=== PATIENT | female | born 1960 | race Caucasian/White ===

== ENCOUNTER 2020-01-19 08:01 | Emergency (ER) | payer OTHER, SELFPAY ==
[2012-01-11 21:14] VITALS: BP 146/89
--- OUTSIDE RECORDS SUMMARY | 2020-01-19 08:03 | XMS REPORT | Continuity of Care Document ---
:1960 Author Organization [facility] t Address [address] [place] [address] Care Team Providers Name Role Phone Doctor Unassigned, Name Attending Clinician Unavailable Jorge Attending Clinician Margaret Hood Attending Clinician Sudhir MERIDA Attending Clinician Sudhir MERIDA Admitting Clinician Problems This patient has no known problems. Allergies, Adverse Reactions, Alerts This patient has no known allergies or adverse reactions. Medications This patient has no known medications. Procedures This patient has no known procedures. Encounters Start End Encounter Admission Attending Care Care Encounter Source Date/Time Date/Time Type Type Clinicians Facility Department ID 2019-01-24 2019-01-24 Orders Doctor HAIRSTON [id number] 00:00:00 00:00:00 Only UnassKANWAL duckworth [id number] [facility] [id number] 2019-01-03 2019-01-03 Transition Daxa Patel [id number] 00:00:00 00:00:00 of Care Merle Ball [id number] [place] [id number] 2018-12-30 2019-01-02 [facility] Kana Bustamante [id number] 12:35:43 18:20:00 Encounter Leti Peguero [id number] [facility] [id number] Results This patient has no known results.
[2020-01-19 09:00] LABS: Absolute Lymphocytes (CBC) 0.6 K/uL (0.7-4.9); Basophils % 0.1 % (0-1.3); Lymphocytes % 4.3 % (15.3-44.8); MPV 9.3 fL (7.6-11.3); RBC Red Blood Cell Count 3.47 M/uL (3.86-4.86)
[2020-01-19 09:20] LABS: Albumin 3.6 g/dL (3.4-5.0); Bilirubin Direct 0.1 mg/dL (0-0.2); Bilirubin Total 0.3 mg/dL (0.2-1.0); Potassium 4.5 mmol/L (3.5-5.1)
[2020-01-19 10:23] LABS: Urine White Blood Cell Casts OK
[2020-01-19 10:24] LABS: Blood Morphology Comment NOT SEEN (NOT SEEN); Platelet Estimate ADEQ
[2020-01-19] MEDS ORDERED: CEFTRIAXONE/SWI 1gm 1 GM/10 ML SYR ONE (12:16)
[2020-01-19] MEDS ORDERED: NA CHLORIDE 0.9% 100 ML IV ONE (12:16)
--- NOTE | 2020-01-19 12:43 | RAD REPORT ---
EXAM DESCRIPTION: CT - Head Brain Wo Cont - 01/19/2020 12:29 pm CLINICAL HISTORY: Alteration of awareness/confusion COMPARISON: 2012 TECHNIQUE: Computed axial tomography of the head was obtained. IV contrast was not requested. All CT scans are performed using dose optimization technique as appropriate and may include automated exposure control or mA/KV adjustment according to patient size. FINDINGS: An intracranial bleed is not seen . The ventricles are normal in caliber. No extra-axial fluid collection is noted. 10 millimeter low-density area within the right internal capsule appears more prominent than on the p rior exam but was probably present. Mild to moderate low-density areas within periventricular, deep and subcortical white matter likely r epresent ischemic changes secondary to small vessel disease. Fluid within the right maxillary sinus may indicate acute sinusitis IMPRESSION: 10 millimeter low-density area within the right internal capsule probably is chronic. If patient continues to have symptoms to suggest acute intracranial pathology then MRI would be recom mended.
--- NOTE | 2020-01-19 13:26 | RAD REPORT ---
EXAM DESCRIPTION: Yobani Single View01/19/2020 11:14 am CLINICAL HISTORY: Fever COMPARISON: 2012 FINDINGS: Mild bilateral pulmonary opacities. . The heart is borderline enlarged IMPRESSION: Mild bilateral pulmonary opacities may represent pneumonia or pulmonary edema
[2020-01-19 13:31] LABS: Urine Blood 2+ (NEG); Urine Glucose NEGATIVE (NEG); Urine Protein 1+ (NEG); Urine Specific Gravity 1.025 (1.005-1.030); Urine pH 5.5 (5.0-7.0)
[2020-01-19 13:54] LABS: Barbiturates NEGATIVE (NEGATIVE); Benzodiazepines POSITIVE (NEGATIVE); Cocaine NEGATIVE (NEGATIVE); METHAMPHETAM NEGATIVE (NEGATIVE); Methadone NEGATIVE (NEGATIVE); Opiates POSITIVE (NEGATIVE); Phencyclidine NEGATIVE (NEGATIVE); THC Cannibis NEGATIVE (NEGATIVE)
[2020-01-19] MEDS ORDERED: AZITHROMYCIN IV 500 MG in NA CHLORIDE 0.9% 250 ML IVPB ONE (14:00)
[2020-01-19 14:09] LABS: Urine Amorphous Sediment 3+ /HPF (NONE SEEN); Urine Bacteria <20 /HPF (<20); Urine Culture Reflex Order NOT NEEDED; Urine RBC <5 /HPF (NONE SEEN)
--- NOTE | 2020-01-19 14:35 | ER ---
Nurse's Notes [facility] Name: Le Heath Age: 59 yrs Sex: Female : 1960 Arrival Date: 01/19/2020 Time: 08:03 Bed 4 Private MD: Diagnosis: Pneumonia, unspecified organism;Vomiting Presentation: 01/18 08:04 Chief complaint: EMS states: GEN WEAKNESS AND NAUSEA/VOMITING. Coronavirus screen: bp chills, fever, headache, nausea, vomiting. Client presents with at least one sign or symptom that may indicate coronavirus-19. Provider contacted for isolation considerations. Ebola Screen: No symptoms or risks identified at this time. Initial Sepsis Screen: Does the patient meet any 2 criteria? Temp <36.0*C (96.8*F)) or > 38.3*C (100.9*F). HR > 90 bpm. Yes Does the patient have a suspected source of infection? No. Patient's initial sepsis screen is negative. Risk Assessment: Do you want to hurt yourself or someone else? Patient reports no desire to harm self or others. Onset of symptoms is unknown. Care prior to arrival: IV initiated. 18 GA, in the left antecubital area, Glucose check: 164. 08:04 Method Of Arrival: EMS: [facility] bp 08:04 Acuity: MIKE 2 bp Triage Assessment: 08:13 General: Appears distressed, uncomfortable, ill, Behavior is cooperative, appropriate bp for age, anxious. Pain: Complains of pain in back. EENT: No deficits noted. Neuro: No deficits noted. Cardiovascular: Rhythm is sinus tachycardia. Respiratory: No deficits noted. GI: Reports nausea, vomiting. Musculoskeletal: No deficits noted. Historical: - Allergies: 08:13 No Known Allergies; bp - Home Meds: 08:13 Propranolol Oral [Active]; Tylenol #4 Oral [Active]; bp - PMHx: 08:13 Hypertension; bp - Immunization history:: Adult Immunizations up to date. - Social history:: Smoking status: Patient denies any tobacco usage or history of. Screenin:21 Abuse screen: Denies threats or abuse. Denies injuries from another. Nutritional bp screening: No deficits noted. Tuberculosis screening: No symptoms or risk factors identified. Fall Risk None identified. Assessment: 08:17 General: SEE TRIAGE NOTE. bp 09:21 Reassessment: PT REPEATEDLY ATTEMPTING TO EXIT BED BUT TOO WEAK TO STAND, REQUIRING bp STAFF ASSISTANCE TO REPOSITION. PT D/C OWN PIV AND FLIPPED B/S COMMODE. PT STRONGLY ENCOURAGED TO USE CALL LIGHT FOR ASSISTANCE IN THE FUTURE. 11:28 Reassessment: [phone]. bp 12:38 Reassessment: PT RETURNED FROM CT. bp 14:43 Reassessment: PT NOW AO3, INCREASED LEVEL OF CONSCIOUSNESS. D/C ON HOLD PENDING bp DELIVERY OF MED REQUESTED FROM PHARMACY. GI: Abdomen is non-distended. 15:30 Reassessment: PT RESTING QUIETLY, VS STABLE ON MONITOR. bp 16:30 Reassessment: ABX INFUSING, VS STABLE. PT SLEEPING. bp 17:28 Reassessment: ABX CONCLUDED. PT INSTRUCTED TO CONTACT FAMILY FOR TRANSPORT. bp 17:50 Reassessment: PT D/C HOME VIA W/C WITH FAMILY, DX WITH COVID PNEUMONIA. bp Vital Signs: 08:04 BP 126 / 63; Pulse 151; Resp 20; Temp 103.1; Pulse Ox 93% ; bp 09:21 BP 118 / 72; Pulse 133; Resp 17; Pulse Ox 95% ; bp 10:28 BP 105 / 63; Pulse 123; Resp 23; Pulse Ox 99% ; bp 11:02 BP 92 / 60; Pulse 102; Resp 14; Temp 99.7; Pulse Ox 100% ; bp 12:37 BP 121 / 75; Pulse 103; Resp 18; Pulse Ox 98% ; bp 13:30 BP 134 / 53; Pulse 94; Resp 11; Pulse Ox 98% ; bp 14:30 BP 99 / 50; Pulse 91; Resp 15; Pulse Ox 97% ; bp 15:30 BP 128 / 53; Pulse 94; Resp 11; Pulse Ox 99% ; bp 16:30 BP 116 / 72; Pulse 93; Resp 16; Pulse Ox 99% ; bp 17:30 BP 109 / 50; Pulse 97; Resp 17; Temp 98.9; Pulse Ox 99% ; bp ED Course: 08:03 Patient arrived in ED. bp 08:04 Kev Howard NP is PHCP. pm1 08:04 Devyn Douglas MD is Attending Physician. pm1 08:08 Triage completed. bp 08:13 Arm band placed on right wrist. bp 08:20 Maintain EMS IV. Dressing intact. Good blood return noted. Site clean \T\ dry. Gauge \T\ bp site: 18 GAUGE R AC. 08:21 Patient has correct armband on for positive identification. Bed in low position. Call bp light in reach. Side rails up X2. 08:22 Kris Almonte, EDGAR is Primary Nurse. bp 08:30 EKG done, by ED staff, reviewed by Kev Howard NP. jb1 09:21 IV discontinued, intact, bleeding controlled, No redness/swelling at site. Pressure jb1 dressing applied. 09:21 Inserted saline lock: 22 gauge in left antecubital area, using aseptic technique. jb1 11:14 Chest Single View XRAY In Process Unspecified. EDMS 12:29 CT Head Brain wo Cont In Process Unspecified. EDMS 12:29 CT completed. Patient tolerated procedure well. Patient moved back from CT. bq 13:20 Straight cath inserted, using sterile technique, 16 Fr. Specimen obtained. Returned aa5 Sent urine micro and urine drug screen to lab. . Patient tolerated well. 15:58 intact, bleeding controlled, No redness/swelling at site. Pressure dressing applied, 22 aa5 G to L AC dc'd, unable to flush IV. 15:59 Inserted saline lock: 22 gauge in left hand, using aseptic technique. aa5 17:51 No provider procedures requiring assistance completed. IV discontinued, intact, bp bleeding controlled, No redness/swelling at site. Pressure dressing applied. Administered Medications: 09:00 Drug: NS 0.9% 1000 ml Route: IV; Rate: 1000 ml; Site: left antecubital; bp 10:30 Drug: NS 0.9% 1000 ml Route: IV; Rate: 1000 ml; Site: left antecubital; bp 16:02 Follow up: IV Status: Completed infusion; IV Intake: 1000ml bp 12:30 Drug: Rocephin 1 grams Route: IV; Rate: calculated rate; Site: left antecubital; bp 16:01 Follow up: IV Status: Completed infusion; IV Intake: 50ml bp 16:00 Drug: AZITHromycin 500 mg {Note: recd from pharmacy.} Route: IVPB; Infused Over: 1 hrs; bp Site: left hand; 17:52 Follow up: IV Status: Completed infusion; IV Intake: 250ml bp Intake: 16:01 IV: 50ml; Total: 50ml. bp 16:02 IV: 1000ml; Total: 1050ml. bp 17:52 IV: 250ml; Total: 1300ml. bp Outcome: 14:34 Discharge ordered by . pm1 17:51 Discharged to home via wheelchair, with family. bp 17:51 Condition: stable 17:51 Discharge instructions given to patient, Instructed on discharge instructions, follow up and referral plans. medication usage, Demonstrated understanding of instructions, follow-up care, medications, Prescriptions given X 2. 17:52 Patient left the ED. bp Signatures: Dispatcher [employer] EDMS Kirt Nelson jbSaloni Kate Audri, RN RN aa5 Kev Howard, MICHAELA [employer]ES[employer] SPECIALIST pm1 Kris Almonte RN RN bp
--- NOTE | 2020-01-19 14:35 | EDPHYS ---
Physician Documentation [facility] Name: Le Heath Age: 59 yrs Sex: Female : 1960 Arrival Date: 01/19/2020 Time: 08:03 Bed 4 Private MD: ED Physician Devyn Douglas HPI: 01/18 11:21 This 59 yrs old Female presents to ER via EMS with complaints of General pm1 Weakness, Fever, Nausea/Vomiting. 11:21 The patient presents to the emergency department with weakness of the entire body, pm1 generalized weakness. 11:21 Onset: The symptoms/episode began/occurred yesterday. Associated signs and symptoms: pm1 Pertinent positives: fever, nausea/vomit x 1 this AM at 0300, Pertinent negatives: chest pain, shortness of breath, abdominal pain, diarrhea, urinary symptoms, cough, sore throat, ear pain. Severity of symptoms: in the emergency department the symptoms have improved no longer nauseated or having any vomiting. The patient has not recently seen a physician. Patient presenting to the ER with complaints of generalized weakness, fever, and 1 episode of vomiting. Historical: - Allergies: 08:13 No Known Allergies; bp - Home Meds: 08:13 Propranolol Oral [Active]; Tylenol #4 Oral [Active]; bp - PMHx: 08:13 Hypertension; bp - Immunization history:: Adult Immunizations up to date. - Social history:: Smoking status: Patient denies any tobacco usage or history of. ROS: 11:21 Eyes: Negative for injury, pain, redness, and discharge, ENT: Negative for injury, pm1 pain, and discharge, Neck: Negative for injury, pain, and swelling, Cardiovascular: Negative for chest pain, palpitations, and edema, Respiratory: Negative for shortness of breath, cough, wheezing, and pleuritic chest pain, Back: Negative for injury and pain, : Negative for injury, bleeding, discharge, and swelling, MS/Extremity: Negative for injury and deformity, Skin: Negative for injury, rash, and discoloration. 11:21 Constitutional: Positive for fever. 11:21 Abdomen/GI: Positive for nausea and vomiting, x 1, Negative for abdominal pain, diarrhea, constipation. 11:21 Neuro: Positive for weakness, generalized, Negative for dizziness, headache, numbness, tingling. Exam: 11:21 Constitutional: This is a well developed, well nourished patient who is awake, alert, pm1 and in no acute distress. Head/Face: Normocephalic, atraumatic. Eyes: Pupils equal round and reactive to light, extra-ocular motions intact. Lids and lashes normal. Conjunctiva and sclera are non-icteric and not injected. Cornea within normal limits. Periorbital areas with no swelling, redness, or edema. ENT: Nares patent. No nasal discharge, no septal abnormalities noted. Tympanic membranes are normal and external auditory canals are clear. Oropharynx with no redness, swelling, or masses, exudates, or evidence of obstruction, uvula midline. Mucous membranes moist. Neck: Trachea midline, no thyromegaly or masses palpated, and no cervical lymphadenopathy. Supple, full range of motion without nuchal rigidity, or vertebral point tenderness. No Meningismus. Chest/axilla: Normal chest wall appearance and motion. Nontender with no deformity. No lesions are appreciated. 11:21 Respiratory: Lungs have equal breath sounds bilaterally, clear to auscultation and percussion. No rales, rhonchi or wheezes noted. No increased work of breathing, no retractions or nasal flaring. 11:21 Back: No spinal tenderness. No costovertebral tenderness. Full range of motion. Skin: Warm, dry with normal turgor. Normal color with no rashes, no lesions, and no evidence of cellulitis. MS/ Extremity: Pulses equal, no cyanosis. Neurovascular intact. Full, normal range of motion. 11:21 Cardiovascular: Rate: tachycardic, Rhythm: regular, Pulses: no pulse deficits are appreciated, Edema: is not appreciated. 11:21 Abdomen/GI: Exam negative for acute changes, Inspection: abdomen appears normal, Palpation: abdomen is soft and non-tender, in all quadrants. 11:21 Neuro: Exam negative for acute changes, Orientation: is normal, Mentation: is normal, Motor: is normal, Sensation: is normal, no obvious gross deficits. Vital Signs: 08:04 BP 126 / 63; Pulse 151; Resp 20; Temp 103.1; Pulse Ox 93% ; bp 09:21 BP 118 / 72; Pulse 133; Resp 17; Pulse Ox 95% ; bp 10:28 BP 105 / 63; Pulse 123; Resp 23; Pulse Ox 99% ; bp 11:02 BP 92 / 60; Pulse 102; Resp 14; Temp 99.7; Pulse Ox 100% ; bp 12:37 BP 121 / 75; Pulse 103; Resp 18; Pulse Ox 98% ; bp 13:30 BP 134 / 53; Pulse 94; Resp 11; Pulse Ox 98% ; bp 14:30 BP 99 / 50; Pulse 91; Resp 15; Pulse Ox 97% ; bp 15:30 BP 128 / 53; Pulse 94; Resp 11; Pulse Ox 99% ; bp 16:30 BP 116 / 72; Pulse 93; Resp 16; Pulse Ox 99% ; bp 17:30 BP 109 / 50; Pulse 97; Resp 17; Temp 98.9; Pulse Ox 99% ; bp MDM: 08:04 Patient medically screened. pm1 12:04 ED course: Talked to the daughter on the phone (on speaker with patient's permission). pm1 Daughter recommended drug and ETOH screening because she has had a substance abuse in the past. 13:24 ED course: Patient reports that she has been taking Valium for the past 1 month for her pm1 anxiety. Her family does not know and she does not want them to know. 13:33 Data reviewed: vital signs. Data interpreted: Pulse oximetry: on room air is 98 %. pm1 Interpretation: normal. 13:34 Refusal of service: The patient/guardian displays adequate decision making capability pm1 and despite a detailed discussion of alternatives, benefits, risks, and consequences refuses: Admission to the hospital for further work-up and treatment. 13:35 Counseling: I had a detailed discussion with the patient and/or guardian regarding: the pm1 historical points, exam findings, and any diagnostic results supporting the discharge/admit diagnosis, lab results, the need for further work-up and treatment in the hospital. 13:35 ED course: Explained to the patient that I would like to admit her to the hospital due pm1 to her initial vital signs and labs. Patient without any respiratory symptoms. Chest x-ray shows bilateral pulmonary opacities. Patient likely has Covid-19. 14:11 Refusal of service: The patient/guardian displays adequate decision making capability pm1 and despite a detailed discussion of alternatives, benefits, risks, and consequences refuses: Admission to the hospital for further work-up and treatment, Patient feels better and is able to walk around the room without assistance. Patient does not want me to discuss her lab findings with her family nor her admission refusal. She does not want her family to know that she is taking Valium for anxiety and Tylenol #4 for chronic low back pain. 01/18 08:13 Order name: Basic Metabolic Panel; Complete Time: 10:00 pm1 01/18 08:13 Order name: CBC with Diff; Complete Time: 10:28 pm1 01/18 08:13 Order name: Hepatic Function; Complete Time: 10:00 pm01/18 08:13 Order name: Lipase; Complete Time: 10:00 pm1 01/18 08:13 Order name: Flu; Complete Time: 10:46 pm1 01/18 08:13 Order name: Strep pm1 01/18 08:13 Order name: COVID-19 pm1 01/18 08:13 Order name: Procalcitonin; Complete Time: 10:06 pm01/18 08:13 Order name: Lactate; Complete Time: 10:00 pm1 01/18 08:34 Order name: Urine Microscopic Only; Complete Time: 14:11 pm1 01/18 10:24 Order name: CBC Smear Scan; Complete Time: 10:28 EDMS 01/18 10:44 Order name: Throat Culture EDMS 01/18 11:20 Order name: Blood Culture Adult (2) pm1 01/18 12:06 Order name: UDS; Complete Time: 14:02 pm1 01/18 08:13 Order name: IV Saline Lock; Complete Time: 09:20 pm01/18 08:13 Order name: Labs collected and sent; Complete Time: 09:20 pm01/18 08:22 Order name: EKG; Complete Time: 08:22 pm01/18 08:22 Order name: EKG - Nurse/Tech; Complete Time: 08:22 pm01/18 08:34 Order name: Urine Dipstick-Ancillary (obtain specimen); Complete Time: 13:22 pm01/18 11:02 Order name: Chest Single View XRAY; Complete Time: 13:29 pm1 01/18 12:06 Order name: ETOH Level; Complete Time: 13:27 pm1 01/18 12:07 Order name: CT Head Brain wo Cont; Complete Time: 12:48 pm01/18 13:22 Order name: Urine Dipstick--Ancillary (enter results); Complete Time: 13:33 mt 01/18 13:26 Order name: Straight Cath - Urine: VO received at 1230; Complete Time: 13:26 aa5 01/18 13:32 Order name: Lactate Sepsis 2 HR Follow-up; Complete Time: 13:33 EDMS Administered Medications: 09:00 Drug: NS 0.9% 1000 ml Route: IV; Rate: 1000 ml; Site: left antecubital; bp 10:30 Drug: NS 0.9% 1000 ml Route: IV; Rate: 1000 ml; Site: left antecubital; bp 16:02 Follow up: IV Status: Completed infusion; IV Intake: 1000ml bp 12:30 Drug: Rocephin 1 grams Route: IV; Rate: calculated rate; Site: left antecubital; bp 16:01 Follow up: IV Status: Completed infusion; IV Intake: 50ml bp 16:00 Drug: AZITHromycin 500 mg {Note: recd from pharmacy.} Route: IVPB; Infused Over: 1 hrs; bp Site: left hand; 17:52 Follow up: IV Status: Completed infusion; IV Intake: 250ml bp Disposition: 01/19 08:57 Co-signature as Attending Physician, Devyn Douglas MD I agree with the assessment and myles plan of care. Disposition: 01/19/20 14:34 Discharged to Home. Impression: Pneumonia, unspecified organism, Vomiting. - Condition is Stable. - Discharge Instructions: Nausea and Vomiting, Adult, Community-Acquired Pneumonia, Adult, COVID-19. - Prescriptions for Zithromax Z- Miki 250 mg Oral Tablet - take 1 tablet by ORAL route as directed for 5 days Day 1 - take two (2) tablets one time. Day 2, 3, 4 , 5 take one (1) tablet once daily.; 6 tablet. Zofran 4 mg Oral Tablet - take 1 tablet by ORAL route every 8 hours As needed; 20 tablet. - Medication Reconciliation Form, Thank You Letter, Antibiotic Education, Prescription Opioid Use form. - Follow up: Emergency Department; When: As needed; Reason: Worsening of condition. Follow up: Private Physician; When: 2 - 3 days; Reason: Recheck today's complaints, Continuance of care, Re-evaluation by your physician. - Problem is new. - Symptoms have improved. Signatures: Dispatcher [employer] [facility] Devyn Douglas MD MD cha Calderon, Audri, RN RN aa5 Kev Howard, REINFORCED CONCRETE INSPECTOR REINFORCED CONCRETE INSPECTOR pm1 Kris Almonte, RN RN bp Corrections: (The following items were deleted from the chart) 01/18 11:14 10:55 Chest Pa And Lat (2 Views)+RAD.RAD.[email or web address] ordered. [facility] 17:52 14:34 01/19/2020 14:34 Discharged to Home. Impression: Pneumonia, unspecified organism; bp Vomiting. Condition is Stable. Discharge Instructions: Nausea and Vomiting, Adult, Community-Acquired Pneumonia, Adult, COVID-19. Prescriptions for Zithromax Z-Miki 250 mg Oral Tablet - take 1 tablet by ORAL route as directed for 5 days Day 1 - take two (2) tablets one time. Day 2, 3, 4 , 5 take one (1) tablet once daily.; 6 tablet, Zofran 4 mg Oral Tablet - take 1 tablet by ORAL route every 8 hours As needed; 20 tablet. and Forms are Medication Reconciliation Form, Thank You Letter, Antibiotic Education, Prescription Opioid Use. Follow up: Emergency Department; When: As needed; Reason: Worsening of condition. Follow up: Private Physician; When: 2 - 3 days; Reason: Recheck today's complaints, Continuance of care, Re-evaluation by your physician. Problem is new. Symptoms have improved. pm1
== END 2020-01-19 17:52 | disposition home or self-care (01) ==
LOC: ER 08:01
DX: J18.9 Pneumonia, unspecified organism (principal); R11.10 Vomiting, unspecified; I10 Essential (primary) hypertension
CPT/HCPCS: 36415; 51702; 70450; 71045; 80048; 80076; 80307; 80320; 81003; 81015; 83605; 83690; 84145; 85025; 87040; 87070; 87081; 87804; 93005; 99285; J0456; J0696; J7050; U0002

== ENCOUNTER 2020-02-04 15:44 | Inpatient (IN) | payer SELFPAY ==
--- OUTSIDE RECORDS SUMMARY | 2020-02-04 15:46 | XMS REPORT | Continuity of Care Document ---
:1960 Author Organization [facility] t Address [address] [place] [address] Care Team Providers Name Role Phone Doctor [...] Facility Department ID 2019-01-24 2019-01-24 Orders Doctor YOVANNY [id number] 00:00:00 00:00:00 Only KANWAL Sequeira [id number] [place] [facility] [id number] 2019-01-03 2019-01-03 Transition Daxa aPtel [id number] 00:00:00 00:00:00 of Care Merle Ball [id number] [place] [id number] 2018-12-30 2019-01-02 Hospital Kana Bustamante [id number] 12:35:43 18:20:00 Encounter Leti Peguero [id number] [facility] [id number] Results This patient has no known results.
--- NOTE | 2020-02-04 16:40 | RAD REPORT ---
EXAM DESCRIPTION: CT - Head Brain Wo Cont - 02/04/2020 4:27 pm CLINICAL HISTORY: Alteration of awareness/confusion COMPARISON: December 2019 TECHNIQUE: Computed axial tomography of the head was obtained. IV contrast was not requested. All CT scans are performed using dose optimization technique as appropriate and may include automated exposure control or mA/KV adjustment according to patient size. FINDINGS: An intracranial bleed is not seen . The ventricles are normal in caliber. No extra-axial fluid collection is noted. Small low-density area within the right internal capsule is unchanged probably old lacunar infarction. Mild to moderate low-density areas within periventricular, deep and subcortical white matter likely r epresent ischemic changes secondary to small vessel disease. Fluid within the sinuses/ mastoids is not seen. IMPRESSION: No acute intracranial abnormality is seen. If patient's symptoms persist MRI of the bra in would be recommended.
[2020-02-04 17:11] LABS: Protime INR 1.13
[2020-02-04 17:26] LABS: ALT/SGPT 20 U/L (12-78); AST/SGOT 11 U/L (15-37); Albumin 2.2 g/dL (3.4-5.0); Alkaline Phosphatase 72 U/L (45-117); BUN Blood Urea Nitrogen 77 mg/dL (7-18); Bicarbonate 21 mmol/L (21-32); Bilirubin Direct < 0.1 mg/dL (0-0.2); Bilirubin Total 0.2 mg/dL (0.2-1.0); Glucose Level 105 mg/dL (74-106); Magnesium 2.5 mg/dL (1.8-2.4); NT PRO-BNP 3688 pg/mL (<125); Protein, Total 6.3 g/dL (6.4-8.2); Sodium Level 135 mmol/L (136-145); Troponin (Emerg Dept Use Only) < 0.02 ng/mL (0.0-0.045)
[2020-02-04 17:49] LABS: Absolute Lymphocytes (CBC) 1.6 K/uL (0.7-4.9); Basophils % 0.5 % (0-1.3); Hematocrit 14.1 % (36.0-45.0); Lymphocytes % 11.2 % (15.3-44.8); MPV 8.3 fL (7.6-11.3); RBC Red Blood Cell Count 1.58 M/uL (3.86-4.86)
--- NOTE | 2020-02-04 18:18 | ER ---
Nurse's Notes [facility] Name: Le Heath Age: 59 yrs Sex: Female : 1960 Arrival Date: 02/04/2020 Time: 15:54 Bed 3 Private MD: Diagnosis: Anemia in other chronic diseases classified elsewhere;Weakness;Acute kidney failure Presentation: 02/03 15:54 Chief complaint: EMS states: pt presents via EMS with reports of decreased LOC per jr10 , states that pt was having snoring respirations and difficult to arouse; EMS reports that pt was hypotensive upon their arrival; pt drowsy but alert upon arrival to facility. Coronavirus screen: Client denies travel out of the [place] in the last 14 days. At this time, the client does not indicate any symptoms associated with coronavirus-19. reports negative test at this facility 2 weeks ago. Ebola Screen: No symptoms or risks identified at this time. Initial Sepsis Screen: Does the patient meet any 2 criteria? No. Patient's initial sepsis screen is negative. Does the patient have a suspected source of infection? No. Patient's initial sepsis screen is negative. Risk Assessment: Do you want to hurt yourself or someone else? Patient reports no desire to harm self or others. Onset of symptoms was February 04, 2020. 15:54 Method Of Arrival: EMS 10 15:54 Acuity: MIKE 3 jr10 Historical: - Allergies: 19:08 No Known Allergies; rr5 - Home Meds: 15:58 Propranolol Oral [Active]; Tylenol #4 Oral [Active]; jr10 - PMHx: 15:58 Hypertension; jr10 - Immunization history:: Adult Immunizations up to date. - Social history:: Smoking status: Patient denies any tobacco usage or history of. Patient/guardian denies using alcohol, street drugs, The patient lives with family. - Family history:: not pertinent. Screenin:00 Abuse screen: Denies threats or abuse. Denies injuries from another. Nutritional jr10 screening: No deficits noted. Tuberculosis screening: No symptoms or risk factors identified. Fall Risk No fall in past 12 months (0 pts). No secondary diagnosis (0 pts). IV access (20 points). Ambulatory Aid- None/Bed Rest/Nurse Assist (0 pts). Gait- Weak (10 pts.). Mental Status- Oriented to own ability (0 pts). Assessment: 16:00 General: Appears in no apparent distress. Behavior is drowsy. Pain: Denies pain. Neuro: renetta Level of Consciousness is lethargic, Oriented to Appropriate for age Speech is normal, Facial symmetry appears normal, Pupils are PERRLA. Cardiovascular: Denies chest pain, Patient's skin is warm and dry. Pulses are all present. Edema is absent. Rhythm is sinus tachycardia. Respiratory: Reports reports that she was diagnosed with pneumonia 2 weeks ago, COVID negative Airway is patent Respiratory effort is even, unlabored, Respiratory pattern is regular, symmetrical, Denies shortness of breath. GI: No deficits noted. No signs and/or symptoms were reported involving the gastrointestinal system. Patient currently denies diarrhea, nausea, vomiting. : No deficits noted. No signs and/or symptoms were reported regarding the genitourinary system. EENT: No deficits noted. No signs and/or symptoms were reported regarding the EENT system. Derm: Skin is pale. Musculoskeletal: Reports weakness in generalized. 17:45 Reassessment: pt noted to be more awake at this time; after speaking with patient about renetta decreased blood counts, pt reports that she has had "dark stools" x2 weeks, reports hx of GI bleed with blood transfusion in the past, last blood transfusion was approx 1 year ago. 19:11 General: Appears in no apparent distress. comfortable, Behavior is calm, cooperative, rr5 agitated. Pain: Denies pain. Neuro: Level of Consciousness is awake, alert, obeys commands, Oriented to person, place, time, situation. Cardiovascular: Capillary refill < 3 seconds Patient's skin is warm and dry. Respiratory: Airway is patent Respiratory effort is even, unlabored, Respiratory pattern is regular, symmetrical. GI: Abdomen is non-distended, Reports dark stool. : No signs and/or symptoms were reported regarding the genitourinary system. EENT: No signs and/or symptoms were reported regarding the EENT system. Derm: Skin is pale. Musculoskeletal: Circulation, motion, and sensation intact. Capillary refill < 3 seconds. 19:49 Reassessment: Patient appears in no apparent distress at this time. Patient is alert, rr5 oriented x 3, equal unlabored respirations, skin warm/dry/pink. Vital Signs: 15:54 BP 113 / 59; Pulse 113; Resp 16; Pulse Ox 96% on R/A; Pain 0/10; jr10 17:06 BP 99 / 61; Pulse 107; Resp 16; Pulse Ox 96% on 3 lpm NC; jr10 18:11 BP 118 / 63; Pulse 106; Resp 16; Pulse Ox 97% ; sv 19:07 BP 140 / 70; Pulse 111; Resp 19; Temp 100.5; Pulse Ox 100% on 3 lpm NC; rr5 19:48 BP 114 / 76; Pulse 106; Resp 18; Pulse Ox 99% on 3 lpm NC; rr5 17:06 pts noted to be at 86% on RA at present, placed on supplemental O2 at this time jr10 [place] Coma Score: 19:07 Eye Response: spontaneous(4). Verbal Response: oriented(5). Motor Response: obeys rr5 commands(6). Total: 15. ED Course: 15:54 Patient arrived in ED. jr10 15:55 Cristhian Appiah MD is Attending Physician. ma2 15:57 Triage completed. jr10 15:57 Arm band placed on. jr10 15:57 Maintain EMS IV. Dressing intact. Good blood return noted. Site clean \\T\\ dry. Gauge \\T\\ jr 10 site: 20# to left AC. IV is patent, is intact, with good blood return, Flushed. 16:08 Kathi Finch RN is Primary Nurse. jr10 16:10 Patient has correct armband on for positive identification. Bed in low position. Call 5 light in reach. Side rails up X 1. Warm blanket given. front desk monitor on. Pulse ox on. NIBP on. 16:10 EKG done, by ED staff, reviewed by Cristhian Appiah MD. 5 16:27 CT Head Brain wo Cont In Process Unspecified. EDMS 18:17 Guilherme Tinoco DO is Hospitalizing Provider. ma2 18:38 No provider procedures requiring assistance completed. Inserted saline lock: 20 gauge jr10 in right antecubital area, using aseptic technique. IV is patent, is intact, with good blood return, Flushed. 19:13 Report given to EDGAR Bartholomew. jr10 19:48 Patient admitted, IV remains in place. intact, No redness/swelling at site. rr5 Administered Medications: 16:09 Drug: NS 0.9% 1000 ml Route: IV; Rate: 1 bolus; Site: left antecubital; jr10 17:07 Follow up: Response: No adverse reaction; IV Status: Completed infusion jr10 19:10 Drug: Tylenol 650 mg Route: PO; rr5 19:49 Follow up: Response: No adverse reaction rr5 Medication: 18:43 Blood products: blood consent signed and placed in chart. jr10 Outcome: 18:17 Decision to Hospitalize by Provider. ma2 19:48 Admitted to Med/surg accompanied by nurse, via wheelchair, room 204, with oxygen, with rr5 chart, Report called to SUMAN 19:48 Condition: stable 19:48 Instructed on the need for admit. 19:55 Patient left the ED. rr5 Signatures: Dispatcher [employer] EDCoco Lee, Maliha Harrell RN Cristhian Mayes MD MD ma2 Jason Nugent RN RN rr5 Kathi Finch RN RN jr10 Corrections: (The following items were deleted from the chart) 17:18 17:06 BP 99 / 61; Pulse 107bpm; Resp 16bpm; Pulse Ox 94% RA; jr10 jr10 17:34 16:00 Derm: No deficits noted. No signs and/or symptoms reported regarding the jr10 dermatologic system. jr10
--- NOTE | 2020-02-04 18:18 | EDPHYS ---
Physician Documentation [facility] Name: Le Heath Age: 59 yrs Sex: Female : 1960 Arrival Date: 02/04/2020 Time: 15:54 Bed 3 Private MD: ED Physician Cristhian Appiah HPI: 02/03 16:04 This 59 yrs old Female presents to ER via EMS with complaints of Decreased ma2 LOC. 16:04 The patient's problem is reported as altered mental status. Onset: The symptoms/episode ma2 began/occurred gradually, 1 day(s) ago. Associated signs and symptoms: Pertinent negatives: ataxia, chest pain, combativeness, diaphoresis, diarrhea. Severity of symptoms: At their worst the symptoms were moderate in the emergency department the symptoms are unchanged. The patient has not experienced similar symptoms in the past. Historical: - Allergies: 19:08 No Known Allergies; rr5 - Home Meds: 15:58 Propranolol Oral [Active]; Tylenol #4 Oral [Active]; jr10 - PMHx: 15:58 Hypertension; jr10 - Immunization history:: Adult Immunizations up to date. - Social history:: Smoking status: Patient denies any tobacco usage or history of. Patient/guardian denies using alcohol, street drugs, The patient lives with family. - Family history:: not pertinent. ROS: 16:04 Constitutional: Negative for fever, chills, and weight loss, Cardiovascular: Negative ma2 for chest pain, palpitations, and edema, Respiratory: Negative for shortness of breath, cough, wheezing, and pleuritic chest pain, Abdomen/GI: Negative for abdominal pain, nausea, diarrhea, and constipation. 16:04 All other systems are negative. Exam: 16:04 Radiologist reports: n ma2 16:04 Constitutional: This is a well developed, well nourished patient who is awake, alert, and in no acute distress. Head/Face: Normocephalic, atraumatic. Eyes: Pupils equal round and reactive to light, extra-ocular motions intact. Lids and lashes normal. Conjunctiva and sclera are non-icteric and not injected. Cornea within normal limits. Periorbital areas with no swelling, redness, or edema. ENT: Nares patent. No nasal discharge, no septal abnormalities noted. Tympanic membranes are normal and external auditory canals are clear. Oropharynx with no redness, swelling, or masses, exudates, or evidence of obstruction, uvula midline. Mucous membranes moist. Neck: Trachea midline, no thyromegaly or masses palpated, and no cervical lymphadenopathy. Supple, full range of motion without nuchal rigidity, or vertebral point tenderness. No Meningismus. Chest/axilla: Normal chest wall appearance and motion. Nontender with no deformity. No lesions are appreciated. Cardiovascular: Regular rate and rhythm with a normal S1 and S2. No gallops, murmurs, or rubs. Normal PMI, no JVD. No pulse deficits. Respiratory: Lungs have equal breath sounds bilaterally, clear to auscultation and percussion. No rales, rhonchi or wheezes noted. No increased work of breathing, no retractions or nasal flaring. Abdomen/GI: Soft, non-tender, with normal bowel sounds. No distension or tympany. No guarding or rebound. No evidence of tenderness throughout. Back: No spinal tenderness. No costovertebral tenderness. Full range of motion. Female : Normal external genitalia. Skin: Warm, dry with normal turgor. Normal color with no rashes, no lesions, and no evidence of cellulitis. MS/ Extremity: Pulses equal, no cyanosis. Neurovascular intact. Full, normal range of motion. Neuro: Awake and alert, GCS 15, oriented to person, place, time, and situation. Cranial nerves II-XII grossly intact. Motor strength 5/5 in all extremities. Sensory grossly intact. Cerebellar exam normal. Normal gait. Psych: Awake, alert, with orientation to person, place and time. Behavior, mood, and affect are within normal limits. Vital Signs: 15:54 BP 113 / 59; Pulse 113; Resp 16; Pulse Ox 96% on R/A; Pain 0/10; jr10 17:06 BP 99 / 61; Pulse 107; Resp 16; Pulse Ox 96% on 3 lpm NC; jr10 18:11 BP 118 / 63; Pulse 106; Resp 16; Pulse Ox 97% ; sv 19:07 BP 140 / 70; Pulse 111; Resp 19; Temp 100.5; Pulse Ox 100% on 3 lpm NC; rr5 19:48 BP 114 / 76; Pulse 106; Resp 18; Pulse Ox 99% on 3 lpm NC; rr5 17:06 pts noted to be at 86% on RA at present, placed on supplemental O2 at this time jr10 [place] Coma Score: 19:07 Eye Response: spontaneous(4). Verbal Response: oriented(5). Motor Response: obeys rr5 commands(6). Total: 15. MDM: 15:55 Patient medically screened. [facility] 16:04 Differential diagnosis: Dementia, Alzheimer disease, metabolic disorder, drug effects. [facility] ED course: patient took couple of her T4 pain rx, she is back to normal . 18:08 Data reviewed: vital signs, nurses notes. Counseling: I had a detailed discussion with [facility] the patient and/or guardian regarding: the historical points, exam findings, and any diagnostic results supporting the discharge/admit diagnosis, the presence of at least one elevated blood pressure reading (>120/80) during this emergency department visit. 18:14 ED course: has ARF and severe anemia HB is 4, I called dr. Hunt he recommends admitting in2 to hospitalist. discussed and accepted by HAM Ortega . 18:14 ED course: discussed with dr. Ann . [facility] 02/03 16:01 Order name: Basic Metabolic Panel; Complete Time: 17:50 [facility] 02/03 16:01 Order name: LFT's; Complete Time: 17:50 [facility] 02/03 16:01 Order name: Magnesium; Complete Time: 17:50 [facility] 02/03 16:01 Order name: NT PRO-BNP; Complete Time: 17:50 [facility] 02/03 16:01 Order name: PT-INR; Complete Time: 17:50 [facility] 02/03 16:01 Order name: Troponin (emerg Dept Use Only); Complete Time: 17:50 [facility] 02/03 16:03 Order name: CT Head Brain wo Cont; Complete Time: 17:12 [facility] 02/03 17:33 Order name: CBC with Diff; Complete Time: 18:06 jr10 02/03 18:05 Order name: Urine Dipstick--Ancillary (enter results) eb 02/03 18:14 Order name: Type And Screen [facility] 02/03 18:26 Order name: Packed RBC Leukored EDFL 02/03 16:01 Order name: Cardiac monitoring; Complete Time: 16:09 [facility] 02/03 16:01 Order name: EKG - Nurse/Tech; Complete Time: 16:09 [facility] 02/03 16:01 Order name: IV Saline Lock; Complete Time: 16:10 [facility] 02/03 16:01 Order name: Labs collected and sent; Complete Time: 17:07 [facility] 02/03 16:01 Order name: O2 Per Protocol; Complete Time: 16:09 [facility] 02/03 16:01 Order name: O2 Sat Monitoring; Complete Time: 16:09 [facility] 02/03 16:01 Order name: Urine Dipstick-Ancillary (obtain specimen); Complete Time: 18:16 [facility] 02/03 19:06 Order name: CONS Physician Consult EDFL Administered Medications: 16:09 Drug: NS 0.9% 1000 ml Route: IV; Rate: 1 bolus; Site: left antecubital; jr10 17:07 Follow up: Response: No adverse reaction; IV Status: Completed infusion jr10 19:10 Drug: Tylenol 650 mg Route: PO; rr5 19:49 Follow up: Response: No adverse reaction rr5 Disposition: 02/04/20 18:17 Hospitalization ordered by Guilherme Tinoco for Inpatient Admission. Preliminary diagnosis are Anemia in other chronic diseases classified elsewhere, Weakness, Acute kidney failure. - Bed requested for Telemetry/MedSurg (Inpatient). - Status is Inpatient Admission. rr5 - Condition is Stable. - Problem is new. - Symptoms are unchanged. Signatures: Dispatcher [employer] [facility] Lesa Ward, EDGAR RN cg Cristhian Appiah MD MD ma2 Jason Nugent RN RN rr5 Kathi Finch RN RN jr10 Corrections: (The following items were deleted from the chart) 18:43 16:01 CBC+H.LAB.BRZ ordered. [facility] 19:43 18:17 Hospitalization Ordered by Guilherme Tinoco DO for Inpatient Admission. Preliminary cg diagnosis is Anemia in other chronic diseases classified elsewhere; Weakness; Acute kidney failure. Bed requested for Telemetry/MedSurg (Inpatient). Status is Inpatient Admission. Condition is Stable. Problem is new. Symptoms are unchanged. [facility] 19:55 19:43 02/04/2020 18:17 Hospitalization Ordered by Guilherme Tinoco DO for Inpatient rr5 Admission. Preliminary diagnosis is Anemia in other chronic diseases classified elsewhere; Weakness; Acute kidney failure. Bed requested for Telemetry/MedSurg (Inpatient). Status is Inpatient Admission. Condition is Stable. Problem is new. Symptoms are unchanged. cg
--- NOTE | 2020-02-04 19:17 | P.HP ---
Certification for Inpatient With expected LOS: >2 Midnights Patient will require the following post-hospital care: None Practitioner: I am a practitioner with admitting privileges, knowledge of patient current condition, hospital course, and medical plan of care. Services: Services provided to patient in accordance with Admission requirements found in Title 42 Section 412.3 of the Code of Federal Regulations <Josh Carter - Last Filed: 02/04/20 19:11> Patient History Date of Service: 02/04/20 Primary Care Provider: Dr. Hunt Reason for admission: Severe anemia/possible GI bleed History of Present Illness: 59-year-old female with a past medical history of hypertension and peptic ulcer disease presents to the emergency room via EMS with complaints of decreased level of consciousness. Patient states that she is alert and oriented x3 and is aware of what's going on, but states that she feels very weak and fatigued. States that it started approximately 1 day ago and has progressively worsened. Patient also states that she had a an abdominal surgery in 2012 due to a perforated bowel secondary to a peptic ulcer. States that she only takes Tylenol for but has run out and has been taking ibuprofen instead not realizing that this could harm her. She is aware to not take NSAIDs. In the emergency room patient is alert and oriented x4. Her mentation is at baseline. She is in no distress. States that she just feels weak and unable to do much activity throughout the day. States that it got really bad yesterday and has progressively worsened. Patient states she only takes medication for hypertension - propranolol and peptic ulcer disease-omeprazole. Emergency room lab shows an elevated creatinine level of 3.3. Patient's baseline was 1.3 on 01/19/2020. Her hemoglobin is significantly decreased at 4.6 with a hematocrit of 14.1. Her baseline on 01/19/2020 was 10.5 and 32. Her white cell count is slightly elevated at 14.3 and her BNP is also slightly elevated at 3688. Dr. Ann was consulted. Hospitalist will admit and further evaluate. Home medications list reviewed: Yes - Past Medical/Surgical History Diabetic: No -: Peptic ulcer disease -: Hypertension -: Perforated intestine Psychosocial/ Personal History: Lives at home with - Family History Family History: Reviewed- Non-Contributory - Social History Alcohol use: Yes CD- Drugs: No Caffeine use: No Place of Residence: Home <Josh Carter - Last Filed: 02/04/20 19:11> Date of Service: 02/04/20 <Cristhian Faith - Last Filed: 02/05/20 11:24> Allergies No Known Allergies Allergy (Verified 02/04/20 23:23) Home Medications: Acetaminophen with Codeine [Tylenol with Codeine #4 Tablet] 1 each PO Q8HP PRN 02/04/20 Ferrous Fumarate [Hemocyte] 324 mg PO DAILY 02/04/20 Omeprazole [Prilosec] 40 mg PO DAILY 02/04/20 Propranolol [Inderal] 40 mg PO DAILY 02/04/20 Tizanidine HCl [Zanaflex] 4 mg PO TID PRN 02/04/20 Review of Systems General: Weakness, Malaise, As per HPI Eyes: Unremarkable ENT: Unremarkable Respiratory: Unremarkable Cardiovascular: Unremarkable Gastrointestinal: As per HPI Genitourinary: Unremarkable Musculoskeletal: Unremarkable Integumentary: Unremarkable Neurological: Unremarkable Lymphatics: Unremarkable <Josh Carter - Last Filed: 02/04/20 19:11> Physical Examination - Vital Signs Blood Pressure: 118/63 Pulse: 106 Respirations: 16 Pulse Ox (%): 97 (RA) - Physical Exam General: Alert, In no apparent distress, Oriented x3 HEENT: Atraumatic, Normocephalic, PERRLA Neck: Supple, No Thyromegaly, Other (Trachea midline) Respiratory: Clear to auscultation bilaterally, Normal air movement Cardiovascular: No edema, Normal pulses, Regular rate/rhythm, Normal S1 S2 Capillary refill: <2 Seconds Gastrointestinal: Normal bowel sounds, Soft and benign, No tenderness, No rebound, No guarding Musculoskeletal: No clubbing, No swelling, No contractures, No erythema Integumentary: No rashes, No breakdown, No significant lesion, No tenderness/swelling Neurological: Normal gait, Normal speech, Normal strength at 5/5 x4 extr, Normal tone - Studies Laboratory Data (last 24 hrs) 02/04/20 : WBC Cancelled, Hgb Cancelled, Hct Cancelled, Plt Count Cancelled 02/04/20 17:35: WBC 14.3 H, Hgb 4.6 L*, Hct 14.1 L*, Plt Count 630 H 02/04/20 16:40: PT 13.3 H, INR 1.13 02/04/20 16:40: Sodium 135 L, Potassium 4.0, BUN 77 H, Creatinine 3.30 H, Glucose 105, Magnesium 2.5 H, Total Bilirubin 0.2, AST 11 L, ALT 20, Alkaline Phosphatase 72 <Josh Carter - Last Filed: 02/04/20 19:11> - Studies Laboratory Data (last 24 hrs) 02/04/20 17:35: WBC 14.3 H, Hgb 4.6 L*, Hct 14.1 L*, Plt Count 630 H 02/04/20 16:40: PT 13.3 H, INR 1.13 02/04/20 16:40: Sodium 135 L, Potassium 4.0, BUN 77 H, Creatinine 3.30 H, Glucose 105, Magnesium 2.5 H, Total Bilirubin 0.2, AST 11 L, ALT 20, Alkaline Phosphatase 72 <Cristhian Faith - Last Filed: 02/05/20 11:24> Assessment and Plan - Plan Impression: History of peptic ulcer disease with recent use of ibuprofen and possible GI bleeding: Severe anemia: Acute kidney injury: Essential hypertension: Malaise and fatigue with elevated BNP: Plan: History of peptic ulcer disease with recent use of ibuprofen and possible GI bleeding: Patient admits to using ibuprofen because she ran out of [facility]. Had surgery for a perforated bowel secondary to a peptic ulcer in 2012. Is aware that she is not supposed to be taking NSAIDs. Also admits to drinking this past weekend. consulted. Will keep patient NPO after midnight. No anticoagulation. Monitor labs. Severe anemia: Hemoglobin of 4.6 with a hematocrit of 14.1 on arrival to ED. Baseline 01/19/2020 was 10.5 and 32. Patient receiving 3 units PRBCs. Monitor H&H. Acute kidney injury: Creatinine of 3.3 on arrival to ED. Baseline on 01/19/2020 was 1.3. Patient states she has not been drinking fluids. Will continue gentle IV hydration. Monitor creatinine. Essential hypertension: Blood pressure not requiring medication at this time. Will continue to monitor blood pressure and adjust medications accordingly. Malaise and fatigue with elevated BNP: Patient states she feels weak and lack of energy. Unknown if related to the severe anemia or not. Patient also noted to have an elevated BNP of 3688 on the arrival to ED. Will order echocardiogram. Patient denies any history of cardiac issues. Discharge Plan: Home Plan to discharge in: Greater than 2 days - Advance Directives Does patient have a Living Will: No Does patient have a Durable POA for Healthcare: No - Code Status/Comfort Care Code Status Assessed: Yes Time Spent Managing Pts Care (In Minutes): 55 <Johs Carter - Last Filed: 02/04/20 19:11> - Problems (Diagnosis) (1) Upper GI hemorrhage Current Visit: Yes Status: Acute (2) MEGGAN (acute kidney injury) Current Visit: Yes Status: Acute (3) Near syncope Current Visit: Yes Status: Acute (4) Weakness Current Visit: Yes Status: Acute (5) Melanotic stools Current Visit: Yes Status: Acute <Cristhian Faith - Last Filed: 02/05/20 11:24> Date of Service: 02/04/20 Chart reviewed; agree with findings as above Subjective Patient presents with melanotic stools; also with lightheadedness and short of breath. patient laso complaining of generalized weakness. Patient most likely has bleeding ulcer or hemorrhagic gastritis from ibuprofen use. Also suffered acute kidney injury. Continue to monitor closely Physical Examination - Vital Signs reviewed - Physical Exam General: Alert, In no apparent distress, Oriented x3 Respiratory: Clear to auscultation bilaterally, Normal air movement Cardiovascular: Regular rate/rhythm, Normal S1 S2, No murmurs Gastrointestinal: Normal bowel sounds, Soft and benign, Non-distended, No rebound, No guarding, Tenderness Musculoskeletal: No clubbing, No swelling, No tenderness Neurological: Sensation intact, Cranial nerves 3-12 intact Assessment & Plan - Problems (Diagnosis) (1) Upper GI hemorrhage Current Visit: Yes Status: Acute (2) MEGGAN (acute kidney injury) Current Visit: Yes Status: Acute (3) Near syncope Current Visit: Yes Status: Acute (4) Weakness Current Visit: Yes Status: Acute (5) Melanotic stools Current Visit: Yes Status: Acute 1. PPI drip 2. Monitor H&H 3. GI consultation 4. Monitor hemodynamics 5. Bedrest 6. Monitor renal function after IV hydration 7. Refrain from future NSAID use - Advance Directives Does patient have a Living Will: No Does patient have a Durable POA for Healthcare: No <Cristhian Faith - Last Filed: 02/05/20 11:24>
[2020-02-04] MEDS ORDERED: ACETAMINOPHEN 325 MG TABLET ONE (19:21)
[2020-02-04] MEDS ORDERED: NA CHLORIDE 0.9% 1,000 ML IV SCH (20:42)
[2020-02-04 21:19] LABS: Urine Blood 1+ (NEG); Urine Glucose NEGATIVE (NEG); Urine Protein 1+ (NEG); Urine pH 5.5 (5.0-7.0)
[2020-02-04] MEDS: NA CHLORIDE 0.9% 1,000 ML IV SCH (22:44)
[2020-02-04 23:41] VITALS: BMI 30.4
[2020-02-05] MEDS: NA CHLORIDE 0.9% 1,000 ML IV SCH ×4 (04:42→23:15)
[2020-02-05] MEDS ORDERED: NA CHLORIDE 0.9% 250 ML ONE (05:48)
[2020-02-05 06:17] LABS: Absolute Lymphocytes (CBC) 1.9 K/uL (0.7-4.9); Basophils % 0.9 % (0-1.3); Lymphocytes % 16.3 % (15.3-44.8); MPV 8.8 fL (7.6-11.3); RBC Red Blood Cell Count 1.34 M/uL (3.86-4.86)
[2020-02-05 06:25] LABS: Protime INR 1.06
[2020-02-05 06:37] LABS: Albumin 2.1 g/dL (3.4-5.0); Bilirubin Total 0.1 mg/dL (0.2-1.0); Magnesium 2.2 mg/dL (1.8-2.4); Potassium 4.4 mmol/L (3.5-5.1)
--- NOTE | 2020-02-05 11:18 | P.PN ---
Subjective Date of Service: 02/05/20 Still with melanotic stools; still light headed and short of breath with generalized weakness. Awaiting blood transfusion. patient is not on PPI drip; we will start at this time. Patient most likely has bleeding ulcer or hemorrhagic gastritis from ibuprofen use. Also suffered acute kidney injury. Continue to monitor closely Review of Systems 10-point ROS is otherwise unremarkable Physical Examination - Vital Signs Temperature: 98.8 F Blood Pressure: 92/54 Pulse: 92 Respirations: 16 Pulse Ox (%): 100 - Physical Exam General: Alert, In no apparent distress, Oriented x3 Respiratory: Clear to auscultation bilaterally, Normal air movement Cardiovascular: Regular rate/rhythm, Normal S1 S2, No murmurs Gastrointestinal: Normal bowel sounds, Soft and benign, Non-distended, No rebound, No guarding, Tenderness Musculoskeletal: No clubbing, No swelling, No tenderness Neurological: Sensation intact, Cranial nerves 3-12 intact - Studies Laboratory Data (last 24 hrs) 02/04/20 17:35: WBC 14.3 H, Hgb 4.6 L*, Hct 14.1 L*, Plt Count 630 H 02/04/20 16:40: PT 13.3 H, INR 1.13 02/04/20 16:40: Sodium 135 L, Potassium 4.0, BUN 77 H, Creatinine 3.30 H, Glucose 105, Magnesium 2.5 H, Total Bilirubin 0.2, AST 11 L, ALT 20, Alkaline Phosphatase 72 Medications List Reviewed: Yes Assessment & Plan - Problems (Diagnosis) (1) Upper GI hemorrhage Current Visit: Yes Status: Acute (2) MEGGAN (acute kidney injury) Current Visit: Yes Status: Acute (3) Near syncope Current Visit: Yes Status: Acute (4) Weakness Current Visit: Yes Status: Acute (5) Melanotic stools Current Visit: Yes Status: Acute - Plan Plan: 1. Continue with IV hydration 2. Continue with IV PPI drip 3. Continue with pain control 4. NPO 5. GI consultation 6. Serial H&H, and we will monitor LFTs and lipase along with electrolytes. 7. GI and DVT prophylaxis Discharge Plan: Home Plan to discharge in: Greater than 2 days - Advance Directives Does patient have a Living Will: No Does patient have a Durable POA for Healthcare: No - Code Status/Comfort Care Code Status Assessed: Yes Code Status: Full Code Critical Care: No Time Spent Managing PTS Care (In Minutes): 35
[2020-02-05] MEDS: PANTOPRAZOLE INJ 80 MG in NA CHLORIDE 0.9% 250 ML IV SCH ×2 (12:03→20:51)
[2020-02-05 19:45] LABS: Hematocrit 21.4 % (36.0-45.0)
--- NOTE | 2020-02-05 20:01 | EKG ---
Test Date: 2020-02-04 Test Time: 16:19:33 Gauge Maker: SOHAM MEASUREMENT RESULTS: Intervals: Rate: 103 AR: 152 QRSD: 126 QT: 342 QTc: 448 [place]: P: 63 AR: 152 QRS: 0 T: 36 INTERPRETIVE STATEMENTS: Sinus tachycardia Right bundle branch block Abnormal ECG Compared to ECG 01/19/2020 08:18:44 No significant changes Electronically Signed On 02-05-20 19:59:24 CDT by Ricky Welsh
[2020-02-06] MEDS: NA CHLORIDE 0.9% 1,000 ML IV SCH ×6 (01:40→21:13)
[2020-02-06] MEDS: PANTOPRAZOLE INJ 80 MG in NA CHLORIDE 0.9% 250 ML IV SCH ×4 (06:07→18:20)
[2020-02-06 06:34] LABS: Protime INR 1.04
[2020-02-06 06:45] LABS: Absolute Lymphocytes (CBC) 1.9 K/uL (0.7-4.9); Hematocrit 21.8 % (36.0-45.0); Lymphocytes % 19.7 % (15.3-44.8); RBC Red Blood Cell Count 2.45 M/uL (3.86-4.86)
[2020-02-06 07:04] LABS: BUN Blood Urea Nitrogen 24 mg/dL (7-18); Bicarbonate 18 mmol/L (21-32); Folic Acid, (Folate) > 20.0 ng/mL (3.1-17.5); Glucose Level 79 mg/dL (74-106); Magnesium 1.8 mg/dL (1.8-2.4); Phosphorus 1.5 mg/dL (2.5-4.9); Potassium 4.3 mmol/L (3.5-5.1); Sodium Level 144 mmol/L (136-145)
[2020-02-06 07:49] LABS: Anisocytosis 1+; Blood Morphology Comment NOTED (NOT SEEN); Platelet Estimate ADEQ
--- NOTE | 2020-02-06 08:03 | P.PN ---
Subjective Date of Service: 02/06/20 Patient is getting the EGD today. Will await for results Review of Systems 10-point ROS is otherwise unremarkable Physical Examination - Vital Signs Temperature: 98.8 F Blood Pressure: 92/54 Pulse: 92 Respirations: 16 Pulse Ox (%): 100 - Physical Exam General: Alert, In no apparent distress, Oriented x3 Respiratory: Clear to auscultation bilaterally, Normal air movement Cardiovascular: Regular rate/rhythm, Normal S1 S2, No murmurs Gastrointestinal: Normal bowel sounds, Soft and benign, Non-distended, No tenderness, No rebound, No guarding Musculoskeletal: No clubbing, No swelling, No tenderness Neurological: Normal strength at 5/5 x4 extr, Normal tone, Sensation intact, Cranial nerves 3-12 intact - Studies Medications List Reviewed: Yes Assessment & Plan - Problems (Diagnosis) (1) Upper GI hemorrhage Current Visit: Yes Status: Acute (2) MEGGAN (acute kidney injury) Current Visit: Yes Status: Acute (3) Near syncope Current Visit: Yes Status: Acute (4) Weakness Current Visit: Yes Status: Acute (5) Melanotic stools Current Visit: Yes Status: Acute - Plan Plan: 1. Continue with IV hydration 2. Continue with IV PPI drip 3. Continue with pain control 4. NPO 5. GI consultation appreciated 6. Monitor labs closely 7. Repeat CT abdomen/pelvis 8. GI and DVT prophylaxis Discharge Plan: Home Plan to discharge in: Greater than 2 days - Advance Directives Does patient have a Living Will: No Does patient have a Durable POA for Healthcare: No - Code Status/Comfort Care Code Status: Full Code Critical Care: No Time Spent Managing PTS Care (In Minutes): 35
[2020-02-06] MEDS ORDERED: MAGNESIUM SULFATE 1 gm IVPB 1 GM/100 ML BAG IV ONE (09:00)
--- NOTE | 2020-02-06 09:26 | ECHO ---
HEIGHT: 5 ft 0 in WEIGHT: 156 lb 0 oz DATE OF STUDY: 02/05/[address]: Josh Crater 2-DIMENSIONAL: YES M.MODE: YES DOPPLER: YES COLOR FLOW: YES TDS: NO PORTABLE: NO DEFINITY: NO BUBBLE STUDY: NO DIAGNOSIS: WEAKNESS CARDIAC HISTORY: CATHERIZATION: SURGERY: PROSTHETIC VALVE: PACEMAKER: MEASUREMENTS (cm) DIASTOLIC (NORMALS) SYSTOLIC (NORMALS) IVSd 0.8 (0.6-1.2) LA Diam 3.7 (1.9-4.0) LVEF 75% LVIDd 4.7 (3.5-5.7) LVIDs 2.6 (2.0-3.5) %FS 44% LVPWd 0.9 (0.6-1.2) Ao Diam 2.4 (2.0-3.7) 2 DIMENSIONAL ASSESSMENT: RIGHT ATRIUM: NORMAL LEFT ATRIUM: NORMAL RIGHT VENTRICLE: NORMAL LEFT VENTRICLE: NORMAL TRICUSPID VALVE: NORMAL MITRAL VALVE: NORMAL PULMONIC VALVE: NORMAL AORTIC VALVE: NORMAL PERICARDIAL EFFUSION: NONE AORTIC ROOT: NORMAL LEFT VENTRICULAR WALL MOTION: NORMAL DOPPLER/COLOR FLOW: MILD MITRAL AND TRICUSPID REGURGITATION. COMMENTS: MILD MITRAL AND TRICUSPID REGURGITATION. NORMAL LEFT VENTRICULAR SIZE AND FUNCTION. NO MITRAL VALVE PROLAPSE. NO WALL MOTION ABNORMALITY. TECHNOLOGIST: Carloz JONES
[2020-02-06 12:31] LABS: Absolute Lymphocytes (CBC) 1.9 K/uL (0.7-4.9); Basophils % 0.8 % (0-1.3); Hematocrit 23.2 % (36.0-45.0); Lymphocytes % 18.5 % (15.3-44.8); MPV 9.2 fL (7.6-11.3); RBC Red Blood Cell Count 2.62 M/uL (3.86-4.86)
[2020-02-06 14:12] LABS: Urine Appearance CLEAR; Urine Blood NEGATIVE (NEG); Urine Color YELLOW; Urine Glucose NEGATIVE (NEG); Urine Protein 1+ (NEG); Urine Specific Gravity 1.015 (1.005-1.030); Urine Urobilinogen 0.2 mg/dL (0.2-1.0)
[2020-02-06 14:20] LABS: Urine Bilirubin NEGATIVE (NEG); Urine Microscopic Reflex ORDER UMIC
[2020-02-06 14:22] LABS: Urine Bacteria <20 /HPF (<20); Urine Culture Reflex Order NOT NEEDED; Urine RBC <5 /HPF (NONE SEEN)
[2020-02-06] MEDS ORDERED: LIDOCAINE 1% MPF 5 ML VIAL ONE (16:43)
[2020-02-06] MEDS ORDERED: propofoL 200 MG/20 ML VIAL IV ONE (16:43)
[2020-02-06] MEDS ORDERED: EPINEPHRINE/PF 1 MG/ML AMP ONE (17:29)
--- NOTE | 2020-02-06 17:38 | ENDO RPT ---
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 TOPICAL ANESTHETIC: none CONSENT: The patient understands the risks and benefits of the procedure and understands that these risks include, but are not limited to: sedation, allergic reaction, infection, perforation and/or bleeding. Alternative means of evaluation and treatment include, among others: physical exam, x-rays, and/or surgical intervention. The patient elects to proceed with this endoscopic procedure. DESCRIPTION OF PROCEDURE: During intra-op preparation period all mechanical medical equipment was checked for proper function. Hand hygiene and appropriate measures for infection prevention was taken. Procedure, possible complications, and alternatives including but not limited to the possibility of bleeding, perforation, tear, infection, sepsis, need for surgery, need for blood transfusion, and anesthesia related complications were explained to the patient. After the risks, benefits and alternatives of the procedure were thoroughly explained, Informed consent was verified, confirmed and timeout was successfully executed by the treatment team. The patient was placed in the left lateral position. The patient was anesthetized with topical anesthesia. Through the anesthetized oropharyngeal area, the scope was passed without any difficulty. The EG-[id number] ([id number]) endoscope was introduced through the mouth and advanced to the second portion of the duodenum. Retroflexed views revealed no abnormalities. The gastroscope was then slowly withdrawn and removed. Moderate gastritis was found in the body and the antrum of the stomach. Multiple biopsies were obtained and sent to pathology. A large 7.5 X 4 cm ulcer was found in the body and the antrum of the stomach. Multiple biopsies were obtained and sent to pathology. ADVERSE EVENTS: There were no complications. IMPRESSIONS: 1. Moderate gastritis in the body and the antrum of the stomach 2. Large 7.5 X 4.0 cm ulcer with crater extending from the distal body, through the antrum of the stomach, and to the pylorus, s/p biopsies of edges RECOMMENDATIONS: 1. await biopsy results 2. acid suppression therapy 3. check gastrin level AM 4. CT abdomen / pelvis if not done recently REPEAT EXAM: Return in 3 month(s) for EGD. Grey [address] Dr eSigned: Grey Abraham Dr 02/06/2020 5:37 PM cc: Cristhian Faith M.D. CPT CODES: ICD9 CODES: PATIENT NAME: Le Heath MR#: [id number]
[2020-02-06] MEDS ORDERED: CODEINE 30MG/APAP 300MG TAB PO PRN (20:42)
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
[2020-02-07] MEDS: NA CHLORIDE 0.9% 1,000 ML IV SCH ×4 (00:50→17:15)
[2020-02-07] MEDS: PANTOPRAZOLE INJ 80 MG in NA CHLORIDE 0.9% 250 ML IV SCH ×5 (04:06→23:00)
[2020-02-07 06:02] LABS: Absolute Lymphocytes (CBC) 2.6 K/uL (0.7-4.9); Basophils % 0.9 % (0-1.3); Hematocrit 22.6 % (36.0-45.0); Lymphocytes % 24.5 % (15.3-44.8); MPV 8.4 fL (7.6-11.3); RBC Red Blood Cell Count 2.57 M/uL (3.86-4.86)
[2020-02-07 06:04] LABS: BUN Blood Urea Nitrogen 13 mg/dL (7-18); Bicarbonate 20 mmol/L (21-32); Glucose Level 89 mg/dL (74-106); Magnesium 1.7 mg/dL (1.8-2.4); Potassium 4.1 mmol/L (3.5-5.1); Sodium Level 144 mmol/L (136-145)
--- NOTE | 2020-02-07 08:55 | RAD REPORT ---
EXAM DESCRIPTION: CT - Abdomen Pelvis W Contrast - 02/07/2020 8:04 am CLINICAL HISTORY: Abdominal pain COMPARISON: none. TECHNIQUE: Computed axial tomography of the abdomen pelvis was obtained. 100 cc [id number]-300 was admin istered intravenously. Oral contrast was not requested which limits evaluation of bowel. All CT scans are performed using dose optimization technique as appropriate and may include automated exposure control or mA/KV adjustment according to patient size. FINDINGS: Small bilateral pleural effusions Small amount of ascites within the abdomen and pelvis Periportal edema within liver. The spleen, pancreas and adrenals are unremarkable. Tiny nonobstructing left renal calculus. 5 millimeter nonobstructing right renal calculus. Marked thickening of the wall of distal stomach. Stranding within the adjacent fat is present. Small collection of air extends from the anterior aspect of the distal stomach . No lymphadenopathy seen There is no evidence of diverticulitis. The appendix is dilated. It was also a dilated on the 2012 exam IMPRESSION: Marked thickening of the wall of the distal stomach consistent with inflammation or neop lasm. Small collection of air extends from the anterior aspect of the distal stomach. This probably i s an ulcer. This may extend extraluminal indicating a perforation. The appendix is dilated. It was also dilated on the 2012 exam and appears to be a chronic finding for the patient. However, clinical correlation is needed see if the patient has symptoms to suggest an a cute appendicitis Examination was discussed with Dr. Faith
[2020-02-07] MEDS ORDERED: MAGNESIUM SULFATE 1 gm IVPB 1 GM/100 ML BAG IV ONE (09:00)
[2020-02-07 13:52] LABS: Absolute Lymphocytes (CBC) 1.4 K/uL (0.7-4.9); Basophils % 0.5 % (0-1.3); Hematocrit 23.4 % (36.0-45.0); Lymphocytes % 11.3 % (15.3-44.8); MPV 8.4 fL (7.6-11.3); RBC Red Blood Cell Count 2.66 M/uL (3.86-4.86)
--- NOTE | 2020-02-07 13:59 | P.PN ---
Subjective Date of Service: 02/07/20 Primary Care Provider: Dr. Hunt Chief Complaint: Severe anemia/ GI bleed, melena, hgb 4.0 Subjective: Improving (No bleeding, pain. But x-ray revealed small amount of air near antrum. Surgery consulted.) Review of Systems 10-point ROS is otherwise unremarkable General: Weakness, Malaise Physical Examination - Vital Signs Temperature: 97.3 F Blood Pressure: 144/77 Pulse: 63 Respirations: 20 Pulse Ox (%): 99 - Studies Medications List Reviewed: Yes Assessment And Plan - Current Problems (Diagnosis) (1) Melena Current Visit: Yes Status: Acute (2) Anemia due to blood loss Current Visit: Yes Status: Acute (3) Near syncope Current Visit: Yes Status: Acute (4) Upper GI hemorrhage Current Visit: Yes Status: Acute - Plan REC: 1) monitor closely 2) repeat x-ray in AM 3) surgery consulted (rec possible tertiary transfer if worsens)
--- NOTE | 2020-02-07 14:26 | P.PN ---
Subjective Date of Service: 02/07/20 Patient EGD revealed a large gastric ulcer. It was roughly 7 cm. Biopsies were taken. CT scan this morning showed some air bubbles next to the distal anterior part of the stomach. Spoke with GI, and they recommended General surgery consultation. I spoke to general surgery on-call, Dr. Mason, and he stated that he would repeat a chest x-ray in the morning and keep the patient NPO. If the patient needed surgery he recommended transferring the patient to a tertiary care facility. He stated that he did not need to be consulted. At this time, will continue with NPO status. Chest x-ray in the morning. Monitor patient clinically. Review of Systems 10-point ROS is otherwise unremarkable Physical Examination - Vital Signs Temperature: 98.8 F Blood Pressure: 92/54 Pulse: 92 Respirations: 16 Pulse Ox (%): 100 - Physical Exam General: Alert, In no apparent distress, Oriented x3 Respiratory: Clear to auscultation bilaterally, Normal air movement Cardiovascular: Regular rate/rhythm, Normal S1 S2 Gastrointestinal: Normal bowel sounds, Soft and benign, Non-distended, No tenderness, No rebound, No guarding Musculoskeletal: No clubbing, No swelling, No tenderness Integumentary: No rashes Neurological: Normal strength at 5/5 x4 extr, Cranial nerves 3-12 intact - Studies Medications List Reviewed: Yes Assessment & Plan - Problems (Diagnosis) (1) Upper GI hemorrhage Current Visit: Yes Status: Acute (2) MEGGAN (acute kidney injury) Current Visit: Yes Status: Acute (3) Near syncope Current Visit: Yes Status: Acute (4) Weakness Current Visit: Yes Status: Acute (5) Melanotic stools Current Visit: Yes Status: Acute - Plan Plan: 1. Continue with IV hydration 2. Continue with IV PPI drip 3. Continue with pain control 4. NPO 5. GI consultation appreciated 6. Monitor labs closely 7. CXR in AM 8. Biopsy pending 9. GI and DVT prophylaxis Discharge Plan: Home Plan to discharge in: Greater than 2 days - Advance Directives Does patient have a Living Will: No Does patient have a Durable POA for Healthcare: No - Code Status/Comfort Care Code Status: Full Code Critical Care: No Time Spent Managing PTS Care (In Minutes): 35
[2020-02-07] MEDS: AMPICILLIN/SULBACT 3 GM in NA CHLORIDE 0.9% 100 ML IVPB SCH (18:51)
[2020-02-07] MEDS: METRONIDAZOLE 500mg IVPB 500 MG/100 ML BAG IV SCH (18:53)
[2020-02-07] MEDS ORDERED: KETOROLAC 30 MG/ML INJ IV PRN (19:47)
[2020-02-07] MEDS: MORPHINE 2 MG/ML SYR IV PRN (20:15)
[2020-02-08] MEDS: NA CHLORIDE 0.9% 1,000 ML IV SCH ×5 (00:17→23:15)
[2020-02-08] MEDS: METRONIDAZOLE 500mg IVPB 500 MG/100 ML BAG IV SCH ×4 (00:18→17:27)
[2020-02-08] MEDS: AMPICILLIN/SULBACT 3 GM in NA CHLORIDE 0.9% 100 ML IVPB SCH ×4 (00:18→17:25)
[2020-02-08] MEDS: PANTOPRAZOLE INJ 80 MG in NA CHLORIDE 0.9% 250 ML IV SCH ×4 (02:08→21:11)
[2020-02-08 05:25] LABS: BUN Blood Urea Nitrogen 6 mg/dL (7-18); Bicarbonate 20 mmol/L (21-32); Glucose Level 94 mg/dL (74-106); Magnesium 1.7 mg/dL (1.8-2.4); Potassium 3.7 mmol/L (3.5-5.1); Sodium Level 144 mmol/L (136-145)
[2020-02-08] MEDS ORDERED: MAGNESIUM SULFATE 1 gm IVPB 1 GM/100 ML BAG IV ONE (05:30)
[2020-02-08] MEDS ORDERED: KCL 20 MEQ/100 mL IVPB 20 MEQ/100 ML BAG IV SCH (06:00)
--- NOTE | 2020-02-08 08:20 | RAD REPORT ---
EXAM DESCRIPTION: RAD - Chest Single View - 02/08/2020 6:40 am CLINICAL HISTORY: pneumonia Chest pain. COMPARISON: Chest Single View dated 01/19/2020; CHEST SINGLE VIEW dated 07/05/2012; CHEST SINGLE VIEW d ated 06/13/2010 FINDINGS: Portable technique limits examination quality. Mild improvement is seen in bilateral pulmonary opacities since comparative study. The heart is upper limit normal in size. No displaced fractures. IMPRESSION: Mild improvement lung aeration is seen since comparative examination.
[2020-02-08 11:26] LABS: Absolute Lymphocytes (CBC) 1.3 K/uL (0.7-4.9); Basophils % 0.7 % (0-1.3); Hematocrit 25.9 % (36.0-45.0); Lymphocytes % 13.2 % (15.3-44.8); MPV 8.6 fL (7.6-11.3); RBC Red Blood Cell Count 2.93 M/uL (3.86-4.86)
[2020-02-08 11:54] LABS: BUN Blood Urea Nitrogen 5 mg/dL (7-18); Bicarbonate 21 mmol/L (21-32); Glucose Level 118 mg/dL (74-106); Magnesium 2.1 mg/dL (1.8-2.4); Phosphorus 1.4 mg/dL (2.5-4.9); Potassium 3.6 mmol/L (3.5-5.1); Sodium Level 143 mmol/L (136-145)
[2020-02-08] MEDS: MORPHINE 2 MG/ML SYR IV PRN ×3 (12:42→22:07)
[2020-02-08 14:35] LABS: Blood Morphology Comment NOT SEEN (NOT SEEN); Platelet Estimate INCR; White Blood Cell Scan OK (OK)
--- NOTE | 2020-02-08 16:07 | P.PN ---
Subjective Date of Service: 02/08/20 Primary Care Provider: Dr. Hunt Chief Complaint: Severe anemia/ GI bleed, melena, hgb 4.0 Subjective: Improving (Hgb up to 8.9. CT abdomen/pelvis yesterday revealed -> Marked thickening of the wall of the distal stomach consistent with inflammation or neoplasm. Small collection of air extends from the anterior aspect of the distal stomach. This probably is an ulcer. This may extend extraluminal indicating a perforation. CXR today was negative for air. She is tolerating CLs.) Physical Examination - Vital Signs Temperature: 98.6 F Blood Pressure: 165/60 Pulse: 56 Respirations: 19 Pulse Ox (%): 95 - Studies Medications List Reviewed: Yes Assessment And Plan - Current Problems (Diagnosis) (1) Melena Current Visit: Yes Status: Acute (2) Anemia due to blood loss Current Visit: Yes Status: Acute (3) Near syncope Current Visit: Yes Status: Acute (4) Upper GI hemorrhage Current Visit: Yes Status: Acute (5) Gastric ulcer Current Visit: Yes Status: Acute - Plan REC: 1) continue PPI therapy 2) monitor labs 3) advance diet slowly 4) in 1-2 days discharge with ER warnings and full dose PPI bid
[2020-02-09] MEDS: AMPICILLIN/SULBACT 3 GM in NA CHLORIDE 0.9% 100 ML IVPB SCH ×3 (00:29→12:00)
[2020-02-09] MEDS: METRONIDAZOLE 500mg IVPB 500 MG/100 ML BAG IV SCH ×3 (00:29→12:00)
[2020-02-09 03:22] VITALS: O2SAT 97
[2020-02-09] MEDS: PANTOPRAZOLE INJ 80 MG in NA CHLORIDE 0.9% 250 ML IV SCH ×2 (05:00→08:01)
[2020-02-09] MEDS: MORPHINE 2 MG/ML SYR IV PRN (05:47)
[2020-02-09 06:13] LABS: BUN Blood Urea Nitrogen 3 mg/dL (7-18); Bicarbonate 21 mmol/L (21-32); Glucose Level 102 mg/dL (74-106); Magnesium 1.7 mg/dL (1.8-2.4); Potassium 3.5 mmol/L (3.5-5.1); Sodium Level 147 mmol/L (136-145)
[2020-02-09] MEDS ORDERED: MAGNESIUM SULFATE 1 gm IVPB 1 GM/100 ML BAG IV ONE (06:22)
[2020-02-09] MEDS ORDERED: POTASSIUM 25 MEQ EFFERV TAB PO ONE (09:00)
[2020-02-09] MEDS: NA CHLORIDE 0.9% 1,000 ML IV SCH (09:15)
[2020-02-09 11:33] LABS: C.diff Antigen/Toxin Ag neg : Tox neg (NEG : NEG)
[2020-02-09] MEDS ORDERED: TIZANIDINE 4 MG TABLET PO PRN (12:26)
[2020-02-09] MEDS ORDERED: HOME MED 1 EA UNK (Acetaminophen With Codeine [Tylenol With Codeine #4 Tablet] 1 EACH) PO PRN (12:26)
[2020-02-09] MEDS ORDERED: AMLODIPINE 5 MG TAB PO ONE (12:27)
[2020-02-09 12:49] LABS: Absolute Lymphocytes (CBC) 1.6 K/uL (0.7-4.9); Basophils % 0.9 % (0-1.3); Hematocrit 25.6 % (36.0-45.0); Lymphocytes % 17.4 % (15.3-44.8); MPV 8.2 fL (7.6-11.3); RBC Red Blood Cell Count 2.88 M/uL (3.86-4.86)
[2020-02-09] MEDS: AMLODIPINE 10 MG TAB PO SCH ×2 (13:13→13:17)
[2020-02-09 13:32] VITALS: TEMP 98.8
--- NOTE | 2020-02-09 13:34 | P.PN ---
Subjective Date of Service: 02/08/20 Patient remained stable. Chest x-ray stable-no free air. We started her on a clear liquid diet this morning. Will see how she tolerates it. She states she is no longer having melanotic stools. Review of Systems 10-point ROS is otherwise unremarkable Physical Examination - Vital Signs Temperature: 98.8 F Blood Pressure: 92/54 Pulse: 92 Respirations: 16 Pulse Ox (%): 100 - Physical Exam General: Alert, Oriented x3 Respiratory: Clear to auscultation bilaterally, Normal air movement Cardiovascular: Regular rate/rhythm, Normal S1 S2 Gastrointestinal: Normal bowel sounds, Soft and benign, Non-distended, No tenderness Musculoskeletal: No clubbing, No swelling Neurological: Normal strength at 5/5 x4 extr, Normal tone, Sensation intact, Cranial nerves 3-12 intact - Studies Medications List Reviewed: Yes Assessment & Plan - Problems (Diagnosis) (1) Upper GI hemorrhage Current Visit: Yes Status: Acute (2) MEGGAN (acute kidney injury) Current Visit: Yes Status: Acute (3) Near syncope Current Visit: Yes Status: Acute (4) Weakness Current Visit: Yes Status: Acute (5) Melanotic stools Current Visit: Yes Status: Acute - Plan Plan: 1. Continue with IV hydration 2. Continue with IV PPI drip 3. Continue with pain control 4. Start clear liquid diet 5. GI consultation and General Surgeon consultation appreciated 6. Monitor labs closely 7. Chest x-ray was negative for free air 8. Biopsy pending-will need outpatient follow-up 9. GI and DVT prophylaxis Discharge Plan: Home Plan to discharge in: Greater than 2 days - Advance Directives Does patient have a Living Will: No Does patient have a Durable POA for Healthcare: No - Code Status/Comfort Care Code Status: Full Code Critical Care: No Time Spent Managing PTS Care (In Minutes): 35
--- NOTE | 2020-02-09 13:37 | P.DS ---
Discharge Date: 02/09/20 Primary Care Provider: Dr. Hunt Disposition: ROUTINE DISCHARGE Discharge Condition: GOOD Reason for Admission: Severe anemia/ GI bleed, melena, hgb 4.0 Consultations: Gastroenterology - Problems (1) Upper GI hemorrhage Current Visit: Yes Status: Acute (2) MEGGAN (acute kidney injury) Current Visit: Yes Status: Acute (3) Near syncope Current Visit: Yes Status: Acute (4) Weakness Current Visit: Yes Status: Acute (5) Melanotic stools Current Visit: Yes Status: Acute Brief History of Present Illness: Patient is a 59-year-old female who presents with melanotic stools. Patient was lightheaded. She had a hemoglobin of 4.0. She was admitted to the hospital for blood transfusion and Gastroenterology workup. Hospital Course: Patient was going to have a large gastric ulcer. It was not bleeding. Jerrod dos satnos's CT scan revealed bubbles along the outside of the wall of the stomach. The were felt to be related to the large gastric ulcer. There was no perforation although it could be microperforation. However, patient has started diet and not having any pain. Her chest x-ray over the next 24 hr did not reveal free air. Patient will be on a clear liquid diet to full liquid diet when she is discharged. She will need to continue this for the next few days and that she could advance to a soft diet. I told her the consistency should be of mashed potatoes or scrambled eggs for the next 1-2 weeks. Hopefully after that she should be able to advance her diet that she will need to follow with Gastroenterology with the biopsy pending. 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 She clinically is doing well. Hemodynamics are stable. I did give her a coupon for her prescriptions. Hopefully that will assist her as she does not have insurance. At this time she will be discharged home and I have given her my cell phone number to contact me if she has any complications. Vital Signs/Physical Exam: Temp Pulse Resp BP Pulse Ox 98.8 F 92 H 16 92/54 L 100 02/09/20 13:34 02/09/20 13:34 02/09/20 13:34 02/09/20 13:34 02/09/20 13:34 General: Alert, In no apparent distress, Oriented x3 Laboratory Data at Discharge: WBC 9.1 K/uL (4.3-10.9) 02/09/20 12:37 Hgb 8.6 g/dL (12.0-15.0) L 02/09/20 12:37 Hct 25.6 % (36.0-45.0) L 02/09/20 12:37 Plt Count 466 K/uL (152-406) H 02/09/20 12:37 PT 12.3 SECONDS (9.5-12.5) 02/06/20 06:00 INR 1.04 02/06/20 06:00 APTT 33.4 SECONDS (24.3-36.9) 02/06/20 06:00 Sodium 147 mmol/L (136-145) H 02/09/20 05:37 Potassium 3.5 mmol/L (3.5-5.1) 02/09/20 05:37 BUN 3 mg/dL (7-18) L 02/09/20 05:37 Creatinine 0.62 mg/dL (0.55-1.3) 02/09/20 05:37 Glucose 102 mg/dL (74-106) 02/09/20 05:37 Phosphorus 1.4 mg/dL (2.5-4.9) L 02/08/20 11:08 Magnesium 1.7 mg/dL (1.8-2.4) L 02/09/20 05:37 Total Bilirubin 0.1 mg/dL (0.2-1.0) L 02/05/20 05:59 AST 11 U/L (15-37) L 02/05/20 05:59 ALT 18 U/L (12-78) 02/05/20 05:59 Alkaline Phosphatase 58 U/L (45-117) 02/05/20 05:59 Home Medications: Acetaminophen with Codeine [Tylenol with Codeine #4 Tablet] 1 each PO Q8HP PRN 02/04/20 Ferrous Fumarate [Hemocyte] 324 mg PO DAILY 02/04/20 Tizanidine HCl [Zanaflex] 4 mg PO TID PRN 02/04/20 Amlodipine [Norvasc*] 10 mg PO DAILY #30 tab 02/09/20 Amoxicillin 500 mg PO BID #20 capsule 02/09/20 Pantoprazole [Protonix Tab] 40 mg PO BID #60 tab 02/09/20 Sucralfate [Carafate] 1 gm PO Q6H #120 tablet 02/09/20 metroNIDAZOLE [Flagyl] 500 mg PO Q12H #20 tablet 02/09/20 New Medications: Amoxicillin 500 mg PO BID #20 capsule Sucralfate [Carafate] 1 gm PO Q6H #120 tablet metroNIDAZOLE [Flagyl] 500 mg PO Q12H #20 tablet Amlodipine [Norvasc*] 10 mg PO DAILY #30 tab Pantoprazole [Protonix Tab] 40 mg PO BID #60 tab Patient Discharge Instructions: OK TO DC IV AND DC HOME. FOLLOW-UP WITH PRIMARY CARE PROVIDER IN 1-2 WEEKS. FOLLOW-UP WITH GI IN 1-2 WEEKS-biopsies pending. RETURN TO THE ER IF SEVERE ABDOMINAL PAIN OR IF ANY MELANOTIC STOOLS. CALL or TEXT DR. CALLAHAN AT [phone] IF ANY QUESTIONS REGARDING HOSPITAL STAY. PLEASE CALL THE FLOOR AT [phone] IF ANY MEDICATION OR NURSING QUESTIONS. Remain on a full liquid diet for the next 48-72 hr and then slowly advance to a soft diet for 1-2 weeks Diet: Regular Activity: Fall precautions Followup: Grey Abraham MD [ASSOCIATE-ACTIVE - CAN ADMIT] - (Call to make an appointment. ) Time spent managing pt's care (in minutes): 35
[2020-02-09 14:47] VITALS: BP 140/80
[2020-02-10] MEDS ORDERED: FERROUS SULFATE 325 MG TAB PO SCH (09:00)
[2020-02-10] MEDS ORDERED: PROPRANOLOL HCL 40 MG TAB PO SCH (09:00)
== END 2020-02-09 14:21 | disposition home or self-care (01) | DRG 378 ==
LOC: ER 15:44 → ERHOLD 19:10 → 2ND 19:45
PROVIDERS: ADMIT Hospitalist; ATTEND Hospitalist
PROC: 30233N1 Transfusion of Nonautologous Red Blood Cells into Peripheral Vein, Percutaneous Approach (ICD-10-PCS; principal; 2020-02-04)
PROC: 0DB78ZX Excision of Stomach, Pylorus, Via Natural or Artificial Opening Endoscopic, Diagnostic (ICD-10-PCS; 2020-02-06)
PROC: 0DH63UZ Insertion of Feeding Device into Stomach, Percutaneous Approach (ICD-10-PCS; 2020-02-06)
DX: K25.4 Chronic or unspecified gastric ulcer with hemorrhage (principal); N17.9 Acute kidney failure, unspecified; I10 Essential (primary) hypertension; D64.9 Anemia, unspecified; R55 Syncope and collapse; R53.1 Weakness; T39.315A Adverse effect of propionic acid derivatives, initial encounter; Z20.828 Contact with and (suspected) exposure to other viral communicable diseases; Z79.899 Other long term (current) drug therapy
CPT/HCPCS: 36415; 36430; 70450; 71045; 74177; 80048; 80053; 80076; 81003; 81015; 82607; 82746; 82941; 83540; 83605; 83735; 83880; 84100; 84145; 84484; 85014; 85018; 85025; 85044; 85610; 85730; 86850; 86870; 86900; 86901; 86922; 87324; 87449; 88305; 88312; 93005; 93306; 96360; 99285; C9113; J0171; J0295; J2270; J2704; J3475; J3480; J7030; J7050; P9016; Q9967; U0002; U0003

== ENCOUNTER 2020-04-18 20:06 | Emergency (ER) | payer SELFPAY ==
--- OUTSIDE RECORDS SUMMARY | 2020-04-18 20:08 | XMS REPORT | Continuity of Care Document ---
:1960 Author Organization [facility] t Address [address] [place] [address] Care Team Providers Name Role Phone Doctor [...] ID 2019-01-24 2019-01-24 Orders Doctor YOVANNY [id number] 00:00:00 00:00:00 Only KANWAL Sequeira [id number] [place] [facility] [id number] 2019-01-03 2019-01-03 Transition Daxa Patel [id number] 00:00:00 00:00:00 of Care Merle Ball [id number] Brandy [id number] 2018-12-30 2019-01-02 Hospital Kana Bustamante [id number] 12:35:43 18:20:00 Encounter Leti Peguero [id number] [facility] [phone] [id number] Results This patient has no known results.
[2020-04-18] MEDS ORDERED: NA CHLORIDE 0.9% 2,000 ML ONE (20:19)
[2020-04-18] MEDS ORDERED: NALOXONE HCL 2 MG/2 ML VIAL ONE (20:19)
[2020-04-18 20:28] LABS: Absolute Lymphocytes (CBC) 1.8 K/uL (0.7-4.9); Basophils % 0.6 % (0-1.3); Hematocrit 25.8 % (36.0-45.0); Lymphocytes % 16.9 % (15.3-44.8); MPV 9.5 fL (7.6-11.3); RBC Red Blood Cell Count 3.07 M/uL (3.86-4.86)
[2020-04-18 20:43] LABS: Arterial Blood Carboxyhemoglob 1.6 % (0-1.5); Blood Gas Oxyhemoglobin 98.3 % (94-97)
[2020-04-18 20:59] LABS: ALT/SGPT 21 U/L (12-78); AST/SGOT 42 U/L (15-37); Alkaline Phosphatase 53 U/L (45-117); Amylase 25 U/L (25-115); BUN Blood Urea Nitrogen 19 mg/dL (7-18); Bicarbonate 28 mmol/L (21-32); Bilirubin Direct < 0.1 mg/dL (0-0.2); Bilirubin Total < 0.1 mg/dL (0.2-1.0); CKMB Creatine Kinase MB 7.6 ng/mL (0.3-3.6); Creatine Phosphokinase 1244 U/L (26-192); Glucose Level 146 mg/dL (74-106); Lipase 37 U/L (73-393); Potassium 3.3 mmol/L (3.5-5.1); Protein, Total 6.3 g/dL (6.4-8.2); Sodium Level 143 mmol/L (136-145); Troponin (Emerg Dept Use Only) 0.05 ng/mL (0.0-0.045)
[2020-04-18 21:07] LABS: Barbiturates NEGATIVE (NEGATIVE); Benzodiazepines POSITIVE (NEGATIVE); Cocaine NEGATIVE (NEGATIVE); METHAMPHETAM NEGATIVE (NEGATIVE); Methadone NEGATIVE (NEGATIVE); Opiates POSITIVE (NEGATIVE); Phencyclidine NEGATIVE (NEGATIVE); THC Cannibis NEGATIVE (NEGATIVE)
[2020-04-18 21:11] LABS: Urine Bacteria <20 /HPF (<20); Urine Culture Reflex Order REFLEXED; Urine RBC <5 /HPF (NONE SEEN)
[2020-04-18 21:16] LABS: Urine Blood NEGATIVE (NEG); Urine Glucose NEGATIVE (NEG); Urine Protein 2+ (NEG); Urine Specific Gravity 1.025 (1.005-1.030)
--- NOTE | 2020-04-18 21:17 | RAD REPORT ---
EXAM DESCRIPTION: CT - CTHCSPWOC - 04/18/2020 8:53 pm CLINICAL HISTORY: AMS, head and neck injury COMPARISON: Head Brain Wo Cont dated 02/04/2020 TECHNIQUE: Axial 5 mm thick images of the head were obtained. Axial 2 mm thick images of the cervic al spine were obtained with sagittal and coronal reconstruction images generated and reviewed. All CT scans are performed using dose optimization technique as appropriate and may include automated exposure control or mA/KV adjustment according to patient size. FINDINGS: No intracranial hemorrhage, mass, edema or acute intracranial finding. No suspicion for ac yanna infarction. No significant atrophy change. Ventricles are normal. Patient has decreased attenuati on in the cerebral white matter primarily in each frontal lobe. There is decreased attenuation in the bilateral basal ganglia and external capsules. This is most likely small vessel chronic ischemic myles nge. Thalamus and brainstem are generally spared. Mastoid air cells and paranasal sinuses are clear. No globe or orbit abnormality seen. Endotracheal tube and orogastric tube are in place. Cervical bodies are normal in height. Slight reversal of the usual cervical lordosis with a positioni ng artifact. C5-6 moderate severity loss in disc height noted. Prominent anterior endplate spurs. C6- 7 shows minimal loss in height. Bilateral bony foraminal encroachment is present. Facet joint degener ative changes are seen. No fracture or acute bony abnormality. Central canal detail is inherently li mited. No paraspinal mass or hematoma. IMPRESSION: CT head shows no acute intracranial finding. Chronic ischemic change of the cerebral hem ispheres and basal ganglia matches February 03 imaging. Chronic ischemic changes can mask nonhemorrhagic acute infarction. MR brain followup can be obtained if there is ongoing concern for acute ischemia. Negative CT cervical spine examination for acute or significant finding. Degenerative changes are pr esent primarily at C5-6.
[2020-04-18] MEDS ORDERED: NA CHLORIDE 0.9% 1,000 ML ONE (22:04)
--- NOTE | 2020-04-19 00:28 | ER ---
Nurse's Notes [facility] Name: Le Heath Age: 59 yrs Sex: Female : 1960 Arrival Date: 04/18/2020 Time: 20:08 Bed 3 Private MD: Diagnosis: Acute Respiratory Failure;Altered Mental Status Presentation: 04/18 20:05 Chief complaint: EMS states: patient found unresponsive barely breathing on bed around rr5 1915H tonight O2 sat 74% BP 60/40mmHg CO2 of 55. 20:05 Coronavirus screen: At this time, unable to obtain information related to travel rr5 outside the [place] Ebola Screen: Unable to complete the Ebola screening because:. Initial Sepsis Screen: Does the patient meet any 2 criteria? Altered Mental Status. Does the patient have a suspected source of infection? Yes: Productive cough/pneumonia. Risk Assessment: Do you want to hurt yourself or someone else? Unable to obtain. Note patient intubated ET 7.5 24 lip level, OG tube inplaced NS 500ml bolus given for BP 60/40 went up to 86/57. suspecting lower GI bleed as the told us. Onset of symptoms was April 18, 2020. Care prior to arrival: Oral intubation, IV initiated. 18 GA, in the left antecubital area. Activity prior to arrival: unresponsive. 20:05 Method Of Arrival: EMS: [facility] rr5 20:05 Acuity: MIKE 1 rr5 Historical: - Allergies: 23:05 No Known Allergies; rr5 - Home Meds: 20:05 Propranolol Oral [Active]; Tylenol #4 Oral [Active]; rr5 - PMHx: 20:05 Hypertension; GI Bleed; rr5 - PSHx: 23:05 Tubal ligation; ; rr5 - Immunization history:: Adult Immunizations unknown, Adult Immunizations up to date. - Social history:: Smoking status: unknown. Screenin:15 Abuse screen: Denies threats or abuse. Denies injuries from another. Nutritional rr5 screening: No deficits noted. Tuberculosis screening: No symptoms or risk factors identified. Fall Risk Secondary diagnosis (15 points) intubated. IV access (20 points). Mental Status- Overestimates/Forgets Limitations (15 pts.). Total [place] Fall Scale indicates High Risk Score (45 or more points). Fall prevention measures have been instituted. Side Rails Up X 2 Frequent Obs/Assessments Occuring Family Present and informed to notify staff if the need to leave the bedside As available patient and family educated on Fall Prevention Program and Strategies. Assessment: 20:05 Respiratory: Ventilator assessment: ET Tube: 7.5 21cm. at lip. Ventilator Mode: Assist rr5 Control (AC) Tidal Volume: 500 Respiratory Rate: 16 FiO2: 100%. HOB > 30 degrees. inserted by EMS. 20:05 General: Appears in no apparent distress. Behavior is unresponsive. rr5 20:05 Pain: Unable to use pain scale. Patient is intubated. Neuro: Level of Consciousness is rr5 unresponsive, Oriented to none. Cardiovascular: Capillary refill < 3 seconds. GI: Abdomen is round non-distended, EMS reported she possible GI bleed information got from the . : No signs and/or symptoms were reported regarding the genitourinary system. EENT: No signs and/or symptoms were reported regarding the EENT system. Derm: Skin temperature is warm. Musculoskeletal: No signs and/or symptoms reported regarding the musculoskeletal system. 20:50 Reassessment: valuables ( 1 pc earing, 1 pc ring, 1 necklace and ID) given to patti castle. 21:00 Reassessment: CPK 1244 tor called from laboratory, ED provider aware. rr5 21:30 Reassessment: Patient appears in no apparent distress at this time. awaiting for the rr5 test result to come back. 22:40 Reassessment: Patient appears in no apparent distress at this time. planning for rr5 transfer to other facility. vital signs hemodynamically stable. 23:00 Reassessment: additional blood collected for antibody screen extracted an dsent. rr5 23:11 Reassessment: ED provider spoke to of the patient updated for the plan of care rr5 and agreed. awaiting for CT PE angio. 23:32 Reassessment: [phone] - corrine (). rv 04/19 00:00 Respiratory: Ventilator assessment: Ventilator Mode: Assist Control (AC) Tidal Volume: rr5 500 Respiratory Rate: 16 FiO2: 30%. 00:30 Reassessment: while in the CT scan patient open her eyes, became awake moving her rr5 hands. ED provider aware with order to start on propofol infusion. 00:40 Reassessment: report given to ELISEO from [facility]. rr5 00:48 Reassessment: BP 99/58 mmHg rechecked propofol decreased to 10 mcg/kg/min. rr5 01:00 Reassessment: Patient appears in no apparent distress at this time. Propofol drip rr5 decrease to 5 mcg/kg/min. 02:00 Reassessment: OG tube adjust to 60 in deep, RT adjust the ET to 23 cm lip level. rr5 02:10 Reassessment: report given to [facility] ambulance patient opens eyes, not pulling lines rr5 vital signs taken and recorded. ELISEO from [facility] staff informed patient will be leaving the very soon. corrine [phone] informed over the phone for the trasnfer. Vital Signs: 04/18 20:05 BP 93 / 58; Pulse 52; Resp 17; Temp 97.4; Pulse Ox 100% on 100% FiO2 ETT vent; rr5 21:14 Weight 60 kg; rr5 21:46 BP 131 / 71; Pulse 49; Resp 16; Temp 97; Pulse Ox 98% on 50% FiO2 ETT vent; rr5 22:52 BP 140 / 69; Pulse 46; Resp 17; Temp 96.9; Pulse Ox 100% ; rr5 23:30 BP 132 / 64; Pulse 43; Resp 16; Temp 97.1; Pulse Ox 100% on 30% FiO2 ETT vent; rr5 04/19 00:00 BP 126 / 62; Pulse 44; Resp 16; Temp 97.2; Pulse Ox 100% on 30% FiO2 ETT vent; rr5 00:40 BP 99 / 58; Pulse 44; Resp 16; Temp 97.1; Pulse Ox 100% ; rr5 00:45 BP 117 / 101; Pulse 45; Resp 16; Pulse Ox 100% on 30% FiO2 ETT vent; rr5 00:48 BP 99 / 58; Pulse 44; Resp 16; Temp 97.1; Pulse Ox 100% ; rr5 01:00 BP 90 / 52; Pulse 43; Resp 16; Temp 96.9; Pulse Ox 100% ; rr5 01:15 BP 92 / 55; Pulse 49; Resp 16; Pulse Ox 100% on 30% FiO2 ETT vent; rr5 01:30 BP 105 / 62; Pulse 46; Resp 16; Pulse Ox 100% on 30% FiO2 ETT vent; rr5 02:00 BP 142 / 65; Pulse 55; Resp 16; Temp 97; Pulse Ox 100% on 30% FiO2 ETT vent; rr5 Elkin Coma Score: 04/18 20:15 Eye Response: none(1). Verbal Response: none(1). Motor Response: none(1). Modifying rr5 Factors: Intubated. Total: 3. 04/19 00:00 Eye Response: none(1). Verbal Response: none(1). Motor Response: none(1). Total: 3. rr5 ED Course: 04/18 20:05 Maintain EMS IV. Dressing intact. Good blood return noted. Site clean \T\ dry. Gauge \T\ rr 5 site: G 18 left AC. 20:05 NGT: OG tube inserted by EMS. rr5 20:07 Patient has correct armband on for positive identification. Bed in low position. Call rr5 light in reach. Side rails up X2. playground monitor on. Pulse ox on. NIBP on. 20:08 Patient arrived in ED. dm5 20:10 Thermoregulation: warm blanket given to patient. rr5 20:11 Inserted saline lock: 18 gauge in right forearm, using aseptic technique. ,using rr5 aseptic technique. inserted by vania Blood collected. 20:16 Assisted provider with central line placement. Set up central line tray. Triple lumen rr5 line placed in right femoral. Line placed by Domenico Irby MD Placement verified by blood return, Dressed with Tegaderm, Blood was collected. Patient tolerated well. Before procedure, did Practitioner(s) obtain informed consent? No. Patient \T\ family education about procedure, CLABSI prevention and S/S of infection? No. Time-out/Briefing performed prior to start of procedure? Yes. Was handwashing/sanitizing done immediately prior to procedure? Yes. Was patient positioned to in a way to prevent air embolism? Yes. Was procedure site sterilized? Yes, with chlorhexidine. Was the site allowed to dry? Yes. Was local anesthetic and/or sedation utilized? No. During the procedure, did the Practitioner(s) maintain a sterile field? Yes. Were unused ports clamped during insertion? Yes. Was a 2nd qualified MD obtained after 3 unsuccessful insertion attempts? No. Was blood aspirated from each lumen? Yes. After the procedure, did the Practitioner(s) clean the site and apply a sterile dressing? Yes. 20:18 Priyank Marquez, RN is Primary Nurse. rv 20:23 Domenico Irby MD is Attending Physician. 7 20:35 Bazan cath inserted, using sterile technique, 16 Fr., by md, balloon inflated, urine rr5 specimen collected. returned clear yellow urine. Patient tolerated well. 20:40 EKG done, by ED staff, reviewed by Domenico Irby MD. rr5 20:54 CT Head C Spine In Process Unspecified. EDMS 20:55 Flu and/or RSV swab sent to lab. covid. rr5 21:21 Triage completed. rr5 21:22 Arm band placed on left wrist. rr5 21:25 Suctioned orally via ETT - small amount. rr5 21:30 Chest Single View XRAY In Process Unspecified. EDMS 04/19 00:00 initiated transfer with Fredy Naik from [facility] transfer center. [facility] 00:19 administrative approval given by Fredy Naik RN/ patient has been accepted to [address]/ Dr. Rubio has accepted the patient in transfer/ report to be called to [phone]. 00:48 CT Chest For PE Angio In Process Unspecified. EDMS 02:14 Patient transferred, IV remains in place. intact, No redness/swelling at site. rr5 Administered Medications: 04/18 20:10 Drug: NS 0.9% (30 ml/kg) 30 ml/kg Route: IV; Rate: bolus; Site: right forearm; rr5 22:30 Follow up: Response: No adverse reaction; IV Status: Completed infusion; IV Intake: rr5 1800ml 20:10 Drug: NARcan 2 mg Route: IVP; Site: left antecubital; rr5 21:10 Follow up: Response: No adverse reaction rr5 22:35 Drug: NS 0.9% 1000 ml {Note: right femoral catheter.} Route: IV; Rate: 125 ml/hr; Site: rr5 Other; 04/19 02:15 Follow up: Response: No adverse reaction; IV Status: Infusion continued upon transfer; rr5 IV Intake: 500ml 00:35 Drug: Propofol 5 mcg/kg/min Route: IV; Rate: calculated rate; Site: right femoral; rv 00:45 Follow up: BP 117 / 101; Pulse 45 bpm; Resp 16 bpm; Pulse Ox 100% FiO2 30% Vent rr5 00:45 Follow up: Rate change 20 mcg/kg/min; patient awake pulling tubes rr5 00:48 Follow up: BP 99 / 58; Pulse 44 bpm; Resp 16 bpm; Temp 97.1; Pulse Ox 100% ; Response: rr5 Blood pressure is lowered; Rate change 10 mcg/kg/min 01:00 Follow up: Response: Blood pressure is lowered; Rate change 5 mcg/kg/min rr5 01:15 Follow up: Response: Blood pressure is lowered; IV Status: Order to discontinue infusionrr5 Intake: 04/18 22:30 IV: 1800ml; Total: 1800ml. rr5 04/19 02:15 IV: 500ml; Total: 2300ml. rr5 Outcome: 00:28 ER care complete, transfer ordered by . [email or web address] 02:14 Transferred by ground EMS Transfer form completed. Note: [facility] rr5 02:14 Condition: stable 02:14 Discharge instructions given to family, Instructed on the need for transfer. 02:17 Patient left the ED. rr5 Signatures: Dispatcher [employer] EDAlanis Cuevas RN RN [email or web address] Kavon Fortune mw2 Priyank Marquez RN RN Jason Shankar RN RN rr5 Domenico Irby MD MD [email or web address] Corrections: (The following items were deleted from the chart) 04/18 23:05 20:05 Allergies: Unable to obtain; rr5 rr5 04/19 02:17 01:50 BP 92 / 55; Pulse 49bpm; Resp 16bpm; Pulse Ox 100% FiO2 30% vent; rr5 rr5
--- NOTE | 2020-04-19 00:28 | EDPHYS ---
Physician Documentation [facility] Name: Le Heath Age: 59 yrs Sex: Female : 1960 Arrival Date: 04/18/2020 Time: 20:08 Bed 3 Private MD: ED Physician Domenico Irby HPI: 04/18 20:31 This 59 yrs old Female presents to ER via Unassigned with complaints of mh7 Unresponsive. 20:31 The patient presents with decreased mental status, decreased responsiveness. Onset: The mh7 symptoms/episode began/occurred at an unknown time. Possible causes: unknown. Associated signs and symptoms: Pertinent positives: unknown. Current symptoms: In the emergency department the patient's symptoms are unchanged from the initial presentation, despite EMS interventions. Patient's baseline: Neuro: alert and fully oriented, Motor: no deficits, Ambulation: walks without assistance, Speech: normal. Per EMS patient's called due patient being found unresponsive in bed. Last seen well time is unknown. On arrival EMS reports patient being unresponsive and respiratory distress with oxygen saturation level in 70"s. She was intubated in field and brought to the ED.. Historical: - Allergies: 23:05 No Known Allergies; rr5 - Home Meds: 20:05 Propranolol Oral [Active]; Tylenol #4 Oral [Active]; rr5 - PMHx: 20:05 Hypertension; GI Bleed; rr5 - PSHx: 23:05 Tubal ligation; ; rr5 - Immunization history:: Adult Immunizations unknown, Adult Immunizations up to date. - Social history:: Smoking status: unknown. ROS: 20:31 Unable to obtain ROS due to comatose state, patient is on ventilator. mh7 Exam: 20:31 Head/Face: Normocephalic, atraumatic. mh7 20:31 Chest/axilla: Normal chest wall appearance and motion. Nontender with no deformity. No lesions are appreciated. 20:31 Abdomen/GI: Soft, non-tender, with normal bowel sounds. No distension or tympany. No guarding or rebound. No evidence of tenderness throughout. Back: No spinal tenderness. No costovertebral tenderness. Full range of motion. Female : Normal external genitalia. Skin: Warm, dry with normal turgor. Normal color with no rashes, no lesions, and no evidence of cellulitis. 20:31 Constitutional: The patient appears in obvious distress, Intubated 20:31 Eyes: Periorbital structures: appear normal, Pupils: constricted, bilaterally. 20:31 ENT: External ear(s): are unremarkable, Nose: is normal, Mouth: ET Tube in place. 20:31 Neck: External neck: is normal, C-spine: appears grossly normal, Thyroid: appears normal, Trachea: is midline with no obvious abnormalities, Lymph nodes: no appreciated lymphadenopathy. 20:31 Cardiovascular: Rate: bradycardic, Rhythm: regular, Pulses: no pulse deficits are appreciated, Heart sounds: normal, normal S1and S2, Edema: is not appreciated, JVD: is not appreciated. 20:31 Respiratory: severe repiratory distress is noted, intubated on ventilator, Respirations: intubated on ventilator, Breath sounds: are clear throughout. 20:31 Musculoskeletal/extremity: Extremities: all appear grossly normal, with no appreciated pain with palpation, ROM: no spontaneous movement, Circulation is intact in all extremities. 20:31 Neuro: Orientation: unable to test, the patient is comatose, Mentation: unable to test, the patient is intubated, Memory: unable to test, the patient is intubated, Cranial nerves: unable to test, the patient is intubated, Cerebellar function: unable to test, the patient is intubated, Motor: unable to test, the patient is intubated, Sensation: unable to test, the patient is intubated, Gait: not tested. seizure activity, is not displayed by the patient, Abnormal movements: there are no abnormal movements. Vital Signs: 20:05 BP 93 / 58; Pulse 52; Resp 17; Temp 97.4; Pulse Ox 100% on 100% FiO2 ETT vent; rr5 21:14 Weight 60 kg; rr5 21:46 BP 131 / 71; Pulse 49; Resp 16; Temp 97; Pulse Ox 98% on 50% FiO2 ETT vent; rr5 22:52 BP 140 / 69; Pulse 46; Resp 17; Temp 96.9; Pulse Ox 100% ; rr5 23:30 BP 132 / 64; Pulse 43; Resp 16; Temp 97.1; Pulse Ox 100% on 30% FiO2 ETT vent; rr5 04/19 00:00 BP 126 / 62; Pulse 44; Resp 16; Temp 97.2; Pulse Ox 100% on 30% FiO2 ETT vent; rr5 00:40 BP 99 / 58; Pulse 44; Resp 16; Temp 97.1; Pulse Ox 100% ; rr5 00:45 BP 117 / 101; Pulse 45; Resp 16; Pulse Ox 100% on 30% FiO2 ETT vent; rr5 00:48 BP 99 / 58; Pulse 44; Resp 16; Temp 97.1; Pulse Ox 100% ; rr5 01:00 BP 90 / 52; Pulse 43; Resp 16; Temp 96.9; Pulse Ox 100% ; rr5 01:15 BP 92 / 55; Pulse 49; Resp 16; Pulse Ox 100% on 30% FiO2 ETT vent; rr5 01:30 BP 105 / 62; Pulse 46; Resp 16; Pulse Ox 100% on 30% FiO2 ETT vent; rr5 02:00 BP 142 / 65; Pulse 55; Resp 16; Temp 97; Pulse Ox 100% on 30% FiO2 ETT vent; rr5 Elkin Coma Score: 04/18 20:15 Eye Response: none(1). Verbal Response: none(1). Motor Response: none(1). Modifying rr5 Factors: Intubated. Total: 3. 04/19 00:00 Eye Response: none(1). Verbal Response: none(1). Motor Response: none(1). Total: 3. rr5 Procedures: 04/18 20:31 Central Line: the site was prepped with Betadine, in sterile fashion, a triple lumen mh7 catheter was inserted, in the right femoral vein, in 1 attempts. placement was verified, by blood return, the site was dressed with Tegaderm, the patient tolerated the procedure, well. MDM: 04/19 00:23 Differential Diagnosis: CVA, electrolyte abnormality, alcohol intoxication, mh7 hypoglycemia, intracranial bleed, overdose, pneumonia, UTI, volume depletion, Respiratory failure, AMS. Data reviewed: vital signs, nurses notes, EMS record, old medical records, lab test result(s), cardiac enzymes, CBC, drug level(s), electrolytes, urinalysis, urine drug screen, EKG, radiologic studies, CT scan, plain films. Data interpreted: Pulse oximetry: on ventilator is 100 %. Interpretation: acceptable. Counseling: I had a detailed discussion with the patient and/or guardian regarding: the historical points, exam findings, and any diagnostic results supporting the discharge/admit diagnosis, lab results, radiology results, the need to transfer to another facility, No ICU beds available, Discussed with spouse. Response to treatment: the patient's symptoms have mildly improved after treatment. 00:28 Patient medically screened. [facility] 04/18 20:19 Order name: Amylase, Serum rv 04/18 20:19 Order name: Basic Metabolic Panel 04/18 20:19 Order name: Blood Culture Adult (2) 04/18 20:19 Order name: CBC with Diff 04/18 20:19 Order name: Ckmb 04/18 20:19 Order name: CPK 04/18 20:19 Order name: Lactate 04/18 20:19 Order name: LFT's 04/18 20:19 Order name: Lipase; Complete Time: 21:04 04/18 20:19 Order name: Procalcitonin; Complete Time: 22:20 04/18 20:19 Order name: Protime (+inr); Complete Time: 21:04 04/18 20:19 Order name: Ptt, Activated; Complete Time: 21:04 04/18 20:19 Order name: Troponin (emerg Dept Use Only); Complete Time: 21:04 04/18 20:19 Order name: Urine Microscopic Only; Complete Time: 22:20 04/18 20:19 Order name: Type And Screen 04/18 20:19 Order name: Amylase; Complete Time: 21:04 [facility] 04/18 20:19 Order name: Basic Metabolic Panel; Complete Time: 21:04 [facility] 04/18 20:19 Order name: Blood Culture [facility] 04/18 20:19 Order name: CBC with Automated Diff; Complete Time: 21:04 [facility] 04/18 20:19 Order name: CKMB Creatine Kinase MB; Complete Time: 21:04 [facility] 04/18 20:19 Order name: Creatine Phosphokinase; Complete Time: 21:04 [facility] 04/18 20:19 Order name: Lactate; Complete Time: 21:04 [facility] 04/18 20:19 Order name: Liver (Hepatic) Function; Complete Time: 21:04 [facility] 04/18 20:24 Order name: PROBNP; Complete Time: 22:20 [facility] 04/18 20:25 Order name: UDS; Complete Time: 22:20 [facility] 04/18 20:25 Order name: Acetaminophen; Complete Time: 22:20 [facility] 04/18 20:25 Order name: Salicylate; Complete Time: 21:04 [facility] 04/18 20:29 Order name: Influenza Screen (a \\T\\ B); Complete Time: 22:20 [facility] 04/18 20:34 Order name: Glucose, Ancillary Testing; Complete Time: 21:04 [facility] 04/18 20:19 Order name: Chest Single View XRAY 04/18 20:19 Order name: Accucheck; Complete Time: 21:27 04/18 20:19 Order name: Cardiac monitoring; Complete Time: : 04/18 20:19 Order name: EKG - Nurse/Tech; Complete Time: : 04/18 20:19 Order name: IV Saline Lock - Large Bore; Complete Time: : 04/18 20:19 Order name: Labs collected and sent; Complete Time: 21: 04/18 20:19 Order name: O2 Per Protocol; Complete Time: 21: 04/18 20:19 Order name: O2 Sat Monitoring; Complete Time: 21: 04/18 20:19 Order name: Urine Dipstick-Ancillary (obtain specimen); Complete Time: 21:28 04/18 20:24 Order name: CT Head C Spine; Complete Time: 22:20 [facility] 04/18 20:42 Order name: ABG Arterial Blood Gas; Complete Time: 21:04 [facility] 04/18 20:47 Order name: Urine Dipstick--Ancillary (enter results); Complete Time: 22:20 [facility] 04/18 21:13 Order name: Urine Culture [facility] 04/18 21:28 Order name: Bazan; Complete Time: 21:28 5 04/18 21:29 Order name: Central Line Kit; Complete Time: 21:29 [facility] 04/18 21:56 Order name: Antibody Identification [facility] 04/18 21:56 Order name: ANTIBODY CONSULTATION [facility] 04/18 21:58 Order name: SARS-COV-2 RT PCR; Complete Time: 22:20 [facility] 04/18 22:04 Order name: Labs - recollect needed: Additional blood needed for antibody screen; dm5 Complete Time: 22:54 04/18 22:55 Order name: CT Chest For PE Angio mh7 Administered Medications: 04/18 20:10 Drug: NS 0.9% (30 ml/kg) 30 ml/kg Route: IV; Rate: bolus; Site: right forearm; rr5 22:30 Follow up: Response: No adverse reaction; IV Status: Completed infusion; IV Intake: rr5 1800ml 20:10 Drug: NARcan 2 mg Route: IVP; Site: left antecubital; rr5 21:10 Follow up: Response: No adverse reaction rr5 22:35 Drug: NS 0.9% 1000 ml {Note: right femoral catheter.} Route: IV; Rate: 125 ml/hr; Site: rr5 Other; 04/19 02:15 Follow up: Response: No adverse reaction; IV Status: Infusion continued upon transfer; rr5 IV Intake: 500ml 00:35 Drug: Propofol 5 mcg/kg/min Route: IV; Rate: calculated rate; Site: right femoral; rv 00:45 Follow up: BP 117 / 101; Pulse 45 bpm; Resp 16 bpm; Pulse Ox 100% FiO2 30% Vent rr5 00:45 Follow up: Rate change 20 mcg/kg/min; patient awake pulling tubes rr5 00:48 Follow up: BP 99 / 58; Pulse 44 bpm; Resp 16 bpm; Temp 97.1; Pulse Ox 100% ; Response: rr5 Blood pressure is lowered; Rate change 10 mcg/kg/min 01:00 Follow up: Response: Blood pressure is lowered; Rate change 5 mcg/kg/min rr5 01:15 Follow up: Response: Blood pressure is lowered; IV Status: Order to discontinue infusionrr5 Disposition: 04/19/20 00:28 Transfer ordered to Other Acute Care Facility. Diagnosis are Acute Respiratory Failure, Altered Mental Status. - Reason for transfer: Higher level of care. - Accepting physician is Dr. [facility]. - Condition is Critical. - Problem is new. - Symptoms have improved. Signatures: Dispatcher [employer] Alanis Ralph RN RN dm5 Priyank Marquez RN RN Jason Shankar RN RN rr5 Domenico Irby MD MD 7 Corrections: (The following items were deleted from the chart) 04/18 20:52 20:30 CORONAVIRUS+.BRZ ordered. EDMS EDMS 23:05 20:05 Allergies: Unable to obtain; rr5 rr5 04/19 01:47 00:28 04/19/2020 00:28 Transfer ordered to Other Acute Care Facility. Diagnosis is mh7 Acute Respiratory Failure; Altered Mental Status. Reason for transfer: Higher level of care. Accepting physician is Dr. Rubio. Condition is Critical. Problem is new. Symptoms have improved. 7 02:17 01:47 04/19/2020 00:28 Transfer ordered to Other Acute Care Facility. Diagnosis is rr5 Acute Respiratory Failure; Altered Mental Status. Reason for transfer: Higher level of care. Accepting physician is Dr. [facility]. Condition is Critical. Problem is new. Symptoms have improved. mh7
[2020-04-19] MEDS ORDERED: propofoL 1,000 MG/100 ML VIAL IV ONE (00:39)
[2020-04-19 11:51] VITALS: O2SAT 100
[2020-04-19 12:13] VITALS: BP 142/65; TEMP 97
--- NOTE | 2020-04-20 15:19 | RAD REPORT ---
EXAM DESCRIPTION: CT - Chest For Pe Angio - 04/19/2020 7:13 am CLINICAL HISTORY: SOB TECHNIQUE: Contiguous axial images obtained through the chest during angiographic phase following th e uneventful administration of IV contrast. Sagittal and coronal reformatted images were provided. DE P reformatted images were provided. This exam was performed according to our departmental dose-optimization program, which includes autom ated exposure control, adjustment of the mA and/or kV according to patient size and/or use of iterati ve reconstruction technique. COMPARISON: No prior exams provided for comparison. FINDINGS: Diagnostic quality: There is good opacification of the pulmonary arterial tree. Motion art ifact degrades image quality and limits evaluation of segmental and subsegmental vessels. Lungs: Mosaic attenuation bilaterally. Bibasilar consolidation. 9 mm right lower lobe nodule (series 401 image 71 and series 404 image 21). Endotracheal tube tip terminates 0.9 cm proximal to the jossie . Layering mucus/debris within the distal trachea and bilateral mainstem bronchi. Pleura: No effusion. No pneumothorax. Heart and pericardium: The heart is enlarged. Coronary artery calcification. No pericardial effusion. Mediastinum and aly: Borderline prominent mediastinal and bilateral hilar lymph nodes measuring up t o 12 mm in short axis. Lower neck and chest wall: Unremarkable Vessels: No pulmonary arterial filling defects. Minimal atherosclerotic disease No thoracic aortic an eurysm. Upper abdomen: Nasogastric tube in place. The sidehole is in the distal esophagus. Bones: Multilevel spondylosis. No acute fracture. IMPRESSION: 1. Motion artifact degrades image quality and limits evaluation of segmental and subse gmental vessels. No central pulmonary embolic disease. 2. Layering mucus/debris within the distal trachea and bilateral mainstem bronchi. Bibasilar consol idation (atelectasis and/or infiltrate). 3. Endotracheal tube tip terminates 0.9 cm proximal to the jossie. Consider approximately 2 cm retr action. 4. Nasogastric tube sidehole terminates in the distal esophagus. Recommend advancement by approxima tely 9 cm in order to prevent aspiration. 5. 9 mm right lower lobe solid pulmonary nodule. Consider a non-contrast Chest CT at 3 months, a PE T/CT, or tissue sampling. These guidelines do not apply to immunocompromised patients and patients wi th cancer. Follow up in patients with significant comorbidities as clinically warranted. For lung can cer screening, adhere to Lung-RADS guidelines. Reference: Radiology. 2017; 284(1):228-43. 6. Other findings as above. Electronically signed by: Edna Ramos MD 04/19/2020 1:20 AM [employer] MANAGEMENT OFFICER Due to temporary technical issues with the PACS/Fluency reporting system, reports are being signed by the in house radiologists without review as a courtesy to insure prompt reporting. The interpreting radiologist is fully responsible for the content of the report.
--- NOTE | 2020-04-21 10:54 | RAD REPORT ---
EXAM DESCRIPTION: RAD - Chest Single View - 04/18/2020 9:30 pm CLINICAL HISTORY: Tube placement. COMPARISON: None. FINDINGS: The endotracheal tube tip is approximately 2.6 cm from the jossie. The nasogastric tube si de-port overlies the distal thoracic esophagus with the tip in the region of the GE junction. The hea rt size is enlarged with mild central pulmonary vascular congestion. No pleural effusions or pneumoth orax. IMPRESSION: 1. Distal nasogastric tube overlies the distal thoracic esophagus; recommend advanceme nt at least 3 cm into the stomach. 2. Endotracheal tube in appropriate position. Electronically signed by: Rahul Walsh MD 04/18/2020 11:01 PM TECHNOLOGY TRAINING ASSOCIATE Due to temporary technical issues with the PACS/Fluency reporting system, reports are being signed by the in house radiologist without review as a courtesy to ensure prompt reporting. The interpreting r adiologist is fully responsible for the content of the report.
== END 2020-04-19 02:17 ==
LOC: ER 20:06
PROC: 5A1935Z Respiratory Ventilation, Less than 24 Consecutive Hours (ICD-10-PCS; principal; 2020-04-19)
PROC: 06HM33Z Insertion of Infusion Device into Right Femoral Vein, Percutaneous Approach (ICD-10-PCS; 2020-04-19)
DX: J96.00 Acute respiratory failure, unspecified whether with hypoxia or hypercapnia (principal); Z20.828 Contact with and (suspected) exposure to other viral communicable diseases; I10 Essential (primary) hypertension
CPT/HCPCS: 36415; 51702; 70450; 71045; 71275; 72125; 80048; 80076; 80307; 80329; 81003; 81015; 82150; 82550; 82553; 82805; 82947; 83605; 83690; 83880; 84145; 84484; 85025; 85610; 85730; 86850; 86870; 86900; 86901; 87040; 87086; 87088; 87804; 93005; 94002; 99291; 99292; J2310; J2704; J7030; Q9967; U0003

== ENCOUNTER 2020-10-10 11:45 | Emergency (ER) | payer SELFPAY ==
--- OUTSIDE RECORDS SUMMARY | 2020-10-10 11:48 | XMS REPORT | Continuity of Care Document ---
:1960 Author Organization [facility] t Address [address] [place] [address] Care Team Providers Name Role Phone Doctor Unassigned, Name Attending Clinician Unavailable Jorge Attending Clinician Margaret Hood Attending Clinician Sudhir MERIDA Attending Clinician Sudhir MERIDA Admitting Clinician Payers Payer Name Policy Type Policy Number Effective Date Expiration Date S ource Problems This patient has no known problems. Allergies, Adverse Reactions, Alerts Allergy Allergy Status Severity Reaction(s) Onset Inactive Treating Comm ents Source Name Type Date Date Clinician No Known DA Active U 2019-05 [facility] Allergie 06-19 Clear s 00:00: Hernandez [address] [facility] Medications This patient has no known medications. Procedures This patient has no known procedures. Encounters Start End Encounter Admission Attending Care Care Encounter Source Date/Time Date/Time Type Type Clinicians Facility Department ID 2019-01-24 2019-01-24 Orders Doctor HAIRSTON [id number] 00:00:00 00:00:00 Only Unassigned, KANWAL 350.1.13.10 [place] [facility] 4.2.7.2.686 [id number] 2019-01-03 2019-01-03 Transition Daxa Patel 1.2.840.114 [id number] 00:00:00 00:00:00 of Care Merle Ball 350.1.13.10 [place] 4.2.7.2.686 [id number] 2018-12-30 2019-01-02 [facility] Kana Bustamante 1.2.840.1 14 [id number] 12:35:43 18:20:00 Encounter Leti Peguero 350.1.13.10 [facility] 4.2.7.2.686 [id number] 093 Results Test Description Test Time Test Comments Results Result Comments Source BASIC METABOLIC PANEL 2020-04-21 06:32:00 Test Item Value Reference Range Interpretation Comme nts SODIUM (test code = NA) 144 mmol/L 134-147 N POTASSIUM (test code = K) 2.9 mmol/L 3.4-5.0 LL CHLORIDE (test code = CL) 110 mmol/L 100-108 H CARBON DIOXIDE (test code = CO2) 27 mmol/L 21-32 N ANION GAP (test code = GAP) 7.0 GAP calc 4.0-15.0 N GLUCOSE (test code = GLU) 101 MG/DL 70-110 N BLOOD UREA NITROGEN (test code = BUN) 5 MG/DL 7-18 L GLOMERULAR FILTRATION RATE (test code = GFR) >=60 max estimate estG FR >60 CREATININE (test code = CREAT) 0.3 MG/DL 0.6-1.0 L CALCIUM (test code = CA) 8.8 MG/DL 8.5-10.1 N CBC W/AUTO [id number] 06:10:00 Test Item Value Reference Range Interpretation Comments WHITE BLOOD CELL (test code = 7.8 K/mm3 3.5-11.0 N WBC) RED BLOOD CELL (test code = 3.72 M/mm3 4.70-6.10 L RBC) HEMOGLOBIN (test code = HGB) 10.0 G/DL 10.4-14.9 L HEMATOCRIT (test code = HCT) 32.7 % 31.5-44.1 N MEAN CELL VOLUME (test code = 87.9 Fl 84.5-98.6 N MCV) MEAN CELL HGB (test code = MCH) 26.9 pg 27.0-34.2 L MEAN CELL HGB CONCETRATION 30.6 G/DL 31.5-34.0 L (test code = MCHC) RED CELL DISTRIBUTION WIDTH 13.8 SD 11.5-14.5 N (test code = RDW) PLATELET COUNT (test code = 225 K/mm3 150-450 N PLT) MEAN PLATELET VOLUME (test code 11.50 fL 7.0-10.5 H = MPV) NEUTROPHIL % (test code = NT%) 70.5 % 40-76 IMMATURE GRANULOCYTE % (test 0.6 % 0.0-5.0 N code = IG%) LYMPHOCYTE % (test code = LY%) 19.6 % 20.5-51.1 L MONOCYTE % (test code = MO%) 7.3 % 1.7-9.3 N EOSINOPHIL % (test code = EO%) 1.5 % 0.0-6.0 N BASOPHIL % (test code = BA%) 0.5 % 0.0-2.0 N NUCLEATED RBC % (test code = 0.0 /100WBC% 0.0-1.0 N NRBC%) NEUTROPHIL # (test code = NT#) 5.5 K/mm3 1.8-7.6 N IMMATURE GRANULOCYTE # (test 0.05 x10 3/uL 0.00-0.03 H code = IG#) LYMPHOCYTE # (test code = LY#) 1.5 K/mm3 0.6-3.2 N MONOCYTE # (test code = MO#) 0.6 K/mm3 0.3-1.1 N EOSINOPHIL # (test code = EO#) 0.1 K/mm3 0.0-0.4 N BASOPHIL # (test code = BA#) 0.0 K/mm3 0.0-0.1 N NUCLEATED RBC # (test code = 0.0 K/mm3 0.0-0.1 N NRBC#) MANUAL DIFF REQUIRED (test code NO DIFF/SCN CRITERIA = MDIFF) CREATINE KINASE (CK)2020-04-20 10:26:00 Test Item Value Reference Range Interpretation Comments CREATINE KINASE (CK) (test code = 467 Unit/L 26-192 H CK) Comment: please add to todays morning labCOMPREHENSIVE METABOLIC PANEL 2020-04-20 06:42:00 Test Item Value Reference Range Interpretation Comments SODIUM (test code = NA) 144 mmol/L 134-147 N POTASSIUM (test code = 3.2 mmol/L 3.4-5.0 L K) CHLORIDE (test code = 111 mmol/L 100-108 H CL) CARBON DIOXIDE (test 31 mmol/L 21-32 N code = CO2) ANION GAP (test code = 2.0 GAP calc 4.0-15.0 L GAP) GLUCOSE (test code = 106 MG/DL 70-110 N GLU) BLOOD UREA NITROGEN 6 MG/DL 7-18 L (test code = BUN) GLOMERULAR FILTRATION >=60 max estimate >60 RATE (test code = GFR) estGFR CREATININE (test code = 0.4 MG/DL 0.6-1.0 L CREAT) TOTAL PROTEIN (test code 5.9 G/DL 6.4-8.2 L = PROT) ALBUMIN (test code = 2.7 G/DL 3.4-5.0 L ALB) GLOBULIN (test code = 3.2 GM/dL GLOB) ALBUMIN/GLOBULIN RATIO 0.8 RATIO 1.2-2.2 L (test code = A/G) CALCIUM (test code = CA) 8.5 MG/DL 8.5-10.1 N BILIRUBIN TOTAL (test 0.20 MG/DL 0.2-1.2 N code = BILT) SGOT/AST (test code = 23 Unit/L 15-37 N AST) SGPT/ALT (test code = 21 Unit/L 12-78 N ALT) ALKALINE PHOSPHATASE 59 Unit/L 45-117 N TOTAL (test code = ALKP) CBC W/AUTO [id number] 06:27:00 Test Item Value Reference Range Interpretation Comments WHITE BLOOD CELL (test code = 7.3 K/mm3 3.5-11.0 N WBC) RED BLOOD CELL (test code = 3.21 M/mm3 4.70-6.10 L RBC) HEMOGLOBIN (test code = HGB) 8.6 G/DL 10.4-14.9 L HEMATOCRIT (test code = HCT) 28.9 % 31.5-44.1 L MEAN CELL VOLUME (test code = 90.0 Fl 84.5-98.6 N MCV) MEAN CELL HGB (test code = MCH) 26.8 pg 27.0-34.2 L MEAN CELL HGB CONCETRATION 29.8 G/DL 31.5-34.0 L (test code = MCHC) RED CELL DISTRIBUTION WIDTH 13.7 SD 11.5-14.5 N (test code = RDW) PLATELET COUNT (test code = 175 K/mm3 150-450 N PLT) MEAN PLATELET VOLUME (test code 11.30 fL 7.0-10.5 H = MPV) NEUTROPHIL % (test code = NT%) 61.0 % 40-76 IMMATURE GRANULOCYTE % (test 0.3 % 0.0-5.0 N code = IG%) LYMPHOCYTE % (test code = LY%) 27.3 % 20.5-51.1 N MONOCYTE % (test code = MO%) 8.8 % 1.7-9.3 N EOSINOPHIL % (test code = EO%) 2.2 % 0.0-6.0 N BASOPHIL % (test code = BA%) 0.4 % 0.0-2.0 N NUCLEATED RBC % (test code = 0.0 /100WBC% 0.0-1.0 N NRBC%) NEUTROPHIL # (test code = NT#) 4.4 K/mm3 1.8-7.6 N IMMATURE GRANULOCYTE # (test 0.02 x10 3/uL 0.00-0.03 N code = IG#) LYMPHOCYTE # (test code = LY#) 2.0 K/mm3 0.6-3.2 N MONOCYTE # (test code = MO#) 0.6 K/mm3 0.3-1.1 N EOSINOPHIL # (test code = EO#) 0.2 K/mm3 0.0-0.4 N BASOPHIL # (test code = BA#) 0.0 K/mm3 0.0-0.1 N NUCLEATED RBC # (test code = 0.0 K/mm3 0.0-0.1 N NRBC#) MANUAL DIFF REQUIRED (test code NO DIFF/SCN CRITERIA = MDIFF) - DUP EXTRACRANIAL [id number] 18:04:00 [facility] 1960 Sex: F Name: MAKAYLA BAE [facility] : 1960 Age/S: 59 / F [address] [address] Unit #: [id number] Loc: [place] [address] Phys: Leo Brannon MD Acct: [id number] Dis Date: Status: ADM IN PHONE #: [phone] Exam Date: 04/19/2020 1700 FAX #: Reason: AMS EXAMS: CPT: [id number] DUP EXTRACRANIAL RALPH [address] Dictation location A1 Carotid Doppler Ultrasound HISTORY: Altered mentation COMMENTS: The extracranial carotid arteries were evaluated with real time sanchez scale, color and spectral Doppler. COMPARISON: None. FINDINGS: The peak systolic velocities and IC/CC ratios are within normal limits bilaterally measuring 1.1 on the right and 0.9 on the left. No abnormal atherosclerotic plaque demonstrated with no hemodynamically significant stenosis. Antegrade flow seen in both vertebral arteries. IMPRESSION: Normal carotid Doppler ultrasound. at 1804 Reported and signed by: Sabrina Bhatia M.D. CC: Danelle Brown MD; Leo Brannon MD Technologist: Mary Godinez Trnscb Date/Time: 04/19/2020 (180) MonikaPXC PAGE 1 Signed Report Name: MAKAYLA BAE [facility] : 1960 Age/S: 59 / F [address] [address] Unit #: [id number] Loc: [place] [address] Phys: Leo Brannon MD Acct: [id number] Dis Date: Status: ADM IN PHONE #: [phone] Exam Date: 04/19/2020 1700 FAX #: Reason: AMS EXAMS: CPT: [id number] DUP EXTRACRANIAL RALPH [address] <Continued> Orig Print D/T: S: 03/31 (1807) Probe: PAGE 2 Signed Report- US ABDOMEN [id number] 17:56:00[facility] 1960 Sex: F Name: MAKAYLA BAE [facility] : 1960 Age/S: 59 / F [address] [address] Unit #: [id number] Loc: [place] [address] Phys: Leo Brannon MD Acct: [id number] Dis Date: Status: ADM IN PHONE #: [phone] Exam Date: 04/19/2020 1730 FAX #: Reason: elevated LFT EXAMS: CPT: [id number] US ABDOMEN COMPLETE 99594 Dictation location b2 Abdominal ultrasound complete: HISTORY:elevated LFT COMMENT: Real-time sonographic images of the abdomen reveals a normally distended gallbladder, with no evidence for gallstones, and no gallbladder wall thickening, or pericholecystic fluid. The common duct measures 6 mm with no intra or extrahepatic biliary dilatation. Liver span is 18.4 cm and spleen span is and 11.2 cm. The liver is of normal echogenicity. No focal liver and splenic mass is seen. There is no ascites. The pancreas appears normal with no evidence of mass or pseudocyst.The aorta and inferior vena cava appear unremarkable. The right kidney measures 11.7 x 4.4 x 5.2 cm and theleft kidney measures 11 x 6 x 5.5 cm. Cortical thickness is normal on each side. No mass or obstruction is present. IMPRESSION: Normal abdominal ultrasound. at 1756 Reported and signed by: Sabrina Bhatia M.D. CC: Danelle Brown MD; Leo Brannon MD Technologist: Krystin Godinez Trnscb Date/Time: 04/19/2020 (175) MonikaPX PAGE 1 Signed Report Name: MAKAYLA BAE [facility] : 1960 Age/S: 59/ F [address] [address] Unit #: [id number] Loc: [place] [address] Phys: Leo Brannon MD Acct: [id number] Dis Date: Status: ADM IN PHONE #: [phone] Exam Date: 04/19/2020 173 FAX #: Reason: elevated LFT EXAMS: CPT: [id number] US ABDOMEN COMPLETE 93319 <Continued> Orig Print D/T: S: 04/19/2020 (2750) Probe: PAGE 2 Signed Report- MRI BRAIN W/O [id number] 16:14:00 [facility] : 1960 Sex: F FAX: Danelle Rosa MD Camps: PM St: ADM FAX: Sa justin Brannon MD [phone] Name: MAKAYLA BAE [facility] : 1960ge/S: 59/F [address] [address] Unit #: [id number] Loc: [place] [address] Phys: Leo Brannon MD Acct: [id number] Dis Date: Status: ADM IN PHONE #: [phone] Exam Date: 04/19/2020 1550 FAX #: Reason: AMS EXAMS: CPT: [id number] MRI BRAIN W/O CONTRAST 96516 Location: H3 MRI brain, 04/19/20 COMPARISON EXAM : None of the brain TECHNIQUE: MRI examination of the brain without contrast done performed on a high field magnet. Multiplanar and multisequence technique performed. CLINICAL HISTORY: Alteration in mental status in this 59 year-old patient. Possible drug overdose FINDINGS: No positive mass-effect, midline shift, extra-axial collection, no intracranial hemorrhage seen. No acute territorial infarction is seen. There is no intra or extra-axial masses. Assessment of skull base unremarkable. Normal signal void in the basilar artery and carotid siphons are seen. Ventricles and sulci are age appropriate. DWI was performed and is unremarkable. No abnormal restriction is seen. There is chronic microvascular changes identified in the supratentorium of moderate degree. This is mildly confluent adjacent to the frontal horns without associated restriction or mass effect. Relative sparing of the infratentorial without significant vertebral basilar insufficiency identified in this patient. No sinus disease is seen IMPRESSION: No acute vascular insult or space- occupying process. No intracranial hemorrhage or cerebral edema. Moderate degree of chronic microangiopathy. PAGE 1 Signed Report (CONTINUED) FAX:Danelle Rosa MD Camps: PM St: ADM FAX: Leo Brannon MD [phone] Name: MAKAYLA BAE [facility] : 1960 Age/S: 59[facility]F [address] [facility]: [id number] Loc: [address] [place] [address] Phys: Leo Brannon MD Acct: [id number] Dis Date: Status: ADM IN PHONE #: [phone] Exam Date: 04/19/2020 7997 FAX #: Reason: AMS EXAMS: CPT: [id number] MRI BRAIN W/O CONTRAST 66366 <Continued> at 1614 Reported and signed by: Eliza Farnsworth M.D. CC: Danelle Brown MD; Leo Brannon MD Technologist: RT Emery(R)(MR) Transcribed Date/Time/By: 04/19/2020 (9762) :[email or web address] Orig Print D/T: S: 04/19/2020 (1832) PAGE 2 Signed [id number] 12:58:00 Test Item Value Reference Range Interpretation Comments AMMONIA (test code = AMM) 54 mcMOL/L 11-32 H PROTHROMBIN [id number] 12:45:00 Test Item Value Reference Range Interpretation Comments PT PATIENT (test code = PTP) 11.4 SECONDS 9.3-12.9 N INTERNATIONAL NORMAL RATIO 1.01 INR Unit 0.8-1.2 N (test code = INR) CBC W/AUTO [id number] 12:44:00 Test Item Value Reference Range Interpretation Comments WHITE BLOOD CELL (test code = 15.3 K/mm3 3.5-11.0 H WBC) RED BLOOD CELL (test code = 3.38 M/mm3 4.70-6.10 L RBC) HEMOGLOBIN (test code = HGB) 9.2 G/DL 10.4-14.9 L HEMATOCRIT (test code = HCT) 30.6 % 31.5-44.1 L MEAN CELL VOLUME (test code = 90.5 Fl 84.5-98.6 N MCV) MEAN CELL HGB (test code = MCH) 27.2 pg 27.0-34.2 N MEAN CELL HGB CONCETRATION 30.1 G/DL 31.5-34.0 L (test code = MCHC) RED CELL DISTRIBUTION WIDTH 13.8 SD 11.5-14.5 N (test code = RDW) PLATELET COUNT (test code = 212 K/mm3 150-450 N PLT) MEAN PLATELET VOLUME (test code 11.90 fL 7.0-10.5 H = MPV) NEUTROPHIL % (test code = NT%) 80.3 % 40-76 H IMMATURE GRANULOCYTE % (test 0.7 % 0.0-5.0 N code = IG%) LYMPHOCYTE % (test code = LY%) 12.8 % 20.5-51.1 L MONOCYTE % (test code = MO%) 5.4 % 1.7-9.3 N EOSINOPHIL % (test code = EO%) 0.5 % 0.0-6.0 N BASOPHIL % (test code = BA%) 0.3 % 0.0-2.0 N NUCLEATED RBC % (test code = 0.0 /100WBC% 0.0-1.0 N NRBC%) NEUTROPHIL # (test code = NT#) 12.3 K/mm3 1.8-7.6 H IMMATURE GRANULOCYTE # (test 0.10 x10 3/uL 0.00-0.03 H code = IG#) LYMPHOCYTE # (test code = LY#) 2.0 K/mm3 0.6-3.2 N MONOCYTE # (test code = MO#) 0.8 K/mm3 0.3-1.1 N EOSINOPHIL # (test code = EO#) 0.1 K/mm3 0.0-0.4 N BASOPHIL # (test code = BA#) 0.0 K/mm3 0.0-0.1 N NUCLEATED RBC # (test code = 0.0 K/mm3 0.0-0.1 N NRBC#) MANUAL DIFF REQUIRED (test code NO DIFF/SCN CRITERIA = MDIFF) COMPREHENSIVE METABOLIC [id number] 11:36:00 Test Item Value Reference Range Interpretation Comments SODIUM (test code = NA) 141 mmol/L 134-147 N POTASSIUM (test code = 3.1 mmol/L 3.4-5.0 L K) CHLORIDE (test code = 112 mmol/L 100-108 H CL) CARBON DIOXIDE (test 25 mmol/L 21-32 N code = CO2) ANION GAP (test code = 4.0 GAP calc 4.0-15.0 N GAP) GLUCOSE (test code = 104 MG/DL 70-110 N GLU) BLOOD UREA NITROGEN 13 MG/DL 7-18 N (test code = BUN) GLOMERULAR FILTRATION >=60 max estimate >60 RATE (test code = GFR) estGFR CREATININE (test code = 0.6 MG/DL 0.6-1.0 N CREAT) TOTAL PROTEIN (test code 6.4 G/DL 6.4-8.2 N = PROT) ALBUMIN (test code = 3.1 G/DL 3.4-5.0 L ALB) GLOBULIN (test code = 3.3 GM/dL GLOB) ALBUMIN/GLOBULIN RATIO 0.9 RATIO 1.2-2.2 L (test code = A/G) CALCIUM (test code = CA) 8.4 MG/DL 8.5-10.1 L BILIRUBIN TOTAL (test 0.40 MG/DL 0.2-1.2 N code = BILT) SGOT/AST (test code = 34 Unit/L 15-37 N AST) SGPT/ALT (test code = 24 Unit/L 12-78 N ALT) ALKALINE PHOSPHATASE 64 Unit/L 45-117 N TOTAL (test code = ALKP) [id number] 11:36:00 Test Item Value Reference Range Interpretation Comments LIPASE (test code = LIP) 18 Unit/L 114-286 L [id number] 10:43:00 Test Item Value Reference Range Interpretation Comments TROPONIN-I (test 0.042 NG/ML 0.000-0.045 N Negative: < /= 0.045 code = TROPI) Positive: >/= 0.046 Correlation wit h serial results, other cardiac markers, and cl inical findings is nec essary to determine the c linical significance of this result. Quantit ative results using d ifferent methodologies s hould not be compared to one another as nume rical results may roopa yby method. Completed by Nursing: [id number] 05:31:00 Test Item Value Reference Range Interpretation Comments TROPONIN-I (test 0.034 NG/ML 0.000-0.045 N Negative: < /= 0.045 code = TROPI) Positive: >/= 0.046 Correlation wit h serial results, other cardiac markers, and cl inical findings is nec essary to determine the c linical significance of this result. Quantit ative results using d ifferent methodologies s hould not be compared to one another as nume rical results may roopa yby method. Completed by Nursing: NOBASIC METABOLIC [id number] 04:31:00 Test Item Value Reference Range Interpretation Comments SODIUM (test code = NA) 143 mmol/L 134-147 N POTASSIUM (test code = 3.4 mmol/L 3.4-5.0 N K) CHLORIDE (test code = 113 mmol/L 100-108 H CL) CARBON DIOXIDE (test 27 mmol/L 21-32 N code = CO2) ANION GAP (test code = 3.0 GAP calc 4.0-15.0 L GAP) GLUCOSE (test code = 104 MG/DL 70-110 N GLU) BLOOD UREA NITROGEN 16 MG/DL 7-18 N (test code = BUN) GLOMERULAR FILTRATION >=60 max estimate >60 RATE (test code = GFR) estGFR CREATININE (test code = 0.6 MG/DL 0.6-1.0 N CREAT) CALCIUM (test code = CA) 8.2 MG/DL 8.5-10.1 L Completed by Nursing: NOHEPATIC FUNCTION [id number] 04:31:00 Test Item Value Reference Range Interpretation Comments TOTAL PROTEIN (test code = PROT) 6.4 G/DL 6.4-8.2 N ALBUMIN (test code = ALB) 3.0 G/DL 3.4-5.0 L BILIRUBIN TOTAL (test code = 0.30 MG/DL 0.2-1.2 N BILT) BILIRUBIN DIRECT (test code = < 0.10 MG/DL 0.00-0.30 N BILD) BILIRUBIN INDIRECT (test code = 0.20 MG/DL 0.2-1.2 N BILIND) SGOT/AST (test code = AST) 39 Unit/L 15-37 H SGPT/ALT (test code = ALT) 26 Unit/L 12-78 N ALKALINE PHOSPHATASE TOTAL (test 63 Unit/L 45-117 N code = ALKP) Completed by Nursing: NOCREATINE KINASE (CK)2020-04-19 04:31:00 Test Item Value Reference Range Interpretation Comments CREATINE KINASE (CK) (test code = 855 Unit/L 26-192 H CK) Completed by Nursing: NONT PRO-BRAIN NATRIURETIC [id number] 04:31:00 Test Item Value Reference Range Interpretation Comments NT PRO-BRAIN NATRIURETIC PEPTI 774 PG/ML 0-100 H (test code = PROBNP) Completed by Nursing: [id number] 04:31:00 Test Item Value Reference Range Interpretation Comments TROPONIN-I (test 0.038 NG/ML 0.000-0.045 N Negative: < /= 0.045 code = TROPI) Positive: >/= 0.046 Correlation wit h serial results, other cardiac markers, and cl inical findings is nec essary to determine the c linical significance of this result. Quantit ative results using d ifferent methodologies s hould not be compared to one another as nume rical results may roopa yby method. Completed by Nursing: NOBASIC METABOLIC [id number] 04:25:00 Test Item Value Reference Range Interpretation Comments SODIUM (test code = NA) 143 mmol/L 134-147 N POTASSIUM (test code = K) 3.4 mmol/L 3.4-5.0 N CHLORIDE (test code = CL) 113 mmol/L 100-108 H CARBON DIOXIDE (test code = CO2) 27 mmol/L 21-32 N ANION GAP (test code = GAP) 3.0 GAP calc 4.0-15.0 L GLUCOSE (test code = GLU) 104 MG/DL 70-110 N BLOOD UREA NITROGEN (test code = 16 MG/DL 7-18 N BUN) GLOMERULAR FILTRATION RATE (test estGFR >60 code = GFR) CREATININE (test code = CREAT) MG/DL 0.6-1.0 CALCIUM (test code = CA) 8.2 MG/DL 8.5-10.1 L Completed by Nursing: NOHEPATIC FUNCTION [id number] 04:25:00 Test Item Value Reference Range Interpretation Comments TOTAL PROTEIN (test code = PROT) G/DL 6.4-8.2 ALBUMIN (test code = ALB) G/DL 3.4-5.0 BILIRUBIN TOTAL (test code = BILT) MG/DL 0.2-1.2 BILIRUBIN DIRECT (test code = BILD) MG/DL 0.00-0.30 BILIRUBIN INDIRECT (test code = MG/DL 0.2-1.2 BILIND) SGOT/AST (test code = AST) Unit/L 15-37 SGPT/ALT (test code = ALT) Unit/L 12-78 ALKALINE PHOSPHATASE TOTAL (test code Unit/L 45-117 = ALKP) Completed by Nursing: NOCREATINE KINASE (CK)2020-04-19 04:25:00 Test Item Value Reference Range Interpretation Comments CREATINE KINASE (CK) (test code = CK) Unit/L 26-192 Completed by Nursing: NONT PRO-BRAIN NATRIURETIC [id number] 04:25:00 Test Item Value Reference Range Interpretation Comments NT PRO-BRAIN NATRIURETIC PEPTI (test PG/ML 0-100 code = PROBNP) Completed by Nursing: [id number] 04:25:00 Test Item Value Reference Range Interpretation Comments TROPONIN-I (test code = TROPI) NG/ML 0.000-0.045 Completed by Nursing: NOCBC W/O [id number] 04:14:00 Test Item Value Reference Range Interpretation Comments WHITE BLOOD CELL (test code = WBC) 10.2 K/mm3 3.5-11.0 N RED BLOOD CELL (test code = RBC) 3.39 M/mm3 4.70-6.10 L HEMOGLOBIN (test code = HGB) 9.2 G/DL 10.4-14.9 L HEMATOCRIT (test code = HCT) 31.3 % 31.5-44.1 L MEAN CELL VOLUME (test code = MCV) 92.3 Fl 84.5-98.6 N MEAN CELL HGB (test code = MCH) 27.1 pg 27.0-34.2 N MEAN CELL HGB CONCETRATION (test 29.4 G/DL 31.5-34.0 L code = MCHC) RED CELL DISTRIBUTION WIDTH (test 13.5 SD 11.5-14.5 N code = RDW) PLATELET COUNT (test code = PLT) 192 K/mm3 150-450 N MEAN PLATELET VOLUME (test code = 10.80 fL 7.0-10.5 H MPV) - XR CHEST 1 [id number] 04:05:00 [facility] 1960 Sex: F Name: MAKAYLA BAE [facility] : 1960 Age/S: 59 / F [address] [address] Unit #: [id number] Loc: [place] [address] Phys: Mo Rubio MD Acct: [id number] Dis Date: Status: REG ER PHONE #: [phone] Exam Date: 04/19/2020351 FAX #: Reason: post extubation EXAMS: CPT: [id number] XR CHEST 1 V 29365 Fluoro Time: DAP (Gy m2): Air Kerma (mGy): Chest one view AP 04/19/2020 4:05 AM CLINICAL INDICATION: Postextubation COMPARISON: None available LOCATION: W1 IMPRESSION: Cardiomediastinal contours are within normal limits. The central pulmonary vasculature is not engorged. The lungs are well aerated. Electronically Signed by Navjot Wolf on04/19/2020 at 0405 Reported and signed by: Enmanuel Wolf M.D. CC: PAGE 1 Signed Report Name: MAKAYLA BAE [facility] : 1960 Age/S: 59 / F [address] [facility] Unit #: [id number] Loc: [place] [address] Phys: Mo Rubio MD Acct: [id number] Dis Date: Status: REG ER PHONE #: [phone] Exam Date: 04/19/2020351 FAX #: Reason: post extubation EXAMS: CPT: [id number] XR CHEST 1 V 03670 Fluoro Time: DAP (Gy m2): Air Kerma (mGy): <Tommy nued> Technologist: Misha Lagunas RT(R)(CT) Trnscb Date/Time: 04/19/2020 (0405) [email or web address] Orig Print D/T: S: 04/19/2020 (0408) PAGE 2 Signed Report
[2020-10-10 12:28] LABS: Protime INR 0.91
[2020-10-10 12:31] LABS: Absolute Lymphocytes (CBC) 0.4 K/uL (0.7-4.9); Basophils % 0.1 % (0-1.3); Hematocrit 34.1 % (36.0-45.0); Lymphocytes % 3.2 % (15.3-44.8); MPV 10.8 fL (7.6-11.3); RBC Red Blood Cell Count 3.72 M/uL (3.86-4.86)
--- NOTE | 2020-10-10 12:38 | RAD REPORT ---
EXAM DESCRIPTION: Yobani Single View10/10/2020 12:25 pm CLINICAL HISTORY: Shortness of breath COMPARISON: 2019 FINDINGS: Moderate to marked alveolar opacities are present within the right lung. Left lung appears clear. Mild right lung volume loss. The heart is mildly enlarged IMPRESSION: Moderate to marked right lung opacities probably pneumonia
[2020-10-10 12:43] LABS: ALT/SGPT 106 U/L (12-78); AST/SGOT 247 U/L (15-37); Albumin 3.2 g/dL (3.4-5.0); Alkaline Phosphatase 109 U/L (45-117); BUN Blood Urea Nitrogen 46 mg/dL (7-18); Bicarbonate 19 mmol/L (21-32); Bilirubin Direct < 0.1 mg/dL (0-0.2); Bilirubin Total 0.2 mg/dL (0.2-1.0); Glucose Level 121 mg/dL (74-106); Magnesium 2.9 mg/dL (1.8-2.4); NT PRO-BNP 3081 pg/mL (<125); Potassium 4.8 mmol/L (3.5-5.1); Protein, Total 7.4 g/dL (6.4-8.2); Sodium Level 135 mmol/L (136-145); Troponin (Emerg Dept Use Only) < 0.02 ng/mL (0.0-0.045)
[2020-10-10 13:47] LABS: Blood Morphology Comment NOT SEEN (NOT SEEN); Platelet Estimate ADEQ; White Blood Cell Scan OK (OK)
[2020-10-10] MEDS ORDERED: AZITHROMYCIN IV 500 MG in NA CHLORIDE 0.9% 250 ML IVPB ONE (14:15)
[2020-10-10] MEDS ORDERED: CEFTRIAXONE/SWI 1gm 1 GM/10 ML SYR ONE (14:25)
[2020-10-10] MEDS ORDERED: PIPER/TAZO/NS 3.375gm 3.375 GM/100 ML BAG ONE (14:25)
--- NOTE | 2020-10-10 14:25 | RAD REPORT ---
EXAM DESCRIPTION: CT - Abdomen Pelvis Wo Contrast - 10/10/2020 1:57 pm CLINICAL HISTORY: Abdominal pain /GI bleed COMPARISON: 2019 TECHNIQUE: Computed axial tomography of the abdomen and pelvis was obtained. IV and oral contrast we re not requested. All CT scans are performed using dose optimization technique as appropriate and may include automated exposure control or mA/KV adjustment according to patient size. FINDINGS: The evaluation of solid organs, vessels and bowel is limited secondary to the lack of con trast administration. Marked alveolar opacities within the right middle and right lower lobes. Minimal right pleural effusion The liver, spleen, pancreas, and adrenals appear grossly normal. Bilateral renal calculi. No hydronephrosis. Bazan catheter within the bladder. Two round metallic densities adjacent to the stomach have been placed since prior exam. The stomach is distended. The wall of the distal stomach is mildly thickened. Small umbilical hernia Rectum is mildly distended with stool. No evidence of diverticulitis. A moderate amount stool present throughout colon. IMPRESSION: Marked right lung opacities probably pneumonia Mild thickening of the wall of the distal stomach may indicate inflammation. The stomach is distended
[2020-10-10 14:29] LABS: Urine Blood 2+ (Negative); Urine Glucose Negative (Negative); Urine Protein 1+ (Negative); Urine Specific Gravity >=1.030 (1.005-1.030)
[2020-10-10 14:51] LABS: Barbiturates NEGATIVE (NEGATIVE); Benzodiazepines POSITIVE (NEGATIVE); Cocaine NEGATIVE (NEGATIVE); METHAMPHETAM NEGATIVE (NEGATIVE); Methadone NEGATIVE (NEGATIVE); Opiates POSITIVE (NEGATIVE); Phencyclidine NEGATIVE (NEGATIVE); THC Cannibis NEGATIVE (NEGATIVE)
[2020-10-10] MEDS ORDERED: PANTOPRAZOLE 40 MG INJ ONE (15:25)
[2020-10-10] MEDS ORDERED: NALOXONE HCL 2 MG/2 ML VIAL ONE (15:40)
[2020-10-10] MEDS ORDERED: KETAMINE HCL 500 MG/5 ML VIAL ONE (15:47)
[2020-10-10] MEDS ORDERED: ROCURONIUM 50 MG/5 ML VIAL IV ONE (15:48)
[2020-10-10] MEDS ORDERED: NOREPINEPHRINE 4mg/D5W 250mL 4 MG/250 ML BAG IV ONE (15:50)
--- NOTE | 2020-10-10 15:52 | ER ---
Nurse's Notes [facility] Name: Le Heath Age: 59 yrs Sex: Female : 1960 Arrival Date: 10/10/2020 Time: 12:00 Bed 3 Private MD: Diagnosis: Gastrointestinal hemorrhage, unspecified;Acute kidney failure;Aspiration Pneumonia;Severe sepsis Presentation: 10/10 12:00 Chief complaint: EMS states: EMS STATES THEY WERE CALLED BY PATIENTS . ITS ap3 REPORTED THAT PATIENT WAS SLEEPING LATER THAN NORMAL, AND WHEN THE WENT TO WAKE HER UP, BLOODY LIQUID CAME OUT OF HER NOSE AND MOUTH. PATIENT SATES SHE DIDN'T VOMIT. Coronavirus screen: At this time, the client does not indicate any symptoms associated with coronavirus-19. Ebola Screen: No symptoms or risks identified at this time. Initial Sepsis Screen: Does the patient meet any 2 criteria? RR > 20 per min. Systolic BP < 90 mmHg. Mean Arterial Pressure (MAP) < 65. HR > 90 bpm. Yes Does the patient have a suspected source of infection? No. Patient's initial sepsis screen is negative. If YES to both, name of provider notified: Jassi ELDER. Risk Assessment: Do you want to hurt yourself or someone else? Patient reports no desire to harm self or others. Onset of symptoms was October 10, 2020. Care prior to arrival: Medication(s) given: FLUIDS IV initiated. 20 GA, in the right hand. Transition of care: patient was not received from another setting of care. 12:00 Method Of Arrival: EMS: [facility] ap3 12:00 Acuity: MIKE 2 ap3 Triage Assessment: 12:00 General: Appears distressed, uncomfortable, ill, Behavior is calm, cooperative. Pain: jl7 Denies pain. EENT: Throat dried brown nasal drainage noted to right nares, brown substance on tongue. Neuro: Level of Consciousness is awake, alert, obeys commands, Oriented to person, place, time, situation, Weakness. Cardiovascular: Patient's skin is warm and dry. Respiratory: Airway is patent Respiratory effort is unlabored, shallow, weak, Respiratory pattern is regular, symmetrical. GI: Abdomen is round non-distended. Derm: Skin is dry, Skin is pale, Skin temperature is cool. Historical: - Allergies: 12:41 No Known Allergies; jl7 - Home Meds: 12:06 Propranolol Oral [Active]; Lisinopril Oral [Active]; ap3 - PMHx: 12:06 GI Bleed; Hypertension; Ulcers; ap3 - PSHx: 12:41 Tubal ligation; ; jl7 - Immunization history:: Adult Immunizations up to date. - Social history:: Smoking status: Patient denies any tobacco usage or history of. Screenin:39 Abuse screen: Denies threats or abuse. Denies injuries from another. Nutritional jl7 screening: No deficits noted. Tuberculosis screening: No symptoms or risk factors identified. Fall Risk IV access (20 points). Total [place] Fall Scale indicates No Risk (0-24 pts). Assessment: 12:30 General: Appears in no apparent distress. uncomfortable, ill, Behavior is calm, jl7 cooperative, appropriate for age. Pain: Denies pain. Neuro: Level of Consciousness is obeys commands, listless, Oriented to person, place, time, situation. Cardiovascular: Denies chest pain, Heart tones present Patient's skin is warm and dry. Respiratory: Airway is patent Respiratory effort is even, unlabored, Respiratory pattern is regular, symmetrical, Breath sounds are clear bilaterally. GI: Abdomen is round distended, Bowel sounds present X 4 quads. Abd is non tender X 4 quads abdomen noted to be mildly distended on palpation, denies discomfort. Derm: Skin is dry, Skin is pale, Skin temperature is cool. 12:30 Reassessment: Pt noted to be drowsy, twitching, states "I always twitch when I get like jl7 this." Pt oriented but sleepy. Automatic BP cuff will not take due to twitching, pt continues to denies pain. 13:00 Reassessment: at bedside, pt talking to , playing music on her phone. jl7 13:30 Reassessment: Bazan placed, pt denies discomfort. jl7 14:20 Reassessment: ERP at bedside for rectal exam, pt laid on her left side without jl7 assistance for exam, guaiac is positive. Pt remains laying on left side, eyes closed, respirations even and unlabored. 15:00 Reassessment: 14 F NG tube placed to low intermittent suction. jl7 15:45 Reassessment: Pt laying on her side, snoring respirations noted. Pt noted to have brown jl7 drainage from mouth and left nares, pt suctioned, no gag reflex noted, NG tube placed. ERP at bedside to place central line. Jaw thrust maneuver relieved snoring. RT at bedside bagging pt, 7.5 ET tube placed, 23 at the teeth. Respiratory: Breath sounds with crackles bilaterally. 16:20 Reassessment: [facility] at bedside to transport pt. jl7 Vital Signs: 12:00 BP 80 / 42; Pulse 109; Resp 24; ap3 12:12 Temp 99.4(O); ap3 12:47 Pulse Ox 96% on R/A; Weight 58.97 kg; Height 5 ft. (152.40 cm); Pain 0/10; jl7 13:16 BP 90 / 48; Pulse 102; Resp 22; Pulse Ox 98% ; Pain 0/10; jl7 14:53 BP 69 / 43; Pulse 96; Resp 13 S; Temp 98.9(C); Pulse Ox 92% on 2 lpm NC; jl7 15:15 BP 70 / 44; Pulse 92; Resp 16; Pulse Ox 85% on Non-rebreather mask; jl7 15:36 BP 95 / 84; Pulse 97; Resp 26 A; Temp 98.6(C); Pulse Ox 90% on ETT ambu; jl7 15:40 BP 106 / 88; Pulse 96; Resp 23 A; Temp 98.5(C); Pulse Ox 98% on ETT vent; jl7 16:00 BP 115 / 75; Pulse 89; Resp 21; Temp 98.5; Pulse Ox 98% on ETT vent; jl7 12:47 Body Mass Index 25.39 (58.97 kg, 152.40 cm) jl7 ED Course: 12:00 Patient arrived in ED. ap3 12:00 Initial lab(s) drawn, by me, sent to lab. Inserted saline lock: 20 gauge in right jl7 forearm, using aseptic technique. Blood collected. 12:01 Jassi Faith PA is PHCP. jr8 12:01 Devyn Douglas MD is Attending Physician. jr8 12:04 Triage completed. ap3 12:05 Inserted saline lock: 20 gauge in left antecubital area, using aseptic technique. jl7 12:07 Arm band placed on right wrist. EKG completed in triage. Results shown to MD. ap3 12:07 Patient has correct armband on for positive identification. parquetry floor layer on. Pulse ap3 ox on. NIBP on. Noise minimized. Warm blanket given. 12:25 XRAY Chest (1 view) In Process Unspecified. EDMS 12:39 Kevin Lynn, RN is Primary Nurse. jl7 13:30 Bazan cath inserted, using sterile technique, 16 Fr., by md, balloon inflated, to jl7 gravity drainage, urine specimen collected. returned cloudy urine. Patient tolerated well. 13:56 CT Abd/Pelvis - Without Contrast In Process Unspecified. EDMS 14:54 transfer initiated with Juani from the [facility] Transfer Center. eb 15:00 NGT: inserted 14 Fr. via right nare. verified placement of air over stomach, verified jl7 return of gastric contents, Placement verified by X-ray, to intermittent suction. Returned gastric contents. Patient tolerated unresponsive. 15:01 connected the ED doctor control analyst for [facility] Everardo with Jassi Elder for patient transfer eb consultation. 15:03 administrative approval given by Juani Brady Rn/ patient has been accepted to [facility] ED/ Dr. Tanmay Siddiqi has accepted the patient in transfer/ report to be called to [phone]. 15:15 Assisted provider with central line placement. Set up central line tray. Triple lumen jl7 line placed in right femoral. Line placed by Jassi ELDER Placement verified by blood return, Dressed with 4X4s, Tape, Blood was collected. Patient tolerated well. Before procedure, did Practitioner(s) obtain informed consent? No. Patient \\T\\ family education about procedure, CLABSI prevention and S/S of infection? No. Time-out/Briefing performed prior to start of procedure? Yes. Was handwashing/sanitizing done immediately prior to procedure? Yes. Was patient positioned to in a way to prevent air embolism? Yes. Was procedure site sterilized? Yes, with chlorhexidine. Was the site allowed to dry? Yes. Was local anesthetic and/or sedation utilized? Yes. During the procedure, did the Practitioner(s) maintain a sterile field? Yes. Were unused ports clamped during insertion? Yes. Was a 2nd qualified MD obtained after 3 unsuccessful insertion attempts? No. Was blood aspirated from each lumen? Yes. After the procedure, did the Practitioner(s) clean the site and apply a sterile dressing? Yes. 15:34 Assisted provider with intubation using 7.5 mm ETT via oral route. ET tube secured at jl7 22cm at the teeth. Set up intubation tray. Intubated by Jassi EDLER Placement verified by CO2 detector w/ + color change, auscultating bilateral breath sounds, CXR, Patient tolerated unresponsive. 15:49 XRAY Chest (1 view) In Process Unspecified. EDMS 16:20 Patient transferred, IV remains in place. intact, No redness/swelling at site. jl Administered Medications: 13:29 Drug: NS 0.9% 1000 ml Route: IV; Rate: 125 ml/hr; Site: right forearm; [facility] 16:50 Follow up: IV Status: Infusion continued upon transfer jl 14:10 Drug: Rocephin (cefTRIAXone) 1 grams Route: IV; Rate: calculated rate; Site: left [facility] antecubital; 14:13 Follow up: Response: No adverse reaction; IV Status: Completed infusion [facility] 14:15 Drug: Zosyn (piperacillin-tazobactam) 3.375 grams Route: IVPB; Infused Over: 60 mins; [facility] Site: right forearm; 15:15 Follow up: Response: No adverse reaction; IV Status: Completed infusion [facility] 14:30 Drug: Zithromax (azithromycin) 500 mg Route: IVPB; Infused Over: 1 hrs; Site: right jl7 hand; 15:30 Follow up: Response: No adverse reaction; IV Status: Completed infusion [facility] 15:00 Drug: NS 0.9% 1000 ml Route: IV; Rate: 1 bolus; Site: left antecubital; 7 15:45 Follow up: IV Status: Completed infusion; IV Intake: 1000ml [facility] 15:20 Drug: ProTONIX (pantoprazole) 40 mg Route: IVP; Site: left antecubital; 7 15:30 Follow up: Response: No adverse reaction [facility] 15:29 Drug: Ketamine 2 mg/kg Route: IVP; Site: right forearm; jl7 15:30 Follow up: Response: No adverse reaction [facility] 15:31 Drug: Rocuronium 70 mg Route: IVP; Site: right forearm; 7 15:32 Follow up: Response: No adverse reaction jl7 15:40 Drug: Levophed (norepinephrine) (4 mg/250 mL D5W 4 mcg/min {Note: started at 10 jl7 mcg/min.} Route: IV; Rate: calculated rate; Site: right femoral; 16:48 Follow up: IV Status: Infusion continued upon transfer jl7 15:53 Drug: ProTONIX (pantoprazole) 8 mg/hr Route: IV; Rate: 25 ml/hr; Site: right femoral; jl7 16:49 Follow up: IV Status: Infusion continued upon transfer jl7 Intake: 15:45 IV: 1000ml; Total: 1000ml. jl7 Ventilator: 15:54 Fi02: 70%; Rate: 14min; T.V.: 450ml; Peep: 7cm; ET tube: 7.5 mm (Oral); jl7 Outcome: 15:51 ER care complete, transfer ordered by jrGunjan 16:20 Transferred by helicopter to other acute care facility: [facility]. Transfer form jl7 completed. X-rays sent w/ patient. 16:20 critical 16:20 Discharge instructions given to [facility] Instructed on the need for transfer, Demonstrated understanding of instructions. 16:53 Patient left the ED. jl7 Signatures: Dispatcher [employer] EDMS Jassi Faith PA PA jr8 Kevin Lynn RN RN jl7 Cami Penny RN RN ap3 Lexis Francisco Corrections: (The following items were deleted from the chart) 16:32 13:39 Reassessment: Patient appears in no apparent distress at this time. No changes jl7 from previously documented assessment. Patient and/or family updated on plan of care and expected duration. Pain level reassessed. Patient is alert, oriented x 3, equal unlabored respirations, skin warm/dry/pink. jl7
--- NOTE | 2020-10-10 15:52 | EDPHYS ---
Physician Documentation [facility] Name: Le Heath Age: 59 yrs Sex: Female : 1960 Arrival Date: 10/10/2020 Time: 12:00 Bed 3 Private MD: ED Physician Devyn Douglas HPI: 10/10 13:44 This 59 yrs old Female presents to ER via EMS with complaints of Hypotension. jr8 13:44 Onset: The symptoms/episode began/occurred acutely, today. Associated signs and jr8 symptoms: Pertinent positives: dizziness when standing. Severity of symptoms: At their worst the symptoms were moderate in the emergency department the symptoms are unchanged. It is unknown whether or not the patient has had similar symptoms in the past. The patient has not recently seen a physician. Stated that she woke up and had dried blood in nose and mouth but no vomiting or black tarry stool this AM. History of ulcers in the past. Currently not on any PPI. EMS was called by family after she was complaining of dizziness and appeared to be pale. EMS stated that she was tachycardic and hypotensive on scene. Historical: - Allergies: 12:41 No Known Allergies; jl7 - Home Meds: 12:06 Propranolol Oral [Active]; Lisinopril Oral [Active]; ap3 - PMHx: 12:06 GI Bleed; Hypertension; Ulcers; ap3 - PSHx: 12:41 Tubal ligation; ; jl7 - Immunization history:: Adult Immunizations up to date. - Social history:: Smoking status: Patient denies any tobacco usage or history of. ROS: 13:44 Eyes: Negative for injury, pain, redness, and discharge, ENT: Negative for injury, jr8 pain, and discharge, Neck: Negative for injury, pain, and swelling, Cardiovascular: Negative for chest pain, palpitations, and edema, Respiratory: Negative for shortness of breath, cough, wheezing, and pleuritic chest pain, Abdomen/GI: Negative for abdominal pain, nausea, vomiting, diarrhea, and constipation, Back: Negative for injury and pain, MS/Extremity: Negative for injury and deformity, Skin: Negative for injury, rash, and discoloration. 13:44 Constitutional: Positive for fatigue, malaise. 13:44 Neuro: Positive for dizziness. Exam: 13:44 Neck: Trachea midline, no thyromegaly or masses palpated, and no cervical jr8 lymphadenopathy. Supple, full range of motion without nuchal rigidity, or vertebral point tenderness. No Meningismus. 13:44 Abdomen/GI: Soft, non-tender, with normal bowel sounds. Protuberant appearing. No guarding or rebound. No evidence of tenderness throughout. MS/ Extremity: Pulses equal, no cyanosis. Neurovascular intact. Full, normal range of motion. Neuro: Awake and alert, GCS 15, oriented to person, place, time, and situation. Cranial nerves II-XII grossly intact. Motor strength 5/5 in all extremities. Sensory grossly intact. 13:44 Eyes: Periorbital structures: appear normal, Pupils: equal, round, and reactive to light and accomodation, Extraocular movements: intact throughout, Conjunctiva: pale, bilaterally, Lids and lashes: appear normal. 13:44 ENT: Mouth: Oral mucosa: dry. 13:44 Cardiovascular: Rate: tachycardic, Rhythm: regular, Pulses: Pulses are 1+ in right radial artery and left radial artery. Heart sounds: normal, normal S1and S2, no S3 or S4, Edema: is not appreciated. 13:44 Respiratory: the patient does not display signs of respiratory distress, Respirations: tachypnea, that is mild, Breath sounds: decreased breath sounds, that are mild, are heard in the right posterior middle lobe and right posterior lower lobe. 13:44 Skin: Appearance: Color: pale, Temperature: cool. Vital Signs: 12:00 BP 80 / 42; Pulse 109; Resp 24; ap3 12:12 Temp 99.4(O); ap3 12:47 Pulse Ox 96% on R/A; Weight 58.97 kg; Height 5 ft. (152.40 cm); Pain 0/10; jl7 13:16 BP 90 / 48; Pulse 102; Resp 22; Pulse Ox 98% ; Pain 0/10; jl7 14:53 BP 69 / 43; Pulse 96; Resp 13 S; Temp 98.9(C); Pulse Ox 92% on 2 lpm NC; jl7 15:15 BP 70 / 44; Pulse 92; Resp 16; Pulse Ox 85% on Non-rebreather mask; jl7 15:36 BP 95 / 84; Pulse 97; Resp 26 A; Temp 98.6(C); Pulse Ox 90% on ETT ambu; jl7 15:40 BP 106 / 88; Pulse 96; Resp 23 A; Temp 98.5(C); Pulse Ox 98% on ETT vent; jl7 16:00 BP 115 / 75; Pulse 89; Resp 21; Temp 98.5; Pulse Ox 98% on ETT vent; jl7 12:47 Body Mass Index 25.39 (58.97 kg, 152.40 cm) 7 Ventilator: 15:54 Fi02: 70%; Rate: 14min; T.V.: 450ml; Peep: 7cm; ET tube: 7.5 mm (Oral); jl7 Procedures: 15:51 Intubation: Ventilated with 100% NRB prior to procedure. O2 saturation prior to jr8 procedure was 95 %. Intubated orally using # 4 Mitchell blade with 7.5 mm ETT. was successful on first attempt. Ventilated with ventilator. Tube secured with ETT russell at center of mouth measured 22 cm at teeth. Placement verified by CXR, CO2 detector with (+) color change, auscultating bilateral breath sounds, O2 saturation after procedure was 100 %. Patient tolerated well. Central Line: the site was prepped with Betadine, in sterile fashion, a triple lumen catheter was inserted, in the right femoral vein, in 1 attempts. placement was verified, by blood return, the site was dressed with 4X4s, Tegaderm, foam tape, using sterile technique, the patient tolerated the procedure, well. MDM: 12:01 Patient medically screened. [facility] 15:38 Data reviewed: vital signs, nurses notes, lab test result(s), EKG, radiologic studies, [facility] CT scan, plain films. Data interpreted: Pulse oximetry: on ventilator is 98 %. Interpretation: normal. Counseling: I had a detailed discussion with the patient and/or guardian regarding: the historical points, exam findings, and any diagnostic results supporting the discharge/admit diagnosis, lab results, radiology results, the need to transfer to another facility, for higher level of care. ED course: Updated Dr. Ronald Hernandez about patients acute decompensation. Tried Narcan first to see if it was the opioids she took prior to arrival but had no change in mental status or respiratory compensation. Patient was intubated and NG tube was placed at that time. Did suction small amount of coffee ground like emesis out of the retropharyngeal region. Patient stabilizing at this time . 10/10 12:02 Order name: Basic Metabolic Panel; Complete Time: 12:49 [facility] 10/10 12:02 Order name: CBC with Diff; Complete Time: 13:58 [facility] 10/10 12:02 Order name: LFT's; Complete Time: 12:49 [facility] 10/10 12:02 Order name: Magnesium; Complete Time: 12:49 [facility] 10/10 12:02 Order name: NT PRO-BNP; Complete Time: 12:49 [facility] 10/10 12:02 Order name: PT-INR; Complete Time: 12:32 [facility] 10/10 12:02 Order name: Troponin (emerg Dept Use Only); Complete Time: 12:49 [facility] 10/10 12:02 Order name: TS [facility] 10/10 12:22 Order name: Packed RBC Leukored [facility] 10/10 12:35 Order name: CBC Smear Scan; Complete Time: 13:58 [facility] 10/10 12:40 Order name: COVID-19 : Document "Date of Symptom Onset" if Symptomatic. 10/10 13:08 Order name: AMMONIA [facility] 10/10 13:08 Order name: ETOH Level; Complete Time: 13:58 [facility] 10/10 12:02 Order name: XRAY Chest (1 view); Complete Time: 12:49 [facility] 10/10 13:08 Order name: Ammonia; Complete Time: 13:38 [facility] 10/10 13:25 Order name: Antibody Identification [facility] 10/10 13:36 Order name: Hemoglobin; Complete Time: 14:08 [facility] 10/10 13:37 Order name: Blood Culture Adult (2) [facility] 10/10 13:38 Order name: CT Abd/Pelvis - Without Contrast; Complete Time: 14:51 [facility] 10/10 13:44 Order name: UDS; Complete Time: 14:55 10/10 14:08 Order name: Lactate; Complete Time: 15:37 [facility] 10/10 14:29 Order name: Urine Dipstick-Ancillary; Complete Time: 14:51 [facility] 10/10 15:00 Order name: SARS-COV-2 RT PCR; Complete Time: 15:00 [facility] 10/10 15:36 Order name: Hemoglobin; Complete Time: 15:58 eb 10/10 15:37 Order name: XRAY Chest (1 view); Complete Time: 16:10 10/10 12:02 Order name: EKG; Complete Time: 12:03 10/10 12:02 Order name: Cardiac monitoring; Complete Time: 12:02 10/10 12:02 Order name: EKG - Nurse/Tech; Complete Time: 12:02 10/10 12:02 Order name: IV Saline Lock; Complete Time: 12:02 10/10 12:02 Order name: Labs collected and sent; Complete Time: 12:03 10/10 12:02 Order name: O2 Per Protocol; Complete Time: 12:03 10/10 12:02 Order name: O2 Sat Monitoring; Complete Time: 12:03 10/10 13:01 Order name: Bazan; Complete Time: 13:30 [facility] Administered Medications: 13:29 Drug: NS 0.9% 1000 ml Route: IV; Rate: 125 ml/hr; Site: right forearm; [facility] 16:50 Follow up: IV Status: Infusion continued upon transfer [facility] 14:10 Drug: Rocephin (cefTRIAXone) 1 grams Route: IV; Rate: calculated rate; Site: left [facility] antecubital; 14:13 Follow up: Response: No adverse reaction; IV Status: Completed infusion [facility] 14:15 Drug: Zosyn (piperacillin-tazobactam) 3.375 grams Route: IVPB; Infused Over: 60 mins; [facility] Site: right forearm; 15:15 Follow up: Response: No adverse reaction; IV Status: Completed infusion [facility] 14:30 Drug: Zithromax (azithromycin) 500 mg Route: IVPB; Infused Over: 1 hrs; Site: right 7 hand; 15:30 Follow up: Response: No adverse reaction; IV Status: Completed infusion [facility] 15:00 Drug: NS 0.9% 1000 ml Route: IV; Rate: 1 bolus; Site: left antecubital; [facility] 15:45 Follow up: IV Status: Completed infusion; IV Intake: 1000ml [facility] 15:20 Drug: ProTONIX (pantoprazole) 40 mg Route: IVP; Site: left antecubital; [facility] 15:30 Follow up: Response: No adverse reaction jl7 15:29 Drug: Ketamine 2 mg/kg Route: IVP; Site: right forearm; jl7 15:30 Follow up: Response: No adverse reaction jl7 15:31 Drug: Rocuronium 70 mg Route: IVP; Site: right forearm; jl7 15:32 Follow up: Response: No adverse reaction jl7 15:40 Drug: Levophed (norepinephrine) (4 mg/250 mL D5W 4 mcg/min {Note: started at 10 jl7 mcg/min.} Route: IV; Rate: calculated rate; Site: right femoral; 16:48 Follow up: IV Status: Infusion continued upon transfer jl7 15:53 Drug: ProTONIX (pantoprazole) 8 mg/hr Route: IV; Rate: 25 ml/hr; Site: right femoral; jl7 16:49 Follow up: IV Status: Infusion continued upon transfer jl7 Disposition: 10/11 07:45 Co-signature as Attending Physician, Devyn Douglas MD I agree with the assessment and myles plan of care. Disposition: 10/10/20 15:51 Transfer ordered to Other Acute Care Facility. Diagnosis are Gastrointestinal hemorrhage, unspecified, Acute kidney failure, Aspiration Pneumonia, Severe sepsis. - Reason for transfer: Higher level of care. - Accepting physician is Dr. Devang Mcgee. - Condition is Serious. - Problem is new. - Symptoms have improved. Critical care time excluding procedures: 10/10 15:58 Critical care time: Bedside Care: 20 minutes, Consultation: 15 minutes, Family jr8 Intervention: 10 minutes. Total time: 45 minutes Signatures: Dispatcher [employer] [facility] Devyn Douglas MD MD cha Roszak, Josh, PA PA jr8 Kevin Lynn RN RN jl7 Cami Penny RN RN [id number] Lexis Francisco Corrections: (The following items were deleted from the chart) 14:03 12:41 CORONAVIRUS ordered. [facility] 16:39 15:51 10/10/2020 15:51 Transfer ordered to Other Acute Care Facility. Diagnosis is eb Gastrointestinal hemorrhage, unspecified; Acute kidney failure; Aspiration Pneumonia; Severe sepsis. Reason for transfer: Higher level of care. Accepting physician is Dr. Cardenas. Condition is Serious. Problem is new. Symptoms have improved. 8 16:53 16:39 10/10/2020 15:51 Transfer ordered to Other Acute Care Facility. Diagnosis is jl7 Gastrointestinal hemorrhage, unspecified; Acute kidney failure; Aspiration Pneumonia; Severe sepsis. Reason for transfer: Higher level of care. Accepting physician is Dr. Devang Mcgee. Condition is Serious. Problem is new. Symptoms have improved. eb
[2020-10-10] MEDS ORDERED: PANTOPRAZOLE INJ 80 MG in NA CHLORIDE 0.9% 250 ML IV SCH (16:00)
--- NOTE | 2020-10-10 16:06 | RAD REPORT ---
EXAM DESCRIPTION: Yobani Single View10/10/2020 3:51 pm CLINICAL HISTORY: Device placement endotracheal tube placement IMPRESSION: An endotracheal tube has been inserted with its tip 5 millimeters above jossie pointing towards the right mainstem bronchus. Nasogastric tube is been inserted into the stomach
[2020-10-10 18:12] VITALS: TEMP 98.5; O2SAT 98
[2020-10-10 18:14] VITALS: BP 115/75
== END 2020-10-10 16:53 ==
LOC: ER 11:45
PROC: 0BH17EZ Insertion of Endotracheal Airway into Trachea, Via Natural or Artificial Opening (ICD-10-PCS; principal; 2020-10-10)
PROC: 06HM33Z Insertion of Infusion Device into Right Femoral Vein, Percutaneous Approach (ICD-10-PCS; 2020-10-10)
DX: A41.9 Sepsis, unspecified organism (principal); J69.0 Pneumonitis due to inhalation of food and vomit; N17.9 Acute kidney failure, unspecified; R65.20 Severe sepsis without septic shock; K92.2 Gastrointestinal hemorrhage, unspecified; I10 Essential (primary) hypertension; Z20.822 Contact with and (suspected) exposure to COVID-19
CPT/HCPCS: 31500; 36415; 51702; 71045; 74176; 80048; 80076; 80307; 80320; 81003; 82140; 83605; 83735; 83880; 84484; 85018; 85025; 85610; 86850; 86900; 86901; 87040; 93005; 94002; 99285; C9113; J0456; J0696; J2310; J2543; J7050; U0003

== ENCOUNTER 2021-05-25 20:38 | Emergency (ER) | payer SELFPAY ==
--- OUTSIDE RECORDS SUMMARY | 2021-05-25 20:48 | XMS REPORT | Continuity of Care Document ---
:1960 Author Organization [facility] t Address [address] [place] [address] Care Team Providers Name Role Phone Kevin Attending Clinician Unavailable Denisha Mojica Attending Clinician Unavailable Doctor Unassigned, Name Attending Clinician Unavailable Jorge Attending Clinician Margaret Hood Attending Clinician Sudhir MERIDA Attending Clinician Physician, Primary or Family Admitting Clinician Unavailruslan e Kevin Admitting Clinician Unavailable Sudhir MERIDA Admitting Clinician Payers Payer Name Policy Type Policy Number Effective Date Expiration Date S ource Problems Condition Condition Condition Status Onset Resolution Last Treating Co mments Source Name Details Category Date Date Treatment Clinician Date Obesity Obesity Disease Active Univers (BMI (BMI 8-03 ity of 30-39.9) 30-39.9) 00:00: [place] [address] Medical Branch Anemia, Anemia, Disease Active Overview: Univ ers unspecifie unspecifie 12-30 Added it y of d type d type 00:00: automatic [place] [address] ally from Medical request Branch for surgery [id number] Allergies, Adverse Reactions, Alerts Allergy Allergy Status Severity Reaction(s) Onset Inactive Treating Comm ents Source Name Type Date Date Clinician No Known DA Active U 2019-05 [facility] Allergie 06-19 Clear s 00:00: Hernandez 00 [facility] No Known DA Active U 2019-05 [facility] Allergie 06-19 Clear s 00:00: Hernandez 00 [facility] Social History Social Habit Start Date Stop Date Quantity Comments Source Alcohol intake [facility] Sm[facility] Status Start Date Stop Date Source Never smoker [facility] Medications Ordered Filled Start Stop Current Ordering Indication Dosage Frequency Signature Comments Components Source Medication Medication Date Date Medication? Clinician (SIG) Name Name lisinopril Yes 30mg 30 mg, Unive rs (PRINIVIL,Z 8-07 Oral, ity of ESTRIL) 14:00: DAILY, [place] tablet 30 00 First dose Medi alyson mg on Tue01/03/19 at 0900, Until Discontinu ed, Routine lisinopril Yes [id number] 30mg Take 1 U nivers 30 mg 8-07 tablet by ity of tablet 00:00: mouth [place] 00 daily. Medical Branch furosemide Yes [id number] 40mg Take 1 U nivers 40 mg 8-07 tablet by ity of tablet 00:00: mouth [place] 00 daily. Medical Branch lisinopril Yes [id number] 30mg Take 1 U nivers 30 mg 8-07 tablet by ity of tablet 00:00: mouth [place] 00 daily. Medical Branch furosemide Yes [id number] 40mg Take 1 U nivers 40 mg 8-07 tablet by ity of tablet 00:00: mouth [place] 00 daily. Medical Branch lisinopril Yes [id number] 30mg Take 1 U nivers 30 mg 8-07 tablet by ity of tablet 00:00: mouth [place] 00 daily. Medical Branch furosemide Yes [id number] 40mg Take 1 U nivers 40 mg 8-07 tablet by ity of tablet 00:00: mouth [place] 00 daily. Medical Branch omeprazole 2019- No 20mg Take 20 mg Univers 20 mg 01-02-06 by mouth ity of capsule 22:30: 00:00 once daily [place] 44 :00 as needed. [facility] ranitidine 2019- No 150mg Take 150 U nivers 150 mg 01-02 08-06 mg by ity of tablet 22:30: 00:00 mouth [place] :00 daily as Medical needed for Branch Heartburn. peg-electro 2018- Yes 2000mL 2,000 mL, Univers lyte soln 8-06 Oral, ity of (GOLYTELY) 09:00: PRE-PROCED [place] [id number] 00 URE ONCE, Med ical .74 -5.86 1 dose, Branch gram Starting solution 01/02/19 2,000 mL at 0400, Until Discontinu ed, Routine, Bowel Prep, Bowel Prep for Colonoscop y ondansetron 2018- Yes 4mg 4 mg, Slow Univers (ZOFRAN 01-02 IV Push, ity of (PF)) 02:45: Q6HPRN, [place] injection 4 31 Starting Medi alyson mg 01/01/19 Branch at 2145, Until Discontinu ed, Routine, Nausea and Vomiting (N/V) bisacodyl 2019- No 10mg 10 mg, Unive rs (DULCOLAX) 01-02- Oral, ity of tablet 10 02:45: 04:17 PRE-PROCED [place] mg 31 :00 URE ONCE, Medical 1 dose, Branch Starting Tue01/01/19 at 2145, Until Tue01/01/19 at 2317, Routine, Bowel Prep, Colonoscop y peg-electro 2019- No 2000mL 2,000 mL, Univers lyte soln 01-02 08-06 Oral, ity of (GOLYTELY) 02:45: 04:17 PRE-PROCED [place] [id number] 31 :00 URE ONCE, Med ical .74 -5.86 1 dose, Branch gram Starting solution Tue01/01/19 2,000 mL at 2145, Until Tue01/01/19 at 2317, AMINA, Bowel Prep, Colonoscop y bisacodyl 2019- No 10mg 10 mg, Unive rs (DULCOLAX) 01-02- Oral, ity of tablet 10 02:45: 09:59 PRE-PROCED [place] mg 31 :00 URE ONCE, Medical 1 dose, Branch Starting Tue01/01/19 at 2145, Until Discontinu ed, Routine, Bowel Prep, Colonoscop y omeprazole 2018- Yes [id number] For first Univers 20 mg 8-06 two weeks, ity of capsule 00:00: take [place] 00 a day, Medical then for Branch two months take once a day. omeprazole 2018- Yes [id number] For first Univers 20 mg 8 two weeks, ity of capsule 00:00: take twice [place] 00 a day, Medical then for Branch two months take once a day. omeprazole 2018- Yes [id number] For first Univers 20 mg 01-02 two weeks, ity of capsule 00:00: take twice [place] 00 a day, Medical then for Branch two months take once a day. acetaminoph Yes 650mg 650 mg, Un roxi en 01-01 Oral, ity of (TYLENOL) 02:06: Q8HPRN, [place] tablet 650 08 Starting Medic al mg [place] 12/31/18 Branch at 2106, Until Discontinu ed, Routine, Pain (scale 1-3), Temp > 38.5 C, No more than 2g per 24hr. iron 2018- No 1000mg 1,000 mg, Unive rs dextran 12-31 IV ity of (INFED) 20:30: 22:13 Infusion, [place] 1,000 mg in 00 :00 ONCE, 1 Medic al NaCl 0.9% dose, [place] Branc h (NS) 500 mL 12/31/18 at IV infusion 1530, 500 mL iron 2018- No 25mg 25 mg, IV Univers dextran 12-31 Piggyback, ity o f (INFED) 25 20:00: 20:15 ONCE, 1 [place] mg in NaCl 00 :00 dose, [place] Medi alyson 0.9% (NS) 12/31/18 at Branc h 100 mL IV 1500, 100 piggyback mL furosemide Yes 40mg 40 mg, Unive rs (LASIX) 12-31 Oral, ity of tablet 40 14:00: DAILY, [place] mg 00 First dose Medical on [facility] 12/31/18 at 0900, Until Discontinu ed, Routine lisinopril 2019- No 10mg 10 mg, Univ ers (PRINIVIL,Z 12-31 Oral, ity of ESTRIL) 14:00: 16:48 DAILY, [place] tablet 10 00 :49 First dose Medi alyson mg on [facility] 12/31/18 at 0900, Until Discontinu ed, Routine KCL 2019- No 40meq 40 mEq, Univers (KLOR-CON 12-31 Oral, ity of M20) tablet 11:45: 12:51 ONCE, 1 [place] 40 mEq 00 :00 dose, [facility] 12/31/18 at Branch 0645, Routine cloNIDine 2019 Yes .1mg 0.1 mg, Unive rs (CATAPRES) 12-31 Oral, ity of tablet 0.1 02:33: Q4HPRN, [place] mg 03 Starting Medical [facility] 12/30/18 [place] at 2133, Until Discontinu ed, Routine, SBP >180 or DBP >110 esomeprazol Yes 40mg 40 mg, IV U nivers e (NEXIUM) 12-31 Piggyback, ity of 40 mg in 02:15: Q12H, [place] NaCl 0.9% 00 First dose Medi alyson (NS) IV on [facility] piggyback 12/30/18 at 2115, Until Discontinu ed, 100 mL traZODONE Yes 50mg 50 mg, Univer s (DESYREL) 12-31 Oral, QHS, ity of tablet 50 02:15: First dose [place] mg 00 on [facility] 12/30/18 at Branch 2115, Until Discontinu ed, Routine acetaminoph 2019- No 650mg 650 mg, U nivers en 12-30 Oral, ity of (TYLENOL) 21:15: 20:11 ONCE, 1 [place] tablet 650 00 :00 dose, [facility] Medi alyson mg 12/30/18 at Branch 1615, AMINA iohexol 2019- No 150mL 150 mL, Unive rs (OMNIPAQUE 12-30 Intravenou it y of 350 20:00: 19:46 s, ONCE, 1 [place] BULK-100 00 :00 dose, [facility] Medica l mL) 12/30/18 at [place] injection 1500, 150 mL Routine NaCl 0.9% 2019- No 1000mL at 999 Uni vers (NS) bolus 12-30 mL/hr, ity of infusion 18:00: 20:03 1,000 mL, [place] 1,000 mL 00 :00 IV Medical Infusion, [place] ONCE, 1 dose, 12/30/18 at 1300, STAT Vital Signs Vital Name Observation Time Observation Value Comments Source Systolic blood 2019-01-02 20:31:00 155 mm[Hg] Univer sity of pressure [place] [facility] Diastolic blood 2019-01-02 20:31:00 84 mm[Hg] Unive rsity of pressure [facility] Branch Heart rate 2019-01-02 20:31:00 85 /min Universi ty of [facility] Body temperature 2019-01-02 20:31:00 37.28 Cori Univ ersity of [place] [facility] Respiratory rate 2019-01-02 20:31:00 18 /min Univ ersity of [place] [facility] Oxygen saturation in 2019-01-02 20:31:00 99 /min University of Arterial blood by [email or web address] Pulse oximetry Branch Body weight 2019-01-02 08:38:00 83.961 kg Universi ty [facility] [place] [facility] BMI 2019-01-02 08:38:00 34.97 kg/m2 [facility] ty [facility] [place] [facility] Body height 2018-12-30 22:57:00 154.9 cm [facility]i ty [facility] [place] [facility] Systolic blood 2019-01-02 20:31:00 155 mm[Hg] Univer sity of pressure [facility] Branch Diastolic blood 2019-01-02 20:31:00 84 mm[Hg] Unive rsity of [facility] Branch Heart rate 2019-01-02 20:31:00 85 /min [facility]i ty [facility] [place] [facility] Body temperature 2019-01-02 20:31:00 37.28 Cori Univ ersity of [place] [facility] Respiratory rate 2019-01-02 20:31:00 18 /min Univ ersity [facility] [place] [facility] Oxygen saturation in 2019-01-02 20:31:00 99 /min University of Arterial blood by [employer] alyson Pulse oximetry Branch Body weight 2019-01-02 08:38:00 83.961 kg [facility] [place] [facility] BMI 2019-01-02 08:38:00 34.97 kg/m2 [facility] [place] [facility] Body height 2018-12-30 22:57:00 154.9 cm [facility] [place] [facility] Procedures Procedure Date / Time Performing Clinician Source Performed [id number] 2020-10-13 00:00:00 [email or web address] [facility] [id number] 2020-10-11 00:00:00 EDMUND SMALL [facility] [id number] 2020-10-10 00:00:00 SUPRIYA SMALL [facility] [id number] 2020-04-19 00:00:00 TEJA SMALL [facility] POWER OF SCREEN HANDLER 2019-01-24 05:01:00 Doctor Unassigned, [facility] [place] [facility] COLONOSCOPY (ENDO) 2019-01-02 17:17:06 HiraNestor [facility] EGD (ENDO) 2019-01-02 17:12:40 Nestor PersonJordy [facility] BASIC METABOLIC PANEL 2019-01-02 09:57:00 Sandra Ahn [facility] versity [facility] (NA, K, CL, CO2, GLUCOSE, Medica l Branch BUN, CREATININE, CA) CBC WITH DIFFERENTIAL 2019-01-02 09:57:00 [facility] 2019-01-02 01:52:00 Danial [facility] ECHO ROUTINE W/DOPPLER 2019-01-01 19:04:31 Sandra Ahn [facility] PROFILE / HEMOGRAM 2019-01-01 18:46:00 [facility] WITH DIFFERENTIAL 2019-01-01 10:41:00 [facility] BASIC METABOLIC PANEL 2019-01-01 10:28:00 Sandra Ahn [facility] (NA, K, CL, CO2, GLUCOSE, Medica l Branch BUN, CREATININE, CA) XR CHEST 2 VW 2018-12-31 12:01:58 Sulaiman Be [facility] MAGNESIUM 2018-12-31 09:47:00 Sandra Ahn [facility] BASIC METABOLIC PANEL 2018-12-31 09:47:00 Sandra Ahn [facility] versity [facility] (NA, K, CL, CO2, GLUCOSE, Medica l Branch BUN, CREATININE, CA) CBC WITH DIFFERENTIAL 2018-12-31 09:47:[address] [facility] LACTATE DEHYDROGENASE 2018-12-31 01:59:[address] [facility] VITAMIN B12, LEVEL 2018-12-31 01:59:00 Sandra Ahn [facility] FOLATE 2018-12-31 01:59:00 Sandra Ahn [facility] HAPTOGLOBIN, SERUM 2018-12-31 01:59:00 Sandra Ahn [facility] IRON PANEL 2018-12-31 01:59:00 Sandra Ahn [facility] MANUAL DIFF. FOR DIFF. 2018-12-31 01:47:00 [facility] PROFILE / HEMOGRAM 2018-12-31 01:47:00 Kana Bustamante [facility] DIFF CONSULT 2018-12-31 01:47:00 JimySandra aburto [facility] INTERPRETATION [facility] EKG-12 LEAD 2018-12-30 22:32:32 Kana Bustamante [facility] PREPARE PACKED RBC 2018-12-30 21:37:08 Kana Bustamante [facility] EKG-12 LEAD 2018-12-30 20:36:41 Kana Bustamante [facility] CT ABDOMEN PELVIS W WO 2018-12-30 19:56:06 [facility] ABORH CONFIRMATION 2018-12-30 19:04:00 Kana Bustamante [facility] URINALYSIS 2018-12-30 18:19:00 Kana Bustamante [facility] TYPE AND SCREEN 2018-12-30 18:15:00 Kana Bustamante [facility] ACTIVATED PARTIAL 2018-12-30 18:14:00 Kana Bustamante [facility] RETICULOCYTES AUTOMATED 2018-12-30 18:14:00 Jimy Sandra [facility] [place] [facility] N-TERMINAL PRO-BNP 2018-12-30 18:14:00 Kana Bustamante [facility] FERRITIN SERUM 2018-12-30 18:14:00 Sandra Ahn [facility] TROPONIN I 2018-12-30 18:14:00 Kana Bustamante [facility] THYROID STIMULATING 2018-12-30 18:14:00 Kana Bustamante [facility] HORMONE [facility] COMP. METABOLIC PANEL 2018-12-30 18:14:00 Kana Bustamatne [facility] ([id number]) Medical [place] CBC WITH DIFFERENTIAL 2018-12-30 18:14:00 Kana Bustamante [facility] PROTHROMBIN TIME / INR 2018-12-30 18:14:00 Kana Bustamante [facility] EKG-12 LEAD 2018-12-30 17:50:43 Kana Bustamante [facility] NOTICE OF PRIVACY 2018-12-30 17:28:04 Doctor Unassigned, [facility] PRACTICES [place] [facility] CONSENT/REFUSAL FOR 2018-12-30 17:27:46 Doctor Unassigned, [facility] DIAGNOSIS AND TREATMENT [place] [facility] EMERGENCY DEPARTMENT 2018-12-30 05:01:00 Doctor Unassigned, [facility] DOCUMENTS [place] [facility] DISCLOSURE AND CONSENT, 2018-12-30 05:01:00 Doctor Unassdonita, [facility] MEDICAL AND SURGICAL [place] [facility] PROCEDURES AGREEMENTS AUTHORIZATIONS 2018-12-30 05:01:00 Doctor Unassigned, [facility] AND IRREVOCABLE [place] [facility] ASSIGNMENTS (FORM 2001) Encounters Start End Encounter Admission Attending Care Care Encounter Source Date/Time Date/Time Type Type Clinicians Facility Department ID 2020-10-10 Inpatient HCACL ISAÍAS [id number] [facility] 17:16:00 [id number] [facility] 2020-04-20 Inpatient EM Kevin, HCAPM INTE.02 [id number] [facility] 19:47:00 Danelle [id number] [facility] 2020-04-19 Inpatient HCAPM ISAÍAS [id number] [facility] 03:22:00 [id number] [facility] 2020-10-10 2020-10-10 Outpatient Andrew Mojica HCAPM LABO [id number] [facility] 19:02:00 19:02:00 [id number] [facility] 2020-04-19 2020-04-19 Outpatient Kevin, ALBERT ARIAS [id number] [facility] 07:54:00 07:54:00 Danelle [id number] [facility] 2019-01-24 2019-01-24 Orders Doctor YOVANNY [id number] 00:00:00 00:00:00 Only Unassigned, KANWAL [id number] [place] [facility] [id number] 2019-01-24 2019-01-24 Orders Doctor YOVANNY [id number] Univers 00:00:00 00:00:00 Only Unassigned, KANWAL [id number] ity of [place] [facility] [id number] [place] [id number] [facility] 009 Branch 2019-01-03 2019-01-03 Transition Daxa Patel [id number] 00:00:00 00:00:00 of Care Merle Ball [id number] [place] [id number] 2019-01-03 2019-01-03 Transition Daxa Patel [id number] Univers 00:00:00 00:00:00 of Care Merle Ball [id number] ity of [place] [id number] [place] [id number] [facility] 403 Branch 2018-12-30 2019-01-02 [facility] Kana Bustamante [id number] [facility] 12:35:43 18:20:00 Encounter Leti Peguero [id number] ity of Hospital [id number] [place] [id number] [facility] 093 Branch 2018-12-30 2019-01-02 [facility] Kana Bustamante [id number] 12:35:43 18:20:00 Encounter Leti Peguero [id number] Hospital [id number] Results Test Description Test Time Test Comments Results Result Comments Source COMPREHENSIVE METABOLIC PANEL 2020-10-20 07:57:00 Test Item Value Reference Range Interpretation Comme nts SODIUM (test code = NA) 141 mEq/L 134-147 N POTASSIUM (test code = K) 3.6 mEq/L 3.4-5.0 N CHLORIDE (test code = CL) 109 mEq/L 100-108 H CARBON DIOXIDE (test code = CO2) 26 mEq/l 21-33 N ANION GAP (test code = GAP) 10 0-20 N GLUCOSE (test code = GLU) 101 mg/dL 70-110 N BLOOD UREA NITROGEN (test code = 8 mg/dL 7-18 N BUN) GLOMERULAR FILTRATION RATE (test 125.9 80-90 H Units of measure = code = GFR) ml/min/1.73 m2 CREATININE (test code = CREAT) 0.5 mg/dL 0.6-1.3 L TOTAL PROTEIN (test code = PROT) 6.6 g/dL 6.4-8.2 N ALBUMIN (test code = ALB) 2.80 g/dL 3.4-5.0 L CALCIUM (test code = CA) 8.8 mg/dL 8.0-10.5 N BILIRUBIN TOTAL (test code = BILT) 0.20 mg/dL 0.0-1.0 SGOT/AST (test code = AST) 21 IUnit/L 15-37 N SGPT/ALT (test code = ALT) 23 IUnit/L 30-65 L ALKALINE PHOSPHATASE TOTAL (test 65 IUnit/L 20-125 N code = ALKP) [id number] 07:57:00 Test Item Value Reference Range Interpretation Comments PHOSPHOROUS (test code = PHOS) 2.9 MG/DL 2.5-4.9 N CREATINE KINASE (CK)2020-10-20 07:57:00 Test Item Value Reference Range Interpretation Comments CREATINE KINASE (CK) (test code = 34 Units/L 35-232 L CK) [id number] 07:57:00 Test Item Value Reference Range Interpretation Comments MAGNESIUM (test code = MAG) 1.89 mg/dL 1.80-2.40 N CALCIUM [id number] 07:57:00 Test Item Value Reference Range Interpretation Comments CALCIUM IONIZED (test code = ERIN) 1.20 MMOL/L 1.12-1.32 N COMPREHENSIVE METABOLIC [id number] 07:36:00 Test Item Value Reference Range Interpretation Comments SODIUM (test code = NA) mEq/L 134-147 POTASSIUM (test code = K) mEq/L 3.4-5.0 CHLORIDE (test code = CL) mEq/L 100-108 CARBON DIOXIDE (test code = CO2) mEq/l 21-33 ANION GAP (test code = GAP) 0-20 GLUCOSE (test code = GLU) mg/dL 70-110 BLOOD UREA NITROGEN (test code = mg/dL 7-18 BUN) GLOMERULAR FILTRATION RATE (test 80-90 code = GFR) CREATININE (test code = CREAT) mg/dL 0.6-1.3 TOTAL PROTEIN (test code = PROT) g/dL 6.4-8.2 ALBUMIN (test code = ALB) g/dL 3.4-5.0 CALCIUM (test code = CA) mg/dL 8.0-10.5 BILIRUBIN TOTAL (test code = BILT) mg/dL 0.0-1.0 SGOT/AST (test code = AST) IUnit/L 15-37 SGPT/ALT (test code = ALT) IUnit/L 30-65 ALKALINE PHOSPHATASE TOTAL (test IUnit/L 20-125 code = ALKP) [id number] 07:36:00 Test Item Value Reference Range Interpretation Comments PHOSPHOROUS (test code = PHOS) MG/DL 2.5-4.9 CREATINE KINASE (CK)2020-10-20 07:36:00 Test Item Value Reference Range Interpretation Comments CREATINE KINASE (CK) (test code = Units/L 35-232 CK) [id number] 07:36:00 Test Item Value Reference Range Interpretation Comments MAGNESIUM (test code = MAG) mg/dL 1.80-2.40 CALCIUM [id number] 07:36:00 Test Item Value Reference Range Interpretation Comments CALCIUM IONIZED (test code = ERIN) 1.20 MMOL/L 1.12-1.32 N CBC W/AUTO [id number] 06:17:00 Test Item Value Reference Range Interpretation Comments WHITE BLOOD CELL (test code = 11.1 x10 3/uL 4.5-11.0 H WBC) RED BLOOD CELL (test code = 3.77 x10 6/uL 3.54-5.02 N RBC) HEMOGLOBIN (test code = HGB) 10.4 g/dL 11.0-15.0 L HEMATOCRIT (test code = HCT) 34.1 % 33.0-45.0 N MEAN CELL VOLUME (test code = 90.5 fL 81.0-99.0 N MCV) MEAN CELL HGB (test code = MCH) 27.6 pg 27.0-33.0 N MEAN CELL HGB CONCETRATION 30.5 g/dL 33.0-37.0 L (test code = MCHC) RED CELL DISTRIBUTION WIDTH CV 15.0 % 11.5-14.5 H (test code = RDW) RED CELL DISTRIBUTION WIDTH SD 50.3 fL 37.0-54.0 N (test code = RDW-SD) PLATELET COUNT (test code = 478 x10 3/uL 150-400 H PLT) MEAN PLATELET VOLUME (test code 11.4 fL 7.0-9.0 H = MPV) NEUTROPHIL % (test code = NT%) 69.4 % 56.0-77.0 N IMMATURE GRANULOCYTE % (test 1.9 % 0.0-2.0 N code = IG%) LYMPHOCYTE % (test code = LY%) 17.2 % 14.0-32.0 N MONOCYTE % (test code = MO%) 9.4 % 4.8-9.0 H EOSINOPHIL % (test code = EO%) 1.4 % 0.3-3.7 N BASOPHIL % (test code = BA%) 0.7 % 0.0-2.0 N NUCLEATED RBC % (test code = 0.0 % 0-0 N NRBC%) NEUTROPHIL # (test code = NT#) 7.70 x10 3/uL 2.0-7.6 H IMMATURE GRANULOCYTE # (test 0.21 x10 3/uL 0.00-0.03 H code = IG#) LYMPHOCYTE # (test code = LY#) 1.91 x10 3/uL 1.0-3.8 N MONOCYTE # (test code = MO#) 1.04 x10 3/uL 0.1-0.8 H EOSINOPHIL # (test code = EO#) 0.15 x10 3/uL 0.0-0.2 N BASOPHIL # (test code = BA#) 0.08 x10 3/uL 0.0-0.2 N NUCLEATED RBC # (test code = 0.00 x10 3/uL 0.0-0.1 N NRBC#) MANUAL DIFF REQUIRED (test code NO = MDIFF) COMPREHENSIVE METABOLIC [id number] 09:22:00 Test Item Value Reference Range Interpretation Comments SODIUM (test code = NA) 140 mEq/L 134-147 N POTASSIUM (test code = 3.6 mEq/L 3.4-5.0 N K) CHLORIDE (test code = 106 mEq/L 100-108 N CL) CARBON DIOXIDE (test 29 mEq/l 21-33 N code = CO2) ANION GAP (test code = 9 0-20 N GAP) GLUCOSE (test code = 89 mg/dL 70-110 N GLU) BLOOD UREA NITROGEN 8 mg/dL 7-18 N (test code = BUN) GLOMERULAR FILTRATION 125.9 80-90 H Units of measure = RATE (test code = GFR) ml/mi n/1.73 m2 CREATININE (test code = 0.5 mg/dL 0.6-1.3 L CREAT) TOTAL PROTEIN (test 6.6 g/dL 6.4-8.2 N code = PROT) ALBUMIN (test code = 2.70 g/dL 3.4-5.0 L ALB) CALCIUM (test code = 9.0 mg/dL 8.0-10.5 N CA) BILIRUBIN TOTAL (test 0.40 mg/dL 0.0-1.0 code = BILT) SGOT/AST (test code = 32 IUnit/L 15-37 N AST) SGPT/ALT (test code = 32 IUnit/L 30-65 N ALT) ALKALINE PHOSPHATASE 69 IUnit/L 20-125 N TOTAL (test code = ALKP) [id number] 09:22:00 Test Item Value Reference Range Interpretation Comments PHOSPHOROUS (test code = PHOS) 3.0 MG/DL 2.5-4.9 CREATINE KINASE (CK)2020-10-19 09:22:00 Test Item Value Reference Range Interpretation Comments CREATINE KINASE (CK) (test code = 56 Units/L 35-232 N CK) [id number] 09:22:00 Test Item Value Reference Range Interpretation Comments MAGNESIUM (test code = MAG) 1.83 mg/dL 1.80-2.40 N CALCIUM [id number] 09:22:00 Test Item Value Reference Range Interpretation Comments CALCIUM IONIZED (test code = ERIN) 1.18 MMOL/L 1.12-1.32 N COMPREHENSIVE METABOLIC [id number] 08:59:00 Test Item Value Reference Range Interpretation Comments SODIUM (test code = NA) 140 mEq/L 134-147 N POTASSIUM (test code = 3.6 mEq/L 3.4-5.0 N K) CHLORIDE (test code = 106 mEq/L 100-108 N CL) CARBON DIOXIDE (test 29 mEq/l 21-33 N code = CO2) ANION GAP (test code = 9 0-20 N GAP) GLUCOSE (test code = 89 mg/dL 70-110 N GLU) BLOOD UREA NITROGEN 8 mg/dL 7-18 N (test code = BUN) GLOMERULAR FILTRATION 125.9 80-90 H Units of measure = RATE (test code = GFR) ml/mi n/1.73 m2 CREATININE (test code = 0.5 mg/dL 0.6-1.3 L CREAT) TOTAL PROTEIN (test 6.6 g/dL 6.4-8.2 N code = PROT) ALBUMIN (test code = 2.70 g/dL 3.4-5.0 L ALB) CALCIUM (test code = 9.0 mg/dL 8.0-10.5 N CA) BILIRUBIN TOTAL (test 0.40 mg/dL 0.0-1.0 code = BILT) SGOT/AST (test code = 32 IUnit/L 15-37 N AST) SGPT/ALT (test code = 32 IUnit/L 30-65 N ALT) ALKALINE PHOSPHATASE 69 IUnit/L 20-125 N TOTAL (test code = ALKP) [id number] 08:59:00 Test Item Value Reference Range Interpretation Comments PHOSPHOROUS (test code = PHOS) 3.0 MG/DL 2.5-4.9 CREATINE KINASE (CK)2020-10-19 08:59:00 Test Item Value Reference Range Interpretation Comments CREATINE KINASE (CK) (test code = 56 Units/L 35-232 N CK) [id number] 08:59:00 Test Item Value Reference Range Interpretation Comments MAGNESIUM (test code = MAG) 1.83 mg/dL 1.80-2.40 N CALCIUM [id number] 08:59:00 Test Item Value Reference Range Interpretation Comments CALCIUM IONIZED (test code = ERIN) MMOL/L 1.12-1.32 CBC W/AUTO [id number] 07:39:00 Test Item Value Reference Range Interpretation Comments WHITE BLOOD CELL (test code = 13.0 x10 3/uL 4.5-11.0 H WBC) RED BLOOD CELL (test code = 3.64 x10 6/uL 3.54-5.02 N RBC) HEMOGLOBIN (test code = HGB) 10.1 g/dL 11.0-15.0 L HEMATOCRIT (test code = HCT) 32.9 % 33.0-45.0 L MEAN CELL VOLUME (test code = 90.4 fL 81.0-99.0 MCV) MEAN CELL HGB (test code = MCH) 27.7 pg 27.0-33.0 N MEAN CELL HGB CONCETRATION 30.7 g/dL 33.0-37.0 L (test code = MCHC) RED CELL DISTRIBUTION WIDTH CV 15.1 % 11.5-14.5 H (test code = RDW) RED CELL DISTRIBUTION WIDTH SD 49.5 fL 37.0-54.0 N (test code = RDW-SD) PLATELET COUNT (test code = 460 x10 3/uL 150-400 H PLT) MEAN PLATELET VOLUME (test code 11.2 fL 7.0-9.0 H = MPV) NEUTROPHIL % (test code = NT%) 67.4 % 56.0-77.0 N IMMATURE GRANULOCYTE % (test 1.8 % 0.0-2.0 N code = IG%) LYMPHOCYTE % (test code = LY%) 19.4 % 14.0-32.0 N MONOCYTE % (test code = MO%) 8.8 % 4.8-9.0 N EOSINOPHIL % (test code = EO%) 1.9 % 0.3-3.7 N BASOPHIL % (test code = BA%) 0.7 % 0.0-2.0 N NUCLEATED RBC % (test code = 0.0 % 0-0 N NRBC%) NEUTROPHIL # (test code = NT#) 8.76 x10 3/uL 2.0-7.6 H IMMATURE GRANULOCYTE # (test 0.23 x10 3/uL 0.00-0.03 H code = IG#) LYMPHOCYTE # (test code = LY#) 2.52 x10 3/uL 1.0-3.8 N MONOCYTE # (test code = MO#) 1.14 x10 3/uL 0.1-0.8 H EOSINOPHIL # (test code = EO#) 0.25 x10 3/uL 0.0-0.2 H BASOPHIL # (test code = BA#) 0.09 x10 3/uL 0.0-0.2 N NUCLEATED RBC # (test code = 0.00 x10 3/uL 0.0-0.1 N NRBC#) MANUAL DIFF REQUIRED (test code NO = MDIFF) COMPREHENSIVE METABOLIC [id number] 09:51:00 Test Item Value Reference Range Interpretation Comments SODIUM (test code = NA) 144 mEq/L 134-147 N POTASSIUM (test code = 3.5 mEq/L 3.4-5.0 N K) CHLORIDE (test code = 110 mEq/L 100-108 H CL) CARBON DIOXIDE (test 27 mEq/l 21-33 N code = CO2) ANION GAP (test code = 10 0-20 N GAP) GLUCOSE (test code = 93 mg/dL 70-110 N GLU) BLOOD UREA NITROGEN 10 mg/dL 7-18 N (test code = BUN) GLOMERULAR FILTRATION 125.9 80-90 H Units of measure = RATE (test code = GFR) ml/mi n/1.73 m2 CREATININE (test code = 0.5 mg/dL 0.6-1.3 L CREAT) TOTAL PROTEIN (test 5.9 g/dL 6.4-8.2 L code = PROT) ALBUMIN (test code = 2.50 g/dL 3.4-5.0 L ALB) CALCIUM (test code = 8.5 mg/dL 8.0-10.5 N CA) BILIRUBIN TOTAL (test 0.20 mg/dL 0.0-1.0 code = BILT) SGOT/AST (test code = 25 IUnit/L 15-37 N AST) SGPT/ALT (test code = 33 IUnit/L 30-65 N ALT) ALKALINE PHOSPHATASE 62 IUnit/L 20-125 N TOTAL (test code = ALKP) [id number] 09:51:00 Test Item Value Reference Range Interpretation Comments PHOSPHOROUS (test code = PHOS) 4.3 MG/DL 2.5-4.9 CREATINE KINASE (CK)2020-10-18 09:51:00 Test Item Value Reference Range Interpretation Comments CREATINE KINASE (CK) (test code = 63 Units/L 35-232 N CK) [id number] 09:51:00 Test Item Value Reference Range Interpretation Comments MAGNESIUM (test code = MAG) 2.08 mg/dL 1.80-2.40 N CALCIUM [id number] 09:51:00 Test Item Value Reference Range Interpretation Comments CALCIUM IONIZED (test code = ERIN) 1.19 MMOL/L 1.12-1.32 N COMPREHENSIVE METABOLIC [id number] 08:16:00 Test Item Value Reference Range Interpretation Comments SODIUM (test code = NA) 144 mEq/L 134-147 N POTASSIUM (test code = 3.5 mEq/L 3.4-5.0 N K) CHLORIDE (test code = 110 mEq/L 100-108 H CL) CARBON DIOXIDE (test 27 mEq/l 21-33 N code = CO2) ANION GAP (test code = 10 0-20 N GAP) GLUCOSE (test code = 93 mg/dL 70-110 N GLU) BLOOD UREA NITROGEN 10 mg/dL 7-18 N (test code = BUN) GLOMERULAR FILTRATION 125.9 80-90 H Units of measure = RATE (test code = GFR) ml/mi n/1.73 m2 CREATININE (test code = 0.5 mg/dL 0.6-1.3 L CREAT) TOTAL PROTEIN (test 5.9 g/dL 6.4-8.2 L code = PROT) ALBUMIN (test code = 2.50 g/dL 3.4-5.0 L ALB) CALCIUM (test code = 8.5 mg/dL 8.0-10.5 N CA) BILIRUBIN TOTAL (test 0.20 mg/dL 0.0-1.0 code = BILT) SGOT/AST (test code = 25 IUnit/L 15-37 N AST) SGPT/ALT (test code = 33 IUnit/L 30-65 N ALT) ALKALINE PHOSPHATASE 62 IUnit/L 20-125 N TOTAL (test code = ALKP) [id number] 08:16:00 Test Item Value Reference Range Interpretation Comments PHOSPHOROUS (test code = PHOS) 4.3 MG/DL 2.5-4.9 CREATINE KINASE (CK)2020-10-18 08:16:00 Test Item Value Reference Range Interpretation Comments CREATINE KINASE (CK) (test code = 63 Units/L 35-232 N CK) [id number] 08:16:00 Test Item Value Reference Range Interpretation Comments MAGNESIUM (test code = MAG) 2.08 mg/dL 1.80-2.40 N CALCIUM [id number] 08:16:00 Test Item Value Reference Range Interpretation Comments CALCIUM IONIZED (test code = ERIN) MMOL/L 1.12-1.32 CBC W/AUTO [id number] 07:15:00 Test Item Value Reference Range Interpretation Comments WHITE BLOOD CELL (test code = 8.9 x10 3/uL 4.5-11.0 N WBC) RED BLOOD CELL (test code = 3.43 x10 6/uL 3.54-5.02 L RBC) HEMOGLOBIN (test code = HGB) 9.5 g/dL 11.0-15.0 L HEMATOCRIT (test code = HCT) 33.4 % 33.0-45.0 N MEAN CELL VOLUME (test code = 97.4 fL 81.0-99.0 MCV) MEAN CELL HGB (test code = MCH) 27.7 pg 27.0-33.0 N MEAN CELL HGB CONCETRATION 28.4 g/dL 33.0-37.0 L (test code = MCHC) RED CELL DISTRIBUTION WIDTH CV 15.4 % 11.5-14.5 H (test code = RDW) RED CELL DISTRIBUTION WIDTH SD 54.7 fL 37.0-54.0 H (test code = RDW-SD) PLATELET COUNT (test code = 364 x10 3/uL 150-400 N PLT) MEAN PLATELET VOLUME (test code 11.0 fL 7.0-9.0 H = MPV) NEUTROPHIL % (test code = NT%) 58.8 % 56.0-77.0 N IMMATURE GRANULOCYTE % (test 2.4 % 0.0-2.0 H code = IG%) LYMPHOCYTE % (test code = LY%) 25.3 % 14.0-32.0 N MONOCYTE % (test code = MO%) 8.8 % 4.8-9.0 N EOSINOPHIL % (test code = EO%) 3.7 % 0.3-3.7 N BASOPHIL % (test code = BA%) 1.0 % 0.0-2.0 N NUCLEATED RBC % (test code = 0.0 % 0-0 N NRBC%) NEUTROPHIL # (test code = NT#) 5.22 x10 3/uL 2.0-7.6 N IMMATURE GRANULOCYTE # (test 0.21 x10 3/uL 0.00-0.03 H code = IG#) LYMPHOCYTE # (test code = LY#) 2.24 x10 3/uL 1.0-3.8 N MONOCYTE # (test code = MO#) 0.78 x10 3/uL 0.1-0.8 N EOSINOPHIL # (test code = EO#) 0.33 x10 3/uL 0.0-0.2 H BASOPHIL # (test code = BA#) 0.09 x10 3/uL 0.0-0.2 N NUCLEATED RBC # (test code = 0.00 x10 3/uL 0.0-0.1 N NRBC#) MANUAL DIFF REQUIRED (test code NO = MDIFF) [id number] 01:56:00 Test Item Value Reference Range Interpretation Comments GLUBED (test code = 108 MG/DL 70-110 N Performe d by certified GLUBED) 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[facility] COMPREHENSIVE METABOLIC [id number] 07:33:00 Test Item Value Reference Range Interpretation Comments SODIUM (test code = NA) 144 mEq/L 134-147 N POTASSIUM (test code = 3.2 mEq/L 3.4-5.0 L K) CHLORIDE (test code = 108 mEq/L 100-108 N CL) CARBON DIOXIDE (test 30 mEq/l 21-33 N code = CO2) ANION GAP (test code = 9 0-20 N GAP) GLUCOSE (test code = 85 mg/dL 70-110 N GLU) BLOOD UREA NITROGEN 9 mg/dL 7-18 N (test code = BUN) GLOMERULAR FILTRATION 162.8 80-90 H Units of measure = RATE (test code = GFR) ml/mi n/1.73 m2 CREATININE (test code = 0.4 mg/dL 0.6-1.3 L CREAT) TOTAL PROTEIN (test 5.8 g/dL 6.4-8.2 L code = PROT) ALBUMIN (test code = 2.40 g/dL 3.4-5.0 L ALB) CALCIUM (test code = 8.9 mg/dL 8.0-10.5 N CA) BILIRUBIN TOTAL (test 0.40 mg/dL 0.0-1.0 N code = BILT) SGOT/AST (test code = 22 IUnit/L 15-37 N AST) SGPT/ALT (test code = 34 IUnit/L 30-65 N ALT) ALKALINE PHOSPHATASE 63 IUnit/L 20-125 N TOTAL (test code = ALKP) [id number] 07:33:00 Test Item Value Reference Range Interpretation Comments PHOSPHOROUS (test code = PHOS) 3.4 MG/DL 2.5-4.9 N CREATINE KINASE (CK)2020-10-17 07:33:00 Test Item Value Reference Range Interpretation Comments CREATINE KINASE (CK) (test code = 99 Units/L 35-232 N CK) [id number] 07:33:00 Test Item Value Reference Range Interpretation Comments MAGNESIUM (test code = MAG) 2.00 mg/dL 1.80-2.40 N CALCIUM [id number] 07:33:00 Test Item Value Reference Range Interpretation Comments CALCIUM IONIZED (test code = ERIN) 1.24 MMOL/L 1.12-1.32 N COMPREHENSIVE METABOLIC [id number] 07:25:00 Test Item Value Reference Range Interpretation Comments SODIUM (test code = NA) mEq/L 134-147 POTASSIUM (test code = K) mEq/L 3.4-5.0 CHLORIDE (test code = CL) mEq/L 100-108 CARBON DIOXIDE (test code = CO2) mEq/l 21-33 ANION GAP (test code = GAP) 0-20 GLUCOSE (test code = GLU) mg/dL 70-110 BLOOD UREA NITROGEN (test code = mg/dL 7-18 BUN) GLOMERULAR FILTRATION RATE (test 80-90 code = GFR) CREATININE (test code = CREAT) mg/dL 0.6-1.3 TOTAL PROTEIN (test code = PROT) g/dL 6.4-8.2 ALBUMIN (test code = ALB) g/dL 3.4-5.0 CALCIUM (test code = CA) mg/dL 8.0-10.5 BILIRUBIN TOTAL (test code = BILT) mg/dL 0.0-1.0 SGOT/AST (test code = AST) IUnit/L 15-37 SGPT/ALT (test code = ALT) IUnit/L 30-65 ALKALINE PHOSPHATASE TOTAL (test IUnit/L 20-125 code = ALKP) [id number] 07:25:00 Test Item Value Reference Range Interpretation Comments PHOSPHOROUS (test code = PHOS) MG/DL 2.5-4.9 CREATINE KINASE (CK)2020-10-17 07:25:00 Test Item Value Reference Range Interpretation Comments CREATINE KINASE (CK) (test code = Units/L 35-232 CK) [id number] 07:25:00 Test Item Value Reference Range Interpretation Comments MAGNESIUM (test code = MAG) mg/dL 1.80-2.40 CALCIUM [id number] 07:25:00 Test Item Value Reference Range Interpretation Comments CALCIUM IONIZED (test code = ERIN) 1.24 MMOL/L 1.12-1.32 N CBC W/AUTO [id number] 06:53:00 Test Item Value Reference Range Interpretation Comments WHITE BLOOD CELL (test code = 8.5 x10 3/uL 4.5-11.0 N WBC) RED BLOOD CELL (test code = 3.33 x10 6/uL 3.54-5.02 L RBC) HEMOGLOBIN (test code = HGB) 9.3 g/dL 11.0-15.0 L HEMATOCRIT (test code = HCT) 29.7 % 33.0-45.0 L MEAN CELL VOLUME (test code = 89.2 fL 81.0-99.0 MCV) MEAN CELL HGB (test code = MCH) 27.9 pg 27.0-33.0 N MEAN CELL HGB CONCETRATION 31.3 g/dL 33.0-37.0 L (test code = MCHC) RED CELL DISTRIBUTION WIDTH CV 15.2 % 11.5-14.5 H (test code = RDW) RED CELL DISTRIBUTION WIDTH SD 49.5 fL 37.0-54.0 N (test code = RDW-SD) PLATELET COUNT (test code = 328 x10 3/uL 150-400 N PLT) MEAN PLATELET VOLUME (test code 11.1 fL 7.0-9.0 H = MPV) NEUTROPHIL % (test code = NT%) 58.6 % 56.0-77.0 N IMMATURE GRANULOCYTE % (test 2.2 % 0.0-2.0 H code = IG%) LYMPHOCYTE % (test code = LY%) 23.9 % 14.0-32.0 N MONOCYTE % (test code = MO%) 10.5 % 4.8-9.0 H EOSINOPHIL % (test code = EO%) 4.0 % 0.3-3.7 H BASOPHIL % (test code = BA%) 0.8 % 0.0-2.0 N NUCLEATED RBC % (test code = 0.0 % 0-0 N NRBC%) NEUTROPHIL # (test code = NT#) 4.96 x10 3/uL 2.0-7.6 N IMMATURE GRANULOCYTE # (test 0.19 x10 3/uL 0.00-0.03 H code = IG#) LYMPHOCYTE # (test code = LY#) 2.03 x10 3/uL 1.0-3.8 N MONOCYTE # (test code = MO#) 0.89 x10 3/uL 0.1-0.8 H EOSINOPHIL # (test code = EO#) 0.34 x10 3/uL 0.0-0.2 H BASOPHIL # (test code = BA#) 0.07 x10 3/uL 0.0-0.2 N NUCLEATED RBC # (test code = 0.00 x10 3/uL 0.0-0.1 N NRBC#) MANUAL DIFF REQUIRED (test code NO = MDIFF) [id number] 12:32:00 Test Item Value Reference Range Interpretation Comments GLUBED (test code = 96 MG/DL 70-110 N Performe d by certified GLUBED) 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[facility] COMPREHENSIVE METABOLIC [id number] 06:48:00 Test Item Value Reference Range Interpretation Comments SODIUM (test code = NA) 142 mEq/L 134-147 N POTASSIUM (test code = 3.7 mEq/L 3.4-5.0 K) CHLORIDE (test code = 108 mEq/L 100-108 N CL) CARBON DIOXIDE (test 30 mEq/l 21-33 N code = CO2) ANION GAP (test code = 8 0-20 N GAP) GLUCOSE (test code = 108 mg/dL 70-110 GLU) BLOOD UREA NITROGEN 11 mg/dL 7-18 N (test code = BUN) GLOMERULAR FILTRATION 125.9 80-90 H Units of measure = RATE (test code = GFR) ml/mi n/1.73 m2 CREATININE (test code = 0.5 mg/dL 0.6-1.3 L CREAT) TOTAL PROTEIN (test 6.2 g/dL 6.4-8.2 L code = PROT) ALBUMIN (test code = 2.50 g/dL 3.4-5.0 L ALB) CALCIUM (test code = 8.9 mg/dL 8.0-10.5 N CA) BILIRUBIN TOTAL (test 0.40 mg/dL 0.0-1.0 code = BILT) SGOT/AST (test code = 25 IUnit/L 15-37 N AST) SGPT/ALT (test code = 40 IUnit/L 30-65 N ALT) ALKALINE PHOSPHATASE 74 IUnit/L 20-125 N TOTAL (test code = ALKP) [id number] 06:48:00 Test Item Value Reference Range Interpretation Comments PHOSPHOROUS (test code = PHOS) 3.7 MG/DL 2.5-4.9 CREATINE KINASE (CK)2020-10-16 06:48:00 Test Item Value Reference Range Interpretation Comments CREATINE KINASE (CK) (test code = 103 Units/L 35-232 N CK) [id number] 06:48:00 Test Item Value Reference Range Interpretation Comments MAGNESIUM (test code = MAG) 2.09 mg/dL 1.80-2.40 N CALCIUM [id number] 06:48:00 Test Item Value Reference Range Interpretation Comments CALCIUM IONIZED (test code = ERIN) 1.22 MMOL/L 1.12-1.32 N CBC W/AUTO [id number] 06:42:00 Test Item Value Reference Range Interpretation Comments WHITE BLOOD CELL (test code = 8.0 x10 3/uL 4.5-11.0 N WBC) RED BLOOD CELL (test code = 3.58 x10 6/uL 3.54-5.02 N RBC) HEMOGLOBIN (test code = HGB) 10.1 g/dL 11.0-15.0 L HEMATOCRIT (test code = HCT) 30.4 % 33.0-45.0 L MEAN CELL VOLUME (test code = 84.9 fL 81.0-99.0 N MCV) MEAN CELL HGB (test code = MCH) 28.2 pg 27.0-33.0 N MEAN CELL HGB CONCETRATION 33.2 g/dL 33.0-37.0 N (test code = MCHC) RED CELL DISTRIBUTION WIDTH CV 15.0 % 11.5-14.5 H (test code = RDW) RED CELL DISTRIBUTION WIDTH SD 46.4 fL 37.0-54.0 N (test code = RDW-SD) PLATELET COUNT (test code = 305 x10 3/uL 150-400 N PLT) MEAN PLATELET VOLUME (test code 11.0 fL 7.0-9.0 H = MPV) NEUTROPHIL % (test code = NT%) 71.0 % 56.0-77.0 N IMMATURE GRANULOCYTE % (test 2.7 % 0.0-2.0 H code = IG%) LYMPHOCYTE % (test code = LY%) 13.4 % 14.0-32.0 L MONOCYTE % (test code = MO%) 11.5 % 4.8-9.0 H EOSINOPHIL % (test code = EO%) 0.9 % 0.3-3.7 N BASOPHIL % (test code = BA%) 0.5 % 0.0-2.0 N NUCLEATED RBC % (test code = 0.0 % 0-0 N NRBC%) NEUTROPHIL # (test code = NT#) 5.70 x10 3/uL 2.0-7.6 N IMMATURE GRANULOCYTE # (test 0.22 x10 3/uL 0.00-0.03 H code = IG#) LYMPHOCYTE # (test code = LY#) 1.08 x10 3/uL 1.0-3.8 N MONOCYTE # (test code = MO#) 0.92 x10 3/uL 0.1-0.8 H EOSINOPHIL # (test code = EO#) 0.07 x10 3/uL 0.0-0.2 N BASOPHIL # (test code = BA#) 0.04 x10 3/uL 0.0-0.2 N NUCLEATED RBC # (test code = 0.00 x10 3/uL 0.0-0.1 N NRBC#) MANUAL DIFF REQUIRED (test code NO = MDIFF) COMPREHENSIVE METABOLIC [id number] 06:34:00 Test Item Value Reference Range Interpretation Comments SODIUM (test code = NA) mEq/L 134-147 POTASSIUM (test code = K) mEq/L 3.4-5.0 CHLORIDE (test code = CL) mEq/L 100-108 CARBON DIOXIDE (test code = CO2) mEq/l 21-33 ANION GAP (test code = GAP) 0-20 GLUCOSE (test code = GLU) mg/dL 70-110 BLOOD UREA NITROGEN (test code = mg/dL 7-18 BUN) GLOMERULAR FILTRATION RATE (test 80-90 code = GFR) CREATININE (test code = CREAT) mg/dL 0.6-1.3 TOTAL PROTEIN (test code = PROT) g/dL 6.4-8.2 ALBUMIN (test code = ALB) g/dL 3.4-5.0 CALCIUM (test code = CA) mg/dL 8.0-10.5 BILIRUBIN TOTAL (test code = BILT) mg/dL 0.0-1.0 SGOT/AST (test code = AST) IUnit/L 15-37 SGPT/ALT (test code = ALT) IUnit/L 30-65 ALKALINE PHOSPHATASE TOTAL (test IUnit/L 20-125 code = ALKP) [id number] 06:34:00 Test Item Value Reference Range Interpretation Comments PHOSPHOROUS (test code = PHOS) MG/DL 2.5-4.9 CREATINE KINASE (CK)2020-10-16 06:34:00 Test Item Value Reference Range Interpretation Comments CREATINE KINASE (CK) (test code = Units/L 35-232 CK) [id number] 06:34:00 Test Item Value Reference Range Interpretation Comments MAGNESIUM (test code = MAG) mg/dL 1.80-2.40 CALCIUM [id number] 06:34:00 Test Item Value Reference Range Interpretation Comments CALCIUM IONIZED (test code = ERIN) 1.22 MMOL/L 1.12-1.32 N CBC W/AUTO [id number] 06:33:00 Test Item Value Reference Range Interpretation Comments WHITE BLOOD CELL (test code = x10 3/uL 4.5-11.0 WBC) RED BLOOD CELL (test code = RBC) x10 6/uL 3.54-5.02 HEMOGLOBIN (test code = HGB) g/dL 11.0-15.0 HEMATOCRIT (test code = HCT) % 33.0-45.0 MEAN CELL VOLUME (test code = fL 81.0-99.0 MCV) MEAN CELL HGB (test code = MCH) pg 27.0-33.0 MEAN CELL HGB CONCETRATION (test g/dL 33.0-37.0 code = MCHC) RED CELL DISTRIBUTION WIDTH CV % 11.5-14.5 (test code = RDW) PLATELET COUNT (test code = PLT) 305 x10 3/uL 150-400 N NEUTROPHIL % (test code = NT%) % 56.0-77.0 LYMPHOCYTE % (test code = LY%) % 14.0-32.0 NEUTROPHIL # (test code = NT#) x10 3/uL 2.0-7.6 LYMPHOCYTE # (test code = LY#) x10 3/uL 1.0-3.8 MANUAL DIFF REQUIRED (test code = MDIFF) BASIC METABOLIC [id number] 18:12:00 Test Item Value Reference Range Interpretation Comments SODIUM (test code = NA) 141 mEq/L 134-147 N POTASSIUM (test code = 2.6 mEq/L 3.4-5.0 LL Criti alyson result K) called to PATRICIA Rivers.LAB.JN1 at 14 1210/15/20Nurse r ead back resut and tech confirmed it's correct? YES CHLORIDE (test code = 106 mEq/L 100-108 N CL) CARBON DIOXIDE (test 28 mEq/l 21-33 N code = CO2) ANION GAP (test code = 10 0-20 N GAP) GLUCOSE (test code = 157 mg/dL 70-110 H GLU) BLOOD UREA NITROGEN 10 mg/dL 7-18 N (test code = BUN) GLOMERULAR FILTRATION 162.8 80-90 H Units of measure = RATE (test code = GFR) ml/mi n/1.73 m2 CREATININE (test code = 0.4 mg/dL 0.6-1.3 L CREAT) CALCIUM (test code = 8.9 mg/dL 8.0-10.5 N CA) [id number] 18:12:00 Test Item Value Reference Range Interpretation Comments PHOSPHOROUS (test code = PHOS) 1.6 MG/DL 2.5-4.9 L [id number] 18:12:00 Test Item Value Reference Range Interpretation Comments MAGNESIUM (test code = MAG) 2.00 mg/dL 1.80-2.40 N - XR CHEST 1 [id number] 07:01:00 [facility] : 1960 Sex: F FAX: Helen Leach NP [phone] [place]: St: ADM FAX: Andrew Munoz MD [phone] Name: MAKAYLA BAE [facility] : 1960 Age/S: 60/F [address] [place] [address] Unit #: [id number] Loc: [address] [address] Phys: Helen Leach NP Acct: [id number] Dis Date: Status: ADM IN PHONE#: [phone] Exam Date: 10/15/2020620 FAX #: [phone] Reason: PRESUMED ASPIRATION PNEUMONIA EXAMS: CPT CODE: [id number] XR CHEST 1 V [id number] EXAM: CR, XR chest one view: 2020, 0533 hours HISTORY: PRESUMED ASPIRATION PNEUMONIA TECHNIQUE: 1 view of the chest. COMPARISON: 10/14/2020, 0522 hours FINDINGS: Trachea is midline. Nasogastric tube, heart, mediastinum and osseous structures are stable. There is no pleural effusion or pneumothorax. Stable metallic density projected to the left upper quadrant of the abdomen, probably ingested foreign body, stable. Bilateral lung patchy airspace opacities, worse in the right, improved. If indicated, follow-up radiograph can be performed for further assessment. IMPRESSION: 1. Bilateral lung airspace opacities, worse on the right, improved. SL: [JSYED-H] at 0701 Reported and signed by: Demarco Dixon M.D. CC: Helen Leach STRIPE MATCHER; Andrew Mojica MD Technologist: RT Cammie(R)Trnscrd Date/Time/By: 2020 (700) : By: [email or web address] Orig Print D/T: S: 2020 (04) PAGE 1 Signed ReportCOMPREHENSIVE METABOLIC [id number] 06:09:00 Test Item Value Reference Range Interpretation Comments SODIUM (test code = NA) 144 mEq/L 134-147 N POTASSIUM (test code = 2.9 mEq/L 3.4-5.0 LL Criti alyson result K) called to EDGAR LUNA.WC1 at 06 08 10/15/20Nurse timmy graham back resut and tech confirmed it's correct? YES CHLORIDE (test code = 111 mEq/L 100-108 H CL) CARBON DIOXIDE (test 28 mEq/l 21-33 N code = CO2) ANION GAP (test code = 8 0-20 N GAP) GLUCOSE (test code = 121 mg/dL 70-110 H GLU) BLOOD UREA NITROGEN 9 mg/dL 7-18 (test code = BUN) GLOMERULAR FILTRATION 162.8 80-90 H Units of measure = RATE (test code = GFR) ml/mi n/1.73 m2 CREATININE (test code = 0.4 mg/dL 0.6-1.3 L CREAT) TOTAL PROTEIN (test 5.6 g/dL 6.4-8.2 L code = PROT) ALBUMIN (test code = 2.20 g/dL 3.4-5.0 L ALB) CALCIUM (test code = 8.9 mg/dL 8.0-10.5 N CA) BILIRUBIN TOTAL (test 0.30 mg/dL 0.0-1.0 N code = BILT) SGOT/AST (test code = 27 IUnit/L 15-37 AST) SGPT/ALT (test code = 43 IUnit/L 30-65 N ALT) ALKALINE PHOSPHATASE 79 IUnit/L 20-125 N TOTAL (test code = ALKP) [id number] 06:09:00 Test Item Value Reference Range Interpretation Comments PHOSPHOROUS (test code = PHOS) 1.9 MG/DL 2.5-4.9 L CREATINE KINASE (CK)2020 06:09:00 Test Item Value Reference Range Interpretation Comments CREATINE KINASE (CK) (test code = 117 Units/L 35-232 CK) [id number] 06:09:00 Test Item Value Reference Range Interpretation Comments MAGNESIUM (test code = MAG) 1.75 mg/dL 1.80-2.40 L CALCIUM [id number] 06:09:00 Test Item Value Reference Range Interpretation Comments CALCIUM IONIZED (test code = ERIN) 1.22 MMOL/L 1.12-1.32 N COMPREHENSIVE METABOLIC [id number] 05:57:00 Test Item Value Reference Range Interpretation Comments SODIUM (test code = NA) mEq/L 134-147 POTASSIUM (test code = K) mEq/L 3.4-5.0 CHLORIDE (test code = CL) mEq/L 100-108 CARBON DIOXIDE (test code = CO2) mEq/l 21-33 ANION GAP (test code = GAP) 0-20 GLUCOSE (test code = GLU) mg/dL 70-110 BLOOD UREA NITROGEN (test code = mg/dL 7-18 BUN) GLOMERULAR FILTRATION RATE (test 80-90 code = GFR) CREATININE (test code = CREAT) mg/dL 0.6-1.3 TOTAL PROTEIN (test code = PROT) g/dL 6.4-8.2 ALBUMIN (test code = ALB) g/dL 3.4-5.0 CALCIUM (test code = CA) mg/dL 8.0-10.5 BILIRUBIN TOTAL (test code = BILT) mg/dL 0.0-1.0 SGOT/AST (test code = AST) IUnit/L 15-37 SGPT/ALT (test code = ALT) IUnit/L 30-65 ALKALINE PHOSPHATASE TOTAL (test IUnit/L 20-125 code = ALKP) [id number] 05:57:00 Test Item Value Reference Range Interpretation Comments PHOSPHOROUS (test code = PHOS) MG/DL 2.5-4.9 CREATINE KINASE (CK)2020 05:57:00 Test Item Value Reference Range Interpretation Comments CREATINE KINASE (CK) (test code = Units/L 35-232 CK) [id number] 05:57:00 Test Item Value Reference Range Interpretation Comments MAGNESIUM (test code = MAG) mg/dL 1.80-2.40 CALCIUM [id number] 05:57:00 Test Item Value Reference Range Interpretation Comments CALCIUM IONIZED (test code = ERIN) 1.22 MMOL/L 1.12-1.32 N CBC W/AUTO [id number] 05:52:00 Test Item Value Reference Range Interpretation Comments WHITE BLOOD CELL (test code = 9.5 x10 3/uL 4.5-11.0 WBC) RED BLOOD CELL (test code = 3.49 x10 6/uL 3.54-5.02 L RBC) HEMOGLOBIN (test code = HGB) 9.7 g/dL 11.0-15.0 L HEMATOCRIT (test code = HCT) 30.3 % 33.0-45.0 L MEAN CELL VOLUME (test code = 86.8 fL 81.0-99.0 N MCV) MEAN CELL HGB (test code = MCH) 27.8 pg 27.0-33.0 N MEAN CELL HGB CONCETRATION 32.0 g/dL 33.0-37.0 L (test code = MCHC) RED CELL DISTRIBUTION WIDTH CV 14.8 % 11.5-14.5 H (test code = RDW) RED CELL DISTRIBUTION WIDTH SD 47.3 fL 37.0-54.0 N (test code = RDW-SD) PLATELET COUNT (test code = 258 x10 3/uL 150-400 N PLT) MEAN PLATELET VOLUME (test code 11.2 fL 7.0-9.0 H = MPV) NEUTROPHIL % (test code = NT%) 69.4 % 56.0-77.0 N IMMATURE GRANULOCYTE % (test 3.4 % 0.0-2.0 H code = IG%) LYMPHOCYTE % (test code = LY%) 12.9 % 14.0-32.0 L MONOCYTE % (test code = MO%) 10.9 % 4.8-9.0 H EOSINOPHIL % (test code = EO%) 2.4 % 0.3-3.7 N BASOPHIL % (test code = BA%) 1.0 % 0.0-2.0 N NUCLEATED RBC % (test code = 0.0 % 0-0 N NRBC%) NEUTROPHIL # (test code = NT#) 6.57 x10 3/uL 2.0-7.6 N IMMATURE GRANULOCYTE # (test 0.32 x10 3/uL 0.00-0.03 H code = IG#) LYMPHOCYTE # (test code = LY#) 1.22 x10 3/uL 1.0-3.8 N MONOCYTE # (test code = MO#) 1.03 x10 3/uL 0.1-0.8 H EOSINOPHIL # (test code = EO#) 0.23 x10 3/uL 0.0-0.2 H BASOPHIL # (test code = BA#) 0.09 x10 3/uL 0.0-0.2 N NUCLEATED RBC # (test code = 0.00 x10 3/uL 0.0-0.1 N NRBC#) MANUAL DIFF REQUIRED (test code NO = MDIFF) POC ARTERIAL BLOOD [id number] 04:40:00 Test Item Value Reference Range Interpretation Comments POC ARTERIAL BLOOD GAS PH (test 7.511 7.35-7.45 HH code = POCPHA) POC ARTERIAL BLOOD GAS PCO2 (test 36.6 mmHg 35.0-45 N code = [id number]) POC TCO2 ARTERIAL (test code = 30.4 POCTCO2) POC ARTERIAL BLOOD GAS PO2 (test 79.9 mmHg 80-100.0 L code = [id number]) POC HCO3 ARTERIAL (test code = 29.3 MMOL/L 22.0-26.0 HH [id number]) POC BASE EXCESS (test code = 6.3 MMOL/L -4.0-4.0 H POCBEA) POC O2 SATURATION (test code = 96.9 % 90-100 N POCO2S) ABG DELIVERY (test code = POPEYE) Cannula ABG SITE (test code = SITEA) R Radial REGLA'S TEST (test code = ALLENS) Positive [id number] 02:07:00 Test Item Value Reference Range Interpretation Comments GLUBED (test code = 131 MG/DL 70-110 H Performe d by certified GLUBED) 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[facility] - XR CHEST 1 [id number] 08:46:00 [facility] : 1960 Sex: F FAX: Helen Leach NP [phone] [place]: St: ADM FAX: Andrew Munoz MD [phone] Name: MAKAYLA BAE [facility] : 1960 Age/S: 59/F [address] [place] [address] Unit #: [id number] Loc: G.M[address] [place] [address] Phys: Helen Leach NP Acct: [id number] Dis Date: Status: ADM IN PHONE#: [phone] Exam Date: 10/14/2020537 FAX #: [phone] Reason: PRESUMED ASPIRATION PNEUMONIA EXAMS: CPT CODE: [id number] XR CHEST 1 V 36443 PROCEDURE: CHEST SINGLE VIEW INDICATION: PRESUMED ASPIRATION PNEUMONIA; . COMPARISON: Multiple priors, most recent 10/13/2020 FINDINGS: TUBES AND LINES: Enteric tube enters left upper quadrant, tip beyond the czagi-[id number]. Multiple EKG leads overlie the chest. 23 mm round disc shaped structure overlying the left upper quadrant persist over multiple prior examinations likely positioned in the gastric fundus. CHEST: There are bilateral ill-defined airspace opacities asymmetrically involving the right lung. Allowing for interval removal of thermal material external of the patient, probable gradual progression of disease notably in the right mid and upper lung zones. Costophrenic angles are indistinct. There is no pneumothorax. The cardiomediastinal silhouette is partially obscured, stable otherwise and midline. No acute skeletal abnormality. IMPRESSION: 1. Bilateral airspace opacities asymmetric on the right with gradual progression of disease compatible with pneumonia/pneumonitis. No gross cavitation evident radiographically. 2. Small pleural effusions are suspected. 3. Ingested foreign body at the level of gastric fundus compatible with metallic coin to be correlated clinically. SL: LUDWIG [id number] at 0846 Reported and signed by: Easton Adkins M.D. CC: Helen Leach NP; Andrew Mojica MD Technologist: Raulito House RT(R) Trnscrd Date/Time/By: 10/14/2020 (0846) : By: Luz Maria Orig Print D/T: S: 10/14/2020 (0849) PAGE 1 Signed ReportCOMPREHENSIVE METABOLIC PANEL 2020-10-14 06:09:00 Test Item Value Reference Range Interpretation Comments SODIUM (test code = NA) 143 mEq/L 134-147 N POTASSIUM (test code = 3.4 mEq/L 3.4-5.0 N K) CHLORIDE (test code = 111 mEq/L 100-108 H CL) CARBON DIOXIDE (test 28 mEq/l 21-33 code = CO2) ANION GAP (test code = 7 0-20 N GAP) GLUCOSE (test code = 128 mg/dL 70-110 H GLU) BLOOD UREA NITROGEN 7 mg/dL -18 (test code = BUN) GLOMERULAR FILTRATION 126.3 90-95 H Units of measure = RATE (test code = GFR) ml/mi n/1.73 m2 CREATININE (test code = 0.5 mg/dL 0.6-1.3 L CREAT) TOTAL PROTEIN (test 6.0 g/dL 6.4-8.2 L code = PROT) ALBUMIN (test code = 2.20 g/dL 3.4-5.0 L ALB) CALCIUM (test code = 9.1 mg/dL 8.0-10.5 N CA) BILIRUBIN TOTAL (test 0.40 mg/dL 0.0-1.0 code = BILT) SGOT/AST (test code = 68 IUnit/L 15-37 H AST) SGPT/ALT (test code = 65 IUnit/L 30-65 N ALT) ALKALINE PHOSPHATASE 103 IUnit/L 20-125 N TOTAL (test code = ALKP) [id number] 06:09:00 Test Item Value Reference Range Interpretation Comments PHOSPHOROUS (test code = PHOS) 2.6 MG/DL 2.5-4.9 CREATINE KINASE (CK)2020-10-14 06:09:00 Test Item Value Reference Range Interpretation Comments CREATINE KINASE (CK) (test code = 865 Units/L 35-232 H CK) [id number] 06:09:00 Test Item Value Reference Range Interpretation Comments MAGNESIUM (test code = MAG) 1.77 mg/dL 1.80-2.40 L CALCIUM [id number] 06:09:00 Test Item Value Reference Range Interpretation Comments CALCIUM IONIZED (test code = ERIN) 1.29 MMOL/L 1.12-1.32 N COMPREHENSIVE METABOLIC [id number] 05:57:00 Test Item Value Reference Range Interpretation Comments SODIUM (test code = NA) mEq/L 134-147 POTASSIUM (test code = K) mEq/L 3.4-5.0 CHLORIDE (test code = CL) mEq/L 100-108 CARBON DIOXIDE (test code = CO2) mEq/l 21-33 ANION GAP (test code = GAP) 0-20 GLUCOSE (test code = GLU) mg/dL 70-110 BLOOD UREA NITROGEN (test code = mg/dL 7-18 BUN) GLOMERULAR FILTRATION RATE (test 90-95 code = GFR) CREATININE (test code = CREAT) mg/dL 0.6-1.3 TOTAL PROTEIN (test code = PROT) g/dL 6.4-8.2 ALBUMIN (test code = ALB) g/dL 3.4-5.0 CALCIUM (test code = CA) mg/dL 8.0-10.5 BILIRUBIN TOTAL (test code = BILT) mg/dL 0.0-1.0 SGOT/AST (test code = AST) IUnit/L 15-37 SGPT/ALT (test code = ALT) IUnit/L 30-65 ALKALINE PHOSPHATASE TOTAL (test IUnit/L 20-125 code = ALKP) [id number] 05:57:00 Test Item Value Reference Range Interpretation Comments PHOSPHOROUS (test code = PHOS) MG/DL 2.5-4.9 CREATINE KINASE (CK)2020-10-14 05:57:00 Test Item Value Reference Range Interpretation Comments CREATINE KINASE (CK) (test code = Units/L 35-232 CK) [id number] 05:57:00 Test Item Value Reference Range Interpretation Comments MAGNESIUM (test code = MAG) mg/dL 1.80-2.40 CALCIUM [id number] 05:57:00 Test Item Value Reference Range Interpretation Comments CALCIUM IONIZED (test code = ERIN) 1.29 MMOL/L 1.12-1.32 N CBC W/AUTO [id number] 05:48:00 Test Item Value Reference Range Interpretation Comments WHITE BLOOD CELL (test code = 16.3 x10 3/uL 4.5-11.0 H WBC) RED BLOOD CELL (test code = 4.00 x10 6/uL 3.54-5.02 N RBC) HEMOGLOBIN (test code = HGB) 11.2 g/dL 11.0-15.0 N HEMATOCRIT (test code = HCT) 35.2 % 33.0-45.0 N MEAN CELL VOLUME (test code = 88.0 fL 81.0-99.0 N MCV) MEAN CELL HGB (test code = 28.0 pg 27.0-33.0 N MCH) MEAN CELL HGB CONCETRATION 31.8 g/dL 33.0-37.0 L (test code = MCHC) RED CELL DISTRIBUTION WIDTH CV 15.0 % 11.5-14.5 H (test code = RDW) RED CELL DISTRIBUTION WIDTH SD 48.5 fL 37.0-54.0 N (test code = RDW-SD) PLATELET COUNT (test code = 197 x10 3/uL 150-400 N PLT) MEAN PLATELET VOLUME (test 12.4 fL 7.0-9.0 H code = MPV) NEUTROPHIL % (test code = NT%) 87.3 % 56.0-77.0 H IMMATURE GRANULOCYTE % (test 1.4 % 0.0-2.0 N code = IG%) LYMPHOCYTE % (test code = LY%) 3.9 % 14.0-32.0 L MONOCYTE % (test code = MO%) 6.1 % 4.8-9.0 N EOSINOPHIL % (test code = EO%) 0.8 % 0.3-3.7 N BASOPHIL % (test code = BA%) 0.5 % 0.0-2.0 N NUCLEATED RBC % (test code = 0.0 % 0-0 N NRBC%) NEUTROPHIL # (test code = NT#) 14.22 x10 3/uL 2.0-7.6 H IMMATURE GRANULOCYTE # (test 0.23 x10 3/uL 0.00-0.03 H code = IG#) LYMPHOCYTE # (test code = LY#) 0.64 x10 3/uL 1.0-3.8 L MONOCYTE # (test code = MO#) 0.99 x10 3/uL 0.1-0.8 H EOSINOPHIL # (test code = EO#) 0.13 x10 3/uL 0.0-0.2 N BASOPHIL # (test code = BA#) 0.08 x10 3/uL 0.0-0.2 N NUCLEATED RBC # (test code = 0.00 x10 3/uL 0.0-0.1 N NRBC#) MANUAL DIFF REQUIRED (test NO code = MDIFF) CBC W/AUTO [id number] 05:47:00 Test Item Value Reference Range Interpretation Comments WHITE BLOOD CELL (test code = x10 3/uL 4.5-11.0 WBC) RED BLOOD CELL (test code = RBC) x10 6/uL 3.54-5.02 HEMOGLOBIN (test code = HGB) 11.2 g/dL 11.0-15.0 N HEMATOCRIT (test code = HCT) 35.2 % 33.0-45.0 N MEAN CELL VOLUME (test code = fL 81.0-99.0 MCV) MEAN CELL HGB (test code = MCH) pg 27.0-33.0 MEAN CELL HGB CONCETRATION (test g/dL 33.0-37.0 code = MCHC) RED CELL DISTRIBUTION WIDTH CV % 11.5-14.5 (test code = RDW) PLATELET COUNT (test code = PLT) 197 x10 3/uL 150-400 N NEUTROPHIL % (test code = NT%) % 56.0-77.0 LYMPHOCYTE % (test code = LY%) % 14.0-32.0 NEUTROPHIL # (test code = NT#) x10 3/uL 2.0-7.6 LYMPHOCYTE # (test code = LY#) x10 3/uL 1.0-3.8 MANUAL DIFF REQUIRED (test code = MDIFF) DRUGS OF ABUSE SCREEN [id number] 14:23:00 Test Item Value Reference Range Interpretation Comments URN COCAINE (test code NEGATIVE NEGATIVE = COCAURN) URN CANNABINOIDS (test NEGATIVE NEGATIVE code = CANNABURN) URN AMPHETAMINE (test NEGATIVE NEGATIVE code = AMPHETURN) URN BARBITURATE (test NEGATIVE NEGATIVE code = BARBITURN) URN BENZODIAZEPINE POSITIVE NEGATIVE A Cut-off v alue:200 (test code = BENZOURN) ng/mL URN OPIATES (test code POSITIVE NEGATIVE A Cut-o ff value:2000 = OPIATURN) ng/mL URN PHENCYCLIDINE (PCP) NEGATIVE NEGATIVE Cuto ffs:Barbiturates (test code = PHENCURN) 200 ng/mLBenzodiaze pines 200 ng/ mLTHC Cannabinoids 50 ng/mLOpiates(Mo rphine) 2000 ng/mLAmphetamin e 1000 ng/mLCocaine 300 ng/ mLPCP phencyclidine 25 ng/mL Unconf irmed screening resul ts shouldnot be us ed for non-medical pur poses. [id number] 14:08:00 Test Item Value Reference Range Interpretation Comments HAPTOGLOBIN (test code 263 mg/dL 33-346 Perfo rmed At: BN = HAPT) [facility] [address] [id number] ra Andrea MERIDA Ph:[phone] T4 [id number] 12:32:00 Test Item Value Reference Range Interpretation Comments T4 FREE (test code = T4F) 1.0 ng/dL 0.77-1.61 N TSH REFLEX TO [id number] 12:32:00 Test Item Value Reference Range Interpretation Comments TSH REFLEX TO FT4 (test code = 0.19 IU/mL 0.42-5.47 L TSHREFLEX) T4 [id number] 12:15:00 Test Item Value Reference Range Interpretation Comments T4 FREE (test code = T4F) ng/dL 0.77-1.61 TSH REFLEX TO [id number] 12:15:00 Test Item Value Reference Range Interpretation Comments TSH REFLEX TO FT4 (test code = 0.19 IU/mL 0.42-5.47 L TSHREFLEX) [id number] 11:37:00 Test Item Value Reference Range Interpretation Comments GLUBED (test code = 101 MG/DL 70-110 N Performe d by certified GLUBED) 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[facility] [id number] 09:19:00 Test Item Value Reference Range Interpretation Comments GLUBED (test code = 84 MG/DL 70-110 N Performe d by certified GLUBED) 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[facility] - XR CHEST 1 [id number] 07:20:00 [facility] 1960 Sex: F FAX: Helen Leach NP [phone] [place]: MICHEL[address] St: FAX: Andrew Munoz MD [phone] Name: MAKAYLA BAE [facility] : 1960 Age/S: 59/F [address] [place] [address] Unit #: [id number] Loc: TANA García [address] Phys: Helen Leach NP Acct: [id number] Dis Date: Status: ADM IN PHONE#: [phone] Exam Date: 10/13/2020618 FAX #: [phone] Reason: PRESUMED ASPIRATION PNEUMONIA EXAMS: CPT CODE: [id number] XR CHEST 1 V 56672 Chest single view 10/13/2020 HISTORY: Aspiration pneumonia. Comparison is made to 10/12/2020 FINDINGS: Endotracheal tube has been removed. Gastric tube enters the stomach. Moderate right and mild left patchy airspace opacities and interstitial opacities are unchanged. No significant pleural fluid is present. Heart size is at the upper limits of normal. IMPRESSION: 1. Interval extubation. 2. No significant change in moderate right and mild left pulmonary opacities, either edema or pneumonia. SL: [id number] at 0720 Reported and signed by: Kris Van M.D. CC: Helen Leach NP; Andrew Mojica MD Technologist: Fatou Magallon, RT(R) Trnscrd Date/Time/By: 10/13/2020 (07) : By: [email or web address] [facility] Print D/T: S: 10/13/2020 (8402) PAGE 1 Signed ReportCOMPREHENSIVE METABOLIC [id number] 07:15:00 Test Item Value Reference Range Interpretation Comments SODIUM (test code = NA) 142 mEq/L 134-147 N POTASSIUM (test code = 3.6 mEq/L 3.4-5.0 N K) CHLORIDE (test code = 110 mEq/L 100-108 H CL) CARBON DIOXIDE (test 17 mEq/l 21-33 L code = CO2) ANION GAP (test code = 19 0-20 N GAP) GLUCOSE (test code = 59 mg/dL 70-110 L GLU) BLOOD UREA NITROGEN 13 mg/dL 7-18 (test code = BUN) GLOMERULAR FILTRATION 126.3 90-95 H Units of measure = RATE (test code = GFR) ml/mi n/1.73 m2 CREATININE (test code = 0.5 mg/dL 0.6-1.3 L CREAT) TOTAL PROTEIN (test 5.6 g/dL 6.4-8.2 L code = PROT) ALBUMIN (test code = 2.30 g/dL 3.4-5.0 L ALB) CALCIUM (test code = 8.6 mg/dL 8.0-10.5 N CA) BILIRUBIN TOTAL (test 0.60 mg/dL 0.0-1.0 code = BILT) SGOT/AST (test code = 84 IUnit/L 15-37 H AST) SGPT/ALT (test code = 74 IUnit/L 30-65 H ALT) ALKALINE PHOSPHATASE 112 IUnit/L 20-125 N TOTAL (test code = ALKP) [id number] 07:15:00 Test Item Value Reference Range Interpretation Comments PHOSPHOROUS (test code = PHOS) 2.0 MG/DL 2.5-4.9 L CREATINE KINASE (CK)2020-10-13 07:15:00 Test Item Value Reference Range Interpretation Comments CREATINE KINASE (CK) (test code = 694 Units/L 35-232 H CK) [id number] 07:15:00 Test Item Value Reference Range Interpretation Comments MAGNESIUM (test code = MAG) 1.55 mg/dL 1.80-2.40 L CALCIUM [id number] 07:15:00 Test Item Value Reference Range Interpretation Comments CALCIUM IONIZED (test code = ERIN) 1.33 MMOL/L 1.12-1.32 H COMPREHENSIVE METABOLIC [id number] 06:23:00 Test Item Value Reference Range Interpretation Comments SODIUM (test code = NA) mEq/L 134-147 POTASSIUM (test code = K) mEq/L 3.4-5.0 CHLORIDE (test code = CL) mEq/L 100-108 CARBON DIOXIDE (test code = CO2) mEq/l 21-33 ANION GAP (test code = GAP) 0-20 GLUCOSE (test code = GLU) mg/dL 70-110 BLOOD UREA NITROGEN (test code = mg/dL 7-18 BUN) GLOMERULAR FILTRATION RATE (test 90-95 code = GFR) CREATININE (test code = CREAT) mg/dL 0.6-1.3 TOTAL PROTEIN (test code = PROT) g/dL 6.4-8.2 ALBUMIN (test code = ALB) g/dL 3.4-5.0 CALCIUM (test code = CA) mg/dL 8.0-10.5 BILIRUBIN TOTAL (test code = BILT) mg/dL 0.0-1.0 SGOT/AST (test code = AST) IUnit/L 15-37 SGPT/ALT (test code = ALT) IUnit/L 30-65 ALKALINE PHOSPHATASE TOTAL (test IUnit/L 20-125 code = ALKP) [id number] 06:23:00 Test Item Value Reference Range Interpretation Comments PHOSPHOROUS (test code = PHOS) MG/DL 2.5-4.9 CREATINE KINASE (CK)2020-10-13 06:23:00 Test Item Value Reference Range Interpretation Comments CREATINE KINASE (CK) (test code = Units/L 35-232 CK) [id number] 06:23:00 Test Item Value Reference Range Interpretation Comments MAGNESIUM (test code = MAG) mg/dL 1.80-2.40 CALCIUM [id number] 06:23:00 Test Item Value Reference Range Interpretation Comments CALCIUM IONIZED (test code = ERIN) 1.33 MMOL/L 1.12-1.32 H CBC W/AUTO [id number] 06:14:00 Test Item Value Reference Range Interpretation Comments WHITE BLOOD CELL (test code = 20.8 x10 3/uL 4.5-11.0 H WBC) RED BLOOD CELL (test code = 3.75 x10 6/uL 3.54-5.02 N RBC) HEMOGLOBIN (test code = HGB) 10.8 g/dL 11.0-15.0 L HEMATOCRIT (test code = HCT) 34.0 % 33.0-45.0 N MEAN CELL VOLUME (test code = 90.7 fL 81.0-99.0 N MCV) MEAN CELL HGB (test code = 28.8 pg 27.0-33.0 N MCH) MEAN CELL HGB CONCETRATION 31.8 g/dL 33.0-37.0 L (test code = MCHC) RED CELL DISTRIBUTION WIDTH CV 15.3 % 11.5-14.5 H (test code = RDW) RED CELL DISTRIBUTION WIDTH SD 51.0 fL 37.0-54.0 N (test code = RDW-SD) PLATELET COUNT (test code = 231 x10 3/uL 150-400 N PLT) MEAN PLATELET VOLUME (test 11.4 fL 7.0-9.0 H code = MPV) NEUTROPHIL % (test code = NT%) 92.8 % 56.0-77.0 H IMMATURE GRANULOCYTE % (test 0.8 % 0.0-2.0 N code = IG%) LYMPHOCYTE % (test code = LY%) 2.2 % 14.0-32.0 L MONOCYTE % (test code = MO%) 3.8 % 4.8-9.0 L EOSINOPHIL % (test code = EO%) 0.0 % 0.3-3.7 L BASOPHIL % (test code = BA%) 0.4 % 0.0-2.0 N NUCLEATED RBC % (test code = 0.0 % 0-0 N NRBC%) NEUTROPHIL # (test code = NT#) 19.28 x10 3/uL 2.0-7.6 H IMMATURE GRANULOCYTE # (test 0.17 x10 3/uL 0.00-0.03 H code = IG#) LYMPHOCYTE # (test code = LY#) 0.46 x10 3/uL 1.0-3.8 L MONOCYTE # (test code = MO#) 0.78 x10 3/uL 0.1-0.8 N EOSINOPHIL # (test code = EO#) 0.01 x10 3/uL 0.0-0.2 N BASOPHIL # (test code = BA#) 0.08 x10 3/uL 0.0-0.2 N NUCLEATED RBC # (test code = 0.00 x10 3/uL 0.0-0.1 N NRBC#) MANUAL DIFF REQUIRED (test NO code = MDIFF) - XR CHEST 1 [id number] 07:55:00 [facility] : 1960 Sex: F FAX: Helen Leach NP [phone] [place]: St: ADM FAX: Andrew Munoz MD [phone] Name: MAKAYLA BAE [facility] : 1960 Age/S: 59/F [address] [place] [address] Unit #: [id number] Loc: G[address] [address] Phys: Helen Leach NP Acct: [id number] Dis Date: Status: ADM IN PHONE#: [phone] Exam Date: 10/12/2020612 FAX #: [phone] Reason: PRESUMED ASPIRATION PNEUMONIA EXAMS: CPT CODE: [id number] XR CHEST 1 V 25667 PROCEDURE: Chest Radiograph. Clinical Indication: Aspiration pneumonia, GI bleed. Comparison: Chest radiograph 10/11/2020. FINDINGS: The chest shows increasing opacities in the midlung zones and lung bases, with air bronchogram formation atthe lung bases. An endotracheal tube and NG tube remain in place. The cardiac si lhouette is upper limits of normal in size. The trachea is midline. There are no clinically significant osseous abnormalities noted. IMPRESSION: 1. Increasing bilateral pulmonary opacities most pronounced at the lung bases. SL: [id number] at 0755 Reported and signed by: Marcial Phelan M.D. CC: Helen Leach NP; Andrew Mojica MD Technologist: Gabrielle Newton RT(R) Trnscrd Date/Time/By: 10/12/2020 (0755) : By: MonikaTDOdessa Orig Print D/T: S: 10/12/2020 (0754) PAGE 1 [facility]AUTO [id number] 06:49:00 Test Item Value Reference Range Interpretation Comments WHITE BLOOD CELL 16.0 x10 3/uL 4.5-11.0 H (test code = WBC) RED BLOOD CELL (test 3.51 x10 6/uL 3.54-5.02 L code = RBC) HEMOGLOBIN (test code 9.8 g/dL 11.0-15.0 L = HGB) HEMATOCRIT (test code 32.4 % 33.0-45.0 L = HCT) MEAN CELL VOLUME 92.3 fL 81.0-99.0 N (test code = MCV) MEAN CELL HGB (test 27.9 pg 27.0-33.0 N code = MCH) MEAN CELL HGB 30.2 g/dL 33.0-37.0 L CONCETRATION (test code = MCHC) RED CELL DISTRIBUTION 15.7 % 11.5-14.5 H WIDTH CV (test code = RDW) RED CELL DISTRIBUTION 53.4 fL 37.0-54.0 N WIDTH SD (test code = RDW-SD) PLATELET COUNT (test 219 x10 3/uL 150-400 N code = PLT) MEAN PLATELET VOLUME 11.6 fL 7.0-9.0 H (test code = MPV) NEUTROPHIL % (test 91.2 % 56.0-77.0 H code = NT%) IMMATURE GRANULOCYTE 1.2 % 0.0-2.0 N % (test code = IG%) LYMPHOCYTE % (test 2.7 % 14.0-32.0 L code = LY%) MONOCYTE % (test code 3.7 % 4.8-9.0 L = MO%) EOSINOPHIL % (test 0.7 % 0.3-3.7 N code = EO%) BASOPHIL % (test code 0.5 % 0.0-2.0 N = BA%) NUCLEATED RBC % (test 0.0 % 0-0 N code = NRBC%) NEUTROPHIL # (test 14.62 x10 3/uL 2.0-7.6 H code = NT#) IMMATURE GRANULOCYTE 0.19 x10 3/uL 0.00-0.03 H # (test code = IG#) LYMPHOCYTE # (test 0.43 x10 3/uL 1.0-3.8 L code = LY#) MONOCYTE # (test code 0.59 x10 3/uL 0.1-0.8 N = MO#) EOSINOPHIL # (test 0.12 x10 3/uL 0.0-0.2 N code = EO#) BASOPHIL # (test code 0.08 x10 3/uL 0.0-0.2 N = BA#) NUCLEATED RBC # (test 0.00 x10 3/uL 0.0-0.1 N code = NRBC#) MANUAL DIFF REQUIRED NO SLIDE R NISHA, (test code = MDIFF) CONSISTE NT WITH AUTO DIFF. COMPREHENSIVE METABOLIC [id number] 05:56:00 Test Item Value Reference Range Interpretation Comments SODIUM (test code = NA) 143 mEq/L 134-147 N POTASSIUM (test code = 4.1 mEq/L 3.4-5.0 N K) CHLORIDE (test code = 114 mEq/L 100-108 H CL) CARBON DIOXIDE (test 23 mEq/l 21-33 N code = CO2) ANION GAP (test code = 10 0-20 N GAP) GLUCOSE (test code = 116 mg/dL 70-110 H GLU) BLOOD UREA NITROGEN 23 mg/dL 7-18 H (test code = BUN) GLOMERULAR FILTRATION 126.3 90-95 H Units of measure = RATE (test code = GFR) ml/mi n/1.73 m2 CREATININE (test code = 0.5 mg/dL 0.6-1.3 L CREAT) TOTAL PROTEIN (test 4.9 g/dL 6.4-8.2 L code = PROT) ALBUMIN (test code = 2.10 g/dL 3.4-5.0 L ALB) CALCIUM (test code = 8.4 mg/dL 8.0-10.5 N CA) BILIRUBIN TOTAL (test 0.40 mg/dL 0.0-1.0 code = BILT) SGOT/AST (test code = 92 IUnit/L 15-37 H AST) SGPT/ALT (test code = 74 IUnit/L 30-65 H ALT) ALKALINE PHOSPHATASE 78 IUnit/L 20-125 N TOTAL (test code = ALKP) [id number] 05:56:00 Test Item Value Reference Range Interpretation Comments PHOSPHOROUS (test code = PHOS) 1.8 MG/DL 2.5-4.9 L CREATINE KINASE (CK)2020-10-12 05:56:00 Test Item Value Reference Range Interpretation Comments CREATINE KINASE (CK) 1202 Units/L 35-232 HH Critica l result (test code = CK) called to Angela [email or web address] at 05 55 10/12/20Nkait graham back result and tech confirmed it's correct? YES [id number] 05:56:00 Test Item Value Reference Range Interpretation Comments MAGNESIUM (test code = MAG) 1.81 mg/dL 1.80-2.40 N CALCIUM [id number] 05:56:00 Test Item Value Reference Range Interpretation Comments CALCIUM IONIZED (test code = ERIN) 1.30 MMOL/L 1.12-1.32 N CBC W/AUTO [id number] 05:43:00 Test Item Value Reference Range Interpretation Comments WHITE BLOOD CELL (test code = 16.0 x10 3/uL 4.5-11.0 H WBC) RED BLOOD CELL (test code = 3.51 x10 6/uL 3.54-5.02 L RBC) HEMOGLOBIN (test code = HGB) 9.8 g/dL 11.0-15.0 L HEMATOCRIT (test code = HCT) 32.4 % 33.0-45.0 L MEAN CELL VOLUME (test code = 92.3 fL 81.0-99.0 N MCV) MEAN CELL HGB (test code = MCH) 27.9 pg 27.0-33.0 N MEAN CELL HGB CONCETRATION 30.2 g/dL 33.0-37.0 L (test code = MCHC) RED CELL DISTRIBUTION WIDTH CV 15.7 % 11.5-14.5 H (test code = RDW) RED CELL DISTRIBUTION WIDTH SD 53.4 fL 37.0-54.0 N (test code = RDW-SD) PLATELET COUNT (test code = 219 x10 3/uL 150-400 N PLT) MEAN PLATELET VOLUME (test code 11.6 fL 7.0-9.0 H = MPV) NEUTROPHIL % (test code = NT%) % 56.0-77.0 LYMPHOCYTE % (test code = LY%) % 14.0-32.0 NEUTROPHIL # (test code = NT#) x10 3/uL 2.0-7.6 LYMPHOCYTE # (test code = LY#) x10 3/uL 1.0-3.8 MANUAL DIFF REQUIRED (test code = MDIFF) COMPREHENSIVE METABOLIC [id number] 05:36:00 Test Item Value Reference Range Interpretation Comments SODIUM (test code = NA) mEq/L 134-147 POTASSIUM (test code = K) mEq/L 3.4-5.0 CHLORIDE (test code = CL) mEq/L 100-108 CARBON DIOXIDE (test code = CO2) mEq/l 21-33 ANION GAP (test code = GAP) 0-20 GLUCOSE (test code = GLU) mg/dL 70-110 BLOOD UREA NITROGEN (test code = mg/dL 7-18 BUN) GLOMERULAR FILTRATION RATE (test 90-95 code = GFR) CREATININE (test code = CREAT) mg/dL 0.6-1.3 TOTAL PROTEIN (test code = PROT) g/dL 6.4-8.2 ALBUMIN (test code = ALB) g/dL 3.4-5.0 CALCIUM (test code = CA) mg/dL 8.0-10.5 BILIRUBIN TOTAL (test code = BILT) mg/dL 0.0-1.0 SGOT/AST (test code = AST) IUnit/L 15-37 SGPT/ALT (test code = ALT) IUnit/L 30-65 ALKALINE PHOSPHATASE TOTAL (test IUnit/L 20-125 code = ALKP) [id number] 05:36:00 Test Item Value Reference Range Interpretation Comments PHOSPHOROUS (test code = PHOS) MG/DL 2.5-4.9 CREATINE KINASE (CK)2020-10-12 05:36:00 Test Item Value Reference Range Interpretation Comments CREATINE KINASE (CK) (test code = Units/L 35-232 CK) [id number] 05:36:00 Test Item Value Reference Range Interpretation Comments MAGNESIUM (test code = MAG) mg/dL 1.80-2.40 CALCIUM [id number] 05:36:00 Test Item Value Reference Range Interpretation Comments CALCIUM IONIZED (test code = ERIN) 1.30 MMOL/L 1.12-1.32 N [id number] 05:30:00 Test Item Value Reference Range Interpretation Comments AMMONIA (test code = AMM) 10 umol/L 11-35 L POC ARTERIAL BLOOD [id number] 05:28:00 Test Item Value Reference Range Interpretation Comments POC ARTERIAL BLOOD GAS PH (test 7.357 7.35-7.45 N code = POCPHA) POC ARTERIAL BLOOD GAS PCO2 28.4 mmHg 35.0-45 LL (test code = [id number]) POC TCO2 ARTERIAL (test code = 16.8 POCTCO2) POC ARTERIAL BLOOD GAS PO2 (test 173.3 mmHg 80-100.0 H code = [id number]) POC HCO3 ARTERIAL (test code = 15.9 MMOL/L 22.0-26.0 LL [id number]) POC BASE EXCESS (test code = -9.6 MMOL/L -4.0-4.0 L POCBEA) POC O2 SATURATION (test code = 99.5 % 90-100 N POCO2S) FIO2 (test code = FIO2A) 40 % PaO2/FiO2 (test code = [id number]) 433.25 mm/Hg ABG DELIVERY (test code = POPEYE) Adult Vent ABG VENT MODE (test code = AC MODEA) ABG VENT RESP RATE (test code = 15 /MIN RRA) ABG TIDAL VOLUME (test code = 480 ml TVA) ABG PEEP (test code = PEEPA) 5 cmH2O ABG SITE (test code = SITEA) R Radial REGLA'S TEST (test code = Positive ALLENS) CBC W/AUTO [id number] 05:26:00 Test Item Value Reference Range Interpretation Comments WHITE BLOOD CELL (test code = x10 3/uL 4.5-11.0 WBC) RED BLOOD CELL (test code = RBC) x10 6/uL 3.54-5.02 HEMOGLOBIN (test code = HGB) g/dL 11.0-15.0 HEMATOCRIT (test code = HCT) % 33.0-45.0 MEAN CELL VOLUME (test code = fL 81.0-99.0 MCV) MEAN CELL HGB (test code = MCH) pg 27.0-33.0 MEAN CELL HGB CONCETRATION (test g/dL 33.0-37.0 code = MCHC) RED CELL DISTRIBUTION WIDTH CV % 11.5-14.5 (test code = RDW) PLATELET COUNT (test code = PLT) 219 x10 3/uL 150-400 N NEUTROPHIL % (test code = NT%) % 56.0-77.0 LYMPHOCYTE % (test code = LY%) % 14.0-32.0 NEUTROPHIL # (test code = NT#) x10 3/uL 2.0-7.6 LYMPHOCYTE # (test code = LY#) x10 3/uL 1.0-3.8 MANUAL DIFF REQUIRED (test code = MDIFF) CREATINE KINASE (CK)2020-10-11 18:01:00 Test Item Value Reference Range Interpretation Comments CREATINE KINASE (CK) 2092 Units/L 35-232 HH Critica l result (test code = CK) called to [email or web address] at 18 10/11/20Nurse r ead back result and tech confirmed it's correct? YES [id number] 18:01:00 Test Item Value Reference Range Interpretation Comments TROPONIN-I 0.113 ng/mL 0.000-0.045 H Negative: <= (test code = 0.045 Positive: TROPI) >= 0.046 Correl ation with serial results, other cardiac markers andclin ical findings is necessary to determine the clinicalsignifi cance of this result. Results using different metho dologies should not be c omparedto one another as minerva titative results may roopa y by method. UA RFLX MICR CULT IF [id number] 12:13:00 Test Item Value Reference Range Interpretation Comments UA COLOR (test code = COLU) YELLOW YEL/STRAW UA APPEARANCE (test code = APPU) CLEAR CLEAR UA GLUCOSE DIPSTICK (test code = NEGATIVE NEGATIVE DGLUU) UA BILIRUBIN DIPSTICK (test code = NEGATIVE NEGATIVE BILU) UA KETONE DIPSTICK (test code = NEGATIVE NEGATIVE KETU) UA SPECIFIC GRAVITY (test code = 1.020 1.005-1.030 N SGU) UA BLOOD DIPSTICK (test code = MARICEL) 5+ NEGATIVE UA PH DIPSTICK (test code = ABDIRAHMAN) 6.0 5.0-7.0 N UA PROTEIN DIPSTICK (test code = 2+ NEGATIVE A PROU) UA UROBILINIOGEN DIPSTICK (test 0.2 mg/dL 0.2-1.0 code = URO) UA NITRITE DIPSTICK (test code = NEGATIVE NEGATIVE JOSE) UA LEUKOCYTE ESTERASE DIPSTICK NEGATIVE NEGATIVE (test code = LEUU) UA WBC (test code = WBCU) WBC/HPF 0-3 UA RBC (test code = RBCU) RBC/HPF 0-3 Cath type: Temporary/indwellingIN date: 10/10/20IN time: pse time: 17 Hrs 47 MinsIndication for culture: RiskForSepsis-no oth srcSpecimen Description: INDWELLING CATH (CLAROS)Cath Status: 2UA RFLX MICR CULT IF [id number] 12:13:00 Test Item Value Reference Range Interpretation Comments UA COLOR (test code = COLU) YELLOW YEL/STRAW UA APPEARANCE (test code = APPU) CLEAR CLEAR UA GLUCOSE DIPSTICK (test code = NEGATIVE NEGATIVE DGLUU) UA BILIRUBIN DIPSTICK (test code NEGATIVE NEGATIVE = BILU) UA KETONE DIPSTICK (test code = NEGATIVE NEGATIVE KETU) UA SPECIFIC GRAVITY (test code = 1.020 1.005-1.030 N SGU) UA BLOOD DIPSTICK (test code = 5+ NEGATIVE MARICEL) UA PH DIPSTICK (test code = ABDIRAHMAN) 6.0 5.0-7.0 N UA PROTEIN DIPSTICK (test code = 2+ NEGATIVE A PROU) UA UROBILINIOGEN DIPSTICK (test 0.2 mg/dL 0.2-1.0 code = URO) UA NITRITE DIPSTICK (test code = NEGATIVE NEGATIVE JOSE) UA LEUKOCYTE ESTERASE DIPSTICK NEGATIVE NEGATIVE (test code = LEUU) UA WBC (test code = WBCU) 0-3 WBC/HPF 0-3 UA RBC (test code = RBCU) 4-10 RBC/HPF 0-3 UA WBC NO REFLEX (test code = 0-3 WBC/HPF 0-3 WBCUCL) UA BACTERIA (test code = BACU) TRACE /HPF NONE SEEN UA SQUAMOUS CELLS (test code = 0-5 /HPF NONE SEEN SQU) UA MUCUS (test code = MUCU) TRACE /LPF NONE SEEN UA YEAST (BUDDING) (test code = TRACE /HPF NONE YEASTUBD) Cath type: Temporary/indwellingIN date: 10/10/20IN time: 1716Elapse time: 17 Hrs 47 MinsIndication for culture: RiskForSepsis-no oth srcSpecimen Description: INDWELLING CATH (CLAROS)Cath Status: 2POC ARTERIAL BLOOD [id number] 10:21:00 Test Item Value Reference Range Interpretation Comments POC ARTERIAL BLOOD GAS PH (test 7.318 7.35-7.45 L code = POCPHA) POC ARTERIAL BLOOD GAS PCO2 38.0 mmHg 35.0-45 N (test code = [id number]) POC TCO2 ARTERIAL (test code = 20.6 POCTCO2) POC ARTERIAL BLOOD GAS PO2 (test 156.0 mmHg 80-100.0 H code = YBOWD0A) POC HCO3 ARTERIAL (test code = 19.4 MMOL/L 22.0-26.0 L [id number]) POC BASE EXCESS (test code = -6.7 MMOL/L -4.0-4.0 L POCBEA) POC O2 SATURATION (test code = 99.2 % 90-100 N POCO2S) FIO2 (test code = FIO2A) 50 % PaO2/FiO2 (test code = [id number]) 312.00 mm/Hg ABG VENT MODE (test code = AC MODEA) ABG VENT RESP RATE (test code = 15 /MIN RRA) ABG TIDAL VOLUME (test code = 500 ml TVA) ABG PEEP (test code = PEEPA) 7 cmH2O ABG SITE (test code = SITEA) R Radial REGLA'S TEST (test code = Positive ALLENS) BASIC METABOLIC [id number] 10:21:00 Test Item Value Reference Range Interpretation Comments SODIUM (test code = NA/ABG) MEQ/L 134-147 POTASSIUM (test code = K/ABG) MEQ/L 3.4-5.0 CHLORIDE (test code = CL/ABG) MEQ/L 100-108 CREATININE ABG (test code = CREAABG) mg/dL 0.6-1.0 POC IONIZED CALCIUM (test code = MMOL/L 1.12-1.32 POCCA) POC GLUCOSE (test code = POCGLU) MG/DL 70-110 [id number] 10:21:00 Test Item Value Reference Range Interpretation Comments HEMOGLOBIN (test code = HGB/ABG) G/DL 11.0-15.0 [id number] 10:21:00 Test Item Value Reference Range Interpretation Comments HEMATOCRIT (test code = HCT/ABG) % 33.0-45.0 POC LACTIC [id number] 10:21:00 Test Item Value Reference Range Interpretation Comments POC LACTIC ACID (test code = POCLAC) mmol/L 0.9-1.7 POC ARTERIAL BLOOD [id number] 10:21:00 Test Item Value Reference Range Interpretation Comments POC ARTERIAL BLOOD GAS PH (test 7.318 7.35-7.45 L code = POCPHA) POC ARTERIAL BLOOD GAS PCO2 38.0 mmHg 35.0-45 N (test code = JKJLOM2C) POC TCO2 ARTERIAL (test code = 20.6 POCTCO2) POC ARTERIAL BLOOD GAS PO2 (test 156.0 mmHg 80-100.0 H code = RARBX3F) POC HCO3 ARTERIAL (test code = 19.4 MMOL/L 22.0-26.0 L RACCYE4C) POC BASE EXCESS (test code = -6.7 MMOL/L -4.0-4.0 L POCBEA) POC O2 SATURATION (test code = 99.2 % 90-100 N POCO2S) FIO2 (test code = FIO2A) 50 % PaO2/FiO2 (test code = CME4NZS4) 312.00 mm/Hg ABG VENT MODE (test code = AC MODEA) ABG VENT RESP RATE (test code = 15 /MIN RRA) ABG TIDAL VOLUME (test code = 500 ml TVA) ABG PEEP (test code = PEEPA) 7 cmH2O ABG SITE (test code = SITEA) R Radial REGLA'S TEST (test code = Positive ALLENS) BASIC METABOLIC [id number] 10:21:00 Test Item Value Reference Range Interpretation Comments SODIUM (test code = NA/ABG) MEQ/L 134-147 POTASSIUM (test code = K/ABG) MEQ/L 3.4-5.0 CHLORIDE (test code = CL/ABG) MEQ/L 100-108 CREATININE ABG (test code = CREAABG) mg/dL 0.6-1.0 POC IONIZED CALCIUM (test code = MMOL/L 1.12-1.32 POCCA) POC GLUCOSE (test code = POCGLU) MG/DL 70-110 [id number] 10:21:00 Test Item Value Reference Range Interpretation Comments HEMOGLOBIN (test code = HGB/ABG) G/DL 11.0-15.0 [id number] 10:21:00 Test Item Value Reference Range Interpretation Comments HEMATOCRIT (test code = HCT/ABG) % 33.0-45.0 POC LACTIC [id number] 10:21:00 Test Item Value Reference Range Interpretation Comments POC LACTIC ACID (test code = 1.9 mmol/L 0.9-1.7 H POCLAC) POC ARTERIAL BLOOD [id number] 10:21:00 Test Item Value Reference Range Interpretation Comments POC ARTERIAL BLOOD GAS PH (test 7.318 7.35-7.45 L code = POCPHA) POC ARTERIAL BLOOD GAS PCO2 38.0 mmHg 35.0-45 N (test code = ZWOYAN3T) POC TCO2 ARTERIAL (test code = 20.6 POCTCO2) POC ARTERIAL BLOOD GAS PO2 (test 156.0 mmHg 80-100.0 H code = ZSZMX8G) POC HCO3 ARTERIAL (test code = 19.4 MMOL/L 22.0-26.0 L SGVCKW9Z) POC BASE EXCESS (test code = -6.7 MMOL/L -4.0-4.0 L POCBEA) POC O2 SATURATION (test code = 99.2 % 90-100 N POCO2S) FIO2 (test code = FIO2A) 50 % PaO2/FiO2 (test code = [id number]) 312.00 mm/Hg ABG VENT MODE (test code = AC MODEA) ABG VENT RESP RATE (test code = 15 /MIN RRA) ABG TIDAL VOLUME (test code = 500 ml TVA) ABG PEEP (test code = PEEPA) 7 cmH2O ABG SITE (test code = SITEA) R Radial REGLA'S TEST (test code = Positive ALLENS) BASIC METABOLIC [id number] 10:21:00 Test Item Value Reference Range Interpretation Comments SODIUM (test code = NA/ABG) 141 MEQ/L 134-147 N POTASSIUM (test code = K/ABG) 3.9 MEQ/L 3.4-5.0 N CHLORIDE (test code = CL/ABG) 112 MEQ/L 100-108 H CREATININE ABG (test code = 1.0 mg/dL 0.6-1.0 CREAABG) POC IONIZED CALCIUM (test code = 1.19 MMOL/L 1.12-1.32 N POCCA) POC GLUCOSE (test code = POCGLU) 133 MG/DL 70-110 H [id number] 10:21:00 Test Item Value Reference Range Interpretation Comments HEMOGLOBIN (test code = HGB/ABG) G/DL 11.0-15.0 [id number] 10:21:00 Test Item Value Reference Range Interpretation Comments HEMATOCRIT (test code = HCT/ABG) % 33.0-45.0 POC LACTIC [id number] 10:21:00 Test Item Value Reference Range Interpretation Comments POC LACTIC ACID (test code = 1.9 mmol/L 0.9-1.7 H POCLAC) POC ARTERIAL BLOOD [id number] 10:21:00 Test Item Value Reference Range Interpretation Comments POC ARTERIAL BLOOD GAS PH (test 7.318 7.35-7.45 L code = POCPHA) POC ARTERIAL BLOOD GAS PCO2 38.0 mmHg 35.0-45 N (test code = ISDPJY3L) POC TCO2 ARTERIAL (test code = 20.6 POCTCO2) POC ARTERIAL BLOOD GAS PO2 (test 156.0 mmHg 80-100.0 H code = WOIKO5C) POC HCO3 ARTERIAL (test code = 19.4 MMOL/L 22.0-26.0 L PDCOQF8O) POC BASE EXCESS (test code = -6.7 MMOL/L -4.0-4.0 L POCBEA) POC O2 SATURATION (test code = 99.2 % 90-100 N POCO2S) FIO2 (test code = FIO2A) 50 % PaO2/FiO2 (test code = [id number]) 312.00 mm/Hg ABG VENT MODE (test code = AC MODEA) ABG VENT RESP RATE (test code = 15 /MIN RRA) ABG TIDAL VOLUME (test code = 500 ml TVA) ABG PEEP (test code = PEEPA) 7 cmH2O ABG SITE (test code = SITEA) R Radial REGLA'S TEST (test code = Positive ALLENS) BASIC METABOLIC [id number] 10:21:00 Test Item Value Reference Range Interpretation Comments SODIUM (test code = NA/ABG) 141 MEQ/L 134-147 N POTASSIUM (test code = K/ABG) 3.9 MEQ/L 3.4-5.0 N CHLORIDE (test code = CL/ABG) 112 MEQ/L 100-108 H CREATININE ABG (test code = 1.0 mg/dL 0.6-1.0 CREAABG) POC IONIZED CALCIUM (test code = 1.19 MMOL/L 1.12-1.32 N POCCA) POC GLUCOSE (test code = POCGLU) 133 MG/DL 70-110 H [id number] 10:21:00 Test Item Value Reference Range Interpretation Comments HEMOGLOBIN (test code = HGB/ABG) 12.3 G/DL 11.0-15.0 N [id number] 10:21:00 Test Item Value Reference Range Interpretation Comments HEMATOCRIT (test code = HCT/ABG) % 33.0-45.0 POC LACTIC [id number] 10:21:00 Test Item Value Reference Range Interpretation Comments POC LACTIC ACID (test code = 1.9 mmol/L 0.9-1.7 H POCLAC) POC ARTERIAL BLOOD [id number] 10:21:00 Test Item Value Reference Range Interpretation Comments POC ARTERIAL BLOOD GAS PH (test 7.318 7.35-7.45 L code = POCPHA) POC ARTERIAL BLOOD GAS PCO2 38.0 mmHg 35.0-45 N (test code = YZASIS2N) POC TCO2 ARTERIAL (test code = 20.6 POCTCO2) POC ARTERIAL BLOOD GAS PO2 (test 156.0 mmHg 80-100.0 H code = ZANFG2S) POC HCO3 ARTERIAL (test code = 19.4 MMOL/L 22.0-26.0 L HHSCUQ1X) POC BASE EXCESS (test code = -6.7 MMOL/L -4.0-4.0 L POCBEA) POC O2 SATURATION (test code = 99.2 % 90-100 N POCO2S) FIO2 (test code = FIO2A) 50 % PaO2/FiO2 (test code = EPD8XSW2) 312.00 mm/Hg ABG VENT MODE (test code = AC MODEA) ABG VENT RESP RATE (test code = 15 /MIN RRA) ABG TIDAL VOLUME (test code = 500 ml TVA) ABG PEEP (test code = PEEPA) 7 cmH2O ABG SITE (test code = SITEA) R Radial REGLA'S TEST (test code = Positive ALLENS) BASIC METABOLIC [id number] 10:21:00 Test Item Value Reference Range Interpretation Comments SODIUM (test code = NA/ABG) 141 MEQ/L 134-147 N POTASSIUM (test code = K/ABG) 3.9 MEQ/L 3.4-5.0 N CHLORIDE (test code = CL/ABG) 112 MEQ/L 100-108 H CREATININE ABG (test code = 1.0 mg/dL 0.6-1.0 CREAABG) POC IONIZED CALCIUM (test code = 1.19 MMOL/L 1.12-1.32 N POCCA) POC GLUCOSE (test code = POCGLU) 133 MG/DL 70-110 H [id number] 10:21:00 Test Item Value Reference Range Interpretation Comments HEMOGLOBIN (test code = HGB/ABG) 12.3 G/DL 11.0-15.0 N [id number] 10:21:00 Test Item Value Reference Range Interpretation Comments HEMATOCRIT (test code = HCT/ABG) 36 % 33.0-45.0 N POC LACTIC [id number] 10:21:00 Test Item Value Reference Range Interpretation Comments POC LACTIC ACID (test code = 1.9 mmol/L 0.9-1.7 H POCLAC) B-TYPE NATRIURETIC [id number] 09:14:00 Test Item Value Reference Range Interpretation Comments B-TYPE NATRIURETIC PEPTIDE (test 451.0 PG/ML 0-100 H code = BNP) COMMENTS: PLEASE ADD TO AM LABSADD-ON TO H179- XR CHEST 1 [id number] 07:05:00 [facility] : 1960 Sex: F FAX: Helen Leach NP [phone] [place]: St: ADM FAX: Andrew Munoz MD [phone] Name: MAKAYLA BAE [facility] : 1960 Age/S: 59/F [address] [place] [address] Unit #: [id number] Loc: [address] [address] Phys: Helen Leach NP Acct: [id number] Dis Date: Status: ADM IN PHONE#: [phone] Exam Date: 10/11/2020622 FAX #: [phone] Reason: PRESUMED ASPIRATION PNEUMONIA EXAMS: CPT CODE: [id number] XR CHEST 1 V 82163 Study: - XR CHEST 1 V 10/11/2020 5:00 AM Patient Name: MAKAYLA BAE MR: [id number] : 1960; Age: 59 years y/o Female Ordering Physician: Helen Leach NP Clinical Indication: PRESUMED ASPIRATION PNEUMONIA Comparison: Chest radiograph 10/10/2020 FINDINGS LUNGS: Slightly decreasing hypoinflation associated with central pulmonary vascular congestion and mildly decreasing perihilar/lower lobe opacities again greatest on the right suggesting pneumonia. No pleural effusion or pneumothorax. HEART AND MEDIASTINUM: Stable mild cardiomegaly. LINES: Endotracheal tube tip located 3.9 cm above the jossie. The nasogastric tube tip overlies the expected location of the gastric fundus. OSSEOUS STRUCTURES: No fracture, dislocation, or suspicious focal osseous lesion. OTHER: None. IMPRESSION: Slightly decreasing hypoinflation associated with central pulmonary vascular congestion and mildly decreasing perihilar/lower lobe opacities again greatest on the right suggesting pneumonia. Stable mild cardiomegaly. SL: TPAINTER-H PAGE 1 Signed Report (CONTINUED) FAX: Helen Leach NP [phone] [place]: St: ADM FAX: Andrew Munoz MD [phone] Name: MAKAYLA BAE [facility] : 1960 Age/S: 59/F [address] [place] [address] Unit #: [id number] Loc: [address] [address] Phys: Helen Leach NP Acct: [id number] Dis Date: Status: ADM IN PHONE #: [phone] Exam Date: 10/11/2020622 FAX #: [phone] Reason: PRESUMED ASPIRATION PNEUMONIA EXAMS: CPT CODE: [id number] XR CHEST 1 V 99181 <Continued> at 0705 Reported and signed by: Enmanuel Bee M.D. CC: Helen Leach NP; Andrew Mojica MD Technologist: Fatou Magallon, RT(R); Gabrielle Newton, RT(R) Trnwvrd Date/Time/By: 10/11/2020 (0705) : By: [email or web address] Orig Print D/T: S: 10/11/2020 (0708) PAGE 2 Signed ReportCOMPREHENSIVE METABOLIC [id number] 06:02:00 Test Item Value Reference Range Interpretation Comments SODIUM (test code = NA) 142 mEq/L 134-147 N POTASSIUM (test code = 4.5 mEq/L 3.4-5.0 N K) CHLORIDE (test code = 110 mEq/L 100-108 H CL) CARBON DIOXIDE (test 23 mEq/l 21-33 N code = CO2) ANION GAP (test code = 13 0-20 N GAP) GLUCOSE (test code = 113 mg/dL 70-110 H GLU) BLOOD UREA NITROGEN 39 mg/dL 7-18 H (test code = BUN) GLOMERULAR FILTRATION 33.0 90-95 L Units of measure = RATE (test code = GFR) ml/mi n/1.73 m2 CREATININE (test code = 1.6 mg/dL 0.6-1.3 H CREAT) TOTAL PROTEIN (test 6.6 g/dL 6.4-8.2 N code = PROT) ALBUMIN (test code = 3.10 g/dL 3.4-5.0 L ALB) CALCIUM (test code = 8.6 mg/dL 8.0-10.5 N CA) BILIRUBIN TOTAL (test 0.30 mg/dL 0.0-1.0 N code = BILT) SGOT/AST (test code = 174 IUnit/L 15-37 H AST) SGPT/ALT (test code = 102 IUnit/L 30-65 H ALT) ALKALINE PHOSPHATASE 92 IUnit/L 20-125 N TOTAL (test code = ALKP) [id number] 06:02:00 Test Item Value Reference Range Interpretation Comments PHOSPHOROUS (test code = PHOS) 3.7 MG/DL 2.5-4.9 N BILIRUBIN [id number] 06:02:00 Test Item Value Reference Range Interpretation Comments BILIRUBIN DIRECT (test code = 0.20 MG/DL 0.0-0.30 BILD) CREATINE KINASE (CK)2020-10-11 06:02:00 Test Item Value Reference Range Interpretation Comments CREATINE KINASE (CK) 3942 Units/L 35-232 HH Critic al result (test code = CK) called to Esha Miller [email or web address] at 10/11/20Nkait graham back result and tech confirmed it's correct? Y LACTIC DEHYDROGENASE(LDH)2020-10-11 06:02:00 Test Item Value Reference Range Interpretation Comments LACTIC DEHYDROGENASE(LDH) (test 372 IUnits/L 84-246 H code = LDH) [id number] 06:02:00 Test Item Value Reference Range Interpretation Comments MAGNESIUM (test code = MAG) 2.11 mg/dL 1.80-2.40 N CALCIUM [id number] 06:02:00 Test Item Value Reference Range Interpretation Comments CALCIUM IONIZED (test code = ERIN) 1.20 MMOL/L 1.12-1.32 N CBC W/AUTO [id number] 06:02:00 Test Item Value Reference Range Interpretation Comments WHITE BLOOD CELL 19.5 x10 3/uL 4.5-11.0 H (test code = WBC) RED BLOOD CELL (test 4.07 x10 6/uL 3.54-5.02 N code = RBC) HEMOGLOBIN (test code 11.5 g/dL 11.0-15.0 N = HGB) HEMATOCRIT (test code 38.0 % 33.0-45.0 N = HCT) MEAN CELL VOLUME 93.4 fL 81.0-99.0 N (test code = MCV) MEAN CELL HGB (test 28.3 pg 27.0-33.0 N code = MCH) MEAN CELL HGB 30.3 g/dL 33.0-37.0 L CONCETRATION (test code = MCHC) RED CELL DISTRIBUTION 15.1 % 11.5-14.5 H WIDTH CV (test code = RDW) RED CELL DISTRIBUTION 51.9 fL 37.0-54.0 N WIDTH SD (test code = RDW-SD) PLATELET COUNT (test 273 x10 3/uL 150-400 N code = PLT) MEAN PLATELET VOLUME 11.3 fL 7.0-9.0 H (test code = MPV) NEUTROPHIL % (test 86.8 % 56.0-77.0 H code = NT%) IMMATURE GRANULOCYTE 0.9 % 0.0-2.0 N % (test code = IG%) LYMPHOCYTE % (test 6.8 % 14.0-32.0 L code = LY%) MONOCYTE % (test code 4.9 % 4.8-9.0 N = MO%) EOSINOPHIL % (test 0.2 % 0.3-3.7 L code = EO%) BASOPHIL % (test code 0.4 % 0.0-2.0 N = BA%) NUCLEATED RBC % (test 0.0 % 0-0 N code = NRBC%) NEUTROPHIL # (test 16.97 x10 3/uL 2.0-7.6 H code = NT#) IMMATURE GRANULOCYTE 0.17 x10 3/uL 0.00-0.03 H # (test code = IG#) LYMPHOCYTE # (test 1.32 x10 3/uL 1.0-3.8 N code = LY#) MONOCYTE # (test code 0.95 x10 3/uL 0.1-0.8 H = MO#) EOSINOPHIL # (test 0.03 x10 3/uL 0.0-0.2 N code = EO#) BASOPHIL # (test code 0.08 x10 3/uL 0.0-0.2 N = BA#) NUCLEATED RBC # (test 0.00 x10 3/uL 0.0-0.1 N code = NRBC#) MANUAL DIFF REQUIRED NO SLIDE R NISHA, (test code = MDIFF) CONSISTE NT WITH AUTO DIFF. RETIC COUNT (AUTOMATED)2020-10-11 06:02:00 Test Item Value Reference Range Interpretation Comments RETIC COUNT (AUTOMATED) (test code = 1.6 % 0.3-2.3 N RETICA) CBC W/AUTO [id number] 05:37:00 Test Item Value Reference Range Interpretation Comments WHITE BLOOD CELL (test code = 19.5 x10 3/uL 4.5-11.0 H WBC) RED BLOOD CELL (test code = 4.07 x10 6/uL 3.54-5.02 N RBC) HEMOGLOBIN (test code = HGB) 11.5 g/dL 11.0-15.0 N HEMATOCRIT (test code = HCT) 38.0 % 33.0-45.0 N MEAN CELL VOLUME (test code = 93.4 fL 81.0-99.0 N MCV) MEAN CELL HGB (test code = MCH) 28.3 pg 27.0-33.0 N MEAN CELL HGB CONCETRATION 30.3 g/dL 33.0-37.0 L (test code = MCHC) RED CELL DISTRIBUTION WIDTH CV 15.1 % 11.5-14.5 H (test code = RDW) RED CELL DISTRIBUTION WIDTH SD 51.9 fL 37.0-54.0 N (test code = RDW-SD) PLATELET COUNT (test code = 273 x10 3/uL 150-400 N PLT) MEAN PLATELET VOLUME (test code 11.3 fL 7.0-9.0 H = MPV) NEUTROPHIL % (test code = NT%) % 56.0-77.0 LYMPHOCYTE % (test code = LY%) % 14.0-32.0 NEUTROPHIL # (test code = NT#) x10 3/uL 2.0-7.6 LYMPHOCYTE # (test code = LY#) x10 3/uL 1.0-3.8 MANUAL DIFF REQUIRED (test code = MDIFF) RETIC COUNT (AUTOMATED)2020-10-11 05:37:00 Test Item Value Reference Range Interpretation Comments RETIC COUNT (AUTOMATED) (test code = 1.6 % 0.3-2.3 N RETICA) COMPREHENSIVE METABOLIC [id number] 05:36:00 Test Item Value Reference Range Interpretation Comments SODIUM (test code = NA) mEq/L 134-147 POTASSIUM (test code = K) mEq/L 3.4-5.0 CHLORIDE (test code = CL) mEq/L 100-108 CARBON DIOXIDE (test code = CO2) mEq/l 21-33 ANION GAP (test code = GAP) 0-20 GLUCOSE (test code = GLU) mg/dL 70-110 BLOOD UREA NITROGEN (test code = mg/dL 7-18 BUN) GLOMERULAR FILTRATION RATE (test 90-95 code = GFR) CREATININE (test code = CREAT) mg/dL 0.6-1.3 TOTAL PROTEIN (test code = PROT) g/dL 6.4-8.2 ALBUMIN (test code = ALB) g/dL 3.4-5.0 CALCIUM (test code = CA) mg/dL 8.0-10.5 BILIRUBIN TOTAL (test code = BILT) mg/dL 0.0-1.0 SGOT/AST (test code = AST) IUnit/L 15-37 SGPT/ALT (test code = ALT) IUnit/L 30-65 ALKALINE PHOSPHATASE TOTAL (test IUnit/L 20-125 code = ALKP) [id number] 05:36:00 Test Item Value Reference Range Interpretation Comments PHOSPHOROUS (test code = PHOS) MG/DL 2.5-4.9 BILIRUBIN [id number] 05:36:00 Test Item Value Reference Range Interpretation Comments BILIRUBIN DIRECT (test code = BILD) MG/DL 0.0-0.30 CREATINE KINASE (CK)2020-10-11 05:36:00 Test Item Value Reference Range Interpretation Comments CREATINE KINASE (CK) (test code = Units/L 35-232 CK) LACTIC DEHYDROGENASE(LDH)2020-10-11 05:36:00 Test Item Value Reference Range Interpretation Comments LACTIC DEHYDROGENASE(LDH) (test IUnits/L 84-246 code = LDH) [id number] 05:36:00 Test Item Value Reference Range Interpretation Comments MAGNESIUM (test code = MAG) mg/dL 1.80-2.40 CALCIUM [id number] 05:36:00 Test Item Value Reference Range Interpretation Comments CALCIUM IONIZED (test code = ERIN) 1.20 MMOL/L 1.12-1.32 N COVID 19 Asymptomatic IH [id number] 03:07:00 Test Item Value Reference Range Interpretation Comments COVID 19 Asymptomatic Negative Negative A nega tive result is IH AG (test code = presumpti ve and should COVNONPUIAG) be confirmedwit h an FDA authorized mole cular assay, if neces maría forpatient amrita gement.A positive result does not rule out co-inf ections withother patho gens.This test detects haseeb th viable (live) and non-viable,SARS -CoV, and SARS-CoV-2. Durga t performance dep ends on theamount of vi randi (antigen) in th e sample.This durga t has not been FDA cleare d or approved; the t est hasbeen authori zed by FDA under an Em ergency Use Authorizati on(EUA) for use by labo ratories certified under the CLIA thatmeet the requirements to perform moderate, high or waivedcomplexit y tests. COMMENTS: If not done this [id number] 01:14:00 Test Item Value Reference Range Interpretation Comments TROPONIN-I 0.104 ng/mL 0.000-0.045 H Negative: <= (test code = 0.045 Positive: TROPI) >= 0.046 Correl ation with serial results, other cardiac markers andclin ical findings is necessary to determine the clinicalsignifi cance of this result. Results using different metho dologies should not be c omparedto one another as minerva titative results may roopa y by method. LIPOPROTEIN [id number] 23:08:00 Test Item Value Reference Range Interpretation Comments LIPOPROTEIN LDL 36.7 mg/dL 0-100 N <100 OPT [id number] (test code = LDL) NEAR OPTIM AL/ABOVE [id number] HIGH>JY=962 VE RY HIGH*Guidelines provided by the National Cholesterol EducationProa m Adult Treatment Panel III CBC W/AUTO [id number] 23:07:00 Test Item Value Reference Range Interpretation Comments WHITE BLOOD CELL 12.8 x10 3/uL 4.5-11.0 H (test code = WBC) RED BLOOD CELL (test 3.80 x10 6/uL 3.54-5.02 N code = RBC) HEMOGLOBIN (test code 10.8 g/dL 11.0-15.0 L = HGB) HEMATOCRIT (test code 35.5 % 33.0-45.0 N = HCT) MEAN CELL VOLUME 93.4 fL 81.0-99.0 N (test code = MCV) MEAN CELL HGB (test 28.4 pg 27.0-33.0 N code = MCH) MEAN CELL HGB 30.4 g/dL 33.0-37.0 L CONCETRATION (test code = MCHC) RED CELL DISTRIBUTION 14.9 % 11.5-14.5 H WIDTH CV (test code = RDW) RED CELL DISTRIBUTION 51.6 fL 37.0-54.0 N WIDTH SD (test code = RDW-SD) PLATELET COUNT (test 244 x10 3/uL 150-400 N code = PLT) MEAN PLATELET VOLUME 11.2 fL 7.0-9.0 H (test code = MPV) NEUTROPHIL % (test 91.6 % 56.0-77.0 H code = NT%) IMMATURE GRANULOCYTE 0.9 % 0.0-2.0 N % (test code = IG%) LYMPHOCYTE % (test 5.3 % 14.0-32.0 L code = LY%) MONOCYTE % (test code 1.8 % 4.8-9.0 L = MO%) EOSINOPHIL % (test 0.1 % 0.3-3.7 L code = EO%) BASOPHIL % (test code 0.3 % 0.0-2.0 N = BA%) NUCLEATED RBC % (test 0.0 % 0-0 N code = NRBC%) NEUTROPHIL # (test 11.69 x10 3/uL 2.0-7.6 H code = NT#) IMMATURE GRANULOCYTE 0.11 x10 3/uL 0.00-0.03 H # (test code = IG#) LYMPHOCYTE # (test 0.68 x10 3/uL 1.0-3.8 L code = LY#) MONOCYTE # (test code 0.23 x10 3/uL 0.1-0.8 N = MO#) EOSINOPHIL # (test 0.01 x10 3/uL 0.0-0.2 N code = EO#) BASOPHIL # (test code 0.04 x10 3/uL 0.0-0.2 N = BA#) NUCLEATED RBC # (test 0.00 x10 3/uL 0.0-0.1 N code = NRBC#) MANUAL DIFF REQUIRED NO SLIDE R NISHA, (test code = MDIFF) CONSISTE NT WITH AUTO DIFF. BASIC METABOLIC [id number] 22:55:00 Test Item Value Reference Range Interpretation Comments SODIUM (test code = NA) 140 mEq/L 134-147 N POTASSIUM (test code = 4.0 mEq/L 3.4-5.0 K) CHLORIDE (test code = 109 mEq/L 100-108 H CL) CARBON DIOXIDE (test 21 mEq/l 21-33 N code = CO2) ANION GAP (test code = 14 0-20 N GAP) GLUCOSE (test code = 184 mg/dL 70-110 H GLU) BLOOD UREA NITROGEN 36 mg/dL 7-18 H (test code = BUN) GLOMERULAR FILTRATION 20.7 90-95 L Units of measure = RATE (test code = GFR) ml/mi n/1.73 m2 CREATININE (test code = 2.4 mg/dL 0.6-1.3 H CREAT) CALCIUM (test code = 8.0 mg/dL 8.0-10.5 N CA) [id number] 22:55:00 Test Item Value Reference Range Interpretation Comments TROPONIN-I 0.101 ng/mL 0.000-0.045 H Negative: <= (test code = 0.045 Positive: TROPI) >= 0.046 Correl ation with serial results, other cardiac markers andclin ical findings is necessary to determine the clinicalsignifi cance of this result. Results using different metho dologies should not be c omparedto one another as minerva titative results may roopa y by method. CBC W/AUTO [id number] 22:34:00 Test Item Value Reference Range Interpretation Comments WHITE BLOOD CELL (test code = 12.8 x10 3/uL 4.5-11.0 H WBC) RED BLOOD CELL (test code = 3.80 x10 6/uL 3.54-5.02 N RBC) HEMOGLOBIN (test code = HGB) 10.8 g/dL 11.0-15.0 L HEMATOCRIT (test code = HCT) 35.5 % 33.0-45.0 N MEAN CELL VOLUME (test code = 93.4 fL 81.0-99.0 N MCV) MEAN CELL HGB (test code = MCH) 28.4 pg 27.0-33.0 N MEAN CELL HGB CONCETRATION 30.4 g/dL 33.0-37.0 L (test code = MCHC) RED CELL DISTRIBUTION WIDTH CV 14.9 % 11.5-14.5 H (test code = RDW) RED CELL DISTRIBUTION WIDTH SD 51.6 fL 37.0-54.0 N (test code = RDW-SD) PLATELET COUNT (test code = 244 x10 3/uL 150-400 N PLT) MEAN PLATELET VOLUME (test code 11.2 fL 7.0-9.0 H = MPV) NEUTROPHIL % (test code = NT%) % 56.0-77.0 LYMPHOCYTE % (test code = LY%) % 14.0-32.0 NEUTROPHIL # (test code = NT#) x10 3/uL 2.0-7.6 LYMPHOCYTE # (test code = LY#) x10 3/uL 1.0-3.8 MANUAL DIFF REQUIRED (test code = MDIFF) CBC W/AUTO [id number] 22:33:00 Test Item Value Reference Range Interpretation Comments WHITE BLOOD CELL (test code = x10 3/uL 4.5-11.0 WBC) RED BLOOD CELL (test code = RBC) x10 6/uL 3.54-5.02 HEMOGLOBIN (test code = HGB) g/dL 11.0-15.0 HEMATOCRIT (test code = HCT) 35.5 % 33.0-45.0 N MEAN CELL VOLUME (test code = fL 81.0-99.0 MCV) MEAN CELL HGB (test code = MCH) pg 27.0-33.0 MEAN CELL HGB CONCETRATION (test g/dL 33.0-37.0 code = MCHC) RED CELL DISTRIBUTION WIDTH CV % 11.5-14.5 (test code = RDW) PLATELET COUNT (test code = PLT) 244 x10 3/uL 150-400 N NEUTROPHIL % (test code = NT%) % 56.0-77.0 LYMPHOCYTE % (test code = LY%) % 14.0-32.0 NEUTROPHIL # (test code = NT#) x10 3/uL 2.0-7.6 LYMPHOCYTE # (test code = LY#) x10 3/uL 1.0-3.8 MANUAL DIFF REQUIRED (test code = MDIFF) GAMMA GLUTAMYL [id number] 22:25:00 Test Item Value Reference Range Interpretation Comments GAMMA GLUTAMYL 18 UNITS/L 5-85 N Result is in TRANSPEPTIDASE (test INTERNA TIONAL code = GGT) UNITS/LITER CREATINE KINASE (CK)2020-10-10 22:25:00 Test Item Value Reference Range Interpretation Comments CREATINE KINASE > 1300 Units/L 35-232 HH Critical r esult (CK) (test code = called to [facility]) ALYSSA [facility] .JN1 at 1901 10/10/20Nurse r ead back result and tech confirmed it's correct? Y HCG SERUM [id number] 22:25:00 Test Item Value Reference Range Interpretation Comments HCG SERUM QUAL (test code = SERUM NEGATIVE NEGATIVE HCGQL) [id number] 22:25:00 Test Item Value Reference Range Interpretation Comments CK (test code = CKT) 6253 Unit/L 26-192 A [id number] 22:24:00 Test Item Value Reference Range Interpretation Comments CK (test code = CKT) 6253 Unit/L 26-192 H ACUTE HEPATITIS [id number] 19:28:00 Test Item Value Reference Range Interpretation Comments AB HEPATITIS A IGM (test NON REACTIVE INDEX NON REACT. code = HAVMAB) AG HEPATITIS B SURFACE NON REACTIVE INDEX NonReactive (test code = HBSAG) AB HEPATITIS B CORE IGM NON REACTIVE INDEX NON REACT. (test code = HBCMAB) AB HEPATITIS C (test code NON REACTIVE INDEX NON REACT. = HCVAB) DRUGS OF ABUSE SCREEN [id number] 19:21:00 Test Item Value Reference Range Interpretation Comments URN COCAINE (test code NEGATIVE NEGATIVE = COCAURN) URN CANNABINOIDS (test NEGATIVE NEGATIVE code = CANNABURN) URN AMPHETAMINE (test NEGATIVE NEGATIVE code = AMPHETURN) URN BARBITURATE (test NEGATIVE NEGATIVE code = BARBITURN) URN BENZODIAZEPINE POSITIVE NEGATIVE A Cut-off v alue:200 (test code = BENZOURN) ng/mL URN OPIATES (test code POSITIVE NEGATIVE A Cut-o ff value:2000 = OPIATURN) ng/mL URN PHENCYCLIDINE (PCP) NEGATIVE NEGATIVE Cuto ffs:Barbiturates (test code = PHENCURN) 200 ng/mLBenzodiaze pines 200 ng/ mLTHC Cannabinoids 50 ng/mLOpiates(Mo rphine) 2000 ng/mLAmphetamin e 1000 ng/mLCocaine 300 ng/ mLPCP phencyclidine 25 ng/mL Unconf irmed screening resul ts shouldnot be us ed for non-medical pur poses. PROTHROMBIN [id number] 19:09:00 Test Item Value Reference Range Interpretation Comments PROTHROMBIN TIME 11.5 SECONDS 9.3-12.9 N PATIENT (test code = PTP) INTERNATIONAL NORMAL 1.1 0.8-1.2 N TARGET RATIO (test code = INR BY IN DICATION INR) Indication INR1. Prophyl axis of venous thrombos is 2.0 - 3. 0 (orthopedic saundra emma), Prophylaxis of venous thrombos is (other than hig h-risk surgery), Chitra tment of Deep Vein Thrombosis/Pulm onary Embolism, Preve ntion of systemic emb olism - Tissue heart va lves, Acute Myocardia l Infarction (to prevent systemic embo lism), Valvular heart disease, Atri al Fibrillation, Bileaflet mecha nical valve in aortic position.2. Mec hanical prosthetic valv es (high risk), 2.5 - 3.5 Presence of Lupus Anticoagu lant or Antiphospholi pid Antibodies, Pre vention of systemic e mbolism - Acute Myocard ial Infarction (t o prevent recurre nt infarct). LACTIC [id number] 19:03:00 Test Item Value Reference Range Interpretation Comments LACTIC ACID (test code = LACT) 1.8 mmol/L 0.4-1.9 N GAMMA GLUTAMYL [id number] 19:01:00 Test Item Value Reference Range Interpretation Comments GAMMA GLUTAMYL 18 UNITS/L 5-85 N Result is in TRANSPEPTIDASE (test INTERNA TIONAL code = GGT) UNITS/LITER CREATINE KINASE (CK)2020-10-10 19:01:00 Test Item Value Reference Range Interpretation Comments CREATINE KINASE > 1300 Units/L 35-232 HH Critical r esult (CK) (test code = called to [facility]) [facility] .JN1 at 1901 10/10/20Nurse r ead back result and tech confirmed it's correct? Y HCG SERUM [id number] 19:01:00 Test Item Value Reference Range Interpretation Comments HCG SERUM QUAL (test code = SERUM NEGATIVE NEGATIVE HCGQL) GAMMA GLUTAMYL [id number] 18:40:00 Test Item Value Reference Range Interpretation Comments GAMMA GLUTAMYL TRANSPEPTIDASE (test UNITS/L 5-85 code = GGT) CREATINE KINASE (CK)2020-10-10 18:40:00 Test Item Value Reference Range Interpretation Comments CREATINE KINASE (CK) (test code = Units/L 35-232 CK) HCG SERUM [id number] 18:40:00 Test Item Value Reference Range Interpretation Comments HCG SERUM QUAL (test code = SERUM NEGATIVE NEGATIVE HCGQL) BASIC METABOLIC [id number] 18:07:00 Test Item Value Reference Range Interpretation Comments SODIUM (test code = NA) 137 mEq/L 134-147 N POTASSIUM (test code = 5.3 mEq/L 3.4-5.0 H K) CHLORIDE (test code = 105 mEq/L 100-108 N CL) CARBON DIOXIDE (test 20 mEq/l 21-33 L code = CO2) ANION GAP (test code = 17 0-20 N GAP) GLUCOSE (test code = 129 mg/dL 70-110 H GLU) BLOOD UREA NITROGEN 37 mg/dL 7-18 H (test code = BUN) GLOMERULAR FILTRATION 15.4 90-95 L Units of measure = RATE (test code = GFR) ml/mi n/1.73 m2 CREATININE (test code = 3.1 mg/dL 0.6-1.3 H CREAT) CALCIUM (test code = 8.3 mg/dL 8.0-10.5 N CA) HEPATIC FUNCTION [id number] 18:07:00 Test Item Value Reference Range Interpretation Comments TOTAL PROTEIN (test code = PROT) 6.7 g/dL 6.4-8.2 N ALBUMIN (test code = ALB) 3.20 g/dL 3.4-5.0 L BILIRUBIN TOTAL (test code = 0.30 mg/dL 0.0-1.0 N BILT) BILIRUBIN DIRECT (test code = 0.10 MG/DL 0.0-0.30 N BILD) BILIRUBIN INDIRECT (test code = 0.20 MG/DL BILIND) SGOT/AST (test code = AST) 210 IUnit/L 15-37 H SGPT/ALT (test code = ALT) 96 IUnit/L 30-65 H ALKALINE PHOSPHATASE TOTAL (test 90 IUnit/L 20-125 N code = ALKP) [id number] 18:07:00 Test Item Value Reference Range Interpretation Comments LIPASE (test code = LIP) 23 U/L 13-57 N POC ARTERIAL BLOOD [id number] 17:57:00 Test Item Value Reference Range Interpretation Comments POC ARTERIAL BLOOD GAS PH (test 7.209 7.35-7.45 LL code = POCPHA) POC ARTERIAL BLOOD GAS PCO2 51.9 mmHg 35.0-45 HH (test code = EVEPPO1Q) POC TCO2 ARTERIAL (test code = 22.5 POCTCO2) POC ARTERIAL BLOOD GAS PO2 (test 149.2 mmHg 80-100.0 H code = OIYGJ8I) POC HCO3 ARTERIAL (test code = 20.9 MMOL/L 22.0-26.0 L [id number]) POC BASE EXCESS (test code = -7.1 MMOL/L -4.0-4.0 L POCBEA) POC O2 SATURATION (test code = 98.8 % 90-100 N POCO2S) FIO2 (test code = FIO2A) 100 % PaO2/FiO2 (test code = [id number]) 149.20 mm/Hg ABG DELIVERY (test code = POPEYE) Adult Vent ABG VENT MODE (test code = AC MODEA) ABG VENT RESP RATE (test code = 15 /MIN RRA) ABG TIDAL VOLUME (test code = 450 ml TVA) ABG PEEP (test code = PEEPA) 7 cmH2O ABG TEMPERATURE (test code = 97.4 F TEMPA) ABG SITE (test code = SITEA) R Radial REGLA'S TEST (test code = Positive ALLENS) BASIC METABOLIC [id number] 17:57:00 Test Item Value Reference Range Interpretation Comments SODIUM (test code = NA/ABG) MEQ/L 134-147 POTASSIUM (test code = K/ABG) MEQ/L 3.4-5.0 CHLORIDE (test code = CL/ABG) MEQ/L 100-108 CREATININE ABG (test code = CREAABG) mg/dL 0.6-1.0 POC IONIZED CALCIUM (test code = MMOL/L 1.12-1.32 POCCA) POC GLUCOSE (test code = POCGLU) MG/DL 70-110 [id number] 17:57:00 Test Item Value Reference Range Interpretation Comments HEMOGLOBIN (test code = HGB/ABG) G/DL 11.0-15.0 [id number] 17:57:00 Test Item Value Reference Range Interpretation Comments HEMATOCRIT (test code = HCT/ABG) % 33.0-45.0 POC LACTIC [id number] 17:57:00 Test Item Value Reference Range Interpretation Comments POC LACTIC ACID (test code = POCLAC) mmol/L 0.9-1.7 POC ARTERIAL BLOOD [id number] 17:57:00 Test Item Value Reference Range Interpretation Comments POC ARTERIAL BLOOD GAS PH (test 7.209 7.35-7.45 LL code = POCPHA) POC ARTERIAL BLOOD GAS PCO2 51.9 mmHg 35.0-45 HH (test code = QDYXUV7G) POC TCO2 ARTERIAL (test code = 22.5 POCTCO2) POC ARTERIAL BLOOD GAS PO2 (test 149.2 mmHg 80-100.0 H code = MUGEF5C) POC HCO3 ARTERIAL (test code = 20.9 MMOL/L 22.0-26.0 L ALGYAD1F) POC BASE EXCESS (test code = -7.1 MMOL/L -4.0-4.0 L POCBEA) POC O2 SATURATION (test code = 98.8 % 90-100 N POCO2S) FIO2 (test code = FIO2A) 100 % PaO2/FiO2 (test code = NOU5QYH1) 149.20 mm/Hg ABG DELIVERY (test code = POPEYE) Adult Vent ABG VENT MODE (test code = AC MODEA) ABG VENT RESP RATE (test code = 15 /MIN RRA) ABG TIDAL VOLUME (test code = 450 ml TVA) ABG PEEP (test code = PEEPA) 7 cmH2O ABG TEMPERATURE (test code = 97.4 F TEMPA) ABG SITE (test code = SITEA) R Radial REGLA'S TEST (test code = Positive ALLENS) BASIC METABOLIC [id number] 17:57:00 Test Item Value Reference Range Interpretation Comments SODIUM (test code = NA/ABG) MEQ/L 134-147 POTASSIUM (test code = K/ABG) MEQ/L 3.4-5.0 CHLORIDE (test code = CL/ABG) MEQ/L 100-108 CREATININE ABG (test code = CREAABG) mg/dL 0.6-1.0 POC IONIZED CALCIUM (test code = MMOL/L 1.12-1.32 POCCA) POC GLUCOSE (test code = POCGLU) MG/DL 70-110 [id number] 17:57:00 Test Item Value Reference Range Interpretation Comments HEMOGLOBIN (test code = HGB/ABG) G/DL 11.0-15.0 [id number] 17:57:00 Test Item Value Reference Range Interpretation Comments HEMATOCRIT (test code = HCT/ABG) % 33.0-45.0 POC LACTIC [id number] 17:57:00 Test Item Value Reference Range Interpretation Comments POC LACTIC ACID (test code = 1.9 mmol/L 0.9-1.7 H POCLAC) POC ARTERIAL BLOOD [id number] 17:57:00 Test Item Value Reference Range Interpretation Comments POC ARTERIAL BLOOD GAS PH (test 7.209 7.35-7.45 LL code = POCPHA) POC ARTERIAL BLOOD GAS PCO2 51.9 mmHg 35.0-45 HH (test code = OTAZVU8I) POC TCO2 ARTERIAL (test code = 22.5 POCTCO2) POC ARTERIAL BLOOD GAS PO2 (test 149.2 mmHg 80-100.0 H code = YCIDU3I) POC HCO3 ARTERIAL (test code = 20.9 MMOL/L 22.0-26.0 L PYOBPI3O) POC BASE EXCESS (test code = -7.1 MMOL/L -4.0-4.0 L POCBEA) POC O2 SATURATION (test code = 98.8 % 90-100 N POCO2S) FIO2 (test code = FIO2A) 100 % PaO2/FiO2 (test code = HFX6WVW8) 149.20 mm/Hg ABG DELIVERY (test code = PPOEYE) Adult Vent ABG VENT MODE (test code = AC MODEA) ABG VENT RESP RATE (test code = 15 /MIN RRA) ABG TIDAL VOLUME (test code = 450 ml TVA) ABG PEEP (test code = PEEPA) 7 cmH2O ABG TEMPERATURE (test code = 97.4 F TEMPA) ABG SITE (test code = SITEA) R Radial REGLA'S TEST (test code = Positive ALLENS) BASIC METABOLIC [id number] 17:57:00 Test Item Value Reference Range Interpretation Comments SODIUM (test code = NA/ABG) 133 MEQ/L 134-147 L POTASSIUM (test code = K/ABG) 5.1 MEQ/L 3.4-5.0 H CHLORIDE (test code = CL/ABG) 106 MEQ/L 100-108 N CREATININE ABG (test code = 2.9 mg/dL 0.6-1.0 H CREAABG) POC IONIZED CALCIUM (test code = 1.03 MMOL/L 1.12-1.32 L POCCA) POC GLUCOSE (test code = POCGLU) 141 MG/DL 70-110 H [id number] 17:57:00 Test Item Value Reference Range Interpretation Comments HEMOGLOBIN (test code = HGB/ABG) G/DL 11.0-15.0 [id number] 17:57:00 Test Item Value Reference Range Interpretation Comments HEMATOCRIT (test code = HCT/ABG) % 33.0-45.0 POC LACTIC [id number] 17:57:00 Test Item Value Reference Range Interpretation Comments POC LACTIC ACID (test code = 1.9 mmol/L 0.9-1.7 H POCLAC) POC ARTERIAL BLOOD [id number] 17:57:00 Test Item Value Reference Range Interpretation Comments POC ARTERIAL BLOOD GAS PH (test 7.209 7.35-7.45 LL code = POCPHA) POC ARTERIAL BLOOD GAS PCO2 51.9 mmHg 35.0-45 HH (test code = ZHDCOC3N) POC TCO2 ARTERIAL (test code = 22.5 POCTCO2) POC ARTERIAL BLOOD GAS PO2 (test 149.2 mmHg 80-100.0 H code = QNFCP5Q) POC HCO3 ARTERIAL (test code = 20.9 MMOL/L 22.0-26.0 L [id number]) POC BASE EXCESS (test code = -7.1 MMOL/L -4.0-4.0 L POCBEA) POC O2 SATURATION (test code = 98.8 % 90-100 N POCO2S) FIO2 (test code = FIO2A) 100 % PaO2/FiO2 (test code = URT3MBD2) 149.20 mm/Hg ABG DELIVERY (test code = POPEYE) Adult Vent ABG VENT MODE (test code = AC MODEA) ABG VENT RESP RATE (test code = 15 /MIN RRA) ABG TIDAL VOLUME (test code = 450 ml TVA) ABG PEEP (test code = PEEPA) 7 cmH2O ABG TEMPERATURE (test code = 97.4 F TEMPA) ABG SITE (test code = SITEA) R Radial REGLA'S TEST (test code = Positive ALLENS) BASIC METABOLIC [id number] 17:57:00 Test Item Value Reference Range Interpretation Comments SODIUM (test code = NA/ABG) 133 MEQ/L 134-147 L POTASSIUM (test code = K/ABG) 5.1 MEQ/L 3.4-5.0 H CHLORIDE (test code = CL/ABG) 106 MEQ/L 100-108 N CREATININE ABG (test code = 2.9 mg/dL 0.6-1.0 H CREAABG) POC IONIZED CALCIUM (test code = 1.03 MMOL/L 1.12-1.32 L POCCA) POC GLUCOSE (test code = POCGLU) 141 MG/DL 70-110 H [id number] 17:57:00 Test Item Value Reference Range Interpretation Comments HEMOGLOBIN (test code = HGB/ABG) 12.9 G/DL 11.0-15.0 N [id number] 17:57:00 Test Item Value Reference Range Interpretation Comments HEMATOCRIT (test code = HCT/ABG) % 33.0-45.0 POC LACTIC [id number] 17:57:00 Test Item Value Reference Range Interpretation Comments POC LACTIC ACID (test code = 1.9 mmol/L 0.9-1.7 H POCLAC) POC ARTERIAL BLOOD [id number] 17:57:00 Test Item Value Reference Range Interpretation Comments POC ARTERIAL BLOOD GAS PH (test 7.209 7.35-7.45 LL code = POCPHA) POC ARTERIAL BLOOD GAS PCO2 51.9 mmHg 35.0-45 HH (test code = IOHKSU8G) POC TCO2 ARTERIAL (test code = 22.5 POCTCO2) POC ARTERIAL BLOOD GAS PO2 (test 149.2 mmHg 80-100.0 H code = IIFXL6I) POC HCO3 ARTERIAL (test code = 20.9 MMOL/L 22.0-26.0 L [id number]) POC BASE EXCESS (test code = -7.1 MMOL/L -4.0-4.0 L POCBEA) POC O2 SATURATION (test code = 98.8 % 90-100 N POCO2S) FIO2 (test code = FIO2A) 100 % PaO2/FiO2 (test code = PNU4LWS1) 149.20 mm/Hg ABG DELIVERY (test code = POPEYE) Adult Vent ABG VENT MODE (test code = AC MODEA) ABG VENT RESP RATE (test code = 15 /MIN RRA) ABG TIDAL VOLUME (test code = 450 ml TVA) ABG PEEP (test code = PEEPA) 7 cmH2O ABG TEMPERATURE (test code = 97.4 F TEMPA) ABG SITE (test code = SITEA) R Radial REGLA'S TEST (test code = Positive ALLENS) BASIC METABOLIC [id number] 17:57:00 Test Item Value Reference Range Interpretation Comments SODIUM (test code = NA/ABG) 133 MEQ/L 134-147 L POTASSIUM (test code = K/ABG) 5.1 MEQ/L 3.4-5.0 H CHLORIDE (test code = CL/ABG) 106 MEQ/L 100-108 N CREATININE ABG (test code = 2.9 mg/dL 0.6-1.0 H CREAABG) POC IONIZED CALCIUM (test code = 1.03 MMOL/L 1.12-1.32 L POCCA) POC GLUCOSE (test code = POCGLU) 141 MG/DL 70-110 H [id number] 17:57:00 Test Item Value Reference Range Interpretation Comments HEMOGLOBIN (test code = HGB/ABG) 12.9 G/DL 11.0-15.0 N [id number] 17:57:00 Test Item Value Reference Range Interpretation Comments HEMATOCRIT (test code = HCT/ABG) 38 % 33.0-45.0 N POC LACTIC [id number] 17:57:00 Test Item Value Reference Range Interpretation Comments POC LACTIC ACID (test code = 1.9 mmol/L 0.9-1.7 H POCLAC) CBC W/O [id number] 17:56:00 Test Item Value Reference Range Interpretation Comments WHITE BLOOD CELL (test code = 14.6 x10 3/uL 4.5-11.0 H WBC) RED BLOOD CELL (test code = 4.45 x10 6/uL 3.54-5.02 N RBC) HEMOGLOBIN (test code = HGB) 12.7 g/dL 11.0-15.0 N HEMATOCRIT (test code = HCT) 42.7 % 33.0-45.0 N MEAN CELL VOLUME (test code = 96.0 fL 81.0-99.0 N MCV) MEAN CELL HGB (test code = MCH) 28.5 pg 27.0-33.0 N MEAN CELL HGB CONCETRATION 29.7 g/dL 33.0-37.0 L (test code = MCHC) RED CELL DISTRIBUTION WIDTH CV 16.6 % 11.5-14.5 H (test code = RDW) RED CELL DISTRIBUTION WIDTH SD 57.5 fL 37.0-54.0 H (test code = RDW-SD) PLATELET COUNT (test code = 233 x10 3/uL 150-400 N PLT) MEAN PLATELET VOLUME (test code 10.5 fL 7.0-9.0 H = MPV) CBC W/O [id number] 17:56:00 Test Item Value Reference Range Interpretation Comments WHITE BLOOD CELL (test code = x10 3/uL 4.5-11.0 WBC) RED BLOOD CELL (test code = RBC) x10 6/uL 3.54-5.02 HEMOGLOBIN (test code = HGB) 12.7 g/dL 11.0-15.0 N HEMATOCRIT (test code = HCT) 42.7 % 33.0-45.0 N MEAN CELL VOLUME (test code = fL 81.0-99.0 MCV) MEAN CELL HGB (test code = MCH) pg 27.0-33.0 MEAN CELL HGB CONCETRATION (test g/dL 33.0-37.0 code = MCHC) RED CELL DISTRIBUTION WIDTH CV % 11.5-14.5 (test code = RDW) PLATELET COUNT (test code = PLT) 233 x10 3/uL 150-400 N - XR CHEST 1 [id number] 17:51:00 [facility] : 1960 Sex: F FAX: Alfredo Simmons MD [phone] [place]: St: REG Name: MAKAYLA BAE [facility] : 1960 Age/S: 59/F [address] [place] [address] Unit #: [id number] Loc: [place] [address] Phys: Alfredo Fraser MD Acct: [id number] Dis Date: atus: REG ER PHONE #: [phone] Exam Date: FAX #: [phone] Reason: upper gi bleed, intubated EXAMS: CPT CODE: [id number] XR CHEST 1 V [id number] Portable single view AP chest INDICATION: Upper GI bleed. Intubated. Comparison: 04/19/2020 chest x-ray FINDI NGS: Endotracheal tube tip projects 3 cm above the jossie. Nasogastric tube tip across gastroesophageal junction over left upper quadrant of the abdomen. The cardiac mediastinal silhouette is enlarged and stable. Central pulmonary vascular congestion is present. Moderately severe dense opacification in the right lung is present with relative sparing of the periphery. The costophrenic angles are sharp. No acute bony finding is seen. IMPRESSION: Moderate severe right lung opacities consistent with pneumonia or aspiration within the right lower lobe and possibly upper lobe. SL: SG-H at 1751 Reported and signed by: Alec Tinoco M.D. CC: Alfredo Fraser MD Technologist: Jennifer Be RT(R); Veronica Monreal RT(R) Trnwvrd Date/Time/By: 10/10/2020 (1750) : By: [email or web address] Orig Print D/T: S: 10/10/2020 (1614) PAGE 1 Signed ReportBASIC METABOLIC [id number] 06:32:00 Test Item Value Reference Range Interpretation Comments SODIUM (test code = NA) 144 mmol/L 134-147 N POTASSIUM (test code = 2.9 mmol/L 3.4-5.0 LL K) CHLORIDE (test code = 110 mmol/L 100-108 H CL) CARBON DIOXIDE (test 27 mmol/L 21-32 N code = CO2) ANION GAP (test code = 7.0 GAP calc 4.0-15.0 N GAP) GLUCOSE (test code = 101 MG/DL 70-110 N GLU) BLOOD UREA NITROGEN 5 MG/DL 7-18 L (test code = BUN) GLOMERULAR FILTRATION >=60 max estimate >60 RATE (test code = GFR) estGFR CREATININE (test code = 0.3 MG/DL 0.6-1.0 L CREAT) CALCIUM (test code = CA) 8.8 MG/DL 8.5-10.1 N CBC W/AUTO [id number] 06:10:00 Test Item Value Reference Range Interpretation [...] TOTAL (test code = ALKP) CBC W/AUTO [id number] 06:27:00 Test Item Value Reference Range Interpretation [...] DIFF/SCN CRITERIA = MDIFF) - DUP EXTRACRANIAL [id number] 18:04:00 [facility] : 1960 Sex: F Name: MAKAYLA BAE [facility] : 1960 Age/S: 59 / F [address] [address] Unit #: [id number] Loc: [place] [address] Phys: Leo Brannon MD Acct: [id number] Dis Date: Status: ADM IN PHONE #: [phone] Exam Date: 04/19/2020 170 FAX #: Reason: AMS EXAMS: CPT: [id number] DUP EXTRACRANIAL RALPH [id number] Dictation location A1 Carotid Doppler Ultrasound HISTORY: [...] ultrasound. at 1804 Reported and signed by: Sarbina Bhatia M.D. CC: Danelle Brown MD; Leo Brannon MD Technologist: Mary Godinez Trnscb Date/Time: 04/19/2020 (180) FranciscoR.PXC PAGE 1 Signed Report Name: MAKAYLA BAE [facility] : 1960 Age/S: 59 / F [address] [address] Unit #: [id number] Loc: [place] [address] Phys: Leo Brannon MD Acct: [id number] Dis Date: Status: ADM IN PHONE #: [phone] Exam Date: 04/19/2020 1700 FAX #: Reason: AMS EXAMS: CPT: [id number] DUP EXTRACRANIAL RALPH [id number] <Continued> Orig Print D/T: S: 03/31 (1807) Probe: PAGE 2 Signed Report- US ABDOMEN [id number] 17:56:00[facility] : 1960 Sex: F Name: MAKAYLA BAE [facility]ly [facility] [place] : 1960 Age/S: 59 / F [address] Unit #: [id number] Loc: [place] [address] Phys: Leo Brannon MD Acct: [id number] Dis Date: Status: ADM IN PHONE #: [phone] Exam Date: 04/19/2020 1730 FAX #: Reason: elevated LFT EXAMS: CPT: [id number] US ABDOMEN COMPLETE 37786 [address] b2 Abdominal ultrasound complete: HISTORY:elevated [...] MD Technologist: Krystin Godinez Trnscb Date/Time: 04/19/2020 (1756) Roni.PX PAGE 1 Signed Report Name: MAKAYLA BAE Formerly [facility] : 1960 Age/S: 59/ F [address] Unit #: [id number] Loc: [place] [address] Phys: Leo Brannon MD Acct: [id number] Dis Date: Status: ADM IN PHONE #: [phone] Exam Date: 04/19/2020 173 FAX #: Reason: elevated LFT EXAMS: CPT: [id number] US ABDOMEN COMPLETE 73936 <Continued> Orig Print D/T: S: 04/19/2020 (248) Probe: PAGE 2 Signed Report- MRI BRAIN W/O [id number] 16:14:00 [facility] : 1960 Sex: F FAX: Danelle Rosa MD Camps: PM St: ADM FAX: Sa justin Brannon MD [phone] Name: MAKAYLA BAE [place] : 1960ge/S: 59/F [address] Unit #: [id number] Loc: [address] [place] [address] Phys: Leo Brannon MD Acct: [id number] Dis Date: Status: ADM IN PHONE #: [phone] Exam Date: 04/19/2020 1550 FAX #: Reason: AMS EXAMS: CPT: [id number] MRI BRAIN W/O CONTRAST 52417 Location: H3 MRI brain, 04/19/20 COMPARISON EXAM [...] PM St: ADM FAX: Leo Brannon MD [phone] Name: MAKAYLA BAE [facility]ly [facility] : 1960 Age/S: 59/F [address] [address] Unit #: [id number] Loc: [address] [place] [address] Phys: Leo Brannon MD Acct: [id number] Dis Date: Status: ADM IN PHONE #: [phone] Exam Date: 04/19/2020 0699 FAX #: Reason: AMS EXAMS: CPT: [id number] MRI BRAIN W/O CONTRAST 22815 <Continued> at 1614 Reported and signed by: Eliza Farnsworth M.D. CC: Danelle Brown MD; eLo Brannon MD Technologist: Robby Espinoza RT(R)(MR) Transcribed Date/Time/By: 04/19/2020 (362) :[email or web address] Orig Print D/T: S: 04/19/2020 (1006) PAGE 2 Signed [id number] 12:58:00 Test Item Value Reference Range Interpretation Comments AMMONIA (test code = AMM) 54 mcMOL/L 11-32 H PROTHROMBIN [id number] 12:45:00 Test Item Value Reference Range Interpretation Comments PT PATIENT (test code = PTP) 11.4 SECONDS 9.3-12.9 N INTERNATIONAL NORMAL RATIO 1.01 INR Unit 0.8-1.2 N (test code = INR) CBC W/AUTO [id number] 12:44:00 Test Item Value Reference Range Interpretation [...] NO DIFF/SCN CRITERIA = MDIFF) COMPREHENSIVE METABOLIC [id number] 11:36:00 Test Item Value Reference Range Interpretation [...] 45-117 N TOTAL (test code = ALKP) [id number] 11:36:00 Test Item Value Reference Range Interpretation Comments LIPASE (test code = LIP) 18 Unit/L 114-286 L [id number] 10:43:00 Test Item Value Reference Range Interpretation [...] may roopa yby method. Completed by Nursing: [id number] 05:31:00 Test Item Value Reference Range Interpretation [...] yby method. Completed by Nursing: NOBASIC METABOLIC [id number] 04:31:00 Test Item Value Reference Range Interpretation [...] 8.5-10.1 L Completed by Nursing: NOHEPATIC FUNCTION [id number] 04:31:00 Test Item Value Reference Range Interpretation [...] CK) Completed by Nursing: NONT PRO-BRAIN NATRIURETIC [id number] 04:31:00 Test Item Value Reference Range Interpretation Comments NT PRO-BRAIN NATRIURETIC PEPTI 774 PG/ML 0-100 H (test code = PROBNP) Completed by Nursing: [id number] 04:31:00 Test Item Value Reference Range Interpretation [...] yby method. Completed by Nursing: NOBASIC METABOLIC [id number] 04:25:00 Test Item Value Reference Range Interpretation [...] 8.5-10.1 L Completed by Nursing: NOHEPATIC FUNCTION [id number] 04:25:00 Test Item Value Reference Range Interpretation [...] 26-192 Completed by Nursing: NONT PRO-BRAIN NATRIURETIC [id number] 04:25:00 Test Item Value Reference Range Interpretation Comments NT PRO-BRAIN NATRIURETIC PEPTI (test PG/ML 0-100 code = PROBNP) Completed by Nursing: [id number] 04:25:00 Test Item Value Reference Range Interpretation Comments TROPONIN-I (test code = TROPI) NG/ML 0.000-0.045 Completed by Nursing: NOCBC W/O [id number] 04:14:00 Test Item Value Reference Range Interpretation [...] 7.0-10.5 H MPV) - XR CHEST 1 [id number] 04:05:00 [facility] : 1960 Sex: F Name: MAKAYLA BAE [facility]ly [facility] : 1960 Age/S: 59 / F [address] Unit #: [id number] Loc: [place] [address] Phys: Mo Rubio MD Acct: [id number] Dis Date: Status: REG ER PHONE #: [phone] Exam Date: 04/19/2020351 FAX #: Reason: post extubation EXAMS: CPT: [id number] XR CHEST 1 V 76411 Fluoro Time: DAP (Gy m2): Air Kerma [...] PAGE 1 Signed Report Name: MAKAYLA BAE [facility] : 1960 Age/S: 59 / F [address] Unit #: [id number] Loc: [place] [address] Phys: Mo Rubio MD Acct: [id number] Dis Date: Status: REG ER PHONE #: [phone] Exam Date: 04/19/2020351 FAX #: Reason: post extubation EXAMS: CPT: [id number] XR CHEST 1 V 68177 Fluoro Time: DAP (Gy m2): Air Kerma (mGy): <Tommy nued> Technologist: Misha Lagunas, RT(R)(CT) Trnscb Date/Time: 04/19/2020 (404) [email or web address] Orig Print D/T: S: 04/19/2020 (407) PAGE 2 Signed ReportCBC WITH [id number] 11:13:00 Test Item Value Reference Range Interpretation Comments WBC (test code = See_Comment [Automated 6690-2) message] The sy stem which generated this result transmitted reference range : 4.30 - 11.10 10*3/?L. The reference range was not used to interpret this result as normal/abnormal . RBC (test code = See_Comment L [Automated 789-8) message] The sy stem which generated this result transmitted reference range : 3.93 - 5.25 10*6/?L. The reference range was not used to interpret this result as normal/abnormal . HGB (test code = 7.6 g/dL 11.6-15 L 718-7) HCT (test code = 27.4 % 35.7-45.2 L 4544-3) MCV (test code = 88.7 fL 80.6-95.5 787-2) MCH (test code = 24.6 pg 25.9-32.8 L 785-6) MCHC (test code = 27.7 g/dL 31.6-35.1 L 786-4) RDW-SD (test code = 58.9 fL 39-49.9 H 21831-4) RDW-CV (test code = 19.0 % 12-15.5 H 788-0) PLT (test code = See_Comment H [Automated 777-3) message] The sy stem which generated this result transmitted reference range : 166 - 358 10*3/ ?L. The reference r nupur was not used to interpret this result as normal/abnormal . MPV (test code = 10.9 fL 9.5-12.9 26105-3) NRBC/100 WBC (test See_Comment [Automat ed code = 9076790864) message] The system which generated this result transmitted reference range : 0.0 - 10.0 /100 WBCs. The refer ence range was not u sed to interpret th is result as normal/abnormal . NRBC x10^3 (test code See_Comment [Auto mated = 3422578000) message] The s ystem which generated this result transmitted reference range : 10*3/?L. The reference range was not used to interpret this result as normal/abnormal . GRAN MAT (NEUT) % 53.6 % (test code = 770-8) IMM GRAN % (test code 2.50 % = 8489817392) LYMPH % (test code = 26.8 % 736-9) MONO % (test code = 12.8 % 5905-5) EOS % (test code = 3.3 % 713-8) BASO % (test code = 1.0 % 706-2) GRAN MAT x10^3(ANC) 4.36 10*3/uL 1.88-7.09 (test code = 6138377579) IMM GRAN x10^3 (test 0.20 10*3/uL 0-0.06 H code = 9173804908) LYMPH x10^3 (test code 2.18 10*3/uL 1.32-3.29 = 731-0) MONO x10^3 (test code 1.04 10*3/uL 0.33-0.92 H = 742-7) EOS x10^3 (test code = 0.27 10*3/uL 0.03-0.39 711-2) BASO x10^3 (test code 0.08 10*3/uL 0.01-0.07 H = 704-7) BASO STIPPLING (test Present A code = 703-9) HYPERSEG NEUTS (test Present See_Comment A [Autom ated code = 765-8) message] The s ystem which generated this result transmitted reference range : (none). The reference range was not used to interpret this result as normal/abnormal . Lab Interpretation Abnormal (test code = 62257-8) [facility] METABOLIC PANEL (NA, K, CL, CO2, GLUCOSE, BUN, CREATININE, CA)2019-01-02 11:01:00 Test Item Value Reference Range Interpretation Comments NA (test code = 139 mmol/L 135-145 4509108753) K (test code = 3.4 mmol/L 3.5-5 L 3009335496) CL (test code = 105 mmol/L 98-108 6177878679) CO2 TOTAL (test code = 26 mmol/L 23-31 0781308618) AGAP (test code = 2-16 8745814032) BUN (test code = 9 mg/dL 7-23 1658274139) GLUCOSE (test code = 104 mg/dL 70-110 5017271780) CREATININE (test code = 0.51 mg/dL 0.5-1.04 6666694755) CALCIUM (test code = 8.9 mg/dL 8.6-10.6 1998210085) eGFR Calculation mL/min/1.73m2 (Non-) (test code = 4375021963) eGFR Calculation mL/min/1.73m2 () (test code = 8784090094) RADHA (test code = RADHA) Association of Glomerular Filtration Rate (GFR) and Staging of Kidney Disease*+ + + +| GFR (mL/min/1.73 m2)?| With Kidney Damage?|?Without Kidney Damage+ --------+ --------+ +|?>90?|?S tage one?|? Normal?+ ---------+ ---------+ +|?60-89? |?Stage two?|? Decreased GFR? + --+ --+ ------+|?30-59?|?Stage three?|? Stage three? + --+ --+ ------+|?15-29?|?Stage four? |? Stage four?+ -------+ -------+ +|?<15 (or dialysis)?|?Stage five? |? Stage five?+ -------+ -------+ +*Each stage assumes the associated GFR level has been in effect for at least three months.?Stages 1 to 5, with or without kidney disease, indicate chronic kidney disease.Notes: Determination of stages one and two (with eGFR >59mL/min/1.73 m2) requires estimation of kidney damage for at least three months as defined by structural or functional abnormalities of the kidney, manifested by either:Pathological abnormalities or Markers of kidney damage (including abnormalities in the composition of the blood or urine or abnormalities in imaging tests). Lab Interpretation Abnormal (test code = 51066-3) [facility] [id number] 02:06:00 Test Item Value Reference Range Interpretation Comments WBC (test code = 6690-2) See_Comment [A utomated message] The system [employer] generated this result transmit marium reference range : 4.30 - 11.10 10*3/?L. The reference range was not used to interpret this result as normal/abnormal . RBC (test code = 789-8) See_Comment L [Au tomated message] The system [employer] generated this result transmit marium reference range : 3.93 - 5.25 10* 6/?L. The reference r nupur was not used to interpret this result as normal/abnormal . HGB (test code = 718-7) 7.4 g/dL 11.6-15 L HCT (test code = 4544-3) 26.4 % 35.7-45.2 L MCH (test code = 785-6) 24.4 pg 25.9-32.8 L MCV (test code = 787-2) 87.1 fL 80.6-95.5 MCHC (test code = 786-4) 28.0 g/dL 31.6-35.1 L PLT (test code = 777-3) See_Comment H [Au tomated message] The system [employer] generated this result transmit marium reference range : 166 - 358 10*3/?L. The reference range was not used to interpret this result as normal/abnormal . MPV (test code = 11.0 fL 9.5-12.9 07218-6) RDW-CV (test code = 18.4 % 12-15.5 H 788-0) RDW-SD (test code = 56.4 fL 39-49.9 H 27719-7) NRBC x10^3 (test code = See_Comment [Au tomated message] 2414596686) The system [employer] generated this result transmit marium reference range : 10*3/?L. The reference range was not used to interpret this result as normal/abnormal . NRBC/100 WBC (test code See_Comment [Au tomated message] = 5283311744) The system [facility] generated this result transmit marium reference range : 0.0 - 10.0 /100 WBC s. The reference r nupur was not used to interpret this result as normal/abnormal . IPF % (test code = 1.3-7.7 6457522254) Lab Interpretation (test Abnormal code = 36211-4) [facility] [id number] 22:23:00 There is hypochromic microcytic anemia with moderate anisopoikilocytosis including occasional elliptocytes and rare targets. There is a population of normochromic red cells. White blood cells are unremarkable. Platelets appear adequate. The findings are most suggestive of iron deficiency anemia, although concomitant thalassemia trait cannot be entirely excluded. Clinical correlation and correlation with other laboratory data is recommended.[facility] / [id number] 19:00:00 Test Item Value Reference Range Interpretation Comments WBC (test code = 6690-2) See_Comment [A utomated message] The system [employer] generated this result transmit marium reference range : 4.30 - 11.10 10*3/?L. The reference range was not used to interpret this result as normal/abnormal . RBC (test code = 789-8) See_Comment L [Au tomated message] The system [employer] generated this result transmit marium reference range : 3.93 - 5.25 10* 6/?L. The reference r nupur was not used to interpret this result as normal/abnormal . HGB (test code = 718-7) 8.2 g/dL 11.6-15 L HCT (test code = 4544-3) 28.2 % 35.7-45.2 L MCH (test code = 785-6) 24.8 pg 25.9-32.8 L MCV (test code = 787-2) 85.5 fL 80.6-95.5 MCHC (test code = 786-4) 29.1 g/dL 31.6-35.1 L PLT (test code = 777-3) See_Comment H [Au tomated message] The system [employer] generated this result transmit marium reference range : 166 - 358 10*3/?L. The reference range was not used to interpret this result as normal/abnormal . MPV (test code = 11.1 fL 9.5-12.9 14813-8) RDW-CV (test code = 18.2 % 12-15.5 H 788-0) RDW-SD (test code = 54.8 fL 39-49.9 H 15623-3) NRBC x10^3 (test code = See_Comment [Au tomated message] 6248159397) The system [employer] generated this result transmit marium reference range : 10*3/?L. The reference range was not used to interpret this result as normal/abnormal . NRBC/100 WBC (test code See_Comment [Au tomated message] = 0383912949) The system [employer] generated this result transmit marium reference range : 0.0 - 10.0 /100 WBC s. The reference r nupur was not used to interpret this result as normal/abnormal . IPF % (test code = 1.3-7.7 4522248153) Lab Interpretation (test Abnormal code = 24022-2) [facility] METABOLIC PANEL (NA, K, CL, CO2, GLUCOSE, BUN, CREATININE, CA)2019-01-01 11:12:00 Test Item Value Reference Range Interpretation Comments NA (test code = 141 mmol/L 135-145 8586743547) K (test code = 3.4 mmol/L 3.5-5 L 8651609752) CL (test code = 105 mmol/L 98-108 7067254137) CO2 TOTAL (test code = 26 mmol/L 23-31 9366589384) AGAP (test code = 2-16 5661931321) BUN (test code = 14 mg/dL 7-23 8733593510) GLUCOSE (test code = 114 mg/dL 70-110 H 5251794680) CREATININE (test code = 0.68 mg/dL 0.5-1.04 1536348804) CALCIUM (test code = 9.6 mg/dL 8.6-10.6 1385022767) eGFR Calculation mL/min/1.73m2 (Non-) (test code = 8077940016) eGFR Calculation mL/min/1.73m2 () (test code = 0552465270) RADHA (test code = RADHA) Association of Glomerular Filtration Rate (GFR) and Staging of Kidney Disease*+ + + +| GFR (mL/min/1.73 m2)?| With Kidney Damage?|?Without Kidney Damage+ --------+ --------+ +|?>90?|?S susane one?|? Normal?+ ---------+ ---------+ +|?60-89? |?Stage two?|? Decreased GFR? + --+ --+ ------+|?30-59?|?Stage three?|? Stage three? + --+ --+ ------+|?15-29?|?Stage four? |? Stage four?+ -------+ -------+ +|?<15 (or dialysis)?|?Stage five? |? Stage five?+ -------+ -------+ +*Each stage assumes the associated GFR level has been in effect for at least three months.?Stages 1 to 5, with or without kidney disease, indicate chronic kidney disease.Notes: Determination of stages one and two (with eGFR >59mL/min/1.73 m2) requires estimation of kidney damage for at least three months as defined by structural or functional abnormalities of the kidney, manifested by either:Pathological abnormalities or Markers of kidney damage (including abnormalities in the composition of the blood or urine or abnormalities in imaging tests). Lab Interpretation Abnormal (test code = 95459-9) [facility] WITH [id number] 10:57:00 Test Item Value Reference Range Interpretation Comments WBC (test code = See_Comment [Automated 6690-2) message] The sy stem which generated this result transmitted reference range : 4.30 - 11.10 10*3/?L. The reference range was not used to interpret this result as normal/abnormal . RBC (test code = See_Comment L [Automated 789-8) message] The sy stem which generated this result transmitted reference range : 3.93 - 5.25 10*6/?L. The reference range was not used to interpret this result as normal/abnormal . HGB (test code = 7.7 g/dL 11.6-15 L 718-7) HCT (test code = 26.4 % 35.7-45.2 L 4544-3) MCV (test code = 86.6 fL 80.6-95.5 787-2) MCH (test code = 25.2 pg 25.9-32.8 L 785-6) MCHC (test code = 29.2 g/dL 31.6-35.1 L 786-4) RDW-SD (test code = 56.9 fL 39-49.9 H 86695-7) RDW-CV (test code = 18.2 % 12-15.5 H 788-0) PLT (test code = See_Comment H [Automated 777-3) message] The sy stem which generated this result transmitted reference range : 166 - 358 10*3/ ?L. The reference r nupur was not used to interpret this result as normal/abnormal . MPV (test code = 10.8 fL 9.5-12.9 42003-8) NRBC/100 WBC (test See_Comment [Automat ed code = 7441131336) message] The system which generated this result transmitted reference range : 0.0 - 10.0 /100 WBCs. The refer ence range was not u sed to interpret th is result as normal/abnormal . NRBC x10^3 (test code See_Comment [Auto mated = 8297312020) message] The s ystem which generated this result transmitted reference range : 10*3/?L. The reference range was not used to interpret this result as normal/abnormal . GRAN MAT (NEUT) % 62.4 % (test code = 770-8) IMM GRAN % (test code 1.30 % = 9440591606) LYMPH % (test code = 22.8 % 736-9) MONO % (test code = 10.9 % 5905-5) EOS % (test code = 2.0 % 713-8) BASO % (test code = 0.6 % 706-2) GRAN MAT x10^3(ANC) 4.98 10*3/uL 1.88-7.09 (test code = 2774788593) IMM GRAN x10^3 (test 0.10 10*3/uL 0-0.06 H code = 5013631566) LYMPH x10^3 (test code 1.82 10*3/uL 1.32-3.29 = 731-0) MONO x10^3 (test code 0.87 10*3/uL 0.33-0.92 = 742-7) EOS x10^3 (test code = 0.16 10*3/uL 0.03-0.39 711-2) BASO x10^3 (test code 0.05 10*3/uL 0.01-0.07 = 704-7) Lab Interpretation Abnormal (test code = 65199-4) [facility]XR [facility] 2 [id number] 18:25:59 1.?No acute cardiopulmonary abnormality.* * * * * * * * ORIGINAL REPORT * * * * * * * *EXAM: XR CHEST 2 VW COMPARISON: None available HISTORY: Fever FINDINGS: Lines/Tubes: None. Lungs: The lungs are clear except for mild bibasilar atelectasis. Nopleural effusion or pneumothorax is identified. Heart/Mediastinum: The cardiomediastinal silhouette is normal fortechnique. Bones: No acute osseous abnormality is seen. [facility], Radiant Results Inft User - 12/31/2018 1:28 PM CDT* * * * * * * * ORIGINAL REPORT * * * * * * * *EXAM: XR CHEST 2 VWCOMPARISON: None availableHISTORY: Fever FINDINGS:Lines/Tubes: None.Lungs: The lungs are clear except for mild bibasilar atelectasis. Nopleural effusion or pneumothorax is identified.Heart/Mediastinum: The cardiomediastinal silhouette is normal fortechnique.Bones: Noacute osseous abnormality is seen.IMPRESSION1. No acute cardiopulmonary abnormality.[facility] HospitalHAPTOGLOBIN, SERUM 2018-12-31 14:10:00 Test Item Value Reference Range Interpretation Comments HAPTOGLOB (test code = 7599541133) 353 mg/dL 16-200 H Lab Interpretation (test code = Abnormal 45786-2) [facility]ABOLIC PANEL (NA, K, CL, CO2, GLUCOSE, BUN, CREATININE, CA)2018-12-31 10:30:00 Test Item Value Reference Range Interpretation Comments NA (test code = 140 mmol/L 135-145 4829290474) K (test code = 3.2 mmol/L 3.5-5 L 0237422969) CL (test code = 105 mmol/L 98-108 0353363980) CO2 TOTAL (test code = 25 mmol/L 23-31 5293724133) AGAP (test code = 2-16 4595401472) BUN (test code = 7 mg/dL 7-23 7780812436) GLUCOSE (test code = 89 mg/dL 70-110 6557238981) CREATININE (test code = 0.58 mg/dL 0.5-1.04 7918480335) CALCIUM (test code = 9.0 mg/dL 8.6-10.6 4994990439) eGFR Calculation mL/min/1.73m2 (Non-) (test code = 6118486903) eGFR Calculation mL/min/1.73m2 () (test code = 7163807169) RADHA (test code = RADHA) Association of Glomerular Filtration Rate (GFR) and Staging of Kidney Disease*+ + + +| GFR (mL/min/1.73 m2)?| With Kidney Damage?|?Without Kidney Damage+ --------+ --------+ +|?>90?|?S susane one?|? Normal?+ ---------+ ---------+ +|?60-89? |?Stage two?|? Decreased GFR? + --+ --+ ------+|?30-59?|?Stage three?|? Stage three? + --+ --+ ------+|?15-29?|?Stage four? |? Stage four?+ -------+ -------+ +|?<15 (or dialysis)?|?Stage five? |? Stage five?+ -------+ -------+ +*Each stage assumes the associated GFR level has been in effect for at least three months.?Stages 1 to 5, with or without kidney disease, indicate chronic kidney disease.Notes: Determination of stages one and two (with eGFR >59mL/min/1.73 m2) requires estimation of kidney damage for at least three months as defined by structural or functional abnormalities of the kidney, manifested by either:Pathological abnormalities or Markers of kidney damage (including abnormalities in the composition of the blood or urine or abnormalities in imaging tests). Lab Interpretation Abnormal (test code = 60367-4) [facility] HospitalMAGN[facility]IUM2019-08-04 10:30:00 Test Item Value Reference Range Interpretation Comments MAGNESIUM (test code = 6864533071) 2.1 mg/dL 1.7-2.4 Lab Interpretation (test code = Normal 75799-6) [facility] WITH [id number] 10:13:00 Test Item Value Reference Range Interpretation Comments WBC (test code = See_Comment [Automated 9190-2) message] The sy stem which generated this result transmitted reference range : 4.30 - 11.10 10*3/?L. The reference range was not used to interpret this result as normal/abnormal . RBC (test code = See_Comment L [Automated 479-8) message] The sy stem which generated this result transmitted reference range : 3.93 - 5.25 10*6/?L. The reference range was not used to interpret this result as normal/abnormal . HGB (test code = 6.9 g/dL 11.6-15 L 718-7) HCT (test code = 23.6 % 35.7-45.2 L 4544-3) MCV (test code = 84.9 fL 80.6-95.5 787-2) MCH (test code = 24.8 pg 25.9-32.8 L 785-6) MCHC (test code = 29.2 g/dL 31.6-35.1 L 786-4) RDW-SD (test code = 52.3 fL 39-49.9 H 14197-7) RDW-CV (test code = 17.2 % 12-15.5 H 788-0) PLT (test code = See_Comment H [Automated 777-3) message] The sy stem which generated this result transmitted reference range : 166 - 358 10*3/ ?L. The reference r nupur was not used to interpret this result as normal/abnormal . MPV (test code = 10.6 fL 9.5-12.9 22547-3) NRBC/100 WBC (test See_Comment [Automat ed code = 6167152806) message] The system which generated this result transmitted reference range : 0.0 - 10.0 /100 WBCs. The refer ence range was not u sed to interpret th is result as normal/abnormal . NRBC x10^3 (test code See_Comment [Auto mated = 1412457592) message] The s ystem which generated this result transmitted reference range : 10*3/?L. The reference range was not used to interpret this result as normal/abnormal . GRAN MAT (NEUT) % 59.7 % (test code = 770-8) IMM GRAN % (test code 1.60 % = 9572675244) LYMPH % (test code = 28.1 % 736-9) MONO % (test code = 9.6 % 5905-5) EOS % (test code = 0.5 % 713-8) BASO % (test code = 0.5 % 706-2) GRAN MAT x10^3(ANC) 5.00 10*3/uL 1.88-7.09 (test code = 5271533140) IMM GRAN x10^3 (test 0.13 10*3/uL 0-0.06 H code = 9413919874) LYMPH x10^3 (test code 2.35 10*3/uL 1.32-3.29 = 731-0) MONO x10^3 (test code 0.80 10*3/uL 0.33-0.92 = 742-7) EOS x10^3 (test code = 0.04 10*3/uL 0.03-0.39 711-2) BASO x10^3 (test code 0.04 10*3/uL 0.01-0.07 = 704-7) Lab Interpretation Abnormal (test code = 16046-4) [facility] HospitalRETICULOCYTES [id number] 04:09:00 Test Item Value Reference Range Interpretation Comments RETIC Count Automated 5.23 % 0.51-1.9 H (test code = 5745359011) RETIC Absolute Count See_Comment H [Autom ated message] (test code = 6000313703) The system which generated this result transmitted ref erence range: 0.0230 - 0.0950 10*6/?L. The reference range was not used to int erpret this result as normal/abnormal . IRF % (test code = 26.10 % 2.1-12.6 H 8365529026) RETIC-HE (test code = 18.5 pg 28.1-35.8 L 6196151795) Lab Interpretation (test Abnormal code = 55381-7) [facility] HospitalVITAMIN B12, [id number] 04:05:00 Test Item Value Reference Range Interpretation Comments VIT B12 (test code = >1000 240-930 H 2557906751) RADHA (test code = RADHA) Biotin has been reported to cause a positive bias, interpret results relative to patient's use of biotin. Lab Interpretation (test Abnormal code = 15565-8) [facility] HospitalFOLATE2019-08-04 03:59:00 Test Item Value Reference Range Interpretation Comments FOLATE SER (test code = 12.5 ng/mL 3-20 9736366439) Lab Interpretation (test code = Normal 46425-5) [facility] HospitalFERRITIN [id number] 03:52:00 Test Item Value Reference Range Interpretation Comments FERRITIN (test code = 6.7 ng/mL 11-264 L 4362247267) RADHA (test code = RADHA) Biotin has been reported to cause a negative bias, interpret results relative to patient's use of biotin. Lab Interpretation (test Abnormal code = 80727-7) [facility] HospitalIRON [id number] 02:59:00 Test Item Value Reference Range Interpretation Comments IRON (test code = 3511361835) 99 ug/dL 50-160 TIBC (test code = 6837853265) 454 ug/dL 250-410 H % FE SAT (test code = 9564701835) 22 % 20-50 Lab Interpretation (test code = Abnormal 81427-5) [facility] HospitalLACTATE [id number] 02:25:00 Test Item Value Reference Range Interpretation Comments LDH (test code = 3188386110) 778 U/L 300-600 H Lab Interpretation (test code = Abnormal 46590-5) [facility]EMO[facility] - 30 minutes after transfusion of each [id number] 02:00:00 Test Item Value Reference Range Interpretation Comments WBC (test code = 6690-2) See_Comment [A utomated message] The system [employer] generated this result transmit marium reference range : 4.30 - 11.10 10*3/?L. The reference range was not used to interpret this result as normal/abnormal . RBC (test code = 789-8) See_Comment L [Au tomated message] The system [employer] generated this result transmit marium reference range : 3.93 - 5.25 10* 6/?L. The reference r nupur was not used to interpret this result as normal/abnormal . HGB (test code = 718-7) 7.3 g/dL 11.6-15 L HCT (test code = 4544-3) 24.9 % 35.7-45.2 L MCH (test code = 785-6) 24.8 pg 25.9-32.8 L MCV (test code = 787-2) 84.7 fL 80.6-95.5 MCHC (test code = 786-4) 29.3 g/dL 31.6-35.1 L PLT (test code = 777-3) See_Comment H [Au tomated message] The system [employer] generated this result transmit marium reference range : 166 - 358 10*3/?L. The reference range was not used to interpret this result as normal/abnormal . MPV (test code = 11.0 fL 9.5-12.9 17346-4) RDW-CV (test code = 17.2 % 12-15.5 H 788-0) RDW-SD (test code = 52.7 fL 39-49.9 H 17286-1) NRBC x10^3 (test code = See_Comment [Au tomated message] 2780421900) The system [employer] generated this result transmit marium reference range : 10*3/?L. The reference range was not used to interpret this result as normal/abnormal . NRBC/100 WBC (test code See_Comment [Au tomated message] = 4441703217) The system [employer] generated this result transmit marium reference range : 0.0 - 10.0 /100 WBC s. The reference r nupur was not used to interpret this result as normal/abnormal . IPF % (test code = 1.3-7.7 5102441348) Lab Interpretation (test Abnormal code = 87750-0) [facility] [facility] Hospital[facility] P[facility] RBC (in units), 2 Units 2018-12-30 21:37:08 Test Item Value Reference Range Interpretation Comments Cross Match Result Compatible (test code = 4409) ISBT Blood Type Code (test code = 283988) Unit Blood Type (test O Pos code = 4410) Unit Number (test [id number] code = 4411) Blood Expiration Date & Time (test code = 564093) Status Information Issued (test code = 4412) Product Red Blood Cells Identification (test code = 4413) Product Code (test [id number] Performed at [facility] code = 4414) Laboratory Services - [facility] Blood [address] [place], [place] [id number] Free: [phone] A No. [id number] [facility] PEL[facility] W WO [id number] 20:46:57 No evidence of active GI bleed. Nonobstructing bilateral nephrolithiasis measuring 8 mm in the right and 2mm in the left. Slight mosaic attenuation pattern in the lung bases, which can be seen withsmall airways disease. Uterine fibroid. ILuis MD., have reviewed this study and agree with theabovereport.CT ABDOMEN PELVIS W WO CONTRAST HISTORY: GI bleed COMPARISON: None. TECHNIQUE: CT of theabdomen and pelvis without contrast. CT angiogram ofthe abdomen and pelvis following intravenous 150mL of Omnipaque 350without complication. Arterial, venous, and delayed venous phase imageswhere performed. Coronal and sagittal reformats were generated. DFOV 42 cm. FINDINGS: LOWER THORAX: Slight mosaic attenuation pattern is noted in the lung bases.No cardiomegaly. LIVER: No focal hepatic lesions. Normal contour. GALLBLADDER AND BILIARY TREE: No intra or extrahepatic biliary ductaldilation. The gallbladder is contracted limiting evaluation. SPLEEN: Unremarkable. PANCREAS: No ductal dilation or masses. ADRENAL GLANDS: No adrenal nodule. KIDNEYS: Bilateral nonobstructing nephrolithiasis measuring 8 mm in theright interpolar region and 2 mm in the left interpolar region. There is nohydronephrosis or renal mass. PERITONEUM AND RETROPERITONEUM: No free air or fluid collection. LYMPH NODES: No intra-abdominal or pelvic lymph node enlargement. GI TRACT: No dilation or bowel wall thickening. No areasof arterialcontrast blush or contrast pooling is seen within the bowel. PELVIS/BLADDER: Bladder is partially distended with no wall thickening. Ahypoattenuating lesion along the uterine fundus measures2.1 cm, suggestiveof a fibroid. The uterus and adnexa are otherwise unremarkable. VESSELS: Mild atherosclerotic calcification affects the iliac and femoralvessels. BONES AND SOFT TISSUES: No suspiciouslytic or sclerotic bony lesions.Transitional vertebra noted at S1. [facility], Radiant Results Inft User - 12/30/2018 3:47 PM CDTCT ABDOMEN PELVIS W WO CONTRASTHISTORY: GI bleedCOMPARISON: None.TECHNIQUE: CT of the abdomen and pelvis without contrast. CT angiogram ofthe abdomen and pelvis following intravenous 150 mL of Omnipaque 350without complication. Arterial, venous, and delayed venous phase imageswhere performed. Coronal and sagittal reformats were generated. DFOV 42 cm.FINDINGS:LOWER THORAX: Slight mosaic attenuation pattern is noted in the lung bases.No cardiomegaly.LIVER: No focal hepatic lesions. Normal contour.GALLBLADDER AND BILIARY TREE: No intra or extrahepatic biliary ductaldilation. The gallbladder is contracted limiting evaluation.SPLEEN: Unremarkable.PANCREAS: No ductal dilation or masses.ADRENAL GLANDS: No adrenal nodule.KIDNEYS: Bilateral nonobstructing nephrolithiasis measuring 8 mm in theright interpolar region and 2 mm in the left interpolar region. There is nohydronephrosis or renal mass.PERITONEUM AND RETROPERITONEUM: No free air or fluid collection.LYMPH NODES: No intra-abdominal or pelvic lymph node enlargement.GI TRACT: No dilation or bowel wall thickening. No areas of arterialcontrast blush or contrast pooling is seen within the bowel.PELVIS/BLADDER: Bladder is partially distended with no wall thickening. Ahypoattenuating lesion along the uterine fundus measures 2.1cm, suggestiveof a fibroid. The uterus and adnexa are otherwise unremarkable.VESSELS: Mild atherosclerotic calcification affects the iliac and femoralvessels.BONES AND SOFT TISSUES: No suspicious lyticor sclerotic bony lesions.Transitional vertebra noted at S1.IMPRESSIONNo evidence of active GI bleed.Nonobstructing bilateral nephrolithiasis measuring 8 mm in the right and 2mm in the left.Slight mosaic attenuation pattern in the lung bases, which can be seen withsmall airways disease.Uterine fibroid.ICeasar MD., have reviewed this study and agree with the abovereport.[facility]IRMATION 2018-12-30 19:24:02 Test Item Value Reference Range Interpretation Comments ABO & RH (test code O Positive Performe d at [facility] = 20) Laboratory Serv [facility] [address] [place] [id number] Free: [phone] A No. [id number] [facility] WITH [id number] 19:18:00 Test Item Value Reference Range Interpretation Comments WBC (test code = See_Comment [Automated 9213-2) message] The sy stem which generated this result transmitted reference range : 4.30 - 11.10 10*3/?L. The reference range was not used to interpret this result as normal/abnormal . RBC (test code = See_Comment L [Automated 186-8) message] The sy stem which generated this result transmitted reference range : 3.93 - 5.25 10*6/?L. The reference range was not used to interpret this result as normal/abnormal . HGB (test code = 5.5 g/dL 11.6-15 L 718-7) HCT (test code = 19.8 % 35.7-45.2 L 4544-3) MCV (test code = 84.6 fL 80.6-95.5 787-2) MCH (test code = 23.5 pg 25.9-32.8 L 785-6) MCHC (test code = 27.8 g/dL 31.6-35.1 L 786-4) RDW-SD (test code = 58.5 fL 39-49.9 H 93531-5) RDW-CV (test code = 19.4 % 12-15.5 H 788-0) PLT (test code = See_Comment [Automated 777-3) message] The sy stem which generated this result transmitted reference range : 166 - 358 10*3/ ?L. The reference r nupur was not used to interpret this result as normal/abnormal . MPV (test code = 11.3 fL 9.5-12.9 73219-6) NRBC/100 WBC (test See_Comment [Automat ed code = 1513915430) message] The system which generated this result transmitted reference range : 0.0 - 10.0 /100 WBCs. The refer ence range was not u sed to interpret th is result as normal/abnormal . NRBC x10^3 (test code See_Comment [Auto mated = 2722024111) message] The s ystem which generated this result transmitted reference range : 10*3/?L. The reference range was not used to interpret this result as normal/abnormal . GRAN MAT (NEUT) % 81.5 % (test code = 770-8) IMM GRAN % (test code 1.00 % = 6489928443) LYMPH % (test code = 9.5 % 736-9) MONO % (test code = 7.0 % 5905-5) EOS % (test code = 0.5 % 713-8) BASO % (test code = 0.5 % 706-2) GRAN MAT x10^3(ANC) 7.10 10*3/uL 1.88-7.09 H (test code = 0317372584) IMM GRAN x10^3 (test 0.09 10*3/uL 0-0.06 H code = 7675041190) LYMPH x10^3 (test code 0.83 10*3/uL 1.32-3.29 L = 731-0) MONO x10^3 (test code 0.61 10*3/uL 0.33-0.92 = 742-7) EOS x10^3 (test code = 0.04 10*3/uL 0.03-0.39 711-2) BASO x10^3 (test code 0.04 10*3/uL 0.01-0.07 = 704-7) Lab Interpretation Abnormal (test code = 05763-6) [facility] HospitalTHYROID STIMULATING [id number] 19:16:00 Test Item Value Reference Range Interpretation Comments TSH (test code = See_Comment [Automated message] 5370785895) The system [employer] generated this result transmitted ref erence range: 0.45 - 4 .70 mIU/L. The refe rence range was not u sed to interpret this result as normal/abnor mal. Lab Interpretation (test Normal code = 77774-5) [facility] HospitalType and Screen - ONCE [id number] 19:01:01 Test Item Value Reference Range Interpretation Comments ABO & RH (test code O Positive Performe d at [facility] = 20) Laboratory Serv [facility] [address] [place] [address] Free: [phone] A No. [id number] IAT (test code = Negative Performed a t [facility] 1185) Laboratory Serv [facility] [address] [place] [address] Free: [phone] A No. [id number] [facility] HospitalTROPONIN [id number] 18:58:00 Test Item Value Reference Range Interpretation Comments TROPONIN I (test 0.009 ng/mL See_Comment [Automated code = 5395722317) message] The system which generated this result transmitted reference range : <=0.034. The reference range was not used to interpret this result as normal/abnormal . RADHA (test code = Equal or Less than RADHA) 0.034 ng/ml---Normal?Not e: Cardiac troponin begins to rise 3-4 hours after the onset of ischemia. Repeat in 4-6 hours if the sample was drawn within 3-4 hours of the onset of the symptom and found normal. Between 0.035 and 0.120 ng/mL--- Borderline. Questionable myocardial injury or necrosis?Note: Serial measurement may be necessary to confirm or exclude the diagnosis of myocardial injury or necrosis; Clinical correlation (symptoms, EKGs, imaging studies, and others) required; Repeat in 4-6 hours if clinically indicated.? Equal or Higher than 0.121 ng/mL---Abnormal. Myocardial Injury or Necrosis Likely? Biotin has been reported to cause a negative bias, interpret results relative to patient's use of biotin.? ? Lab Interpretation Normal (test code = 32655-5) [facility] HospitalN-TERMINAL [id number] 18:55:00 Test Item Value Reference Range Interpretation Comments NT-proBNP (test code 1200 pg/mL See_Comment H [Autom ated = 8280459862) message] The system which generated this result transmitted reference range : <=125. The reference range was not used to interpret this result as normal/abnormal . RADHA (test code = RADHA) Biotin has been reported to cause a negative bias, interpret results relative to patient's use of biotin. Lab Interpretation Abnormal (test code = 99975-5) [facility] HospitalaPTT2019-08-03 18:49:00 Test Item Value Reference Range Interpretation Comments APTT Patient (test See_Comment [Automat ed code = 3173-2) message] The system which generated this result transmitted reference range : 23 - 38 Seconds . The reference range was not used to interpr et this result as normal/abnormal . RADHA (test code = RADHA) The [facility] patient population mean normal value for aPTT is 30 seconds. Lab Interpretation Normal (test code = 49874-3) [facility] HospitalPROTHROMBIN TIME / [id number] 18:47:00 Test Item Value Reference Range Interpretation Comments PROTIME PATIENT (test See_Comment [Auto mated message] code = 5964-2) The system wh ich generated this result transmitted ref erence range: 12.0 - 1 4.7 Seconds. The re ference range was not u sed to interpret this result as normal/abnor mal. INR (test code = 6301-6) Nor mal INR <1.1; Warfarin Therap eutic range 2.0 to 3. 0 or 2.5 to 3.5, dep ending upon the indica tions. Lab Interpretation (test Normal code = 44660-7) [facility] HospitalCOMP. METABOLIC PANEL (25178)2018-12-30 18:46:00 Test Item Value Reference Range Interpretation Comments NA (test code = 141 mmol/L 135-145 3729772112) K (test code = 3.7 mmol/L 3.5-5 5774502970) CL (test code = 104 mmol/L 98-108 1932177571) CO2 TOTAL (test code = 22 mmol/L 23-31 L 6651887423) AGAP (test code = 2-16 6124268575) BUN (test code = 12 mg/dL 7-23 6545668427) GLUCOSE (test code = 104 mg/dL 70-110 1706161895) CREATININE (test code = 0.56 mg/dL 0.5-1.04 9160478407) TOTAL BILI (test code = 0.5 mg/dL 0.1-1.4 5692810857) CALCIUM (test code = 8.5 mg/dL 8.6-10.6 L 7364688456) T PROTEIN (test code = 7.5 g/dL 6.3-8.2 8585168966) ALBUMIN (test code = 4.3 g/dL 3.5-5 4465675720) ALK PHOS (test code = 76 U/L 34-122 1570749059) ALT(SGPT) (test code = 14 U/L 9-51 5572681045) AST(SGOT) (test code = 31 U/L 13-40 0419466500) eGFR Calculation mL/min/1.73m2 (Non-) (test code = 8689975554) eGFR Calculation mL/min/1.73m2 () (test code = 6847346994) RADHA (test code = RADHA) Association of Glomerular Filtration Rate (GFR) and Staging of Kidney Disease*+ + + +| GFR (mL/min/1.73 m2)?| With Kidney Damage?|?Without Kidney Damage+ --------+ --------+ +|?>90?|?S susane one?|? Normal?+ ---------+ ---------+ +|?60-89? |?Stage two?|? Decreased GFR? + --+ --+ ------+|?30-59?|?Stage three?|? Stage three? + --+ --+ ------+|?15-29?|?Stage four? |? Stage four?+ -------+ -------+ +|?<15 (or dialysis)?|?Stage five? |? Stage five?+ -------+ -------+ +*Each stage assumes the associated GFR level has been in effect for at least three months.?Stages 1 to 5, with or without kidney disease, indicate chronic kidney disease.Notes: Determination of stages one and two (with eGFR >59mL/min/1.73 m2) requires estimation of kidney damage for at least three months as defined by structural or functional abnormalities of the kidney, manifested by either:Pathological abnormalities or Markers of kidney damage (including abnormalities in the composition of the blood or urine or abnormalities in imaging tests). Lab Interpretation Abnormal (test code = 95061-5) [facility] HospitalURINALYSIS2019-08-03 18:46:00 Test Item Value Reference Range Interpretation Comments APPEARANCE (test code = Clear Clear 7302983876) COLOR (test code = Yellow Yellow 9484362602) PH (test code = 4.8-8.0 9268473215) SP GRAVITY (test code = 1.003-1.030 0500614826) GLU U QUAL (test code = Negative Negative 7180433991) BLOOD (test code = Negative Negative 9386516593) KETONES (test code = Negative Negative 0139602740) PROTEIN (test code = Negative Negative 2887-8) UROBILIN (test code = 0.2 mg/dL See_Comment [Auto mated message] 8922170100) The system [employer] generated this result transmit marium reference range : 0-1.0 mg/dL. Th e reference range was not used to interpret this result as normal/abnormal . BILIRUBIN (test code = Negative Negative 7135117735) NITRITE (test code = Negative Negative 3732895788) LEUK MACARIO (test code = Negative Negative 9782811104) RBC/HPF (test code = See_Comment [Autom ated message] 2521050948) The system [employer] generated this result transmit marium reference range : 0 - 3 HPF. The refe rence range was not u sed to interpret th is result as normal/abnormal . WBC/HPF (test code = See_Comment [Autom ated message] 2489585536) The system [employer] generated this result transmit marium reference range : 0 - 5 HPF. The refe rence range was not u sed to interpret th is result as normal/abnormal . BACTERIA (test code = Few Negative A 5251010703) SQ EPITH (test code = HPF 1968406253) Lab Interpretation (test Abnormal code = 00708-1) [facility]"
--- NOTE | 2021-05-26 00:06 | ER ---
Nurse's Notes [facility] Name: Le Heath Age: 60 yrs Sex: Female : 1960 Arrival Date: 05/25/2021 Time: 20:41 Bed Waiting Private MD: Mark Hunt H Diagnosis: Presentation: 05/25 21:04 Chief complaint: Patient states: N/V/D for 1 week. Fever 100.4 at home for 2 days. Some ll1 sinus drainage. + palpitations. Coronavirus screen: Vaccine status: Patient reports receiving the 1st dose of the Covid vaccine. Client denies travel out of the [place] in the last 14 days. congestion, diarrhea, difficulty breathing, fatigue, fever, headache, muscle pain, nausea, shortness of breath, vomiting. Ebola Screen: Patient denies travel to an Ebola-affected area in the 21 days before illness onset. Initial Sepsis Screen: Does the patient meet any 2 criteria? HR > 90 bpm. No. Patient's initial sepsis screen is negative. Does the patient have a suspected source of infection? Yes: Acute abdominal pain. Risk Assessment: Do you want to hurt yourself or someone else? Patient reports no desire to harm self or others. Onset of symptoms was May 18, 2021. 21:04 Method Of Arrival: Ambulatory ll1 21:04 Acuity: MIKE 3 ll1 Historical: - Allergies: 21:04 No Known Allergies; ll1 - PMHx: 21:04 GI Bleed; Hypertension; Ulcers; ll1 - PSHx: 21:04 None; ll1 - Immunization history:: Client reports receiving the Link \T\ Link single-dose vaccine. Flu vaccine is not up to date. - Social history:: Smoking status: Patient denies any tobacco usage or history of. Vital Signs: 21:04 BP 169 / 80; Pulse 110; Resp 17; Temp 98.9; Pulse Ox 99% ; Weight 67.13 kg; Height 5 ll1 ft. 0 in. (152.40 cm); Pain 0/10; 21:04 Body Mass Index 28.90 (67.13 kg, 152.40 cm) ll1 ED Course: 20:41 Patient arrived in ED. mr 20:41 Mark Hunt DO is Private Physician. mr 21:06 Triage completed. ll1 21:06 Arm band placed on. ll1 05/26 00:01 Patient's name was called from ER lobby. No response. bb 00:05 Patient's name was called from ER lobby. No response. Unable to locate patient. Will bb disposition as left without being seen by a provider. Administered Medications: No medications were administered Outcome: 00:05 Patient left the ED. bb Signatures: Georgina Finch mr Helen Smith RN RN bb Marianne Arambula RN RN ll1 Corrections: (The following items were deleted from the chart) 05/25 21:07 21:04 Chief complaint: Patient states: N/V/D for 1 week. Fever 100.4 at home for 2 ll1 days. Some sinus drainage. ll1
[2021-05-26 00:41] VITALS: BP 169/80; TEMP 98.9; O2SAT 99
== END 2021-05-26 00:05 | disposition left against medical advice (07) ==
LOC: ER 20:38
DX: Z53.21 Procedure and treatment not carried out due to patient leaving prior to being seen by health care provider (principal)
CPT/HCPCS: 99281

== ENCOUNTER 2023-08-15 22:42 | Inpatient (IN) | payer SELFPAY ==
[2023-08-15] MEDS ORDERED: ONDANSETRON 4 MG/2 ML VIAL ONE (23:55)
[2023-08-15] MEDS ORDERED: MORPHINE 2 MG/ML SYR ONE (23:56)
[2023-08-15] MEDS ORDERED: NA CHLORIDE 0.9% 1,000 ML ONE (23:56)
[2023-08-16 00:15] LABS: Absolute Basophils 0.1 K/uL (0-0.5); Absolute Eosinophils 0.1 K/uL (0-0.5); Absolute Lymphocytes (CBC) 2.1 K/uL (0.7-4.9); Absolute Monocytes 0.6 K/uL (0.1-1.3); Absolute Neutrophil 4.5 K/uL (1.8-8.0); Basophils % 0.9 % (0-1.3); Eosinophils % 1.7 % (0-4.4); Hematocrit 27.3 % (36.0-45.0); Hemoglobin 9.1 g/dL (12.0-15.0); Lymphocytes % 28.4 % (15.3-44.8); MCH 32.3 pg (27.0-35.0); MCHC 33.5 g/dL (32.0-36.0); MCV 96.5 fL (80-100); MPV 8.6 fL (7.6-11.3); Monocytes % 7.8 % (3.3-12.3); Neutrophils % 61.2 % (41.7-73.7); Platelets 305 thou/uL (152-406); RBC Red Blood Cell Count 2.83 M/uL (3.86-4.86); Red Cell Distribution Width 14.1 % (12.1-15.2)
[2023-08-16 00:34] LABS: Albumin 3.5 g/dL (3.4-5.0); Bilirubin Total 0.2 mg/dL (0.2-1.0); Globulin 3.5 g/dL (2.3-3.5)
[2023-08-16 00:35] LABS: Specific Gravity 1.025 (1.005-1.030); Sqamous Epithelial <5 /HPF (None Seen); Urine Bacteria None Seen /HPF (<20); Urine Bilirubin NEGATIVE (Negative); Urine Blood Negative (Negative); Urine Clarity Clear (Clear); Urine Color Yellow (Yellow); Urine Culture Reflex Order NOT NEEDED; Urine Glucose NEGATIVE (Negative); Urine Ketones NEGATIVE (Negative); Urine Microscopic Reflex YN ORDER UMIC; Urine Mucus Slight /HPF (None Seen); Urine Nitrite NEGATIVE (Negative); Urine Protein NEGATIVE (Negative); Urine RBC None Seen /HPF (None Seen); Urine Urobilinogen Normal (Normal); Urine WBC <5 /HPF (<5); Urine pH 6.5 (5.0-7.0)
[2023-08-16] MEDS ORDERED: METRONIDAZOLE 500mg IVPB 500 MG/100 ML BAG IV ONE ×2 (02:42→09:49)
[2023-08-16] MEDS ORDERED: CIPROFLOXACIN 400mg IV 400 MG/200 ML BAG IV ONE ×2 (02:42→11:31)
--- NOTE | 2023-08-16 02:44 | EDPHYS ---
Physician Documentation [facility] Name: Le Heath Age: 62 yrs Sex: Female : 1960 Arrival Date: 08/15/2023 Time: 22:42 Bed 4 Private MD: ED Physician Devyn Douglas HPI: 08/14 23:25 This 62 yrs old Female presents to ER via Ambulatory with complaints of Abdominal Pain, cp Low Back Pain. 23:25 The patient presents with abdominal pain in the epigastric area, in the lower abdomen. cp 23:25 Onset: The symptoms/episode began/occurred today, about 1800. cp 23:25 The symptoms do not radiate. cp 23:25 Associated signs and symptoms: Pertinent negatives: blood in stools, constipation, cp diarrhea, fever, vomiting. Severity of pain: in the emergency department the pain is unchanged despite home interventions. pain similar to when diagnosed with perforated ulcer and stomach perforation. Historical: - Allergies: 23:08 No Known Allergies; as9 - PMHx: 23:08 GI Bleed; Hypertension; Ulcers; as9 - PSHx: 23:08 stomach surgery (Ulcers); as9 - Immunization history:: Client reports receiving the Link \T\ Link single-dose vaccine. Last tetanus immunization: unknown, Pneumococcal vaccine is not up to date, Flu vaccine is not up to date. - Social history:: Smoking status: Patient denies any tobacco usage or history of. Patient/guardian denies using alcohol, street drugs. ROS: 23:30 Constitutional: Negative for body aches, chills, fever, poor PO intake, cp 23:30 Eyes: Negative for injury, pain, redness, and discharge, cp 23:30 ENT: Negative for drainage from ear(s), ear pain, sore throat, difficulty swallowing, difficulty handling secretions, 23:30 Cardiovascular: Negative for chest pain, edema, palpitations, 23:30 Respiratory: Negative for cough, shortness of breath, wheezing, 23:30 Abdomen/GI: Positive for abdominal pain, Negative for vomiting, diarrhea, constipation, black/tarry stool, rectal bleeding, 23:30 Back: Negative for pain at rest, pain with movement, 23:30 : Negative for urinary symptoms, 23:30 Neuro: Negative for altered mental status, dizziness, headache, syncope, weakness, 23:30 All other systems are negative, Exam: 23:35 Constitutional: The patient appears in no acute distress, alert, awake, cp non-diaphoretic, non-toxic, well developed, well nourished, uncomfortable, 23:35 Head/Face: Normocephalic, atraumatic. cp 23:35 Eyes: Periorbital structures: appear normal, Conjunctiva: normal, no exudate, no injection, Sclera: no appreciated abnormality, Lids and lashes: appear normal, bilaterally, 23:35 ENT: External ear(s): are unremarkable, Nose: is normal, Mouth: Lips: moist, Oral mucosa: pink and intact, moist, Posterior pharynx: is normal, airway is patent, no erythema, no exudate, 23:35 Chest/axilla: Inspection: normal, 23:35 Cardiovascular: Rate: normal, Rhythm: regular, Edema: is not appreciated, JVD: is not appreciated, 23:35 Respiratory: the patient does not display signs of respiratory distress, Respirations: normal, no use of accessory muscles, no retractions, labored breathing, is not present, Breath sounds: are clear throughout, no decreased breath sounds, no stridor, no wheezing, 23:35 Abdomen/GI: Inspection: mid line surgical scar, Bowel sounds: active, all quadrants, Palpation: soft, in all quadrants, moderate abdominal tenderness, in the epigastric area, right lower quadrant and left lower quadrant, rebound tenderness, is not appreciated, involuntary guarding, is not appreciated, 23:35 Back: pain, is absent, ROM is normal, 23:35 Neuro: Orientation: to person, place \T\ time. Mentation: is normal, Motor: moves all fours, strength is normal, Sensation: is normal, Vital Signs: 22:48 BP 122 / 61; Pulse 65; Resp 20; Temp 98.4; Pulse Ox 96% on R/A; as9 22:50 BP 122 / 61; Pulse 55; Resp 20; Temp 98.4; Pulse Ox 96% on R/A; Weight 58.97 kg; Height as9 5 ft. 0 in. ; 23:00 BP 101 / 63; Pulse 61; Resp 20; Pulse Ox 94% on R/A; as9 23:30 BP 87 / 47; Pulse 53; Resp 20; Pulse Ox 97% on R/A; as9 08/15 00:00 BP 86 / 48; Pulse 55; Resp 18; Pulse Ox 96% on R/A; as9 00:05 BP 92 / 45; Pulse 55; Resp 18; Pulse Ox 96% on R/A; as9 00:30 BP 102 / 50; Pulse 59; Resp 20; Pulse Ox 95% on R/A; as9 02:14 BP 121 / 58; Pulse 84; Resp 20; Pulse Ox 98% on R/A; as9 04:15 BP 120 / 57; Pulse 63; Resp 20; Temp 98.2; Pulse Ox 97% on R/A; as9 03 22:50 Body Mass Index 25.39 (58.97 kg, 152.4 cm) as9 MDM: 08/14 22:48 Patient medically screened. [facility] 08/15 02:30 Data reviewed: vital signs, nurses notes, lab test result(s), radiologic studies, CT cp scan, I have discussed the patient's presentation/case with the attending Emergency Department Physician; and as a result, I will admit patient. 02:45 Management of patient was discussed with the following: Kiln Labourer: DR Griffith for general surgery consult and patient to be admitted by DR Rodriguez, hospitalist, after discussion for continued care. I considered the following discharge prescriptions or medication management in the emergency department Medications were administered in the Emergency Department. See JUL. 08/14 23:23 Order name: CBC with Diff; Complete Time: 00:35 08/15 00:36 Interpretation: Normal except: RBC 2.83; HGB 9.1; HCT 27.3. 08/14 23:23 Order name: CMP; Complete Time: 00:35 08/15 00:36 Interpretation: Normal except: GLUC 144; BUN 35; CRE 1.04; GFR 61; AST 14; A/G 1.0. 08/14 23:23 Order name: Lipase; Complete Time: 00:35 08/14 23:23 Order name: Urinalysis w/ reflexes; Complete Time: 00:35 08/15 00:36 Interpretation: Normal except: UESTR 25. 08/15 02:53 Order name: Urinalysis w/ reflexes EDMS 08/15 02:53 Order name: CBC with Automated Diff EDMS 08/15 02:53 Order name: CBC with Automated Diff EDOK 08/15 02:53 Order name: Comprehensive Metabolic Panel EDOK 08/15 02:53 Order name: Comprehensive Metabolic Panel EDOK 08/15 02:53 Order name: Comprehensive Metabolic Panel EDOK 08/15 02:53 Order name: Comprehensive Metabolic Panel EDOK 08/15 05:46 Order name: Glucose, Ancillary Testing EDMS 08/14 23:23 Order name: CT Abd/Pelvis - IV Contrast Only cp 08/14 23:23 Order name: XRAY Chest (1 view) 08/15 02:54 Order name: CONS Physician Consult EDOK 08/14 23:23 Order name: IV Saline Lock; Complete Time: 23:53 cp 08/14 23:23 Order name: Labs collected and sent; Complete Time: 23:53 cp Administered Medications: 08/14 23:30 Drug: NS 0.9% IV 1000 ml IV at 500 ml/hr Per protocol Route: IV; Rate: 500 ml/hr; Site: as9 left forearm; 08/15 01:30 Follow up: IV Status: Completed infusion; IV Intake: 1000ml as9 00:12 Drug: Ondansetron IVP 4 mg IVP once; over 2 minutes Route: IVP; Site: left forearm; as9 01:51 Follow up: Response: No adverse reaction; Marked relief of symptoms as9 02:53 Drug: metroNIDAZOLE IVPB 500 mg 100 ml IVPB once over 30 mins Volume: 100 ml; Route: rv IVPB; Infused Over: 30 mins; Site: left antecubital; 03:22 Follow up: Response: No adverse reaction; IV Status: Completed infusion; IV Intake: rv 100ml 02:54 Drug: morphine IVP or IV 2 mg IVP once over 4 mins Route: IVP; Infused Over: 4 mins; rv Site: left antecubital; 03:30 Follow up: Response: No adverse reaction; Marked relief of symptoms; Pain is decreased; as9 RASS: Alert and Calm (0) 03:22 Drug: Ciprofloxacin IVPB 400 mg 200 ml IVPB once over 60 mins Volume: 200 ml; Route: rv IVPB; Infused Over: 60 mins; Site: left antecubital; 04:41 Drug: NS 0.9% IV 1000 ml IV at 100 ml/hr continuous Route: IV; Rate: 100 ml/hr; Site: as9 left forearm; 05:37 Drug: fentaNYL (PF) IVP 25 mcg IVP once Route: IVP; Site: left forearm; as9 06:15 Follow up: Response: No adverse reaction as 06:08 CANCELLED (Duplicate Order): morphineor iv 2 mg IVP once over 4 mins rv 06:09 Drug: morphine IVP or IV 2 mg IVP once over 4 mins Route: IVP; Infused Over: 4 mins; rv Site: left antecubital; Disposition Summary: 08/16/23 02:43 Hospitalization Ordered Notes: Hospitalization Status: Inpatient Admission cp Provider: Augustine Rodriguez cp Condition: Stable cp Problem: new cp Symptoms: have improved cp Bed/Room Type: Standard cp Location: Telemetry/MedSurg (Inpatient)(08/16/23 11:28) bd Room Assignment: 410(08/16/23 11:28) bd Diagnosis - Other intestinal obstruction unspecified as to partial versus complete obstruction cp Forms: - Medication Reconciliation Form cp - SBAR form cp - Leadership Thank You Letter cp Signatures: Dispatcher [employer] EDClaudia Ansari Corey, MD MD cha Page, Corey, PA PA cp Lesa Ward RN RN cg Priyank Marquez RN RN rv Kleton Brandon RN RN as9 Corrections: (The following items were deleted from the chart) 04:07 02:43 Telemetry/MedSurg (Inpatient) cp cg 04:07 02:43 cp cg 06:08 06:08 morphine IVP or IV 2 mg IVP once over 4 mins ordered. rv rv 04:07 [facility] ER HOLD cg bd : 04:07 ERHOLD- cg bd
--- NOTE | 2023-08-16 02:44 | ER ---
Nurse's Notes [facility] Name: Le Heath Age: 62 yrs Sex: Female : 1960 Arrival Date: 08/15/2023 Time: 22:42 Bed 4 Private MD: Diagnosis: Other intestinal obstruction unspecified as to partial versus complete obstruction Presentation: 08/14 22:50 Chief complaint: Patient states: abdominal pain that radiates at the back which started as9 today at 1800H. 22:50 Coronavirus screen: Vaccine status: Patient reports receiving the 1st dose of the Covid as9 vaccine. At this time, the client does not indicate any symptoms associated with coronavirus-19. Ebola Screen: No symptoms or risks identified at this time. Initial Sepsis Screen: Does the patient meet any 2 criteria? No. Patient's initial sepsis screen is negative. Does the patient have a suspected source of infection? No. Patient's initial sepsis screen is negative. Risk Assessment: Do you want to hurt yourself or someone else? Patient reports no desire to harm self or others. Onset of symptoms was August 15, 2023. 22:50 Method Of Arrival: Ambulatory as9 22:50 Acuity: MIKE 3 as9 Triage Assessment: 23:11 General: Appears in no apparent distress. comfortable, Behavior is calm, cooperative, as9 appropriate for age. Pain: Complains of pain in abdomen Pain radiates to back Pain currently is 8 out of 10 on a pain scale. EENT: No signs and/or symptoms were reported regarding the EENT system. Neuro: Level of Consciousness is awake, alert, obeys commands, Oriented to person, place, time, situation, Appropriate for age. Cardiovascular: Capillary refill < 3 seconds Patient's skin is warm and dry. Respiratory: Airway is patent Respiratory effort is even, unlabored, Respiratory pattern is regular, symmetrical. GI: Reports upper abdominal pain. : No signs and/or symptoms were reported regarding the genitourinary system. Derm: Skin is intact, Skin is pink, warm \T\ dry. Musculoskeletal: Circulation, motion, and sensation intact. Range of motion: intact in all extremities. Historical: - Allergies: 23:08 No Known Allergies; as9 - PMHx: 23:08 GI Bleed; Hypertension; Ulcers; as9 - PSHx: 23:08 stomach surgery (Ulcers); as9 - Immunization history:: Client reports receiving the Link \T\ Link single-dose vaccine. Last tetanus immunization: unknown, Pneumococcal vaccine is not up to date, Flu vaccine is not up to date. - Social history:: Smoking status: Patient denies any tobacco usage or history of. Patient/guardian denies using alcohol, street drugs. Screenin/19 01:21 [facility] ED Fall Risk Assessment (Adult) History of falling in the last 3 months, as9 including since admission No falls in past 3 months (0 pts) Confusion or Disorientation No (0 pts) Intoxicated or Sedated No (0 pts) Impaired Gait No (0 pts) Mobility Assist Device Used No (0 pt) Altered Elimination No (0 pt) Score/Fall Risk Level 0 - 2 = Low Risk. Abuse screen: Denies threats or abuse. Nutritional screening: No deficits noted. Tuberculosis screening: No symptoms or risk factors identified. Assessment: 00:58 Reassessment: see triage assessment notes. 01:22 GI: Abd is non tender. 9 Vital Signs: 08/14 22:48 BP 122 / 61; Pulse 65; Resp 20; Temp 98.4; Pulse Ox 96% on R/A; as9 22:50 BP 122 / 61; Pulse 55; Resp 20; Temp 98.4; Pulse Ox 96% on R/A; Weight 58.97 kg; Height as9 5 ft. 0 in. ; 23:00 BP 101 / 63; Pulse 61; Resp 20; Pulse Ox 94% on R/A; as9 23:30 BP 87 / 47; Pulse 53; Resp 20; Pulse Ox 97% on R/A; as9 08/15 00:00 BP 86 / 48; Pulse 55; Resp 18; Pulse Ox 96% on R/A; as9 00:05 BP 92 / 45; Pulse 55; Resp 18; Pulse Ox 96% on R/A; as9 00:30 BP 102 / 50; Pulse 59; Resp 20; Pulse Ox 95% on R/A; as9 02:14 BP 121 / 58; Pulse 84; Resp 20; Pulse Ox 98% on R/A; as9 04:15 BP 120 / 57; Pulse 63; Resp 20; Temp 98.2; Pulse Ox 97% on R/A; as9 08/14 22:50 Body Mass Index 25.39 (58.97 kg, 152.4 cm) as9 ED Course: 08/14 22:46 Patient arrived in ED. im 22:47 Devyn Blackmon PA is PHCP. cp 22:47 Devyn Douglas MD is Attending Physician. cp 23:08 Triage completed. as9 23:53 CBC with Diff Sent. as9 23:53 CMP Sent. as9 23:53 Lipase Sent. as9 23:53 Urinalysis w/ reflexes Sent. as9 23:53 Inserted saline lock: 20 gauge in left forearm, using aseptic technique. Blood as9 collected. 08/15 00:15 XRAY Chest (1 view) In Process Unspecified. EDMS 00:55 CT Abd/Pelvis - IV Contrast Only In Process Unspecified. EDMS 00:58 Warm blanket given. as9 01:21 Arm band placed on right wrist. as9 01:21 Patient has correct armband on for positive identification. Bed in low position. Call as9 light in reach. Side rails up X 1. 02:41 Augustine Rodriguez MD is Hospitalizing Provider. cp 04:39 No provider procedures requiring assistance completed. Patient admitted, IV remains in as9 place. 04:41 Provided Education on: need for admit. as9 Administered Medications: 08/14 23:30 Drug: NS 0.9% IV 1000 ml IV at 500 ml/hr Per protocol Route: IV; Rate: 500 ml/hr; Site: as9 left forearm; 08/15 01:30 Follow up: IV Status: Completed infusion; IV Intake: 1000ml as9 00:12 Drug: Ondansetron IVP 4 mg IVP once; over 2 minutes Route: IVP; Site: left forearm; as9 01:51 Follow up: Response: No adverse reaction; Marked relief of symptoms as9 02:53 Drug: metroNIDAZOLE IVPB 500 mg 100 ml IVPB once over 30 mins Volume: 100 ml; Route: rv IVPB; Infused Over: 30 mins; Site: left antecubital; 03:22 Follow up: Response: No adverse reaction; IV Status: Completed infusion; IV Intake: rv 100ml 02:54 Drug: morphine IVP or IV 2 mg IVP once over 4 mins Route: IVP; Infused Over: 4 mins; rv Site: left antecubital; 03:30 Follow up: Response: No adverse reaction; Marked relief of symptoms; Pain is decreased; as9 RASS: Alert and Calm (0) 03:22 Drug: Ciprofloxacin IVPB 400 mg 200 ml IVPB once over 60 mins Volume: 200 ml; Route: rv IVPB; Infused Over: 60 mins; Site: left antecubital; 04:41 Drug: NS 0.9% IV 1000 ml IV at 100 ml/hr continuous Route: IV; Rate: 100 ml/hr; Site: as9 left forearm; 05:37 Drug: fentaNYL (PF) IVP 25 mcg IVP once Route: IVP; Site: left forearm; as9 06:15 Follow up: Response: No adverse reaction as9 06:08 CANCELLED (Duplicate Order): morphineor iv 2 mg IVP once over 4 mins rv 06:09 Drug: morphine IVP or IV 2 mg IVP once over 4 mins Route: IVP; Infused Over: 4 mins; rv Site: left antecubital; Medication: 01:21 VIS not applicable for this client. as9 Intake: 01:30 IV: 1000ml; Total: 1000ml. as9 03:22 IV: 100ml; Total: 1100ml. rv Outcome: 02:43 Decision to Hospitalize by Provider. cp 04:40 Admitted to ER Hold. Please see [facility] for further documentation. as9 04:40 Condition: good 04:40 Instructed on the need for admit, 13:25 Patient left the ED. ll1 Signatures: Dispatcher [employer] EDMS Devyn Blackmon PA PA cp Priyank Marquez RN RN rv Marianne Arambula RN RN ll1 Soumya Martinez Aaron RN RN as9 Corrections: (The following items were deleted from the chart) 00:37 00:36 Inserted saline lock: 20 gauge in left forearm, using aseptic technique. Blood as9 collected. as9
--- NOTE | 2023-08-16 02:50 | P.HP ---
Certification for Inpatient Patient admitted to: Inpatient With expected LOS: >2 Midnights Practitioner: I am a practitioner with admitting privileges, knowledge of patient current condition, hospital course, and medical plan of care. Services: Services provided to patient in accordance with Admission requirements found in Title 42 Section 412.3 of the Code of Federal Regulations Patient History Date of Service: 08/16/23 Reason for admission: Abdominal pain, small bowel obstruction. History of Present Illness: 63-year-old female patient with medical history significant for peptic ulceration and multiple perforation episodes involving the stoma, hypertension, hyperlipidemia was evaluated for episode of persistent abdominal pain. She was worked up in the emergency department and was found to have a CT of the abdomen/pelvis concerning for possible small bowel obstruction so she was admitted for inpatient care. She did report that she had multiple bowel motions that was soft/mushy but she denies overt episode of liquid stool, nausea, vomiting. She was started on broad-spectrum antibiotic therapy and she was put in for close observation. Allergies No Known Allergies Allergy (Verified 02/04/20 23:23) Home Medications: Acetaminophen with Codeine [Tylenol with Codeine #4 Tablet] 1 each PO Q8HP PRN 02/04/20 Ferrous Fumarate [Hemocyte] 324 mg PO DAILY 02/04/20 Tizanidine HCl [Zanaflex] 4 mg PO TID PRN 02/04/20 Amlodipine [Norvasc*] 10 mg PO DAILY #30 tab 02/09/20 Amoxicillin 500 mg PO BID #20 capsule 02/09/20 Pantoprazole [Protonix Tab] 40 mg PO BID #60 tab 02/09/20 Sucralfate [Carafate] 1 gm PO Q6H #120 tablet 02/09/20 metroNIDAZOLE [Flagyl] 500 mg PO Q12H #20 tablet 02/09/20 - Past Medical/Surgical History Diabetic: No -: Peptic ulcer disease -: Hypertension -: Perforated intestine -: c- section -: foot surgery Psychosocial/ Personal History: Lives at home with - Social History Alcohol use: No CD- Drugs: Yes Caffeine use: No Review of Systems General: Malaise Eyes: Unremarkable ENT: Unremarkable Cardiovascular: Unremarkable Gastrointestinal: Abdominal Pain, As per HPI Genitourinary: Unremarkable Musculoskeletal: Unremarkable Integumentary: Unremarkable Neurological: Unremarkable Lymphatics: Unremarkable Physical Examination - Physical Exam General: Alert, Oriented x3 HEENT: Atraumatic Neck: Supple Respiratory: Normal air movement Cardiovascular: Regular rate/rhythm, Normal S1 S2 Gastrointestinal: Tenderness Musculoskeletal: No swelling Neurological: Normal speech, Normal strength at 5/5 x4 extr - Studies Laboratory Data (last 24 hrs) 08/15/23 08/15/23 23:50 23:50 WBC 7.40 Hgb 9.1 L Hct 27.3 L Plt Count 305 Sodium 139 Potassium 5.0 BUN 35 H Creatinine 1.04 H Glucose 144 H Total Bilirubin 0.2 AST 14 L ALT 28 Alkaline Phosphatase 61 Lipase 56 Assessment and Plan - Plan Abdominal pain/gastroenteritis/small bowel obstruction: Patient has significant signs and symptoms concerning. Imaging studies also confirming small bowel obstruction. Surgeon has been consulted. Continue n.p.o. status. Will hydrate with isotonic fluid. Will continue as needed pain control with IV morphine. Continue empiric antibiotic of iv Flagyl pending further review. We will continue IV pantoprazole therapy. History of hypertension: We will monitor vital signs per unit protocol and continue outpatient antihypertensive medication if patient meets criteria. Prophylaxis: Lovenox for DVT prophylaxis CODE STATUS: Full code Disposition: We will manage her abdominal pathology and she will be discharged once cleared by surgical service. - Advance Directives Does patient have a Living Will: No Does patient have a Durable POA for Healthcare: No
[2023-08-16] MEDS: NA CHLORIDE 0.9% 1,000 ML IV SCH (03:00)
[2023-08-16] MEDS ORDERED: NA CHLORIDE 0.9% 1,000 ML ONE (04:18)
[2023-08-16 05:15] VITALS: BMI 25.4
[2023-08-16] MEDS ORDERED: FENTANYL CITR 100 MCG/2 ML ONE (05:24)
[2023-08-16] MEDS ORDERED: MORPHINE 2 MG/ML SYR ONE ×2 (06:00→09:48)
[2023-08-16] MEDS: INFLUENZA VACCINE (for 6+ mo) 0.5 ML DOSE IMVAC ONE (08:00)
[2023-08-16] MEDS: PNEUMOCOCCAL VACCINE 0.5 ML IMVAC ONE (08:00)
[2023-08-16] MEDS: ENOXAPARIN 40 MG/0.4 ML SQ SCH (09:00)
[2023-08-16] MEDS: METRONIDAZOLE 500mg IVPB 500 MG/100 ML BAG IV SCH (09:00)
[2023-08-16] MEDS: CIPROFLOXACIN 400mg IV 400 MG/200 ML BAG IV SCH (09:24)
[2023-08-16] MEDS ORDERED: ONDANSETRON 4 MG/2 ML VIAL ONE (09:48)
[2023-08-16] MEDS ORDERED: ENOXAPARIN 40 MG/0.4 ML SQ ONE (09:49)
[2023-08-16] MEDS: MORPHINE 2 MG/ML SYR IV PRN (10:08)
[2023-08-16] MEDS: ONDANSETRON 4 MG/2 ML VIAL IV PRN (10:09)
--- NOTE | 2023-08-16 14:07 | RAD REPORT ---
EXAM DESCRIPTION: CT - Abdomen Pelvis W Contrast - 08/16/2023 6:48 am CLINICAL HISTORY: ABD PAIN TECHNIQUE: Axial computed tomography images of the abdomen and pelvis with intravenous contrast. S agittal and coronal reformatted images were created and reviewed. This CT exam was performed using one or more of the following dose reduction techniques: automated exposure control, adjustment of t he mA and/or kV according to patient size, and/or use of iterative reconstruction technique. COMPARISON: CT Abdomen Pelvis dated 05/26/2021 FINDINGS: Lung bases: Bibasilar subsegmental atelectasis/pleural parenchymal scar. ABDOMEN: Liver: Unremarkable. No mass. Gallbladder and bile ducts: Unremarkable. No calcified stones. No ductal dilation. Pancreas: Unremarkable. No mass. No ductal dilation. Spleen: Unremarkable. No splenomegaly. Adrenals: Unremarkable. No mass. Kidneys and ureters: Unremarkable. Normal renal cortical enhancement bilaterally. Bilateral renal calculi. No hydronephrosis. Stomach and bowel: Interval distal gastrectomy with gastric bypass. There are multiple mildly dilat ed fluid-filled proximal jejunal loops. There is a transition at the anterior mid abdomen. The remain osbaldo of the small bowel is normal in caliber/partially decompressed. Moderate stool within the proxima l to mid large bowel. PELVIS: Appendix: The appendix is not definitively visualized. No findings to suggest acute appendicitis. Bladder: Unremarkable. No mass. Reproductive: Unremarkable as visualized. ABDOMEN and PELVIS: Intraperitoneal space: Unremarkable. No free air. No significant fluid collection. Bones/joints: No acute fracture. No dislocation. Soft tissues: Unremarkable. Vasculature: Moderate to severe atherosclerotic disease. No abdominal aortic aneurysm. Lymph nodes: Unremarkable. No enlarged lymph nodes. IMPRESSION: 1. Findings which may reflect early/partial small bowel obstruction. 2. Other findings as above. Electronically signed by: Edna Ramos MD 08/16/2023 01:26 AM CDT Due to temporary technical issues with the PACS/Fluency reporting system, reports are being signed by the in house radiologists without review as a courtesy to insure prompt reporting. The interpreting radiologist is fully responsible for the content of the report.
--- NOTE | 2023-08-16 15:35 | RAD REPORT ---
EXAM DESCRIPTION: RAD - Chest Single View - 08/16/2023 12:13 am CLINICAL HISTORY: 62-year-old female with epigastric pain. TECHNIQUE: Single view, AP portable chest was obtained. COMPARISON: None. FINDINGS: Unremarkable cardiac and mediastinal silhouette. Heart size is normal. Lungs are clear without focal opacity, pneumothorax or pleural effusions. The visualized bones are within normal limits. IMPRESSION: No acute cardiopulmonary abnormalities. Electronically signed by: Sandra Thomas MD 08/16/2023 12:27 AM CDT Due to temporary technical issues with the PACS/Fluency reporting system, reports are being signed by the in house radiologists without review as a courtesy to insure prompt reporting. The interpreting radiologist is fully responsible for the content of the report.
--- NOTE | 2023-08-16 16:13 | P.PN ---
Date of Service: 08/16/23 Patient seen and examined. History of gastric bypass surgery. She is complaining of intermittent abdominal pain. She states that she passed flatus today. She also stated last BM was yesterday in the morning. Abdomen looks benign on examination, Normal bowel sounds. CT abdomen and pelvis results reviewed. Plan: Keep n.p.o. until surgery evaluation. Repeat KUB in a.m. Serial abdominal examination Analgesics as needed. IV antibiotics. IV hydration.
[2023-08-16 16:25] VITALS: O2SAT 97
[2023-08-16] MEDS: MINERAL OIL 30 ML UCUP PO ONE ×2 (17:03→23:44)
[2023-08-16] MEDS: PANTOPRAZOLE 40 MG INJ IVP SCH (20:06)
[2023-08-16] MEDS: TRAZODONE 50 MG TABLET ONE (21:45)
--- NOTE | 2023-08-16 21:50 | P.CNS ---
Date of Consult: 08/16/23 PC: I was asked to see this 62-year-old female in regards to her abdominal pain, and possible partial bowel obstruction. HPC: Patient was out on Tuesday, drink some beers, also recently had some chicken. Began to have severe abdominal pain, felt bloated, and could not get relief. Describes the pain as being like labor pains. PSHx: Patient has had previous surgery for perforated gastric ulcer. Previous exploratory surgery for lysis of adhesions. Also hospital admissions for partial small bowel obstruction. PMHx: Negative Social Hx: No known allergies, smokes a pack of cigarettes a day. Sys R: No cough, wheeze, or shortness of breath. No chest pain or palpitations. No urinary complaints. States that she does have rather poor dentition at the moment. O/E: Awake alert comfortable at the moment vital signs are stable HEENT: Not jaundiced, no NG tube in place Chest: Chest movement equal bilaterally Abd: Abdomen is actually soft nontender no masses no guarding or rebound Eagan: Intact Data: CT scan shows stomach and small bowel full, there are some collapsed loops. Impression: Partial small bowel obstruction Plan: I feel this partial small bowel obstruction is going to clear by itself. I will give her 2 rounds of mineral oil tonight. She has been instructed on getting up ambulating. She may have clear liquids tonight. Will keep her on IV fluids, and follow her clinically.
[2023-08-16] MEDS: TRAZODONE 150 MG TAB PO SCH ×2 (21:53→21:56)
[2023-08-17 04:53] LABS: Absolute Basophils 0.1 K/uL (0-0.5); Absolute Lymphocytes (CBC) 0.9 K/uL (0.7-4.9); Absolute Monocytes 0.5 K/uL (0.1-1.3); Absolute Neutrophil 7.8 K/uL (1.8-8.0); Basophils % 0.6 % (0-1.3); Eosinophils % 0.1 % (0-4.4); Hematocrit 28.1 % (36.0-45.0); Hemoglobin 9.6 g/dL (12.0-15.0); Lymphocytes % 10.1 % (15.3-44.8); MCH 32.6 pg (27.0-35.0); MCHC 34.1 g/dL (32.0-36.0); MCV 95.7 fL (80-100); MPV 9.1 fL (7.6-11.3); Monocytes % 4.9 % (3.3-12.3); Neutrophils % 84.3 % (41.7-73.7); Platelets 298 thou/uL (152-406); RBC Red Blood Cell Count 2.94 M/uL (3.86-4.86)
[2023-08-17 05:05] LABS: Albumin 3.2 g/dL (3.4-5.0); Bilirubin Total 0.5 mg/dL (0.2-1.0); Globulin 3.3 g/dL (2.3-3.5); Protein, Total 6.5 g/dL (6.4-8.2)
[2023-08-17] MEDS: SODIUM CHLORIDE 0.9% 10ML INJ IV PRN (08:28)
--- NOTE | 2023-08-17 12:39 | RAD REPORT ---
EXAM DESCRIPTION: RAD - Abdomen 1 View (KUB) - 08/17/2023 12:01 pm CLINICAL HISTORY: Follow up bowel obstruction COMPARISON: Abdomen Pelvis W Contrast dated 08/16/2023 TECHNIQUE: Single AP view of the abdomen. FINDINGS: Persistent moderate distention of small bowel loops in the left upper quadrant. Relative p aucity of gas throughout the remainder of the small bowel. [id number] stool burden along the ascending colon. No suspicious calcifications. No significant bony abnormality. IMPRESSION: Persistent moderate left upper quadrant small bowel distention and relative paucity of g as, suggesting stable obstructive changes.
[2023-08-17] MEDS ORDERED: BISACODYL 10 MG RECTAL SUPP PR ONE (13:00)
[2023-08-17] MEDS: MINERAL OIL 30 ML UCUP PO ONE ×2 (13:13→20:46)
[2023-08-17] MEDS: BISACODYL 10 MG RECTAL SUPP PR ONE (13:13)
--- NOTE | 2023-08-17 14:55 | P.PN ---
Subjective Date of Service: 08/17/23 Chief Complaint: Abdominal pain, small bowel obstruction. Patient complaining of intermittent abdominal pain. She states that she has only been able to drink a little bit of juice and soup. She denies any flatus since yesterday and no bowel movement. Physical Examination - Vital Signs Temperature: 97.5 F Blood Pressure: 144/79 Pulse: 98 Respirations: 17 Pulse Ox (%): 93 - Physical Exam General: Alert, In no apparent distress, Oriented x3 HEENT: Mucous membr. moist/pink, Sclerae nonicteric Neck: Supple, JVD not distended Respiratory: Clear to auscultation bilaterally, Normal air movement Cardiovascular: No edema, Regular rate/rhythm, Normal S1 S2 Gastrointestinal: Normal bowel sounds, Soft and benign, Non-distended, Other (Abdomen examination is benign.) Musculoskeletal: No swelling Integumentary: No rashes, No cyanosis Neurological: Normal strength at 5/5 x4 extr Assessment And Plan - Current Problems (Diagnosis) (1) Partial small bowel obstruction Current Visit: Yes Status: Acute (2) History of GI bleed Current Visit: Yes Status: Acute (3) Chronic anemia Current Visit: Yes Status: Acute (4) History of gastric ulcer Current Visit: Yes Status: Acute (5) MEGGAN (acute kidney injury) Current Visit: No Status: Acute - Plan Abdominal pain/gastroenteritis/small bowel obstruction: Repeated imaging demonstrated persistent small bowel dilatation concerning for small bowel obstruction General surgery Dr. Griffith input appreciated. Dr. Griffith recommended medical management following and prescribed oral mineral oil and clear liquid diet. Patient stated she did not tolerate the mineral oil. She is somewhat tolerating a clear liquid diet but no BM or flatus yet Continue supportive measures with IV hydration Will continue as needed pain control with IV morphine. Continue empiric antibiotic of iv Flagyl and ciprofloxacin. We will continue IV pantoprazole therapy. General surgery to follow. MEGGAN Prerenal secondary to dehydration. MEGGAN resolved with IV hydration. History of gastric ulcer/GI bleed/chronic anemia Monitor H&H IV protonix. DVT Prophylaxis: SCD CODE STATUS: Full code
[2023-08-17] MEDS: ZOLPIDEM TARTRATE 10 MG TABLET PO ONE (20:52)
[2023-08-18 06:34] LABS: Albumin 2.7 g/dL (3.4-5.0); Albumin/Globulin Ratio 0.9 (1.1-1.8); Anion Gap 9.9 mEq/L (5.0-15.0); Bilirubin Total 0.3 mg/dL (0.2-1.0); Globulin 3.1 g/dL (2.3-3.5); Potassium 3.9 mEq/L (3.5-5.1); Protein, Total 5.8 g/dL (6.4-8.2)
[2023-08-18 06:48] LABS: Absolute Basophils 0.1 K/uL (0-0.5); Absolute Eosinophils 0.1 K/uL (0-0.5); Absolute Lymphocytes (CBC) 1.4 K/uL (0.7-4.9); Absolute Monocytes 0.7 K/uL (0.1-1.3); Absolute Neutrophil 3.6 K/uL (1.8-8.0); Eosinophils % 1.3 % (0-4.4); Lymphocytes % 23.9 % (15.3-44.8); MCHC 33.2 g/dL (32.0-36.0); MCV 96.5 fL (80-100); MPV 9.5 fL (7.6-11.3); Monocytes % 11.6 % (3.3-12.3); Neutrophils % 62.2 % (41.7-73.7); Nucleated Red Blood Cells % 0.1 % (0-0); Platelets 251 thou/uL (152-406); Red Cell Distribution Width 13.7 % (12.1-15.2)
--- NOTE | 2023-08-18 08:57 | P.DS ---
Admission Date: 08/16/23 Discharge Date: 08/18/23 Disposition: ROUTINE DISCHARGE Discharge Condition: FAIR Reason for Admission: Abdominal pain, small bowel obstruction. - Problems (1) Partial small bowel obstruction Current Visit: Yes Status: Acute (2) History of GI bleed Current Visit: Yes Status: Acute (3) Chronic anemia Current Visit: Yes Status: Acute (4) History of gastric ulcer Current Visit: Yes Status: Acute (5) MEGGAN (acute kidney injury) Current Visit: No Status: Acute Vital Signs/Physical Exam: Temp Pulse Resp BP Pulse Ox 97.6 F 60 15 129/59 L 98 08/18/23 04:00 08/18/23 04:00 08/18/23 04:00 08/18/23 04:00 08/18/23 04:00 Laboratory Data at Discharge: WBC 5.80 thou/uL (4.3-10.9) 08/18/23 05:45 Hgb 9.0 g/dL (12.0-15.0) L 08/18/23 05:45 Hct 27.0 % (36.0-45.0) L 08/18/23 05:45 Plt Count 251 thou/uL (152-406) 08/18/23 05:45 Sodium Cancelled 08/18/23 Unknown Potassium Cancelled 08/18/23 Unknown BUN Cancelled 08/18/23 Unknown Creatinine Cancelled 08/18/23 Unknown Glucose Cancelled 08/18/23 Unknown Total Bilirubin 0.3 mg/dL (0.2-1.0) 08/18/23 05:45 AST 42 U/L (15-37) H 08/18/23 05:45 ALT 55 U/L (13-56) 08/18/23 05:45 Alkaline Phosphatase 55 U/L (45-117) 08/18/23 05:45 Lipase 56 U/L (13-75) 08/15/23 23:50 Home Medications: Tizanidine HCl [Zanaflex] 4 mg PO TID PRN 02/04/20 Lisinopril [Zestril] 1 tab PO BID 08/16/23 Trazodone [Desyrel*] 2 tab PO BEDTIME 08/16/23 Zolpidem Tartrate [Zolpidem Tartrate ER] 12.5 mg PO BEDTIME 08/16/23 Physician Discharge Instructions: Advance from full liquid diet to solid as tolerated. Activity: Ad fermin Followup: Mark Hunt DO, DO [Primary Care Provider] - 1-2 Weeks
[2023-08-18 13:52] VITALS: BP 150/72; TEMP 97.8
== END 2023-08-18 10:36 | disposition home or self-care (01) | DRG 389 ==
LOC: ER 22:42 → ERHOLD 08-16 02:49 → 4TH 08-16 11:40
PROVIDERS: ADMIT Internal Medicine Nephrology; ATTEND Internal Medicine
DX: K56.600 Partial intestinal obstruction, unspecified as to cause (principal); N17.9 Acute kidney failure, unspecified; I10 Essential (primary) hypertension; E86.0 Dehydration; E78.5 Hyperlipidemia, unspecified; D64.9 Anemia, unspecified; K52.9 Noninfective gastroenteritis and colitis, unspecified; F17.210 Nicotine dependence, cigarettes, uncomplicated; Z98.84 Bariatric surgery status; Z79.899 Other long term (current) drug therapy
CPT/HCPCS: 36415; 71045; 74018; 74177; 80053; 81001; 82947; 83690; 85025; 99285; A4216; C9113; J0744; J1650; J2270; J2405; J3010; J7030; Q9967